=== PATIENT | male | born 1950 | race Caucasian/White ===

== ENCOUNTER → 2018-03-22 07:45 | Outpatient (CLI) | payer OTHER, SELFPAY ==
[2018-03-22 08:32] LABS: Add Manual Diff / Slide Review NO; Basophils Percent Auto 1.2 % (0-2); Eosinophils Percent Auto 4.5 % (2-4); Hemoglobin 13.3 g/dL (13.5-17.5); Lymphocytes Percent Auto 32.3 % (25-40); Mean Corpuscular Hemoglobin 31.2 PG (26-34); Mean Corpuscular Volume 89.2 fL (80-100); Monocytes Percent Auto 8.5 % (3-14); Neutrophils Absolute Auto 2400 /uL (3000-5900); Neutrophils Percent Auto 53.5 % (50-75); Platelet Count 213 X10^3/uL (150-400); Red Blood Cell Count 4.26 X10^6/uL (4.5-5.9); Red Cell Distribution Width 13.9 % (11.6-14.8); White Blood Cell Count 4.5 X10^3/uL (4.5-11.0)
[2018-03-22 08:49] LABS: Hemoglobin A1C% w Est Avg Glu 7.2 % (4.0-6.0)
[2018-03-22 09:29] LABS: Alanine Aminotransferase 49 IU/L (21-72); Albumin 4.8 g/dL (3.5-5.0); Albumin Globulin Ratio 1.5 (1.0-2.8); Alkaline Phosphatase 111 U/L (38-126); Aspartate Aminotransferase 51 IU/L (17-59); Bilirubin Total 0.7 mg/dL (0.2-1.3); Blood Urea Nitrogen 39 mg/dL (9-20); Calcium 10.1 mg/dL (8.4-10.2); Carbon Dioxide 31 mmol/L (22-32); Chloride 94 mmol/L (98-107); Cholesterol 222 mg/dL (140-199); Estimated Glomerular Filt Rate 54.7 mL/min (>60); Globulin 3.2 g/dL (1.7-4.1); Glucose 195 mg/dL (80-110); HDL Cholesterol 33 mg/dL (40-60); HEMOLYSIS < 15 (0-50); LDL Cholesterol Calculated 133 mg/dL (<100); Potassium 4.2 mmol/L (3.4-5.1); Sodium 138 mmol/L (137-145); Triglycerides 279 mg/dL (35-150)
[2018-03-22 09:57] LABS: Prostate Specific Antigen Scrn 2.06 ng/mL (0.1-4.0)
[2018-03-22 09:58] LABS: Thyroid Stimulating Hormone 2.77 uIU/mL (0.47-4.68)
[2018-03-22 16:16] LABS: Creatinine Urine Random 74.7 mg/dL
[2018-03-22 16:43] LABS: Microalbumi Creatinin Ratio Ur 333.3 ug/mg CR (<30); Microalbumin Urine Random 24.9 mg/dL (0-1.6)
== END ==
PROVIDERS: PCP Family Medicine; Visit Provider Family Medicine
DX: E11.9 Type 2 diabetes mellitus without complications (principal)
CPT/HCPCS: 36415; 80053; 80061; 82043; 82570; 83036; 84443; 85025; G0103

== ENCOUNTER → 2018-06-21 07:50 | Outpatient (CLI) | payer OTHER, SELFPAY ==
[2018-06-21 09:05] LABS: Hemoglobin A1C% w Est Avg Glu 7.5 % (4.0-6.0)
[2018-06-21 09:16] LABS: BUN Creatinine Ratio 26.4 (6-22); Blood Urea Nitrogen 29 mg/dL (9-20); Carbon Dioxide 30 mmol/L (22-32); Chloride 87 mmol/L (98-107); Estimated Glomerular Filt Rate > 60.0 mL/min (>60); Glucose 208 mg/dL (80-110); HEMOLYSIS < 15 (0-50); Potassium 4.2 mmol/L (3.4-5.1); Sodium 132 mmol/L (137-145)
== END ==
PROVIDERS: PCP Family Medicine; Visit Provider Family Medicine
DX: E11.9 Type 2 diabetes mellitus without complications (principal)
CPT/HCPCS: 36415; 80048; 83036

== ENCOUNTER → 2018-10-01 08:16 | Outpatient (CLI) | payer OTHER, SELFPAY ==
[2018-10-01 09:18] LABS: Hemoglobin A1C% w Est Avg Glu 8.4 % (4.0-6.0)
[2018-10-01 09:46] LABS: BUN Creatinine Ratio 18.6 (6-22); Blood Urea Nitrogen 26 mg/dL (9-20); Calcium 10.2 mg/dL (8.4-10.2); Carbon Dioxide 24 mmol/L (22-32); Chloride 88 mmol/L (98-107); Cholesterol 267 mg/dL (140-199); Estimated Glomerular Filt Rate 50.2 mL/min (>60); Glucose 246 mg/dL (80-110); HDL Cholesterol 47 mg/dL (40-60); HEMOLYSIS < 15 (0-50); LDL Cholesterol Calculated 177 mg/dL (<100); Potassium 4.5 mmol/L (3.4-5.1); Sodium 130 mmol/L (137-145); Triglycerides 216 mg/dL (35-150)
== END ==
PROVIDERS: PCP Family Medicine; Visit Provider Family Medicine
DX: E11.9 Type 2 diabetes mellitus without complications (principal)
CPT/HCPCS: 36415; 80048; 80061; 83036

== ENCOUNTER → 2018-12-06 07:24 | Outpatient (CLI) | payer OTHER, SELFPAY ==
[2018-12-06 08:55] LABS: BUN Creatinine Ratio 23.8 (6-22); Blood Urea Nitrogen 31 mg/dL (9-20); Calcium 10.1 mg/dL (8.4-10.2); Carbon Dioxide 26 mmol/L (22-32); Chloride 95 mmol/L (98-107); Estimated Glomerular Filt Rate 54.7 mL/min (>60); Glucose 143 mg/dL (80-110); HEMOLYSIS < 15 (0-50); Potassium 4.2 mmol/L (3.4-5.1); Sodium 136 mmol/L (137-145)
[2018-12-06 10:22] LABS: Creatinine Urine Random 118.9 mg/dL
[2018-12-06 11:10] LABS: Microalbumi Creatinin Ratio Ur 563.4 ug/mg CR (<30)
[2018-12-06 13:56] LABS: Hemoglobin A1C% w Est Avg Glu 6.5 % (4.0-6.0)
== END ==
PROVIDERS: PCP Family Medicine; Visit Provider Family Medicine
DX: E11.9 Type 2 diabetes mellitus without complications (principal)
CPT/HCPCS: 36415; 80048; 82043; 82570; 83036

== ENCOUNTER 2019-01-21 09:03 | Inpatient (IN) | payer OTHER, SELFPAY ==
[2019-01-21] VITALS (7 sets, daily range): BP systolic 129–151; BP diastolic 63–84; PULSE 60–76; RESP 16–20; TEMP 36.4–36.8; O2SAT 95–99; BMI 29.5
--- NOTE | 2019-01-21 11:30 | DI.RAD.S_ITS ---
PROCEDURE: XR FOOT RT MIN 3V INDICATIONS: great toe wound TECHNIQUE: 3 views of the foot were acquired. COMPARISON: None. FINDINGS: Bones: No fractures or dislocations. No suspicious bony lesions. Soft tissues: No tibiotalar joint effusion. Achilles tendon appears normal. IMPRESSION: No acute trauma or osteomyelitis found. Small vessel calcifications suggest long-standing diabetes. Dictated by: Benjamin Mina M.D. on 01/21/2019 at 11:57 Approved by: Benjamin Mina M.D. on 01/21/2019 at 11:59
--- NOTE | 2019-01-21 11:48 | PC.NURSE ---
Attempts x2 for IV start. Not successful. Call to DI for IV
--- NOTE | 2019-01-21 12:30 | ED_ITS ---
HPI - Skin/Abscess/Foreign Bdy <Brigid Cartagena, IN [employer] - Last Filed: 01/21/19 16:10> General Chief complaint: Skin/Abscess/Foreign Body Stated complaint: Infected toe Time Seen by Provider: 01/21/19 11:07 Source: patient and family Mode of arrival: ambulatory Limitations: no limitations History of Present Illness HPI narrative: The patient is a 68-year-old male with history of type 2 diabetes who presents with chief complaint of a wound to his toe. He states the initial injury was approximately 1 week ago, getting off a boat. He was evaluated in [place] yesterday given antibiotics. He was told that his toe was necrotic and might need to be amputated. The patient denies any systemic symptoms. He denies any fevers nausea vomiting or diarrhea. He states that he called his PCP office, who told him to come to the emergency department. The patient repeatedly states that he was supposed to have IV antibiotics at 10:00 a.m.. The patient requests a cheeseburger during my interview. I state that lab work will need to be completed to evaluate for elevated white blood cell counts, kidney function etc. The patient stated that he had lab work done in December. I stated that I could not find any lab work more recently had the an March in our system here. The patient stated ?this is bullshit. Records from [facility] in [place] were obtained and reviewed. Records illustrate concern for necrotic tissue, gas in soft tissue on x-ray, administration of 2 g IV ceftriaxone, 600 mg IV clindamycin, and discharging the patient with possibility of IM ceftriaxone and 600 mg p.o. clindamycin x3 doses chart review a straight the patient was offered orthopedic Special Care, as the provider was concerned about necrosis and possible amputation. However the patient declined that yesterday, elected to come back to the [place] without this offered care. Related Data Home Medications Medication Instructions Recorded Confirmed Allertec 1 tab PO PRN PRN 01/21/19 01/21/19 acetaminophen [Tylenol] 1 dose PO PRN PRN 01/21/19 01/21/19 amlodipine 10 mg PO DAILY 01/21/19 01/21/19 fluocinonide 1 applictn TOP BID PRN 01/21/19 01/21/19 glipizide 5 mg PO TID PRN 01/21/19 01/21/19 hydrocodone-acetaminophen [[place]] 1 tab PO BID PRN 01/21/19 01/21/19 multivitamin 1 tab PO DAILY 01/21/19 01/21/19 omeprazole 20 mg PO DAILY 01/21/19 01/21/19 triamterene-hydrochlorothiazid 0.5 tab PO DAILY PRN 01/21/19 01/21/19 Previous Rx's Medication Instructions Recorded losartan 50 mg PO BID #180 tab 08/16/18 gemfibrozil 600 mg tablet 600 mg PO BIDAC #270 tab 10/05/18 metformin 1,000 mg PO BID #180 tab 11/15/18 Allergies Allergy/AdvReac Type Severity Reaction Status Date / Time lisinopril [LISINOPRIL] AdvReac Unknown cough Verified 01/21/19 09:38 amlodipine AdvReac Verified 01/21/19 09:38 Review of Systems <OLIVIER Le - Last Filed: 01/21/19 16:10> Review of Systems GENERAL: Denies chills, fatigue, malaise, fever, sweats. HEENT: Denies sinus pain, ear pain, sore throat, difficulty swallowing, dizziness. RESPIRATORY: Denies dyspnea, cough, wheezing, hemoptysis, sputum. CARDIOVASCULAR: Denies chest pain, palpitations, orthopnea, edema, GASTROINTESTINAL: Denies nausea, vomiting, abdominal pain, diarrhea, consti pation, melena. : Denies dysuria, frequency, incontinence, hematuria, urinary retention. MUSCULOSKELETAL: See HPI SKIN: See HPI NEUROLOGIC: Denies weakness, headache, numbness, change in speech, confusion, seizures, incoordination. PSYCHIATRIC: No concerning psychosocial issues. 12 point review of systems is negative except for those stated above PFSH <OLIVIER Le - Last Filed: 01/21/19 16:10> Medical History Type 2 diabetes mellitus without complication (Chronic 09/22/16) Essential hypertension (Chronic 09/22/16) Mixed hyperlipidemia (Chronic 09/22/16) Peripheral vascular disease (Chronic ~1999) GERD (gastroesophageal reflux disease) (Chronic ~1989) Peripheral neuropathy (Chronic ~1994) Renal failure (Chronic 05/28/17) Carpal tunnel syndrome (Chronic ~1981) Chicken pox (Resolved) Fractures (Resolved ~2004) Measles (Resolved) Mumps (Resolved) Plantar warts (Resolved) Rubella (Resolved) Ruptured tympanic membrane (Resolved ~1977) Surgical History Anesthesia (Resolved) Status post urinary system surgery (Resolved ~1993) History of carpal tunnel repair (Inactive ~1980) Family History Mother Heart disease Hypertension Stroke Diabetes mellitus Father No problems noted. Social History household members: spouse Smoking Status: Never smoker alcohol intake: never Family History Mother Heart disease Hypertension Stroke Diabetes mellitus Father No problems noted. Social History household members: spouse Smoking Status: Never smoker alcohol intake: never Exam <OLIVIER Le - Last Filed: 01/21/19 16:10> Narrative Exam Narrative: GENERAL: This is a well-nourished, well-developed patient, no acute distress HEAD: Atraumatic. Normocephalic. No temporal or scalp tenderness. EYES: Pupils equal round and reactive. Extraocular motions intact. No scleral icterus. No injection or drainage. ENT: Nose without bleeding, purulent drainage or septal hematoma. Throat without erythema, tonsillar hypertrophy or exudate. Uvula midline. Airway patent. NECK: Trachea midline. No JVD or lymphadenopathy. Supple, nontender, no meningeal signs. CARDIOVASCULAR: Regular rate and rhythm without murmurs, gallops, or rubs. RESPIRATORY: Clear to auscultation. Breath sounds equal bilaterally. No wheezes, rales, or rhonchi. No cough. No increased respiratory effort. No accessory muscle use. GASTROINTESTINAL: Abdomen soft, non-tender, nondistended. No hepato- splenomegaly, or palpable masses. No guarding. EXTREMITIES: Right foot is warm, capillary refill intact toes 2 through 5 of right foot. Plantar service on great toe has capillary refill. Patient is able to flex and extend right great toe. No toenail noted. Black area noted 1.5 x 1 cm over the dorsal tip of the right great toe. Dry. Slight exudate noted. No spreading erythema. BACK: Nontender without deformity or crepitance. No flank tenderness. NEURO: AOx3. SKIN: See above. Initial Vital Signs Initial Vital Signs: Vital Signs Temperature 97.6 F 01/21/19 09:18 Pulse Rate 73 01/21/19 09:18 Respiratory Rate 20 01/21/19 09:18 Blood Pressure 136/63 01/21/19 09:18 Pulse Oximetry 98 01/21/19 09:18 <Brigid Mckeon DO - Last Filed: 01/21/19 19:19> Initial Vital Signs Initial Vital Signs: Vital Signs Temperature 97.6 F 01/21/19 09:18 Pulse Rate 73 01/21/19 09:18 Respiratory Rate 20 01/21/19 09:18 Blood Pressure 136/63 01/21/19 09:18 Pulse Oximetry 98 01/21/19 09:18 Course <GEMINI Le - Last Filed: 01/21/19 16:10> Orders Ordered: ED Orders 01/21/19 11:30 XR foot RT min 3V Stat 01/21/19 12:05 Wound Culture and Gram Stain Stat 01/21/19 12:29 Complete Blood Count AUTO DIFF Stat Comprehensive Metabolic Panel Stat Erythrocyte Sedimentation Rate Stat Lactate (Lactic Acid) Stat Procalcitonin Stat 01/21/19 12:52 Blood Culture Stat 01/21/19 15:26 Consult to Physician Routine Education, smoking cessation ONGOING Acetaminophen (Tylenol) 650 mg PO Q6HR PRN PRN Reason: As Needed for Fever/Mild Pain Hydrocodone Bitart/Acetaminophen ([place] 5/325) 1 tab PO Q4HR PRN PRN Reason: Pain, Moderate (4-6) Amlodipine Besylate (Norvasc) 10 mg PO DAILY [facility] Dextrose (D50w) 25 gm IV PRN PRN PRN Reason: Hypoglycemia Enoxaparin Sodium (Lovenox) 40 mg SUBCUT DAILY [facility] Gemfibrozil (Lopid) 600 mg PO BIDAC [facility] Last Admin: 01/21/19 16:27 Dose: 600 mg Glipizide (Glucotrol) 5 mg PO BIDAC [facility] Last Admin: 01/21/19 16:26 Dose: 5 mg Clindamycin Phosphate (Cleocin) 600 mg in 50 mls @ 50 mls/hr IV Q8H [facility] Ceftriaxone Sodium/Dextrose (Rocephin) 1 gm in 50 mls @ 100 mls/hr IV Q12H [facility] Last Infusion: 01/21/19 18:04 Dose: 0 mls/hr Admin: 01/21/19 17:34 Dose: 100 mls/hr Insulin Aspart (Novolog Flexpen) 0 unit SUBCUT ACHS [facility]; Protocol Last Admin: 01/21/19 16:29 Dose: Not Given Losartan Potassium (Cozaar) 50 mg PO BID [facility] Metformin HCl (Glucophage) 1,000 mg PO BIDWM [facility] Last Admin: 01/21/19 16:26 Dose: 1,000 mg Multivitamins (Tab-A-Brittnay) 1 tab PO DAILY [facility] Ondansetron HCl (Zofran) 4 mg IV Q8HR PRN PRN Reason: Nausea And Vomiting Pantoprazole Sodium (Protonix) 20 mg PO 0600 [facility] Triamterene/HCTZ (Maxide 37.5/25) 0.5 tab PO DAILY PRN PRN Reason: Edema Discontinued Medications Clindamycin Phosphate (Cleocin) 900 mg in 50 mls @ 50 mls/hr IV NOW ONE Stop: 01/21/19 14:29 Last Infusion: 01/21/19 14:25 Dose: 0 mls/hr Admin: 01/21/19 13:29 Dose: 50 mls/hr Vital Signs - 8 hr 01/21/19 12:24 01/21/19 14:49 01/21/19 14:51 Temperature Pulse Rate 63 76 60 Respiratory Rate 16 17 18 Blood Pressure 129/73 Blood Pressure [Left Arm] 151/82 H 129/73 Pulse Oximetry 98 95 96 01/21/19 16:00 Temperature 97.9 F Pulse Rate 68 Respiratory Rate 16 Blood Pressure 151/84 H Blood Pressure [Left Arm] Pulse Oximetry 98 <Brigid Mckeon, - Last Filed: 01/21/19 19:19> Orders Ordered: ED Orders 01/21/19 11:30 XR foot RT min 3V Stat 01/21/19 12:05 Wound Culture and Gram Stain Stat 01/21/19 12:29 Complete Blood Count AUTO DIFF Stat Comprehensive Metabolic Panel Stat Erythrocyte Sedimentation Rate Stat Lactate (Lactic Acid) Stat Procalcitonin Stat 01/21/19 12:52 Blood Culture Stat 01/21/19 15:26 Consult to Physician Routine Education, smoking cessation ONGOING Acetaminophen (Tylenol) 650 mg PO Q6HR PRN PRN Reason: As Needed for Fever/Mild Pain Hydrocodone Bitart/Acetaminophen ([place] 5/325) 1 tab PO Q4HR PRN PRN Reason: Pain, Moderate (4-6) Amlodipine Besylate (Norvasc) 10 mg PO DAILY [facility] Dextrose (D50w) 25 gm IV PRN PRN PRN Reason: Hypoglycemia Enoxaparin Sodium (Lovenox) 40 mg SUBCUT DAILY [facility] Gemfibrozil (Lopid) 600 mg PO BIDAC [facility] Last Admin: 01/21/19 16:27 Dose: 600 mg Glipizide (Glucotrol) 5 mg PO BIDAC [facility] Last Admin: 01/21/19 16:26 Dose: 5 mg Clindamycin Phosphate (Cleocin) 600 mg in 50 mls @ 50 mls/hr IV Q8H [facility] Ceftriaxone Sodium/Dextrose (Rocephin) 1 gm in 50 mls @ 100 mls/hr IV Q12H [facility] Last Infusion: 01/21/19 18:04 Dose: 0 mls/hr Admin: 01/21/19 17:34 Dose: 100 mls/hr Insulin Aspart (Novolog Flexpen) 0 unit SUBCUT ACHS [facility]; Protocol Last Admin: 01/21/19 16:29 Dose: Not Given Losartan Potassium (Cozaar) 50 mg PO BID [facility] Metformin HCl (Glucophage) 1,000 mg PO BIDWM [facility] Last Admin: 01/21/19 16:26 Dose: 1,000 mg Multivitamins (Tab-A-Brittany) 1 tab PO DAILY [facility] Ondansetron HCl (Zofran) 4 mg IV Q8HR PRN PRN Reason: Nausea And Vomiting Pantoprazole Sodium (Protonix) 20 mg PO 0600 [facility] Triamterene/HCTZ (Maxide 37.5/25) 0.5 tab PO DAILY PRN PRN Reason: Edema Discontinued Medications Clindamycin Phosphate (Cleocin) 900 mg in 50 mls @ 50 mls/hr IV NOW ONE Stop: 01/21/19 14:29 Last Infusion: 01/21/19 14:25 Dose: 0 mls/hr Admin: 01/21/19 13:29 Dose: 50 mls/hr Vital Signs - 8 hr 01/21/19 12:24 01/21/19 14:49 01/21/19 14:51 Temperature Pulse Rate 63 76 60 Respiratory Rate 16 17 18 Blood Pressure 129/73 Blood Pressure [Left Arm] 151/82 H 129/73 Pulse Oximetry 98 95 96 01/21/19 16:00 Temperature 97.9 F Pulse Rate 68 Respiratory Rate 16 Blood Pressure 151/84 H Blood Pressure [Left Arm] Pulse Oximetry 98 MDM - Skin/Abscess/Foreign Bdy <Brigid Cartagena, AGUSTÍN-BC - Last Filed: 01/21/19 16:10> Lab Data Result diagrams: 01/21/19 12:29 01/21/19 12:29 Lab Results 01/21/19 01/21/19 01/21/19 Range/Units 12:29 12:29 12:29 WBC 6.8 (4.5-11.0) X10^3/uL RBC 4.07 L (4.5-5.9) X10^6/uL Hgb 12.6 L (13.5-17.5) g/dL Hct 35.6 L (41-53) % MCV 87.3 (80-100) fL MCH 30.9 (26-34) PG MCHC 35.4 (30-36) % RDW 13.0 (11.6-14.8) % Plt Count 305 (150-400) X10^3/uL Neut % (Auto) 66.5 (50-75) % Lymph % (Auto) 23.6 L (25-40) % [place] % (Auto) 7.6 (3-14) % Eos % (Auto) 1.6 L (2-4) % Baso % (Auto) 0.7 (0-2) % Neut # (Auto) 4500 (3355-1796) /uL Lymph # (Auto) 1600 (6904-2401) /uL [place] # (Auto) 500 (0-900) /uL Eos # (Auto) 100 (0-450) /uL Baso # (Auto) 0 (0-100) /uL ESR 81 H (0-15) MM/HR Sodium 128 L (137-145) mmol/L Potassium 4.4 (3.4-5.1) mmol/L Chloride 87 L (98-107) mmol/L Carbon Dioxide 29 (22-32) mmol/L BUN 31 H (9-20) mg/dL Creatinine 1.30 H (0.66-1.25) mg/dL Estimated GFR 54.7 L (>60) mL/min BUN/Creatinine Ratio 23.8 H (6-22) Glucose 178 H (80-110) mg/dL Lactate (0.7-2.1) mmol/L Calcium 9.9 (8.4-10.2) mg/dL Total Bilirubin 0.5 (0.2-1.3) mg/dL AST 32 (17-59) IU/L ALT 27 (21-72) IU/L Alkaline Phosphatase 131 H (38-126) U/L Total Protein 7.9 (6.3-8.2) g/dL Albumin 4.4 (3.5-5.0) g/dL Globulin 3.5 (1.7-4.1) g/dL Albumin/Globulin Ratio 1.3 (1.0-2.8) Procalcitonin 0.15 (<0.5) ng/mL 01/21/19 Range/Units 12:29 WBC (4.5-11.0) X10^3/uL RBC (4.5-5.9) X10^6/uL Hgb (13.5-17.5) g/dL Hct (41-53) % MCV (80-100) fL MCH (26-34) PG MCHC (30-36) % RDW (11.6-14.8) % Plt Count (150-400) X10^3/uL Neut % (Auto) (50-75) % Lymph % (Auto) (25-40) % [place] % (Auto) (3-14) % Eos % (Auto) (2-4) % Baso % (Auto) (0-2) % Neut # (Auto) (6835-4592) /uL Lymph # (Auto) (3719-5702) /uL [place] # (Auto) (0-900) /uL Eos # (Auto) (0-450) /uL Baso # (Auto) (0-100) /uL ESR (0-15) MM/HR Sodium (137-145) mmol/L Potassium (3.4-5.1) mmol/L Chloride (98-107) mmol/L Carbon Dioxide (22-32) mmol/L BUN (9-20) mg/dL Creatinine (0.66-1.25) mg/dL Estimated GFR (>60) mL/min BUN/Creatinine Ratio (6-22) Glucose (80-110) mg/dL Lactate 1.6 (0.7-2.1) mmol/L Calcium (8.4-10.2) mg/dL Total Bilirubin (0.2-1.3) mg/dL AST (17-59) IU/L ALT (21-72) IU/L Alkaline Phosphatase (38-126) U/L Total Protein (6.3-8.2) g/dL Albumin (3.5-5.0) g/dL Globulin (1.7-4.1) g/dL Albumin/Globulin Ratio (1.0-2.8) Procalcitonin (<0.5) ng/mL Point of Care Testing Glucose POC 178 Imaging Data Foot x-ray: Radiologist's impression: [address] [address] XRay Report Signed Patient: Conor Kilgore [facility]#: [id number] : 9Acct:[id number] Age/Sex: 68 / MDate of Service: 01/21/19 Loc: ED Accession Number: [id number] Procedure: XR foot RT min 3V Ordering Provider: Brigid Cartagena- PROCEDURE: XR FOOT RT MIN 3V INDICATIONS: great toe wound TECHNIQUE: 3 views of the foot were acquired. COMPARISON: None. FINDINGS: Bones: No fractures or dislocations. No suspicious bony lesions. Soft tissues: No tibiotalar joint effusion. Achilles tendon appears normal. IMPRESSION: No acute trauma or osteomyelitis found. Small vessel calcifications suggest long-standing diabetes. Dictated by: Benjamin Mina M.D. on 01/21/2019 at 11:57 Approved by: Benjamin Mina M.D. on 01/21/2019 at 11:59 MDM Narrative Medical decision making narrative: The patient is a 68-year-old male with history of diabetes who presents with a wound on his right great toe. His toe appears to have eschar and necrosis. Given the patient's presentation, I obtained a CBC, lactate procalcitonin, CMP and blood cultures. His lactate and procalcitonin came back normal. His ESR came back elevated. Think given the nature of the patient, I consulted Dr. chen from Orthopedics at approximately 1:30 p.m.. The doctor gustavo came by to evaluate the patient, requested he be admitted to Medicine for IV antibiotics. I continued the clindamycin that was ordered in [place]. I contacted Dr. Bernard, who is kind enough to admit the patient to inpatient service for IV antibiotics with Dr. chen following the patient. Patient stated no questions or concerns and stated understanding of his admission. He was hemodynamically stable and afebrile throughout his stay in the ER. <Brigid Mckeon, DO - Last Filed: 01/21/19 19:19> Lab Data Attestation: I reviewed the patient's lab results. Lab Results 01/21/19 01/21/19 01/21/19 Range/Units 12:29 12:29 12:29 WBC 6.8 (4.5-11.0) X10^3/uL RBC 4.07 L (4.5-5.9) X10^6/uL Hgb 12.6 L (13.5-17.5) g/dL Hct 35.6 L (41-53) % MCV 87.3 (80-100) fL MCH 30.9 (26-34) PG MCHC 35.4 (30-36) % RDW 13.0 (11.6-14.8) % Plt Count 305 (150-400) X10^3/uL Neut % (Auto) 66.5 (50-75) % Lymph % (Auto) 23.6 L (25-40) % [place] % (Auto) 7.6 (3-14) % Eos % (Auto) 1.6 L (2-4) % Baso % (Auto) 0.7 (0-2) % Neut # (Auto) 4500 (2002-4276) /uL Lymph # (Auto) 1600 (5983-5854) /uL [place] # (Auto) 500 (0-900) /uL Eos # (Auto) 100 (0-450) /uL Baso # (Auto) 0 (0-100) /uL ESR 81 H (0-15) MM/HR Sodium 128 L (137-145) mmol/L Potassium 4.4 (3.4-5.1) mmol/L Chloride 87 L (98-107) mmol/L Carbon Dioxide 29 (22-32) mmol/L BUN 31 H (9-20) mg/dL Creatinine 1.30 H (0.66-1.25) mg/dL Estimated GFR 54.7 L (>60) mL/min BUN/Creatinine Ratio 23.8 H (6-22) Glucose 178 H (80-110) mg/dL Lactate (0.7-2.1) mmol/L Calcium 9.9 (8.4-10.2) mg/dL Total Bilirubin 0.5 (0.2-1.3) mg/dL AST 32 (17-59) IU/L ALT 27 (21-72) IU/L Alkaline Phosphatase 131 H (38-126) U/L Total Protein 7.9 (6.3-8.2) g/dL Albumin 4.4 (3.5-5.0) g/dL Globulin 3.5 (1.7-4.1) g/dL Albumin/Globulin Ratio 1.3 (1.0-2.8) Procalcitonin 0.15 (<0.5) ng/mL 01/21/19 Range/Units 12:29 WBC (4.5-11.0) X10^3/uL RBC (4.5-5.9) X10^6/uL Hgb (13.5-17.5) g/dL Hct (41-53) % MCV (80-100) fL MCH (26-34) PG MCHC (30-36) % RDW (11.6-14.8) % Plt Count (150-400) X10^3/uL Neut % (Auto) (50-75) % Lymph % (Auto) (25-40) % [place] % (Auto) (3-14) % Eos % (Auto) (2-4) % Baso % (Auto) (0-2) % Neut # (Auto) (7266-3913) /uL Lymph # (Auto) (8412-8533) /uL [place] # (Auto) (0-900) /uL Eos # (Auto) (0-450) /uL Baso # (Auto) (0-100) /uL ESR (0-15) MM/HR Sodium (137-145) mmol/L Potassium (3.4-5.1) mmol/L Chloride (98-107) mmol/L Carbon Dioxide (22-32) mmol/L BUN (9-20) mg/dL Creatinine (0.66-1.25) mg/dL Estimated GFR (>60) mL/min BUN/Creatinine Ratio (6-22) Glucose (80-110) mg/dL Lactate 1.6 (0.7-2.1) mmol/L Calcium (8.4-10.2) mg/dL Total Bilirubin (0.2-1.3) mg/dL AST (17-59) IU/L ALT (21-72) IU/L Alkaline Phosphatase (38-126) U/L Total Protein (6.3-8.2) g/dL Albumin (3.5-5.0) g/dL Globulin (1.7-4.1) g/dL Albumin/Globulin Ratio (1.0-2.8) Procalcitonin (<0.5) ng/mL Point of Care Testing Glucose POC 178 Discharge Plan Departure Patient Disposition: Admitted As Inpatient Clinical Impression: Diabetic toe ulcer Qualifiers: Diabetes mellitus type: type 2 Laterality: right Non-pressure ulcer stage: with necrosis of muscle Qualified Code(s): E11.621 - Type 2 diabetes mellitus with foot ulcer Discharge Date/Time: 01/21/19 14:52 Interventions: ED Discharge Assessment Last Done: 01/21/19 14:51 Admit Date/Time: 01/21/19 14:24 Admit Provider: David Bernard <Brigid Mckeon DO - Last Filed: 01/21/19 19:19> Cosign ED Attending Cosignature Attestation: I was immediately available in the department for consultation, case was discussed. Patient was evaluated by myself. Case was also also discussed to Dr. Arshad he defers antibiotic choices to Medicine. This documentation has been reviewed and I agree with assessment and plan. Supervised by Brigid Mckeon DO
[2019-01-21 12:45] LABS: Add Manual Diff / Slide Review NO; Basophils Absolute Auto 0 /uL (0-100); Basophils Percent Auto 0.7 % (0-2); Eosinophils Absolute Auto 100 /uL (0-450); Eosinophils Percent Auto 1.6 % (2-4); Hematocrit 35.6 % (41-53); Hemoglobin 12.6 g/dL (13.5-17.5); Lymphocytes Absolute Auto 1600 /uL (1100-4500); Lymphocytes Percent Auto 23.6 % (25-40); Mean Corpuscular HGB Conc 35.4 % (30-36); Mean Corpuscular Hemoglobin 30.9 PG (26-34); Mean Corpuscular Volume 87.3 fL (80-100); Monocytes Absolute Auto 500 /uL (0-900); Monocytes Percent Auto 7.6 % (3-14); Neutrophils Absolute Auto 4500 /uL (1500-7000); Neutrophils Percent Auto 66.5 % (50-75); Platelet Count 305 X10^3/uL (150-400); Red Blood Cell Count 4.07 X10^6/uL (4.5-5.9); White Blood Cell Count 6.8 X10^3/uL (4.5-11.0)
[2019-01-21 12:54] LABS: Lactate (Lactic Acid) 1.6 mmol/L (0.7-2.1)
[2019-01-21 12:55] LABS: Alanine Aminotransferase 27 IU/L (21-72); Albumin 4.4 g/dL (3.5-5.0); Albumin Globulin Ratio 1.3 (1.0-2.8); Alkaline Phosphatase 131 U/L (38-126); Aspartate Aminotransferase 32 IU/L (17-59); BUN Creatinine Ratio 23.8 (6-22); Bilirubin Total 0.5 mg/dL (0.2-1.3); Blood Urea Nitrogen 31 mg/dL (9-20); Calcium 9.9 mg/dL (8.4-10.2); Carbon Dioxide 29 mmol/L (22-32); Chloride 87 mmol/L (98-107); Estimated Glomerular Filt Rate 54.7 mL/min (>60); Globulin 3.5 g/dL (1.7-4.1); Glucose 178 mg/dL (80-110); HEMOLYSIS < 15 (0-50); Potassium 4.4 mmol/L (3.4-5.1); Sodium 128 mmol/L (137-145); Total Protein 7.9 g/dL (6.3-8.2)
[2019-01-21 13:03] LABS: Erythrocyte Sedimentation Rate 81 MM/HR (0-15)
[2019-01-21 13:12] LABS: Procalcitonin 0.15 ng/mL (<0.5)
[2019-01-21] MEDS: CLINDAMYCIN 900 MG/50 ML PIGGYBACK 50 MG IV (13:29)
--- NOTE | 2019-01-21 14:08 | PM.CN ---
History of Present Illness Date Patient Seen: 01/21/19 Time Patient Seen: 14:09 Chief complaint: Infected toe Reason for consult: Right great toe infection Requesting provider: Brigid Cartagena Narrative: 68-year-old male with a right great toe infection. He has a history of [id number] diabetes. He was getting off of boat and scraped his toe 1 week ago. He reports that it was swollen and red and had some yellowish drainage all week. Yesterday the toenail fell off. They were in [place] and he went into an emergency room in [place] yesterday where there was a concern for gangrene and need for amputation. They put him on a dose of IV antibiotics and the patient and family drove home to get local care. He denies any fever or chills. He denies any pain from this area. He does have some slight decreased sensation from peripheral neuropathy but enough that he feels pain normally, and is surprised that it is not painful at all. [facility] Medical History Carpal tunnel syndrome (Chronic ~1981) Diabetes mellitus (Chronic ~2008) Fractures (Chronic ~2004) GERD (gastroesophageal reflux disease) (Chronic ~1989) Hypertension (Chronic ~2005) Low testosterone (Chronic ~1999) Peripheral neuropathy (Chronic ~1994) Peripheral vascular disease (Chronic ~1999) Chicken pox (Resolved) Measles (Resolved) Mumps (Resolved) Plantar warts (Resolved) Rubella (Resolved) Ruptured tympanic membrane (Resolved ~1977) Surgical History Anesthesia (Resolved) Status post urinary system surgery (Resolved ~1993) History of carpal tunnel repair (~1980) Family History (Updated 03/24/18 @ 09:00 by Clarisa Wilkerson) Mother Heart disease Hypertension Stroke Diabetes mellitus Father No problems noted. Social History Smoking Status: Never smoker Family History Mother Heart disease Hypertension Stroke Diabetes mellitus Father No problems noted. 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 [facility] Medications Medication Instructions Recorded Confirmed Type losartan 50 mg PO BID #180 tab 08/16/18 01/21/19 Rx gemfibrozil 600 mg tablet 600 mg PO BIDAC #270 tab 10/05/18 01/21/19 Rx metformin 1,000 mg PO BID #180 tab 11/15/18 01/21/19 Rx Allertec 1 tab PO PRN PRN 01/21/19 01/21/19 History acetaminophen [Tylenol] 1 dose PO PRN PRN 01/21/19 01/21/19 History amlodipine 10 mg PO DAILY 01/21/19 01/21/19 History fluocinonide 1 applictn TOP BID PRN 01/21/19 01/21/19 History glipizide 5 mg PO TID PRN 01/21/19 01/21/19 History hydrocodone-acetaminophen [[place]] 1 tab PO BID PRN 01/21/19 01/21/19 History multivitamin 1 tab PO DAILY 01/21/19 01/21/19 History omeprazole 20 mg PO DAILY 01/21/19 01/21/19 History triamterene-hydrochlorothiazid 0.5 tab PO DAILY PRN 01/21/19 01/21/19 History Allergies Allergy/AdvReac Type Severity Reaction Status Date / Time lisinopril [LISINOPRIL] AdvReac Unknown cough Verified 01/21/19 09:38 amlodipine AdvReac Verified 01/21/19 09:38 Review of Systems Constitutional Constitutional: Denies chills and Denies fever(s) Cardiovascular Cardiovascular: Denies chest pain Respiratory Respiratory: Denies cough and Denies wheezing Gastrointestinal Gastrointestinal: Denies abdominal pain Hematologic/Lymphatic Hematologic/Lymphatic: Denies easy bleeding Allergic/Immunologic Allergic/Immunologic: Denies wheezing Exam Vital Signs (past 8 hours): - 01/21/19 09:18 01/21/19 12:24 Temperature 97.6 F Pulse Rate 73 63 Respiratory Rate 20 16 Blood Pressure 136/63 Blood Pressure [Left Arm] 151/82 H Pulse Oximetry 98 98 Oxygen Delivery Method Room Air Const Orientation: alert and oriented x3 Resp Auscultation: clear to auscultation bilaterally Cardio Rate: regular rate Rhythm: regular rhythm Extrem Other: Right foot has a nonpalpable pulse but excellent capillary refill in all the toes including the plantar surface of the great toe. He can easily wiggle his great toe up and down without any pain. The toenail has come off and there is some erythema and slight yellowish clear drainage. 8 x 15 mm black and skin over the lateral half of the dorsal tip of the toe. Consistent with dry gangrene. Nonfluctuant tissue in the toe. Decreased but intact sensation throughout the toe. No erythema spreading proximal to the IP joint or into the foot or leg. Objective Imaging Right great toe xray: My impression: No evidence of osteomyelitis. No free gas bubbles, but does have soft tissue swelling Labs Result Diagrams: 01/21/19 12:29 01/21/19 12:29 Labs: Laboratory Results - last 24 hr 01/21/19 01/21/19 01/21/19 12:29 12:29 12:29 WBC 6.8 RBC 4.07 L Hgb 12.6 L Hct 35.6 L MCV 87.3 MCH 30.9 MCHC 35.4 RDW 13.0 Plt Count 305 Neut % (Auto) 66.5 Lymph % (Auto) 23.6 L [place] % (Auto) 7.6 Eos % (Auto) 1.6 L Baso % (Auto) 0.7 Neut # (Auto) 4500 Lymph # (Auto) 1600 [place] # (Auto) 500 Eos # (Auto) 100 Baso # (Auto) 0 ESR 81 H Sodium 128 L Potassium 4.4 Chloride 87 L Carbon Dioxide 29 BUN 31 H Creatinine 1.30 H Estimated GFR 54.7 L BUN/Creatinine Ratio 23.8 H Glucose 178 H Lactate Calcium 9.9 Total Bilirubin 0.5 AST 32 ALT 27 Alkaline Phosphatase 131 H Total Protein 7.9 Albumin 4.4 Globulin 3.5 Albumin/Globulin Ratio 1.3 Procalcitonin 0.15 01/21/19 12:29 WBC RBC Hgb Hct MCV MCH MCHC RDW Plt Count Neut % (Auto) Lymph % (Auto) [place] % (Auto) Eos % (Auto) Baso % (Auto) Neut # (Auto) Lymph # (Auto) [place] # (Auto) Eos # (Auto) Baso # (Auto) ESR Sodium Potassium Chloride Carbon Dioxide BUN Creatinine Estimated GFR BUN/Creatinine Ratio Glucose Lactate 1.6 Calcium Total Bilirubin AST ALT Alkaline Phosphatase Total Protein Albumin Globulin Albumin/Globulin Ratio Procalcitonin Assessment & Plan Assessment & Plan narrative: Right great toe infection -this does not seem very severe. My recommendation is admission for IV antibiotics per the medicine service. I think this is something that should clear up over the next several days. He may need some surgical debridement of the very tip of the toe, but I think it is highly unlikely that he would actually need an amputation. I would not consider any surgical intervention without a few more days of antibiotics first to see how much clears up. I will continue to follow him as a inpatient consultation.
--- NOTE | 2019-01-21 15:29 | P.HP_ITS ---
History of Present Illness Date Patient Seen: 01/21/19 Time Patient Seen: 15:23 Chief complaint: Infected toe Narrative: 68-year-old type 2 diabetic with a toe infection Apparently injured the toe several days ago getting off a boat while in [place]. Was initially seen after the toenail fell off and toe became red and obvious infection said in in an emergency room in [place]. They gave him some antibiotic therapy offered him admission elected to return to [place]. He presented to the emergency department here. Evaluation in the emergency department shows normal white blood cell count but sed rate of 81 and a normal procalcitonin Patient seen in consultation by Orthopedic surgery who recommends IV antibiotics and doubts any surgical intervention other than perhaps some limited debridement will be necessary Patient has not had any issues with his feet prior to this Patient History Medical History Type 2 diabetes mellitus without complication (Chronic 09/22/16) Essential hypertension (Chronic 09/22/16) Mixed hyperlipidemia (Chronic 09/22/16) Peripheral vascular disease (Chronic ~1999) GERD (gastroesophageal reflux disease) (Chronic ~1989) Peripheral neuropathy (Chronic ~1994) Renal failure (Chronic 05/28/17) Carpal tunnel syndrome (Chronic ~1981) Chicken pox (Resolved) Fractures (Resolved ~2004) Measles (Resolved) Mumps (Resolved) Plantar warts (Resolved) Rubella (Resolved) Ruptured tympanic membrane (Resolved ~1977) Surgical History Anesthesia (Resolved) Status post urinary system surgery (Resolved ~1993) History of carpal tunnel repair (Inactive ~1980) Family History Mother Heart disease Hypertension Stroke Diabetes mellitus Father No problems noted. Social History household members: spouse Smoking Status: Never smoker alcohol intake: never Family & Social History Family History Mother Heart disease Hypertension Stroke Diabetes mellitus Father No problems noted. Safety & Behavioral: Feels Safe in Current Yes Environment Been Physically Hurt or No Threatened By a Person Tobacco & Substance use: Smoking Status Never smoker Substance Use Type does not use Meds Home Medications Medication Instructions Recorded Confirmed Type losartan 50 mg PO BID #180 tab 08/16/18 01/21/19 Rx gemfibrozil 600 mg tablet 600 mg PO BIDAC #270 tab 10/05/18 01/21/19 Rx metformin 1,000 mg PO BID #180 tab 11/15/18 01/21/19 Rx Allertec 1 tab PO PRN PRN 01/21/19 01/21/19 History acetaminophen [Tylenol] 1 dose PO PRN PRN 01/21/19 01/21/19 History amlodipine 10 mg PO DAILY 01/21/19 01/21/19 History fluocinonide 1 applictn TOP BID PRN 01/21/19 01/21/19 History glipizide 5 mg PO TID PRN 01/21/19 01/21/19 History hydrocodone-acetaminophen [[place]] 1 tab PO BID PRN 01/21/19 01/21/19 History multivitamin 1 tab PO DAILY 01/21/19 01/21/19 History omeprazole 20 mg PO DAILY 01/21/19 01/21/19 History triamterene-hydrochlorothiazid 0.5 tab PO DAILY PRN 01/21/19 01/21/19 History Allergies Allergy/AdvReac Type Severity Reaction Status Date / Time lisinopril [LISINOPRIL] AdvReac Unknown cough Verified 01/21/19 09:38 amlodipine AdvReac Verified 01/21/19 09:38 Review of Systems Constitutional Constitutional: Denies fever(s), Denies headache(s), Denies malaise and Denies weakness Eyes Eyes: Denies double vision, Denies irritation, Denies loss of vision and Denies other visual disturbances ENT Ears, Nose, Mouth, and Throat: No headache(s) Cardiovascular Cardiovascular: Denies irregular heart rhythm, Denies radiating jaw, neck or arm pain, Denies rapid, pounding, or irregular heartbeat, Denies shortness of breath and Denies shortness of breath with activity Respiratory Respiratory: Denies dyspnea, Denies dyspnea on exertion and Denies wheezing Gastrointestinal Gastrointestinal: Denies change in bowel habits and Denies nausea Genitourinary Genitourinary: Denies urinary urgency Musculoskeletal Musculoskeletal: Denies myalgias, Denies joint swelling, Denies numbness and Denies tingling Integumentary/Breasts Skin/Breast: Denies lesions, Denies new lesions, Denies rash and Denies sores Neurologic Neurologic: Denies headache(s), Denies loss of vision, Denies memory loss, Denies numbness, Denies tingling and Denies weakness Psychiatric Psychiatric: Denies memory loss Endocrine Endocrine: Denies palpitations Hematologic/Lymphatic Hematologic/Lymphatic: Denies lymphadenopathy Allergic/Immunologic Allergic/Immunologic: Denies wheezing Exam Vital Signs (past 8 hours): - 01/21/19 09:18 01/21/19 12:24 01/21/19 14:49 Temperature 97.6 F Pulse Rate 73 63 76 Respiratory Rate 20 16 17 Blood Pressure 136/63 Blood Pressure [Left Arm] 151/82 H 129/73 Pulse Oximetry 98 98 95 01/21/19 14:51 Temperature Pulse Rate 60 Respiratory Rate 18 Blood Pressure 129/73 Blood Pressure [Left Arm] Pulse Oximetry 96 Oxygen Delivery Method Room Air Const General: cooperative, healthy appearing, comfortable, well developed and well groomed Nutritional Appearance: well nourished Orientation: alert, awake and oriented x3 HENMT Head: normocephalic, atraumatic, No cyanosis of lips/distal nose, No raccoon eyes and No periorbital ecchymosis Ears: hearing grossly normal bilaterally and external ears normal Nose: external nose normal and nares normal Face and sinus: normal facial exam and face symmetric Mouth: oral mucosae normal, lip normal and tongue normal Eyes Alignment and Position: alignment normal Periorbital: periorbital findings normal Eyelids: eyelids normal Conjunctivae: conjunctivae normal Sclera: sclerae normal Cornea: corneas normal Pupils: PERRL EOM: EOM intact bilaterally Neck Neck: normal visual inspection, full ROM, trachea midline and No anterior neck swelling Thyroid: not diffusely enlarged Carotids: normal carotid upstroke Lymphatic: No lymphadenopathy Chest Chest: normal inspection of the chest, No crepitus and No tenderness Breast inspection: normal inspection of the breasts Resp Effort & Inspection: normal respiratory effort, able to speak in complete sentences, no audible wheezes, no cough, no retractions and not tachypneic Auscultation: clear to auscultation bilaterally, no rales, no rhonchi, no wheezes and no rubs Percussion: percussion normal Tactile Fremitus: tactile fremitus absent Cardio Palpation: normal PMI Rate: regular rate Rhythm: regular rhythm Heart Sounds: S1 normal, S2 normal and normal, physiologic split S2 Bruits: no carotid bruits Pulses: brachial pulses present and radial pulses present GI Inspection: normal to inspection Palpation: soft and no hepatosplenomegaly Percussion: normal to percussion Auscultation: normal bowel sounds Back/Spine/Pelvis Back: No CVA tenderness Cervical Spine: normal cervical lordosis Thoracic/Lumbar Spine: thoracic and lumbar spine normal to inspection Skin General: No excoriations, No induration, No jaundice, No mottling and No petechiae Lesions: no lesions (no worrisome/abl lesions) Rashes: no rashes Trauma: no lacerations or abrasions Hair: normal Neuro General: alert, awake, oriented x3, tone normal and normal light touch, pain and propioception Cranial Nerves: CN's II-XI intact bilaterally Cognition: normal cognition Speech: speech normal Motor: muscle tone normal throughout Sensory Exam: lower extremity (Minimally diminished light touch sensation bilateral feet at the toe to mid) DTR's: Rt Biceps: 2+, Lt Biceps: 2+, Rt Brachioradialis: 2+, Lt Brachioradialis: 2+, Rt Patellar: 2+ and Lt Patellar: 2+ Extrem General: capillary refill normal, no clubbing, cyanosis or edema and No calf tenderness Right upper extremity: normal to inspection Left upper extremity: normal to inspection Right lower extremity: normal capillary refill (But no dorsalis pedis or posterior tibial pulses palpable) Left lower extremity: normal to inspection Other: Right great toe with distal erythema and obvious necrosis no evidence of fluctuance nail missing Psych Appearance: grossly normal Mental Status: mental status grossly normal Speech and Movement: speech and movement normal and speech clear Mood: congruent mood Affect: normal affect Attitude: cooperative Thought Process: normal Thought Content: normal Judgment: judgment good Objective Labs Result Diagrams: 01/21/19 12:29 01/21/19 12:29 Labs: Laboratory Results - last 24 hr 01/21/19 01/21/19 01/21/19 12:29 12:29 12:29 WBC 6.8 RBC 4.07 L Hgb 12.6 L Hct 35.6 L MCV 87.3 MCH 30.9 MCHC 35.4 RDW 13.0 Plt Count 305 Neut % (Auto) 66.5 Lymph % (Auto) 23.6 L [place] % (Auto) 7.6 Eos % (Auto) 1.6 L Baso % (Auto) 0.7 Neut # (Auto) 4500 Lymph # (Auto) 1600 [place] # (Auto) 500 Eos # (Auto) 100 Baso # (Auto) 0 ESR 81 H Sodium 128 L Potassium 4.4 Chloride 87 L Carbon Dioxide 29 BUN 31 H Creatinine 1.30 H Estimated GFR 54.7 L BUN/Creatinine Ratio 23.8 H Glucose 178 H Lactate Calcium 9.9 Total Bilirubin 0.5 AST 32 ALT 27 Alkaline Phosphatase 131 H Total Protein 7.9 Albumin 4.4 Globulin 3.5 Albumin/Globulin Ratio 1.3 Procalcitonin 0.15 01/21/19 12:29 WBC RBC Hgb Hct MCV MCH MCHC RDW Plt Count Neut % (Auto) Lymph % (Auto) [place] % (Auto) Eos % (Auto) Baso % (Auto) Neut # (Auto) Lymph # (Auto) [place] # (Auto) Eos # (Auto) Baso # (Auto) ESR Sodium Potassium Chloride Carbon Dioxide BUN Creatinine Estimated GFR BUN/Creatinine Ratio Glucose Lactate 1.6 Calcium Total Bilirubin AST ALT Alkaline Phosphatase Total Protein Albumin Globulin Albumin/Globulin Ratio Procalcitonin Assessment & Plan Assessment & Plan narrative: 1. Toe infection-I agree based on evaluation and examination that this should likely improve with IV antibiotics. Will continue clindamycin that was started elsewhere seems like a good choice for this particular infection without specific organism. Will also add IV ceftriaxone until clinical course is more clear. Many diabetic extremity infection such as this are polymicrobial and seemed to do better with multiple antibiotics. Appreciate input from Orthopedic surgery and their ongoing assistance in managing this. Seems unlikely to me that any surgical intervention will be necessary 2. Diabetes-continue patient's usual meds. Monitor her numbers of course. Continue diabetic diet and use short-acting insulin for coverage as necessary 3. Hypertension/hyperlipidemia-continue usual meds 4. Peripheral vascular disease-patient with absent pulses in the foot but with good capillary refill as suggested by Ortho as well. I think it will heal this without particular intervention regarding his arterial disease. 5. VTE prophylaxis-Lovenox will be employed given low likelihood of surgical intervention Patient deserves inpatient hospitalization given the serious nature of his infection the failure to improve after outpatient treatment etc. He will likely be in the hospital greater than 48 hours including 2 separate midnights
[2019-01-21] MEDS: glipiZIDE 5 MG TABLET PO (16:26)
[2019-01-21] MEDS: METFORMIN HCL 500 MG TABLET 1000 MG PO (16:26)
[2019-01-21] MEDS: GEMFIBROZIL 600 MG TABLET PO (16:27)
[2019-01-21] MEDS: CEFTRIAXONE 1 GM/50 ML FROZ.PIGGY IV (17:34)
[2019-01-21] MEDS: LOSARTAN 50 MG TABLET PO (21:40)
[2019-01-21] MEDS: CLINDAMYCIN 600 MG/50 ML PIGGYBACK 50 MG IV (21:40)
[2019-01-22] VITALS (10 sets, daily range): BP systolic 126–152; BP diastolic 60–85; PULSE 56–72; RESP 15–16; TEMP 36.1–36.9; O2SAT 96–100
[2019-01-22] MEDS: CEFTRIAXONE 1 GM/50 ML FROZ.PIGGY IV ×2 (04:01→18:21)
[2019-01-22] MEDS: CLINDAMYCIN 600 MG/50 ML PIGGYBACK 50 MG IV ×3 (05:43→22:23)
[2019-01-22] MEDS: PANTOPRAZOLE 20 MG TABLET PO (05:44)
--- NOTE | 2019-01-22 07:31 | PM.PN.1 ---
Subjective Date Patient Seen: 01/22/19 Time Patient Seen: 07:31 Interval history: He is feeling better today. Exam Vital Signs (past 8 hours): - 01/22/19 04:00 Temperature 97.1 F L Pulse Rate 64 Respiratory Rate 16 Blood Pressure 134/85 Pulse Oximetry 97 Oxygen Delivery Method Room Air Const Orientation: alert and oriented x3 Extrem Other: Right great toe -black dry gangrene on the tip. Minimal drainage on the dressing. Decreased swelling and erythema through the nailbed and remainder of the toe. Good cap refill everywhere except for the tip. Objective Labs Result Diagrams: 01/21/19 12:29 01/21/19 12:29 Labs: Laboratory Results - last 24 hr 01/21/19 01/21/19 01/21/19 12:29 12:29 12:29 WBC 6.8 RBC 4.07 L Hgb 12.6 L Hct 35.6 L MCV 87.3 MCH 30.9 MCHC 35.4 RDW 13.0 Plt Count 305 Neut % (Auto) 66.5 Lymph % (Auto) 23.6 L [place] % (Auto) 7.6 Eos % (Auto) 1.6 L Baso % (Auto) 0.7 Neut # (Auto) 4500 Lymph # (Auto) 1600 [place] # (Auto) 500 Eos # (Auto) 100 Baso # (Auto) 0 ESR 81 H Sodium 128 L Potassium 4.4 Chloride 87 L Carbon Dioxide 29 BUN 31 H Creatinine 1.30 H Estimated GFR 54.7 L BUN/Creatinine Ratio 23.8 H Glucose 178 H Lactate Calcium 9.9 Total Bilirubin 0.5 AST 32 ALT 27 Alkaline Phosphatase 131 H Total Protein 7.9 Albumin 4.4 Globulin 3.5 Albumin/Globulin Ratio 1.3 Procalcitonin 0.15 01/21/19 12:29 WBC RBC Hgb Hct MCV MCH MCHC RDW Plt Count Neut % (Auto) Lymph % (Auto) [place] % (Auto) Eos % (Auto) Baso % (Auto) Neut # (Auto) Lymph # (Auto) [place] # (Auto) Eos # (Auto) Baso # (Auto) ESR Sodium Potassium Chloride Carbon Dioxide BUN Creatinine Estimated GFR BUN/Creatinine Ratio Glucose Lactate 1.6 Calcium Total Bilirubin AST ALT Alkaline Phosphatase Total Protein Albumin Globulin Albumin/Globulin Ratio Procalcitonin Assessment & Plan Assessment & Plan narrative: Right great toe infection in a diabetic -he feels like he is doing better and his toe looks a little bit better today. I think this should continue to clean up with IV antibiotics. Again, I explained to him we may need to surgically debride the very tip, but I doubt he would need any amputation. I am going to make him NPO tonight and stop his Lovenox. I will see him in the morning to assess the wound and consider tip debridement if necessary, or may just continue IV antibiotics. Quality VTE Deep Vein Thrombosis/Pulmonary Embolism Present on Admission: No
--- NOTE | 2019-01-22 07:34 | P.PN_ITS ---
Subjective Date Patient Seen: 01/22/19 Time Patient Seen: 07:31 Interval history: He is feeling better today. Exam Vital Signs (past 8 hours): - 01/22/19 04:00 Temperature 97.1 F L Pulse Rate 64 Respiratory Rate 16 Blood Pressure 134/85 Pulse Oximetry 97 Oxygen Delivery Method Room Air Const Orientation: alert and oriented x3 Extrem Other: Right great toe -black dry gangrene on the tip. Minimal drainage on the dressing. Decreased swelling and erythema through the nailbed and remainder of the toe. Good cap refill everywhere except for the tip. Objective Labs Result Diagrams: 01/21/19 12:29 01/21/19 12:29 Labs: Laboratory Results - last 24 hr 01/21/19 01/21/19 01/21/19 12:29 12:29 12:29 WBC 6.8 RBC 4.07 L Hgb 12.6 L Hct 35.6 L MCV 87.3 MCH 30.9 MCHC 35.4 RDW 13.0 Plt Count 305 Neut % (Auto) 66.5 Lymph % (Auto) 23.6 L [place] % (Auto) 7.6 Eos % (Auto) 1.6 L Baso % (Auto) 0.7 Neut # (Auto) 4500 Lymph # (Auto) 1600 [place] # (Auto) 500 Eos # (Auto) 100 Baso # (Auto) 0 ESR 81 H Sodium 128 L Potassium 4.4 Chloride 87 L Carbon Dioxide 29 BUN 31 H Creatinine 1.30 H Estimated GFR 54.7 L BUN/Creatinine Ratio 23.8 H Glucose 178 H Lactate Calcium 9.9 Total Bilirubin 0.5 AST 32 ALT 27 Alkaline Phosphatase 131 H Total Protein 7.9 Albumin 4.4 Globulin 3.5 Albumin/Globulin Ratio 1.3 Procalcitonin 0.15 01/21/19 12:29 WBC RBC Hgb Hct MCV MCH MCHC RDW Plt Count Neut % (Auto) Lymph % (Auto) [place] % (Auto) Eos % (Auto) Baso % (Auto) Neut # (Auto) Lymph # (Auto) [place] # (Auto) Eos # (Auto) Baso # (Auto) ESR Sodium Potassium Chloride Carbon Dioxide BUN Creatinine Estimated GFR BUN/Creatinine Ratio Glucose Lactate 1.6 Calcium Total Bilirubin AST ALT Alkaline Phosphatase Total Protein Albumin Globulin Albumin/Globulin Ratio Procalcitonin Assessment & Plan Assessment & Plan narrative: Right great toe infection in a diabetic -he feels like he is doing better and his toe looks a little bit better today. I think this should continue to clean up with IV antibiotics. Again, I explained to him we may need to surgically debride the very tip, but I doubt he would need any amputation. I am going to make him NPO tonight and stop his Lovenox. I will see him in the morning to assess the wound and consider tip debridement if necessary, or may just continue IV antibiotics. Quality VTE Deep Vein Thrombosis/Pulmonary Embolism Present on Admission: No
[2019-01-22] MEDS: ENOXAPARIN 40 MG/0.4 ML SYRINGE SUBCUT (08:04)
[2019-01-22] MEDS: GEMFIBROZIL 600 MG TABLET PO ×2 (08:05→17:14)
[2019-01-22] MEDS: LOSARTAN 50 MG TABLET PO ×2 (08:06→21:28)
[2019-01-22] MEDS: METFORMIN HCL 500 MG TABLET 1000 MG PO ×2 (08:06→17:16)
[2019-01-22] MEDS: AMLODIPINE 5 MG TABLET 10 MG PO (08:06)
[2019-01-22] MEDS: MULTIVITAMIN 1 TABLET 1 TAB PO (08:07)
--- NOTE | 2019-01-22 10:05 | P.PN_ITS ---
Subjective Date Patient Seen: 01/22/19 Time Patient Seen: 10:02 Interval history: Patient had a good night. Was able to sleep and rest without difficulty. Is also happy to have had a shower this morning. Was seen earlier by Orthopedic surgery who wants to leave open the possibility of some minimal debridement tomorrow. However appears to be healing okay. Still no real pain or discomfort Exam Vital Signs (past 8 hours): - 01/22/19 04:00 01/22/19 07:30 01/22/19 07:40 Temperature 97.1 F L 98.2 F Pulse Rate 64 61 Respiratory Rate 16 16 Blood Pressure 134/85 152/75 H Pulse Oximetry 97 100 100 01/22/19 08:06 Temperature Pulse Rate Respiratory Rate Blood Pressure 152/75 H Pulse Oximetry Oxygen Delivery Method Room Air Oxygen Flow Rate 0 Narrative Exam Narrative: Toe shows improvement in my opinion. Still an area of black necrotic tissue at the distal tip but a flap of more viable tissue present. Some early, Almost granulation like tissue forming at the nail bed Objective Labs Result Diagrams: 01/21/19 12:29 01/21/19 12:29 Labs: Laboratory Results - last 24 hr 01/21/19 01/21/19 01/21/19 12:29 12:29 12:29 WBC 6.8 RBC 4.07 L Hgb 12.6 L Hct 35.6 L MCV 87.3 MCH 30.9 MCHC 35.4 RDW 13.0 Plt Count 305 Neut % (Auto) 66.5 Lymph % (Auto) 23.6 L [place] % (Auto) 7.6 Eos % (Auto) 1.6 L Baso % (Auto) 0.7 Neut # (Auto) 4500 Lymph # (Auto) 1600 [place] # (Auto) 500 Eos # (Auto) 100 Baso # (Auto) 0 ESR 81 H Sodium 128 L Potassium 4.4 Chloride 87 L Carbon Dioxide 29 BUN 31 H Creatinine 1.30 H Estimated GFR 54.7 L BUN/Creatinine Ratio 23.8 H Glucose 178 H Lactate Calcium 9.9 Total Bilirubin 0.5 AST 32 ALT 27 Alkaline Phosphatase 131 H Total Protein 7.9 Albumin 4.4 Globulin 3.5 Albumin/Globulin Ratio 1.3 Procalcitonin 0.15 01/21/19 12:29 WBC RBC Hgb Hct MCV MCH MCHC RDW Plt Count Neut % (Auto) Lymph % (Auto) [place] % (Auto) Eos % (Auto) Baso % (Auto) Neut # (Auto) Lymph # (Auto) [place] # (Auto) Eos # (Auto) Baso # (Auto) ESR Sodium Potassium Chloride Carbon Dioxide BUN Creatinine Estimated GFR BUN/Creatinine Ratio Glucose Lactate 1.6 Calcium Total Bilirubin AST ALT Alkaline Phosphatase Total Protein Albumin Globulin Albumin/Globulin Ratio Procalcitonin Assessment & Plan Assessment & Plan narrative: 1. Great toe infection-continue current IV antibiotics. Plan to recheck sed rate in the morning as a marker of his infection. Since his white count was normal I do not think a whole lot of other options for trying to objectively monitor status of his infection. I defer any surgical intervention to orthopedic surgery, although seems unlikely he will require much of anything. 2. Diabetes-adequate control for now. Continue monitor numbers. Patient has been made NPO in preparation for possible minor surgical intervention tomorrow. Will hold his oral hypoglycemic agents until he has been fed sometime tomorrow. 3. Hypertension-patient bit more hypertensive than usual. Not immediate issue but continue to monitor carefully Note: Greater than 30 minutes was spent evaluating the patient on the floor, including examining the patient, discussing clinical course with clinical and nursing staff, reviewing clinical course in the computer, preparing documentation and writing orders for continued management of care, discussing status with family as appropriate, reviewing plans for the next 24 hours with both patient/family and nursing staff as appropriate. Quality VTE Deep Vein Thrombosis/Pulmonary Embolism Present on Admission: No
--- NOTE | 2019-01-22 10:50 | PC.NURSE ---
Pt showered and dressing to right great toe was changed. Petroleum gauze covered by 4 x 4's and netting. Pt denies pain and states he needs nothing at this time.
--- NOTE | 2019-01-22 15:20 | CM.DANOTE ---
Discharge Planning/Care Management DCP: case received, EMR reviewed and met with pt and his Kerrie, at bedside. Introduced self and role. Pt is a 68 year old male who admitted yesterday to care of A physician team. PCP: Dr. Lyn. Dr. Bernard is following him today. Dr. Arshad: orthopedics, is consulting. Payer: [employer]. Pt is up and moving independently in the room. P: at this time is for IV antibiotics with possible I&D of toe top. Did let pt know that if need for IV antibiotics arises at d/c he will likely have a [employer] benefit for home Infusion services. DCP team will follow as POC unfolds and assist prn with d/c issues and options as these become clearer. CM Discharge Assessment Start: 01/22/19 15:19 Freq: Status: Active Protocol: Document 01/22/19 15:19 ITV (Rec: 01/22/19 15:20 ITV [id number]) Discharge Planning Assessment Advance Directives? No History Provided By Patient Family Member Medical Record Has Patient been admitted in last 30 No days? Prior Living Arrangements House Household Members spouse Independent with ADL's Yes Is patient alert and oriented? Yes Whiteboard Updated in Patient Room with Yes name and ext. # of [employer] Shift Supervisor Review Status In Process Next Review Type Continued Stay Review
[2019-01-22] MEDS: glipiZIDE 5 MG TABLET PO (17:14)
--- NOTE | 2019-01-22 18:14 | PC.NURSE ---
Addendum entered by Ronald Porras R.N. 01/22/19 18:23: Patient reports to float nurse that he normally gets loose stool due to his metformin. Clarified that this is normal for him and he agrees. Original Note: Patient A&O x3 pleasant and cooperative for the most part with staff and able to make needs known. Patient reports to float nurse he had a very loose stool. Patient is currently receiving IV anti-bx. This nurse placed a hat in toilet of patient's room to capture next loose stool if any. This nurse explained to patient that if he cont. to have loose stools, a call will be placed to provider with questions of cult. stool for C.Diff. Patient became very upset with that idea, states this is ridiculous. This nurse explained to patient that he certainly does not have to do anything he doesn't with to do. Patient asks if this protocol. This nurse states we do not have a written protocol stating to do this. However, if patient is on several anti-bx treatment and has mult. loose stools we do call provider to ask for stool cult. to be done. Patient was very aggravated about this and states if its one thing then its the other, this has taught me to keep my mouth shut about things. I informed patient that I was very happy he informed the float nurse of his stools so that if need be we can better provide him with more focused care to his needs. Patient is upset.
[2019-01-23] VITALS (17 sets, daily range): BP systolic 125–168; BP diastolic 66–89; PULSE 54–73; RESP 9–95; TEMP 36.1–37; O2SAT 11–100; BMI 28.2
[2019-01-23] MEDS: CEFTRIAXONE 1 GM/50 ML FROZ.PIGGY IV ×2 (05:34→16:30)
[2019-01-23] MEDS: PANTOPRAZOLE 20 MG TABLET PO (05:37)
[2019-01-23 06:10] LABS: Erythrocyte Sedimentation Rate 69 MM/HR (0-15)
[2019-01-23] MEDS: CLINDAMYCIN 600 MG/50 ML PIGGYBACK 50 MG IV ×3 (06:17→21:37)
--- NOTE | 2019-01-23 07:07 | PM.PN.1 ---
Subjective Date Patient Seen: 01/23/19 Time Patient Seen: 07:07 Interval history: Feels fine. Exam Vital Signs (past 8 hours): - 01/23/19 06:00 Temperature 98.6 F Pulse Rate 59 L Respiratory Rate 16 Blood Pressure 139/68 Pulse Oximetry 99 Oxygen Delivery Method Room Air Oxygen Flow Rate 0 Const Orientation: alert and oriented x3 Extrem Other: L great toe - looks worse. had been dry yesterday. today has thicker drainage coming from the dry black area. Objective Labs Result Diagrams: 01/21/19 12:29 01/21/19 12:29 Labs: Laboratory Results - last 24 hr 01/23/19 05:30 ESR 69 H Assessment & Plan Assessment & Plan narrative: Great toe infection - this looks worse today. I recommend surgical debridement of the toe. I think this will just be a soft tissue procedure. As there is no osteomyelitis and this is not a usual diabetic foot ulcer I do not anticipate any amputation, just trimming back for coverage if needed. Risks and benefits of surgery were discussed including not limited to medical risk with heart attack, stroke, , DVT, PE, continued infection, bleeding, scarring, failure to alleviate symptoms, need for further surgery. We will go today. He is growing gram-positive cocci and Gram-negative bacilli, he is on isolation for this until the culture results come back. Quality VTE Deep Vein Thrombosis/Pulmonary Embolism Present on Admission: No
--- NOTE | 2019-01-23 08:08 | PC.NURSE ---
0805 Pt gone to OR via w/c for ,debridement of toe.
[2019-01-23] MEDS: LACTATED RINGERS 1,000 ML 100 ML IV (08:41)
--- NOTE | 2019-01-23 08:53 | SUR.OPER ---
Supine on padded OR bed, head on pillow, arms secured on padded arm boards at <90 degrees abduction, legs uncrossed, safety belt at thigh, tape over blanket over lower legs.
[2019-01-23] MEDS: SODIUM CHLORIDE IRRIG SOLUTION 3,000 ML, GENTAMICIN 240 MG IRR (08:57)
[2019-01-23] MEDS: BUPIVACAINE 0.5% (PF) VIAL 30 ML INJ (09:00)
--- NOTE | 2019-01-23 09:30 | PM.OP.1 ---
Operative Date/Time/Diagnoses Date of procedure: 01/23/19 Time of procedure: 09:30 Pre-op diagnosis: Right great toe infection Post-op diagnosis: same Procedure & Clinicians Procedure: irrigation and debridement of Right great toe infection partial tip amputation of Right great toe Same procedure as scheduled: Yes Indications: 68 year old male with a week old traumatic injury to the great toe with an infection. He had been admitted to the hospital for IV antibiotics but the wound looked worse this morning and I felt he would benefit from operative intervention. Risks and benefits of surgery were discussed and the appropriate consents obtained. Surgeon: Kyle Arshad Click Yes if Unassisted: Yes Anesthesia Type: General Operative Notes Findings: none Closure Type: primary Specimen(s): other (cultures) Estimated Blood Loss (mL): 1 Procedure in detail: Patient brought to the operating room and intubated on the table. Antibiotics were held for cultures. Time-out was performed. Attention was turned towards the right great toe. The right leg was prepped and draped in the standard sterile fashion. We excise the lack dry gangrenous area on the tip which was approximately 1.5 x 1 cm. There was purulent material below this and this was cultured. We then used the scalpel to sharply debride the distal fat pad until we came down to pink healthy bleeding tissue. This completed the incisional debridement. At this point and we had taken of soft tissue that I realized I would not be able to close over the tip of the distal phalanx as the bone was exposed when we cleared this out. I used a rongeur and trimmed back approximately 3 mm of bone and then we had enough soft tissue that I could pull it together for closure. The wound was copiously irrigated with pulsatile lavage. We again examined and there was good pink bleeding tissue everywhere with no sign of any infection or necrosis. We used Vicryl to reapproximate the soft tissue. This mostly was bringing the distal tip posteriorly back to the nail bed. I then over sewed this with mattress retention sutures through the skin to give extra reinforcement. There was not edge to edge skin closure but I felt we had enough soft tissue with good vascularity that this should heal adequately. Sterile dressing was placed. He was then extubated brought to recovery with no complications. Complications: none Condition: stable Disposition: PACU Plan for aftercare: Inpatient for 2 more days of IV antibiotics and change out to oral antibiotics.
--- NOTE | 2019-01-23 10:09 | PC.NURSE ---
1000Pt retturned from recovery after toe debridement. Pt is awake, A&OX4. Right toe drsg intact, secured w/coban. Pt denies pain. Family at bedside. SCD applied mto LLE.
[2019-01-23] MEDS: LACTATED RINGERS 1,000 ML 125 ML IV (10:28)
[2019-01-23] MEDS: METFORMIN HCL 500 MG TABLET 1000 MG PO ×2 (10:34→16:30)
[2019-01-23] MEDS: glipiZIDE 5 MG TABLET PO ×2 (10:36→16:30)
[2019-01-23] MEDS: AMLODIPINE 5 MG TABLET 10 MG PO (10:36)
[2019-01-23] MEDS: LOSARTAN 50 MG TABLET PO ×2 (10:37→21:33)
[2019-01-23] MEDS: MULTIVITAMIN 1 TABLET 1 TAB PO (10:37)
[2019-01-23] MEDS: GEMFIBROZIL 600 MG TABLET PO ×2 (10:38→16:30)
--- NOTE | 2019-01-23 11:49 | P.PN_ITS ---
Subjective Date Patient Seen: 01/23/19 Time Patient Seen: 11:47 Interval history: Patient went to the OR this morning for debridement. The necrotic tissue was debrided a large pocket of purulent material was discovered. Very viable tissue was also present. Unfortunately when all debridement was finished the wound cannot be closed without some resection of the distal tip of the bone on the distal phalanx. This was done and wound was as per Ortho easy to close. Thus far cultures from the ER are showing gram-negative rods and gram-positive cocci. Gram stain from the purulent material with the debridement this morning show gram-positive cocci Blood pressure better today Blood sugars relatively well controlled 1 number over 200 Exam Vital Signs (past 8 hours): - 01/23/19 06:00 01/23/19 07:40 01/23/19 07:45 Temperature 98.6 F 97.6 F Pulse Rate 59 L 57 L Respiratory Rate 16 18 Blood Pressure 139/68 150/74 H Pulse Oximetry 99 97 99 01/23/19 08:30 01/23/19 09:26 01/23/19 09:31 Temperature 97.8 F 97.5 F L Pulse Rate 73 65 69 Respiratory Rate 18 10 L 95 H Blood Pressure 168/89 H 129/77 138/80 Pulse Oximetry 100 94 11 L 01/23/19 09:36 01/23/19 09:42 01/23/19 10:00 Temperature 97.1 F L Pulse Rate 65 60 67 Respiratory Rate 11 L 9 L 18 Blood Pressure 142/85 H 144/72 H 158/76 H Pulse Oximetry 97 97 98 01/23/19 10:34 Temperature 97.2 F L Pulse Rate 59 L Respiratory Rate 18 Blood Pressure 152/66 H Pulse Oximetry 100 Oxygen Delivery Method Room Air Oxygen Flow Rate 0 Narrative Exam Narrative: Wound in its original postop dressing and not examined Objective Labs Result Diagrams: 01/21/19 12:29 01/21/19 12:29 Labs: Laboratory Results - last 24 hr 01/23/19 05:30 ESR 69 H Assessment & Plan Assessment & Plan narrative: 1. Distal toe infection-continue with current IV antibiotics. Sed rate somewhat improved this morning. Hopefully culture results will help guide antibiotic therapy. Orthopedic surgery has suggested to more days of IV antibiotics so through today and tomorrow and perhaps a switch to oral antibiotics and discharge especially if culture results are helpful 2. Diabetes-adequate control for now no changes 3. Hypertension-improved numbers no issues there at this time Note: Greater than 30 minutes was spent evaluating the patient on the floor, including examining the patient, discussing clinical course with clinical and nursing staff, reviewing clinical course in the computer, preparing document ation and writing orders for continued management of care, discussing status with family as appropriate, reviewing plans for the next 24 hours with both patient/family and nursing staff as appropriate. Quality VTE Deep Vein Thrombosis/Pulmonary Embolism Present on Admission: No
--- NOTE | 2019-01-23 14:15 | PT.IIE ---
Current Diagnoses Type 2 diabetes mellitus with foot ulcer (01/21/19) Surgery Performed Operation Date: 01/23/19 07:50 Actual Procedures p Incision,DEBRIDMENT AND WASHOUT RIGHT GREAT TOE(Right) - Kyle Arshad MD Surgical History (Last Reviewed 01/21/19 @ 16:05 by GEMINI Le) Anesthesia (Resolved) Status post urinary system surgery (Resolved ~1993) History of carpal tunnel repair (Inactive ~1980) Medical History (Last Reviewed 01/21/19 @ 16:05 by GEMINI Le) Type 2 diabetes mellitus without complication (Chronic 09/22/16) Essential hypertension (Chronic 09/22/16) Mixed hyperlipidemia (Chronic 09/22/16) Peripheral vascular disease (Chronic ~1999) GERD (gastroesophageal reflux disease) (Chronic ~1989) Peripheral neuropathy (Chronic ~1994) Renal failure (Chronic 05/28/17) Carpal tunnel syndrome (Chronic ~1981) Chicken pox (Resolved) Fractures (Resolved ~2004) Measles (Resolved) Mumps (Resolved) Plantar warts (Resolved) Rubella (Resolved) Ruptured tympanic membrane (Resolved ~1977) Physical Therapy Inpatient Evaluation/Re-Eval M1 PT/OT-IP Prior Functional Status Start: 01/23/19 14:37 Freq: NEEDED Status: Active Protocol: Document 01/23/19 14:15 [facility] (Rec: 01/23/19 14:49 [facility] [id number]) Medical Review Prior Functional Status Medical History Reviewed Yes Mobility and Gait indep gait/mobility without device Activities of Daily Living and IADL's indep I/ADLs Social History Household Members spouse Living Arrangements House Number of Floors (Floors) 3 or More Floors Number of Stairs To Enter/Railing? 1 step up into home from garage, can stay on main level Home Environment Tub/Shower Additional Social History Comment pt underwent I&D R great toe s /p traumatic injury on 01/23/19 . Orders for post op shoe by , charge nurse assisted and placed this on pt. WBAT with post op shoe M2 PT-IP Current Condition Start: 01/23/19 14:37 Freq: NEEDED Status: Active Protocol: Document 01/23/19 14:15 [facility] (Rec: 01/23/19 14:49 [facility] [id number]) Physical Therapy Current Condition Current Condition Evaluation Date 01/23/19 Treatment Diagnosis I&D R great toe, impaired gait M3 PT-IP Subjective Start: 01/23/19 14:37 Freq: NEEDED Status: Active Protocol: Document 01/23/19 14:15 [facility] (Rec: 01/23/19 14:49 [facility] [id number]) Subjective Physical Therapy Visit Type Type Initial Evaluation Visit Start Time 14:15 Visit Stop Time 14:30 Total Visit Minutes 15 Number of PSYCHOMETRIC EXAMINER Visits 0 Physical Therapy Visit Comments Patient Comments pt states that he feels a little wobbly on his feet but otherwise okay Patient Goals he wants to go home M4 PT-IP Mobility and Gait Start: 01/23/19 14:37 Freq: NEEDED Status: Active Protocol: Document 01/23/19 14:15 [facility] (Rec: 01/23/19 14:49 [facility] [id number]) PT-Bed Mobility Assessment Supine to Sit Supine to Sit Independent Scooting Scooting to Edge of Bed Independent PT-Transfer Assessment Sit to and From Stand Sit to and from Stand Independent Equipment Transfer Assistive Device None Orthotic/Prosthetic Devices or Brace: Yes Transfers Transfer Destination Chair Transfer Technique Stand Step Pivot Transfer Ability Level of Assist Standby Assistance Comments Mobility Comments post op shoe R foot Gait Assessment Gait Gait Assistance Required: Standby Assistance Distance (Feet) 50 Able to Maintain Weight Bearing Status Yes During Gait Assistive Devices Assistive Device None Gait Deviations General Gait Pattern Decreased Stride Length Factors Limiting Gait Function Factors Limiting Gait Function Poor Balance Comments Gait Comments WB on R heel with post op shoe , no loss of balance but mild lateral sway PT-Balance Assessment Sitting Balance and Reactions Static Sitting Balance Ability Normal Dynamic Sitting Balance Ability Normal Standing Balance and Reactions Static Standing Balance Ability Good Dynamic Standing Balance Ability Fair Device Used none M5 PT-IP Objective Assessments Start: 01/23/19 14:37 Freq: NEEDED Status: Active Protocol: Document 01/23/19 14:15 [facility] (Rec: 01/23/19 14:49 [facility] [id number]) Orientation Orientation/Cognition Level of Alertness Alert Gross Range of Motion Lower Extremity ROM Assessment Within Functional Limits Impairments except R great toe Strength Lower Extremity Strength Assessment Within Functional Limits Coordination Assessment Gross Coordination Gross Coordination WNL Sensation Assessment Comments Sensation Comments B foot numbness/tingling M6 PT-IP Treatment Start: 01/23/19 14:37 Freq: NEEDED Status: Active Protocol: Document 01/23/19 14:15 [facility] (Rec: 01/23/19 14:49 [facility] [id number]) Physical Therapy Treatment Exercises Exercises Ankle Pumps Education Education Provided Weight Bearing Status Safety M7 PT-IP Assessment and Plan Start: 01/23/19 14:37 Freq: NEEDED Status: Active Protocol: Document 01/23/19 14:15 [facility] (Rec: 01/23/19 14:49 [facility] [id number]) PT Summary Assessment and Plan Potential Rehabilitation Potential Good Status of Condition at Evaluation Evolving Summary Impairments Balance Gait Activity Tolerance Assessment Summary Same day I&D R great toe. Pt fitted by nursing for post-op shoe. Assisted pt in demonstrating how to tighten/ loosen shoe for during gait and at rest to protect the distal R great toe. Pt with mild sway, but did not use an assistive device and overall appears likely to be able to return home when medically stable. Goals Gait Goal Independent Gait Distance 150 Other Goals up/down 1 step without rail and CGA Days to Meet Goals 5 Frequency of Treatment Frequency Of Treatment Once a Day Treatment Plan Physical Therapy Treatment Plan Gait Training Balance Retraining Post Op Education Discharge Planning Neuromuscular Re-ed Other Recommendations and Next Treatment prog gait, step up/down when Focus able Recommendations To Nursing Amount of Assist Needed Standby Assistance Discharge Recommendations PT Discharge Recommendations Home with Assistance Other Discharge Recommendations HH vs OP wound care?
[2019-01-23] MEDS: DOCUSATE 100 MG CAPSULE PO (21:32)
[2019-01-23] MEDS: ACETAMINOPHEN 325 MG TABLET 650 MG PO (21:34)
--- NOTE | 2019-01-23 22:33 | PC.NURSE ---
Addendum entered by Macrina Gale R.N. 01/23/19 22:53: 650mg tylenol PO for 4/10 toe pain. Original Note: Pt A/O x4, 98%RA, LS clear, denies SOB. Right great toe with gauze/coband, with foot shoe/boot in place, wiggle toes, ankle pumps, CMS+, pp+, no s/ss infection, afebrile, 97.4. Pt had declined glucose checks, reporting he does not take insulin and has declined all sliding scale coverage. NASRIN midline ABO's otherwise SL. Indep in room and hallways. [id number]. APAP [phone]
[2019-01-24] MEDS: CEFTRIAXONE 1 GM/50 ML FROZ.PIGGY IV ×2 (04:35→16:10)
[2019-01-24 05:01] VITALS: BP 154/76; PULSE 83; RESP 18; TEMP 36.6; O2SAT 97
[2019-01-24] MEDS: CLINDAMYCIN 600 MG/50 ML PIGGYBACK 50 MG IV ×3 (05:58→21:53)
[2019-01-24] MEDS: PANTOPRAZOLE 20 MG TABLET PO (05:58)
[2019-01-24] MEDS: GEMFIBROZIL 600 MG TABLET PO ×2 (06:35→17:01)
--- NOTE | 2019-01-24 08:00 | PC.NURSE ---
Addendum entered by Noemi Garcia R.N. 01/24/19 14:43: Ambulated halls with physical therapy and is back in his room. Showered independently (w/RLE covered) after lunch. First of 2 IV antibiotics infusing now, midline IV in RUE WNL. Encouraged to make needs known. Call light in reach. Addendum entered by Noemi Garcia R.N. 01/24/19 12:50: Dressing to R foot remains C/D/I, walking boot in place. Circulation/sensation WNL, feet are warm and pink with cap refill <2 sec. Denies pain or discomfort. Calls appropriately with needs, light in reach. Original Note: Shift summary: Awake and alert, oriented X3. Dressing to R foot C/D/I, walking boot in place. Reports neuropathy to BLE's, but does still have some sensation in his feet. BLE's warm and pink, cap refill <2 sec. Difficult to palpate pedal pulse of RLE r/t placement of dressing. Denies pain. Denies fever or chills. Able to make needs known and calls appropriately. Indep in room, gait steady. Call light in reach.
--- NOTE | 2019-01-24 08:23 | PM.PN.1 ---
Subjective Date Patient Seen: 01/24/19 Time Patient Seen: 08:24 Interval history: Toe infection. Essentially no complaints per in no pain. Is interested in being able to ambulate in the hallway. Tolerating food and reasonably well. No nausea no abdominal pain no fever chills Exam Vital Signs (past 8 hours): - 01/24/19 05:01 Temperature 97.8 F Pulse Rate 83 Respiratory Rate 18 Blood Pressure 154/76 H Pulse Oximetry 97 Oxygen Delivery Method Room Air Oxygen Flow Rate 0 Narrative Exam Narrative: Patient looks well conversant verbal. Lungs clear heart regular rhythm no murmur gallop toes not examine it is dressed as per Orthopedics Objective Labs Result Diagrams: 01/21/19 12:29 01/21/19 12:29 Labs: No recent lab. Culture from the OR pending. Assessment & Plan Assessment & Plan narrative: 1. Toe cellulitis/abscess formation apparently aggressively treated with debridement. No apparent bone involvement. Vascular supply appears adequate. Culture from surgical draining spending. That were basically determined what oral antibiotic patient will be on discharge. Until then will continue with ceftriaxone and clindamycin. 2. Diabetes seemingly adequately controlled. 3. Blood pressure adequately controlled. 4. Anticipate being discharged tomorrow as per Orthopedics suggestion unclear however how long he should be on oral antibiotics. Quality VTE Deep Vein Thrombosis/Pulmonary Embolism Present on Admission: No
--- NOTE | 2019-01-24 08:35 | PM.PNPO.1 ---
Subjective Date Patient Seen: 01/24/19 Time Patient Seen: 08:35 Interval history: Patient is POD#1 d/p I&D of right great toe with Dr. Arshad. He is doing well with minimal pain. He has ambulated about the room and is interested in walking in the halls. He denies any fevers, chills, shortness of breath, chest pain or calf tenderness. Exam Vital Signs (past 8 hours): - 01/24/19 05:01 Temperature 97.8 F Pulse Rate 83 Respiratory Rate 18 Blood Pressure 154/76 H Pulse Oximetry 97 Oxygen Delivery Method Room Air Oxygen Flow Rate 0 Narrative Exam Narrative: Dressing in place is clean, dry, and intact. Neurovascularly intact with baseline level of sensation per patient. Pulses symmetric. Soft, compressible calves. Objective Labs Result Diagrams: 01/21/19 12:29 01/21/19 12:29 Assessment & Plan Post-op Postoperative Procedures Operation Date: 01/23/19 07:50 Actual Procedures Side Surgeon p Incision,DEBRIDMENT AND WASHOUT RIGHT GREAT TOE Right Kyle Arshad MD Patient doing well post operatively. He is currently on IV clindamycin and cephalexin. Per Dr. Arshad continue IV antibiotics with transition to oral thereafter. Still pending intraoperative cultures. Possible discharge to home tomorrow. Quality VTE Deep Vein Thrombosis/Pulmonary Embolism Present on Admission: No
[2019-01-24] MEDS: SODIUM CHLORIDE 0.9% FLUSH 10 ML IV ×2 (08:44→14:31)
[2019-01-24] MEDS: METFORMIN HCL 500 MG TABLET 1000 MG PO ×2 (08:44→17:02)
[2019-01-24] MEDS: ENOXAPARIN 40 MG/0.4 ML SYRINGE SUBCUT (08:45)
[2019-01-24] MEDS: AMLODIPINE 5 MG TABLET 10 MG PO (08:45)
[2019-01-24] MEDS: LOSARTAN 50 MG TABLET PO ×2 (08:45→21:53)
[2019-01-24] MEDS: MULTIVITAMIN 1 TABLET 1 TAB PO (08:46)
[2019-01-24 09:02] VITALS: BP 143/78; PULSE 59; RESP 18; TEMP 36.6; O2SAT 97
[2019-01-24 12:00] VITALS: BP 141/66; PULSE 63; RESP 18; TEMP 36.6; O2SAT 97
--- NOTE | 2019-01-24 14:11 | CM.DPC ---
DCP Cont: Checked in with patient. Alert and oriented, introduced self and role. Stated, he lives with his , Kerrie, but she will be leaving shortly to [place], for she does some missionary work there. He mentioned that they had adopted children from [facility]. Patient stated, he can manage fine at home. Clarified that his foot injury occurred on [place] boat. He is hopeful that he will be placed on oral antibiotics when the culture comes back. Let him know that this case assistant would continue to check in if he needs any resources. P: DCP to continue to follow. Will see if he is able to transition over to oral antibiotics, versus IV. Ksenia Herr RN/[employer] District Sales Manager
[2019-01-24] MEDS: SODIUM CHLORIDE 0.9% 250 ML 21 ML IV (14:32)
--- NOTE | 2019-01-24 14:52 | PT.IPTN ---
Current Diagnoses Type 2 diabetes mellitus with foot ulcer (01/21/19) Surgery Performed Operation Date: 01/23/19 07:50 Actual Procedures p Incision,DEBRIDMENT AND WASHOUT RIGHT GREAT TOE(Right) - Kyle Arshad MD Physical Therapy Treatment Note M2 PT-IP Current Condition Start: 01/23/19 14:37 Freq: NEEDED Status: Active Protocol: Document 01/23/19 14:15 RCC (Rec: 01/23/19 14:49 RCC [id number]) Physical Therapy Current Condition Current Condition Evaluation Date 01/23/19 Treatment Diagnosis I&D R great toe, impaired gait M3 PT-IP Subjective Start: 01/23/19 14:37 Freq: NEEDED Status: Active Protocol: Document 01/24/19 14:15 CLB (Rec: 01/24/19 14:52 CLB [id number]) Subjective Physical Therapy Visit Type Type Treatment Note Visit Start Time 14:15 Visit Stop Time 14:35 Total Visit Minutes 20 Number of HIP HOP PERFORMERS Visits 1 Physical Therapy Visit Comments Patient Comments Pt states he would like to take a walk in the [place]. Patient Goals he wants to go home M4 PT-IP Mobility and Gait Start: 01/23/19 14:37 Freq: NEEDED Status: Active Protocol: Document 01/24/19 14:15 CLB (Rec: 01/24/19 14:52 CLB [id number]) PT-Bed Mobility Assessment Supine to Sit Supine to Sit Independent Scooting Scooting to Edge of Bed Independent PT-Transfer Assessment Sit to and From Stand Sit to and from Stand Independent Equipment Transfer Assistive Device None Orthotic/Prosthetic Devices or Brace: Yes Transfers Transfer Destination Bed Transfer Technique Stand Step Pivot Transfer Ability Level of Assist Standby Assistance Comments Mobility Comments post op shoe R foot Gait Assessment Gait Gait Assistance Required: Standby Assistance Distance (Feet) 600 Able to Maintain Weight Bearing Status Yes During Gait Assistive Devices Assistive Device None Gait Deviations General Gait Pattern Decreased Stride Length Factors Limiting Gait Function Factors Limiting Gait Function Poor Balance Comments Gait Comments Pt ambulated ~600ft in [place] SBA. Pt has good safety awareness and had no LOB. Stair Climbing Assessment Evaluation Level of Assist On Stairs Standby Assistance Devices Stair Climbing Assistive Devices None Technique/Endurance Stair Climbing Direction Ascend and Descend Stair Climbing Technique Step Over Step Number of Steps Climbed 3 Stair Climbing Set # Repetitions (reps) 1 Comments Stair Climbing Comments Pt able to safely climb steps. M5 PT-IP Objective Assessments Start: 01/23/19 14:37 Freq: NEEDED Status: Active Protocol: Document 01/23/19 14:15 RCC (Rec: 01/23/19 14:49 [facility] [id number]) Orientation Orientation/Cognition Level of Alertness Alert Gross Range of Motion Lower Extremity ROM Assessment Within Functional Limits Impairments except R great toe Strength Lower Extremity Strength Assessment Within Functional Limits Coordination Assessment Gross Coordination Gross Coordination WNL Sensation Assessment Comments Sensation Comments B foot numbness/tingling M6 PT-IP Treatment Start: 01/23/19 14:37 Freq: NEEDED Status: Active Protocol: Document 01/23/19 14:15 RCC (Rec: 01/23/19 14:49 RCC [id number]) Physical Therapy Treatment Exercises Exercises Ankle Pumps Education Education Provided Weight Bearing Status Safety M7 PT-IP Assessment and Plan Start: 01/23/19 14:37 Freq: NEEDED Status: Active Protocol: Document 01/24/19 14:15 CLB (Rec: 01/24/19 14:52 CLB [id number]) PT Summary Assessment and Plan Potential Rehabilitation Potential Good Status of Condition at Evaluation Evolving Summary Impairments Balance Gait Activity Tolerance Assessment Summary Pt has been up in room independently in room and shower. Pt able is IND in all bed mobility and transfers. Pt able to arlen sock on RLE in seated position. Pt ambulated ~600ft SBA with good balance and safety awareness. Pt can d /c home when medically stable.Spoke with PT and pt has met goals and is no longer in need of PT. Goals Gait Goal Independent Gait Distance 150 Other Goals up/down 1 step without rail and CGA Days to Meet Goals 5 Frequency of Treatment Frequency Of Treatment Discharge Treatment Plan Physical Therapy Treatment Plan Gait Training Balance Retraining Post Op Education Discharge Planning Neuromuscular Re-ed Recommendations To Nursing Amount of Assist Needed Standby Assistance Discharge Recommendations PT Discharge Recommendations Home with Assistance
[2019-01-24 15:55] VITALS: BP 130/70; PULSE 70; RESP 17; TEMP 36.9; O2SAT 98
[2019-01-24] MEDS: glipiZIDE 5 MG TABLET PO ×2 (16:12→16:34)
[2019-01-24 20:10] VITALS: BP 150/73; PULSE 57; RESP 16; TEMP 36.3; O2SAT 96
[2019-01-24 23:45] VITALS: BP 154/74; PULSE 70; RESP 18; TEMP 36.6; O2SAT 100
[2019-01-25 03:00] VITALS: BP 124/62; PULSE 66; RESP 18; TEMP 36.7; O2SAT 98
--- NOTE | 2019-01-25 03:10 | PC.NURSE ---
Pt. lung sounds clear bilaterally, VSS, CMS intact, denies pain. Pt asked for IV fluids TKO to be disconnected this night. Pt seems anxious to go home and be out of the hospital. Pt denied having SCD's put on. Pt is independent in the room.
[2019-01-25] MEDS: CEFTRIAXONE 1 GM/50 ML FROZ.PIGGY IV (04:44)
[2019-01-25] MEDS: GEMFIBROZIL 600 MG TABLET PO (06:24)
[2019-01-25] MEDS: PANTOPRAZOLE 20 MG TABLET PO (06:24)
--- NOTE | 2019-01-25 06:24 | P.PN_ITS ---
Subjective Date Patient Seen: 01/25/19 Time Patient Seen: 06:21 Interval history: He is feeling fine. Exam Vital Signs (past 8 hours): - 01/24/19 23:45 01/25/19 03:00 Temperature 97.9 F 98.0 F Pulse Rate 70 66 Respiratory Rate 18 18 Blood Pressure 154/74 H 124/62 Pulse Oximetry 100 98 Oxygen Delivery Method Room Air Oxygen Flow Rate 0 Const Orientation: alert and oriented x3 Extrem Other: Right grade toe dressing changed -wound clean, dry, intact. No drainage. No erythema or induration. Objective Labs Result Diagrams: 01/21/19 12:29 01/21/19 12:29 Assessment & Plan Post-op Postoperative Procedures Operation Date: 01/23/19 07:50 Actual Procedures Side Surgeon p Incision,DEBRIDMENT AND WASHOUT RIGHT GREAT TOE Right Kyle Arshad MD His wound looks good. He is growing enterococcus faecalis and Shewanella algae. I would routinely send him out on 2 weeks of antibiotics at this point. Microbi ology did not run sensitivities on the shewanella. I do not know if we have a good oral medication to send him out on as normally this is treated with 3rd generation cephalosporins, or posibbly consider moxifloxacin PO. Quality VTE Deep Vein Thrombosis/Pulmonary Embolism Present on Admission: No
[2019-01-25] MEDS: CLINDAMYCIN 600 MG/50 ML PIGGYBACK 50 MG IV (06:29)
[2019-01-25] MEDS: AMLODIPINE 5 MG TABLET 10 MG PO (09:36)
[2019-01-25] MEDS: METFORMIN HCL 500 MG TABLET 1000 MG PO (09:36)
[2019-01-25] MEDS: SODIUM CHLORIDE 0.9% FLUSH 10 ML IV (09:37)
[2019-01-25] MEDS: MULTIVITAMIN 1 TABLET 1 TAB PO (09:37)
[2019-01-25] MEDS: LOSARTAN 50 MG TABLET PO (09:37)
--- NOTE | 2019-01-25 11:11 | PC.NURSE ---
Discharge: Midline IV dc'd intact. Scripts sent to [facility]. Reviewed all d/c info thoroughly, including both follow up appts, lab draw 02/08, s/sx with which to call MD, etc.. Dressing to RLE will stay in place until his follow up with Dr Denis on 01/27. He understands to keep dressing clean and dry, and is wearing his walking boot. Verbalized understanding of all d/c instructions and stated no further questions. All personal belongings sent with patient at discharge. Walked out to private vehicle accompanied by nursing staff.
--- NOTE | 2019-01-25 13:47 | P.DS_ITS ---
History of Present Illness Date Patient Seen: 01/25/19 Time Patient Seen: 08:43 Chief complaint: Infected toe Narrative: Patient admitted because of infection of his big toe right foot. Placed on ceftriaxone and clindamycin intravenously. Seen in consultation by Dr. Kyle Arshad orthopedist. Patient underwent surgical intervention on Thursday Mike exam abscess a partial excision of distal phalanx to allow for primary closure. Patient had no pain no bleeding since surgery since admission. Discharge Providers Date of admission: 01/21/19 14:24 Discharge Date: 01/25/19 Primary care physician: Ghassan Levine MD Consults: 01/21/19 15:26 Consult to Physician Routine Comment: Consulting Provider: Kyle Arshad Reason for consultation: Necrotic Toe Has provider been notified: Yes 01/23/19 10:05 Consult to Discharge Planning Routine Comment: Consult to Physical Therapy Evaluate & Treat Comment: WBAT with rigid postop shoe Physician Instructions: Evaluate and Treat Consult to Respiratory Therapy Evaluate & Treat Comment: Physician Instructions: Evaluate and treat Discharge provider: Ghassan Levine MD Summary Discharge Diagnosis: Abscess formation big toe right foot. 2. Resultant cellulitis. 3. Partial amputation distal tip of phalanx 1st digit. 4. Diabetes mellitus stable. 5. Hypertension stable. Exam Vital Signs (past 8 hours): Oxygen Delivery Method Room Air Oxygen Flow Rate 0 Narrative Exam Narrative: Patient looks well general exam unremarkable big toe right foot dressed with Coban compression dressing as per Orthopedics Objective Labs Result Diagrams: 01/21/19 12:29 01/21/19 12:29 Labs: Culture x2 was positive for Enterobacter andShewella algae Discharge Plan Discharge Plan Patient Disposition: Home Discharge comment: moxifloxicin 400mg qd x2 weks amoxicillin 500mg tid x 2 weeks esr/crp 2 weeks appt vadim levine 2 weeks, Discharge Med Rec/Prescriptions Prescriptions: New amoxicillin 500 mg capsule 500 mg PO TID Qty: 42 RF: 3 moxifloxacin 400 mg tablet 400 mg PO DAILY Qty: 14 RF: 3 Continued losartan 50 mg tablet 50 mg PO BID Qty: 180 RF: 1 metformin 1,000 mg tablet 1,000 mg PO BID Qty: 180 RF: 2 gemfibrozil 600 mg tablet 600 mg PO BIDAC Qty: 270 RF: 3 triamterene-hydrochlorothiazid 75-50 mg Tablet 0.5 tab PO DAILY PRN (Reason: Edema) RF: 0 hydrocodone-acetaminophen [Dell] 5-325 mg tablet 1 tab PO BID PRN (Reason: pain) RF: 0 amlodipine 10 mg tablet 10 mg PO DAILY RF: 0 glipizide 5 mg tablet 5 mg PO TID PRN (Reason: blood sugar) RF: 0 Allertec 1 tab PO PRN PRN (Reason: Allergy Symptoms) RF: 0 multivitamin Tablet 1 tab PO DAILY RF: 0 acetaminophen [Tylenol] 325 mg Tablet 1 dose PO PRN PRN (Reason: pain) RF: 0 fluocinonide 0.05 % ointment 1 applictn TOP BID PRN (Reason: Rash) RF: 0 omeprazole 20 mg capsule,delayed release(DR/EC) 20 mg PO DAILY RF: 0 Other Ambulatory Orders: C-Reactive Protein Quant (Routine) Timeframe: 2 Weeks Location: Laboratory Ordered By: Ghassan Levine Erythrocyte Sedimentation Rate (Routine) Timeframe: 2 Weeks Location: Laboratory Ordered By: Ghassan Levine Follow up/Referrals: Fawn Denis DPM [Physician] - (January [address] Denis check in at 10:15am. Bring photo ID and insurance card. Office on [facility]) Ghassan Levine MD [Primary Care Provider] - 02/09/19 12:00 pm (Follow up with Dr Levine February 09 at 12 pm) Provider Discharge Instructions Diet: Diet as Tolerated Skin/Wound/Dressing Care Dressing: as per ortho Visit Report/Discharge Packet Instructions: Moxifloxacin, Amoxicillin, DI for Incision and Drainage Discharge Data Primary Care Provider: Ghassan Levine Attending Provider: Ghassan Levine Admit Date/Time: 01/21/19 14:24 Discharges patient from system. Discharge Date/Time: 01/25/19 11:14 Quality VTE Deep Vein Thrombosis/Pulmonary Embolism Present on Admission: No
== END 2019-01-25 11:14 | disposition home or self-care (01) | DRG 264 ==
LOC: ED 14:23 → AC 14:25
PROVIDERS: Orthopaedic Surgery; Admitting Provider Internal Medicine; Emergency Provider Nurse Practitioner Family; PCP Family Medicine; Visit Provider Family Medicine
PROC: 0JBQ0ZZ Excision of Right Foot Subcutaneous Tissue and Fascia, Open Approach (ICD-10-PCS; principal; 2019-01-23 07:50)
DX: E11.52 Type 2 diabetes mellitus with diabetic peripheral angiopathy with gangrene (principal); I96 Gangrene, not elsewhere classified; E11.621 Type 2 diabetes mellitus with foot ulcer; L97.513 Non-pressure chronic ulcer of other part of right foot with necrosis of muscle; E11.42 Type 2 diabetes mellitus with diabetic polyneuropathy; L03.031 Cellulitis of right toe; I10 Essential (primary) hypertension; Z79.84 Long term (current) use of oral hypoglycemic drugs; E78.5 Hyperlipidemia, unspecified; B95.2 Enterococcus as the cause of diseases classified elsewhere
CPT/HCPCS: 36415; 36591; 73630; 80053; 82962; 83605; 84145; 85025; 85651; 87040; 87070; 87075; 87077; 87186; 87205; 96365; 97116; 97162; 99222; 99232; 99238; 99283; 99284; J1650; J2405; J2704; J3010

== ENCOUNTER → 2019-02-08 08:23 | Outpatient (CLI) | payer OTHER, SELFPAY ==
[2019-01-21 15:17] VITALS: BMI 29.5
[2019-02-08 09:38] LABS: Erythrocyte Sedimentation Rate 52 MM/HR (0-15)
[2019-02-08 09:40] LABS: C-Reactive Protein Quant 0.8 mg/dL (<1.0)
== END ==
PROVIDERS: PCP Family Medicine; Visit Provider Family Medicine
DX: L02.611 Cutaneous abscess of right foot (principal)
CPT/HCPCS: 36415; 85651; 86140

== ENCOUNTER → 2019-02-22 07:37 | Outpatient (CLI) | payer OTHER, SELFPAY ==
[2019-01-21 15:17] VITALS: BMI 29.5
[2019-02-22 08:36] LABS: C-Reactive Protein Quant 0.6 mg/dL (<1.0)
[2019-02-22 08:40] LABS: Erythrocyte Sedimentation Rate 30 MM/HR (0-15)
== END ==
PROVIDERS: PCP Family Medicine; Visit Provider Family Medicine
DX: E11.621 Type 2 diabetes mellitus with foot ulcer (principal); L97.509 Non-pressure chronic ulcer of other part of unspecified foot with unspecified severity
CPT/HCPCS: 36415; 85651; 86140

== ENCOUNTER → 2019-03-05 08:22 | Outpatient (CLI) | payer OTHER, SELFPAY ==
[2019-01-21 15:17] VITALS: BMI 29.5
[2019-03-05 09:15] LABS: Hemoglobin A1C% w Est Avg Glu 6.2 % (4.0-6.0)
[2019-03-05 09:21] LABS: Creatinine Urine Random 92.8 mg/dL
[2019-03-05 09:22] LABS: Erythrocyte Sedimentation Rate 39 MM/HR (0-15)
[2019-03-05 09:32] LABS: BUN Creatinine Ratio 23.3 (6-22); Blood Urea Nitrogen 35 mg/dL (9-20); C-Reactive Protein Quant 0.9 mg/dL (<1.0); Carbon Dioxide 26 mmol/L (22-32); Chloride 98 mmol/L (98-107); Estimated Glomerular Filt Rate 46.4 mL/min (>60); Glucose 105 mg/dL (80-110); HEMOLYSIS < 15 (0-50); Sodium 135 mmol/L (137-145)
[2019-03-05 09:33] LABS: Potassium 5.6 mmol/L (3.4-5.1)
[2019-04-27 13:23] LABS: Microalbumi Creatinin Ratio Ur 419.1 ug/mg CR (<30); Microalbumin Urine Random 38.9 mg/dL (0-1.6)
== END ==
PROVIDERS: PCP Family Medicine; Visit Provider Family Medicine
DX: E11.9 Type 2 diabetes mellitus without complications (principal); I96 Gangrene, not elsewhere classified
CPT/HCPCS: 36415; 80048; 82043; 82570; 83036; 85651; 86140

== ENCOUNTER → 2019-03-17 08:21 | Outpatient (CLI) | payer OTHER, SELFPAY ==
[2019-01-21 15:17] VITALS: BMI 29.5
--- NOTE | 2019-04-08 16:05 | P.HOLT.S_ITS ---
Equipment Maintenance Supervisor Report Referral & Results Date Patient Seen: 03/17/19 Requesting provider: Ghassan Lyn Indication: Syncope Duration of monitoring (days): 14 Diary information: There are 9 patient events all of which were patient triggered events Patient triggered events were associated with atrial fibrillation and ventricular ectopy Data: Minimum heart rate was 34 beats per minute at 00:57 on 03/29/2019 Maximum heart rate was 143 beats per minute at 07:37 on 03/21/2019 Patient was in atrial fibrillation for the duration of this study Less than 1% of identified beats were ventricular ectopic in origin Patient had 1 pause of 3 seconds Impression: Atrial fibrillation with controlled ventricular response Bradycardia also present with a single pause of 3 seconds as above
== END ==
PROVIDERS: PCP Family Medicine; Visit Provider Family Medicine
DX: R55 Syncope and collapse (principal)
CPT/HCPCS: 0296T; 0298T

== ENCOUNTER → 2019-04-15 08:01 | Outpatient (CLI) | payer OTHER, SELFPAY ==
[2019-01-21 15:17] VITALS: BMI 29.5
[2019-04-15 08:44] LABS: Hemoglobin A1C% w Est Avg Glu 6.4 % (4.0-6.0)
[2019-04-15 09:21] LABS: BUN Creatinine Ratio 26.7 (6-22); Blood Urea Nitrogen 32 mg/dL (9-20); Calcium 9.9 mg/dL (8.4-10.2); Carbon Dioxide 26 mmol/L (22-32); Chloride 95 mmol/L (98-107); Creatinine Urine Random 228.1 mg/dL; Estimated Glomerular Filt Rate 59.9 mL/min (>60); Glucose 159 mg/dL (80-110); HEMOLYSIS < 15 (0-50); Potassium 4.6 mmol/L (3.4-5.1); Sodium 135 mmol/L (137-145)
[2019-04-15 10:07] LABS: Microalbumi Creatinin Ratio Ur 1766.7 ug/mg CR (<30)
== END ==
PROVIDERS: PCP Family Medicine; Visit Provider Family Medicine
DX: N19 Unspecified kidney failure (principal)
CPT/HCPCS: 36415; 80048; 82043; 82570; 83036

== ENCOUNTER → 2019-04-27 10:36 | Outpatient (CLI) | payer OTHER, SELFPAY ==
[2019-01-21 15:17] VITALS: BMI 29.5
[2019-04-27 12:18] LABS: Creatinine Urine Random 338.6 mg/dL
[2019-04-27 13:29] LABS: Microalbumi Creatinin Ratio Ur 2049.6 ug/mg CR (<30)
== END ==
PROVIDERS: PCP Family Medicine; Visit Provider Family Medicine
DX: E11.9 Type 2 diabetes mellitus without complications (principal)
CPT/HCPCS: 82043; 82570

== ENCOUNTER → 2019-05-10 06:51 | Outpatient (CLI) | payer OTHER, SELFPAY ==
[2019-01-21 15:17] VITALS: BMI 29.5
--- NOTE | 2019-05-10 06:53 | DI.ECHO.S_ITS ---
[facility]---------+ [facility] +---------+ : : [address] : : : [place], [place] : : : : [id number] : : : : Phone: [phone]+ Echocardiogram Report + + :Name: FRANCIS WASHBURN Study Date: 05/10/2019 Height: 69 in : :[facility] Exam Location: IS Weight: 200 lb : : Gender: Male BSA: 2.1 m2 : :: 1950 Age: 69 yrs BP: 148/80 mmHg: :Reason For Study: AFIB : : Performed By: Luis Tripathi : :Referring: MIKE LARSON : + + Interpretation Summary 1) Normal left ventricular thickness, size, wall motion, and systolic function (EF 60-65%). 2) Normal right ventricular size and function. 3) No significant valvular abnormalities. 4) No prior Echo available for comparison. Procedure: A two-dimensional transthoracic echocardiogram with color flow and Doppler was performed. The study quality was technically adequate. There is no prior echocardiogram noted for this patient. The patient was in atrial fibrillation with controlled ventricular rate during the exam. The patient had a heart rate of 51-70 beats per minute. Left Ventricle: The left ventricle is normal in size. There is normal left ventricular wall thickness. The ejection fraction is estimated to be 60-65%. There are no focal wall motion abnormalities. Right Ventricle: The right ventricle is normal in size and function. Atria: Both atria are mildly dilated. The interatrial septum is intact with no evidence for an atrial septal defect. Mitral Valve: The mitral valve is normal in structure and function. There is trace mitral regurgitation. Aortic Valve: The aortic valve is trileaflet. The aortic valve opens well. The aortic valve is mildly calcified. There is no aortic valve stenosis. No aortic regurgitation is present. Tricuspid Valve: The tricuspid valve is normal in structure and function. There is trace tricuspid regurgitation. The right ventricular systolic pressure is estimated to be at least 20 mmHg based on an estimated right atrial pressure of 3 mm Hg. Pulmonic Valve: The pulmonic valve is normal in structure and function. There is trace pulmonic regurgitation. Great Vessels: The aortic root is normal size. The ascending aorta is at the upper limits of normal in size. The aortic arch is at the upper limits of normal in size. The pulmonary artery is normal size. The IVC is of normal diameter and collapses greater than 50% with a sniff. This suggests a low right atrial pressure of 3 mm Hg. Pericardium/ Pleura There is no pericardial effusion. There is no pleural effusion. MMode/2D Measurements & Calculations LVIDd: 4.9 cm LVOT diam: 2.1 cm LVIDs: 3.1 cm Ao root diam: 3.0 cm FS: 37.0 % Aortic Jxn: 2.5 cm EPSS: 0.11 cm asc Aorta Diam: 3.6 cm IVSd: 1.1 cm Ao Arch Diam (Prox Trans): 3.2 cm LVPWd: 1.3 cm LV avery. diameter/BSA (cm/m^2): 2.4 LV sys. diameter/BSA (cm/m^2): 1.5 LA dimension: 4.0 cm RA long axis: 5.9 cm LA A2 area: 28.1 cm2 RA area: 24.5 cm2 LA A4 area: 22.9 cm2 RA vol: 86.8 ml LA length (vol): 6.0 cm RA : 42.0 ml/m2 LA vol: 90.4 ml IVC diam: 1.6 cm LA vol index: 43.8 ml/m2 RVD1 (basal): 3.7 cm RVD2 (mid): 3.7 cm Doppler Measurements & Calculations Ao V2 max: 121.9 cm/sec LVOT Max Max: 120.1 cm/sec Ao V2 mean: 91.0 cm/sec LV V1 max P.8 mmHg Ao max P.0 mmHg LV V1 VTI: 26.4 cm Ao mean P.6 mmHg MARIELA(I,D): 3.4 cm2 Ao V2 VTI: 26.4 cm MARIELA(V,D): 3.3 cm2 sev ratio: 1.00 MARIELA indexed to BSA (cm^2/m^2): 1.6 MV E max max: 99.4 cm/sec TR max max: 204.7 cm/sec MV A max max: 3.1 cm/sec TR max P.8 mmHg MV E/A: 31.8 PA V2 max: 85.1 cm/sec Med Peak E' Max: 6.7 cm/sec PA V2 mean: 67.0 cm/sec E/E' med: 14.8 PA mean P.9 mmHg Lat Peak E' Max: 8.6 cm/sec PA pr(Accel): 45.7 mmHg E/E' lat: 11.6 PA Accel Time: 0.07 sec E/e' average: 13.2 MV dec time: 0.19 sec SV(LVOT): 89.6 ml Reading Physician:02:15 PM
== END ==
PROVIDERS: PCP Family Medicine; Referring Provider Internal Medicine Critical Care Medicine; Visit Provider Family Medicine
DX: I48.91 Unspecified atrial fibrillation (principal)
CPT/HCPCS: 93306

== ENCOUNTER → 2019-05-24 10:40 | Outpatient (CLI) | payer OTHER, SELFPAY ==
[2019-01-21 15:17] VITALS: BMI 29.5
[2019-05-24 11:16] LABS: Add Manual Diff / Slide Review NO; Basophils Absolute Auto 100 /uL (0-100); Basophils Percent Auto 0.8 % (0-2); Eosinophils Absolute Auto 200 /uL (0-450); Eosinophils Percent Auto 2.8 % (2-4); Hematocrit 38.4 % (41-53); Hemoglobin 13.6 g/dL (13.5-17.5); Lymphocytes Absolute Auto 1900 /uL (1100-4500); Mean Corpuscular HGB Conc 35.3 % (30-36); Mean Corpuscular Hemoglobin 30.7 PG (26-34); Mean Corpuscular Volume 87.1 fL (80-100); Monocytes Absolute Auto 500 /uL (0-900); Monocytes Percent Auto 7.8 % (3-14); Neutrophils Absolute Auto 3600 /uL (1500-7000); Neutrophils Percent Auto 57.6 % (50-75); Platelet Count 251 X10^3/uL (150-400); Red Blood Cell Count 4.41 X10^6/uL (4.5-5.9); Red Cell Distribution Width 14.7 % (11.6-14.8); White Blood Cell Count 6.3 X10^3/uL (4.5-11.0)
[2019-05-24 11:48] LABS: Erythrocyte Sedimentation Rate 35 MM/HR (0-15)
[2019-05-24 12:00] LABS: C-Reactive Protein Quant 0.5 mg/dL (<1.0)
[2019-05-24 12:33] LABS: Alanine Aminotransferase 25 IU/L (21-72); Albumin 4.6 g/dL (3.5-5.0); Albumin Globulin Ratio 1.6 (1.0-2.8); Alkaline Phosphatase 100 U/L (38-126); Aspartate Aminotransferase 32 IU/L (17-59); BUN Creatinine Ratio 29.2 (6-22); Bilirubin Total 0.6 mg/dL (0.2-1.3); Blood Urea Nitrogen 35 mg/dL (9-20); Calcium 10.2 mg/dL (8.4-10.2); Carbon Dioxide 26 mmol/L (22-32); Chloride 94 mmol/L (98-107); Estimated Glomerular Filt Rate 59.9 mL/min (>60); Globulin 2.9 g/dL (1.7-4.1); Glucose 119 mg/dL (80-110); HEMOLYSIS < 15 (0-50); Sodium 131 mmol/L (137-145); Total Protein 7.5 g/dL (6.3-8.2)
[2019-05-24 22:22] LABS: Hemoglobin A1C% w Est Avg Glu 6.6 % (4.0-6.0)
== END ==
PROVIDERS: PCP Family Medicine; Visit Provider Family Medicine
DX: Z01.818 Encounter for other preprocedural examination (principal); E11.621 Type 2 diabetes mellitus with foot ulcer; L97.509 Non-pressure chronic ulcer of other part of unspecified foot with unspecified severity; I10 Essential (primary) hypertension; I48.91 Unspecified atrial fibrillation; E11.9 Type 2 diabetes mellitus without complications; E78.2 Mixed hyperlipidemia; N19 Unspecified kidney failure
CPT/HCPCS: 36415; 80053; 83036; 85025; 85651; 86140

== ENCOUNTER → 2019-07-25 09:10 | Outpatient (CLI) | payer OTHER, SELFPAY ==
[2019-01-21 15:17] VITALS: BMI 29.5
[2019-07-25 10:04] LABS: Add Manual Diff / Slide Review NO; Basophils Absolute Auto 0 /uL (0-100); Basophils Percent Auto 0.7 % (0-2); Eosinophils Absolute Auto 200 /uL (0-450); Eosinophils Percent Auto 2.9 % (2-4); Hematocrit 40.9 % (41-53); Hemoglobin 14.5 g/dL (13.5-17.5); Lymphocytes Absolute Auto 1300 /uL (1100-4500); Lymphocytes Percent Auto 23.3 % (25-40); Mean Corpuscular HGB Conc 35.3 % (30-36); Mean Corpuscular Hemoglobin 31.3 PG (26-34); Mean Corpuscular Volume 88.7 fL (80-100); Monocytes Absolute Auto 500 /uL (0-900); Monocytes Percent Auto 8.4 % (3-14); Neutrophils Absolute Auto 3500 /uL (1500-7000); Neutrophils Percent Auto 64.7 % (50-75); Platelet Count 262 X10^3/uL (150-400); Red Blood Cell Count 4.61 X10^6/uL (4.5-5.9); Red Cell Distribution Width 13.4 % (11.6-14.8); White Blood Cell Count 5.5 X10^3/uL (4.5-11.0)
[2019-07-25 10:12] LABS: Alanine Aminotransferase 19 IU/L (<50); Albumin 4.6 g/dL (3.5-5.0); Albumin Globulin Ratio 1.5 (1.0-2.8); Alkaline Phosphatase 107 U/L (38-126); Aspartate Aminotransferase 26 IU/L (17-59); BUN Creatinine Ratio 27.5 (6-22); Bilirubin Total 0.8 mg/dL (0.2-1.3); Blood Urea Nitrogen 33 mg/dL (9-20); Calcium 9.9 mg/dL (8.4-10.2); Carbon Dioxide 24 mmol/L (22-32); Chloride 96 mmol/L (98-107); Cholesterol 234 mg/dL (140-199); Estimated Glomerular Filt Rate 59.9 mL/min (>60); Glucose 199 mg/dL (80-110); HDL Cholesterol 38 mg/dL (40-60); HEMOLYSIS < 15 (0-50); LDL Cholesterol Calculated 160 mg/dL (<100); Potassium 4.6 mmol/L (3.4-5.1); Sodium 133 mmol/L (137-145); Total Protein 7.6 g/dL (6.3-8.2); Triglycerides 179 mg/dL (35-150)
[2019-07-25 10:17] LABS: Hemoglobin A1C% w Est Avg Glu 7.4 % (4.0-6.0)
[2019-07-25 11:17] LABS: Creatinine Urine Random 158.7 mg/dL
[2019-07-25 13:02] LABS: Microalbumi Creatinin Ratio Ur 5015.7 ug/mg CR (<30)
== END ==
PROVIDERS: PCP Family Medicine; Visit Provider Family Medicine
DX: E11.9 Type 2 diabetes mellitus without complications (principal)
CPT/HCPCS: 36415; 80053; 80061; 82043; 82570; 83036; 85025

== ENCOUNTER → 2019-10-24 08:14 | Outpatient (CLI) | payer OTHER, SELFPAY ==
[2019-01-21 15:17] VITALS: BMI 29.5
[2019-10-24 09:02] LABS: BUN Creatinine Ratio 23.2 (6-22); Blood Urea Nitrogen 29 mg/dL (9-20); Calcium 10.1 mg/dL (8.4-10.2); Carbon Dioxide 29 mmol/L (22-32); Chloride 94 mmol/L (98-107); Estimated Glomerular Filt Rate 57.1 mL/min (>60); Glucose 225 mg/dL (80-110); HEMOLYSIS < 15 (0-50); Hemoglobin A1C% w Est Avg Glu 7.7 % (4.0-6.0); Potassium 4.4 mmol/L (3.4-5.1); Sodium 133 mmol/L (137-145)
[2019-10-24 12:10] LABS: Creatinine Urine Random 91.3 mg/dL
[2019-10-24 13:06] LABS: Microalbumi Creatinin Ratio Ur 4479.7 ug/mg CR (<30)
== END ==
PROVIDERS: PCP Family Medicine; Referring Provider Family Medicine; Visit Provider Family Medicine
DX: E11.9 Type 2 diabetes mellitus without complications (principal)
CPT/HCPCS: 36415; 80048; 82043; 82570; 83036

== ENCOUNTER → 2020-02-20 09:05 | Outpatient (CLI) | payer OTHER, SELFPAY ==
[2019-01-21 15:17] VITALS: BMI 29.5
[2020-02-20 09:42] LABS: BUN Creatinine Ratio 20.7 (6-22); Blood Urea Nitrogen 29 mg/dL (9-20); Calcium 10.3 mg/dL (8.4-10.2); Carbon Dioxide 28 mmol/L (22-32); Chloride 93 mmol/L (98-107); Cholesterol 245 mg/dL (140-199); Estimated Glomerular Filt Rate 50.1 mL/min (>60); Glucose 206 mg/dL (80-110); HDL Cholesterol 38 mg/dL (40-60); HEMOLYSIS < 15 (0-50); LDL Cholesterol Calculated 169 mg/dL (<100); Sodium 131 mmol/L (137-145); Triglycerides 190 mg/dL (35-150)
[2020-02-20 09:45] LABS: Hemoglobin A1C% w Est Avg Glu 8.4 % (4.0-6.0); Potassium 5.5 mmol/L (3.4-5.1)
[2020-02-20 11:13] LABS: Creatinine Urine Random 133.9 mg/dL
[2020-02-20 12:11] LABS: Microalbumi Creatinin Ratio Ur 3196.4 ug/mg CR (<30)
== END ==
PROVIDERS: PCP Family Medicine; Referring Provider Family Medicine; Visit Provider Family Medicine
DX: E11.9 Type 2 diabetes mellitus without complications (principal)
CPT/HCPCS: 36415; 80048; 80061; 82043; 82570; 83036

== ENCOUNTER 2020-04-08 09:04 | Emergency (ER) | payer OTHER, SELFPAY ==
[2019-01-21 15:17] VITALS: BMI 29.5
[2020-04-08] VITALS (19 sets, daily range): BP systolic 141–194; BP diastolic 67–97; PULSE 54–104; RESP 12–22; TEMP 36.2; O2SAT 93–99; BMI 31.0
--- NOTE | 2020-04-08 09:27 | ED.SOB ---
HPI - SOB/Dyspnea General Chief Complaint: Shortness of Breath/Dyspnea Stated Complaint: SOB, not feeling great in the chest Time Seen by Provider: 04/08/20 09:15 History of Present Illness HPI Narrative: 70-year-old gentleman with a history of atrial fibrillation with bradycardia post pacemaker placement, hypertension, hyperlipidemia and diabetes presents with 3 days of increasing dyspnea. Last night he notes that he had difficulty sleeping because of the increased dyspnea. He does not report chest pain, wheeze, fever or significant cough. He does note occasional nausea and some minor allergy symptoms over the last months but nothing that is outside of his usual. He has had no difficulty with vomiting, diarrhea, dysuria or urinary retention. He reports no increase in lower extremity edema. Last week he was helping his daughter move and a box scraped down the anterior portion of both shins and the wounds from that are healing nicely without signs of infection. Related Data Home Medications Medication Instructions Recorded Confirmed Allertec 1 tab PO PRN PRN 01/21/19 02/22/20 acetaminophen [Tylenol] 1 dose PO PRN PRN 01/21/19 02/22/20 fluocinonide 1 applictn TOP BID PRN 01/21/19 02/22/20 hydrocodone-acetaminophen [[place]] 1 tab PO BID PRN 01/21/19 02/22/20 multivitamin 1 tab PO DAILY 01/21/19 02/22/20 Previous Rx's Medication Instructions Recorded blood sugar diagnostic #100 each 04/18/19 lancets 30 gauge #100 each 04/18/19 losartan 50 mg tablet 50 mg PO BID #180 tab 09/07/19 omeprazole 20 mg capsule,delayed 20 mg PO DAILY #90 cap 09/07/19 release amlodipine 10 mg tablet 10 mg PO DAILY #90 tab 02/22/20 dabigatran etexilate 150 mg capsule 150 mg PO BID #180 cap 02/22/20 gemfibrozil 600 mg tablet 600 mg PO BIDAC #270 tab 02/22/20 glipizide 5 mg tablet See Rx Instructions PO BID PRN #90 02/23/20 tab metformin 1,000 mg tablet See Rx Instructions PO .COMPLEX 02/23/20 #150 tab Allergies Allergy/AdvReac Type Severity Reaction Status Date / Time levofloxacin [From Levaquin] AdvReac Severe Kidneys Verified 02/22/20 08:55 took a dive, afib, joint pain lisinopril [LISINOPRIL] AdvReac Unknown cough Verified 02/22/20 08:55 Review of Systems Review of Systems Narrative: Remainder of review of systems including constitutional, ENT, cardiovascular, respiratory, GI, , musculoskeletal, skin, neurologic and psychiatric systems reviewed and are unremarkable except as noted in HPI. Patient History Medical History Carpal tunnel syndrome (Chronic ~1981) Chicken pox (Resolved) Essential hypertension (Chronic 09/22/16) Fractures (Resolved ~2004) GERD (gastroesophageal reflux disease) (Chronic ~1989) Measles (Resolved) Mixed hyperlipidemia (Chronic 09/22/16) Mumps (Resolved) Peripheral neuropathy (Chronic ~1994) Peripheral vascular disease (Chronic ~1999) Plantar warts (Resolved) Renal failure (Chronic 05/28/17) Right anterior knee pain (Acute) Rubella (Resolved) Ruptured tympanic membrane (Resolved ~1977) Type 2 diabetes mellitus without complication (Chronic 09/22/16) Surgical History Anesthesia (Resolved) History of carpal tunnel repair (Inactive ~1980) Status post urinary system surgery (Resolved ~1993) Family History Mother Heart disease Hypertension Stroke Diabetes mellitus Father No problems noted. Social History household members: spouse Smoking Status: Never smoker alcohol intake: never Smoking Status: Never smoker Substance Use Type: does not use Exam Narrative Exam Narrative: General: Healthy appearing, in no acute distress. Able to give a complete and coherent history. Well-nourished well-developed states he still feels dyspneic with oxygen saturations at 99% HEENT: Moist mucous membranes, normal sclera with reactive pupils, Neck: No JVD, supple Respiratory: Lungs with crackles to mid lung brito bilaterally without rhonchi or consolidated findings. Full and symmetrical air movement Cardiac: Regular rate and rhythm no murmurs no bruits Abdomen: Soft nontender good bowel tones, no flank pain Skin: Warm and dry, no rashes Neurologic: Grossly neurologically intact with no obvious asymmetries or abnormalities Extremities: Abrasions down anterior portion of both shins mild surrounding erythema but both seem to be healing nicely, well perfused Psych: Cooperative, appropriate insight and affect Initial Vital Signs Initial Vital Signs: Vital Signs Temperature 97.2 F L 04/08/20 09:19 Pulse Rate 82 04/08/20 09:19 Respiratory Rate 20 04/08/20 09:19 Blood Pressure 194/97 H 04/08/20 09:19 Pulse Oximetry 99 04/08/20 09:19 Course Orders Ordered: ED Orders 04/08/20 09:23 Complete Blood Count AUTO DIFF Stat Comprehensive Metabolic Panel Stat D Dimer Stat Magnesium Stat NT-proBNP (BNP-Adult 18+) Stat Troponin I Stat 04/08/20 10:04 XR chest 1V Stat 04/08/20 10:28 EC echo doppler complete Stat 04/08/20 13:00 Troponin I Stat Heparin Sodium/Dextrose (Heparin Drip) 25,000 unit in 500 mls @ 20 mls/hr IV CONT WILEY; Protocol Last Admin: 04/08/20 10:23 Dose: 1,000 units/hr, 20 mls/hr Documented by: CEFERINO Discontinued Medications Aspirin (Aspirin Chew) 324 mg PO NOW ONE Stop: 04/08/20 10:05 Last Admin: 04/08/20 10:19 Dose: 324 mg Documented by: CEFERINO Furosemide (Lasix) 40 mg IV NOW ONE Stop: 04/08/20 10:36 Last Admin: 04/08/20 10:48 Dose: 40 mg Documented by: CEFERINO Heparin Sodium (Porcine) (Heparin) 7,500 unit IV NOW ONE Stop: 04/08/20 10:04 Last Admin: 04/08/20 10:22 Dose: 7,500 unit Documented by: CEFERINO Metoprolol Tartrate (Lopressor) 5 mg IV Q5M [facility] Stop: 04/08/20 10:26 Last Admin: 04/08/20 12:52 Dose: Not Given Documented by: Admin: 04/08/20 12:51 Dose: Not Given Documented by: Admin: 04/08/20 10:31 Dose: 5 mg Documented by: CEFERINO Nitroglycerin (Nitro-Bid) 0.5 inch TOP NOW ONE Stop: 04/08/20 10:04 Last Admin: 04/08/20 10:20 Dose: 0.5 inch Documented by: CEFERINO Vital Signs Vital signs: Vital Signs - 8 hr 04/08/20 09:19 04/08/20 09:24 04/08/20 09:25 Temperature 97.2 F L Pulse Rate 82 55 L 54 L Respiratory Rate 20 20 19 Blood Pressure 194/97 H 163/79 H Pulse Oximetry 99 98 97 04/08/20 09:30 04/08/20 10:00 04/08/20 10:20 Temperature Pulse Rate 54 L 55 L 104 H Respiratory Rate 19 20 Blood Pressure 150/72 H 141/73 H 141/73 H Pulse Oximetry 96 94 04/08/20 10:30 04/08/20 10:31 04/08/20 11:00 Temperature Pulse Rate 54 L 54 L 56 L Respiratory Rate 21 21 20 Blood Pressure 174/77 H Pulse Oximetry 95 94 95 04/08/20 11:01 04/08/20 11:30 04/08/20 11:31 Temperature Pulse Rate 59 L 54 L 54 L Respiratory Rate 19 12 15 Blood Pressure 152/77 H 145/67 H Pulse Oximetry 94 95 96 04/08/20 12:00 04/08/20 12:30 04/08/20 13:00 Temperature Pulse Rate 80 77 55 L Respiratory Rate 22 18 20 Blood Pressure 148/78 H 141/78 H Pulse Oximetry 95 93 95 04/08/20 13:07 04/08/20 13:30 04/08/20 14:01 Temperature Pulse Rate 95 H 54 L 90 Respiratory Rate 21 20 18 Blood Pressure 157/75 H 144/72 H 168/77 H Pulse Oximetry 95 95 96 04/08/20 14:30 Temperature Pulse Rate 55 L Respiratory Rate 18 Blood Pressure 143/79 H Pulse Oximetry 93 MDM - SOB/Dyspnea Medical Records Attestation: I reviewed the patient's medical records. Medical records narrative: Echocardiogram done May 2019 shows normal left ventricular thickness, size, wall motion and systolic function with an ejection fraction at 60 65% and no significant valvular abnormalities. This is done prior to his pacemaker placement. Lab Data Attestation: I reviewed the patient's lab results. Result diagrams: 04/08/20 09:23 04/08/20 09:23 Labs: Lab Results 04/08/20 04/08/20 04/08/20 Range/Units 09:23 09:23 09:23 WBC 7.6 (4.5-11.0) X10^3/uL RBC 4.27 L (4.5-5.9) X10^6/uL Hgb 13.5 (13.5-17.5) g/dL Hct 38.7 L (41-53) % MCV 90.6 (80-100) fL MCH 31.5 (26-34) PG MCHC 34.8 (30-36) % RDW 14.2 (11.6-14.8) % Plt Count 238 (150-400) X10^3/uL Neut % (Auto) 75.8 H (50-75) % Lymph % (Auto) 16.0 L (25-40) % [place] % (Auto) 5.8 (3-14) % Eos % (Auto) 1.6 L (2-4) % Baso % (Auto) 0.8 (0-2) % Neut # (Auto) 5800 (2397-3439) /uL Lymph # (Auto) 1200 (0207-5890) /uL [place] # (Auto) 400 (0-900) /uL Eos # (Auto) 100 (0-450) /uL Baso # (Auto) 100 (0-100) /uL D-Dimer 295 H (<230) ng/mL Sodium 134 L (137-145) mmol/L Potassium 4.4 (3.4-5.1) mmol/L Chloride 96 L (98-107) mmol/L Carbon Dioxide 25 (22-32) mmol/L BUN 28 H (9-20) mg/dL Creatinine 1.12 (0.66-1.25) mg/dL Estimated GFR > 60.0 (>60) mL/min BUN/Creatinine Ratio 25.0 H (6-22) Glucose 200 H (80-110) mg/dL Calcium 10.0 (8.4-10.2) mg/dL Magnesium 1.4 L (1.6-2.3) mg/dL Total Bilirubin 0.9 (0.2-1.3) mg/dL AST 44 (17-59) IU/L ALT 33 (<50) IU/L Alkaline Phosphatase 139 H (38-126) U/L Troponin I 3.240 H* (0.01-0.034) ng/mL NT-Pro-B Natriuret Pep 3580 H (<125) pg/mL Total Protein 8.3 H (6.3-8.2) g/dL Albumin 4.9 (3.5-5.0) g/dL Globulin 3.4 (1.7-4.1) g/dL Albumin/Globulin Ratio 1.4 (1.0-2.8) COVID-19 PCR 04/08/20 04/08/20 04/08/20 Range/Units 09:47 09:47 13:00 WBC (4.5-11.0) X10^3/uL RBC (4.5-5.9) X10^6/uL Hgb (13.5-17.5) g/dL Hct (41-53) % MCV (80-100) fL MCH (26-34) PG MCHC (30-36) % RDW (11.6-14.8) % Plt Count (150-400) X10^3/uL Neut % (Auto) (50-75) % Lymph % (Auto) (25-40) % [place] % (Auto) (3-14) % Eos % (Auto) (2-4) % Baso % (Auto) (0-2) % Neut # (Auto) (8746-2150) /uL Lymph # (Auto) (9999-8907) /uL [place] # (Auto) (0-900) /uL Eos # (Auto) (0-450) /uL Baso # (Auto) (0-100) /uL D-Dimer (<230) ng/mL Sodium (137-145) mmol/L Potassium (3.4-5.1) mmol/L Chloride (98-107) mmol/L Carbon Dioxide (22-32) mmol/L BUN (9-20) mg/dL Creatinine (0.66-1.25) mg/dL Estimated GFR (>60) mL/min BUN/Creatinine Ratio (6-22) Glucose (80-110) mg/dL Calcium (8.4-10.2) mg/dL Magnesium (1.6-2.3) mg/dL Total Bilirubin (0.2-1.3) mg/dL AST (17-59) IU/L ALT (<50) IU/L Alkaline Phosphatase (38-126) U/L Troponin I 3.500 H* (0.01-0.034) ng/mL NT-Pro-B Natriuret Pep (<125) pg/mL Total Protein (6.3-8.2) g/dL Albumin (3.5-5.0) g/dL Globulin (1.7-4.1) g/dL Albumin/Globulin Ratio (1.0-2.8) COVID-19 PCR Cancelled Negative Imaging Data Chest x-ray: Radiologist's Impression: FINDINGS: Surgical changes and devices: None. Lungs and pleura: Interstitial prominence is seen throughout. No focal infiltrates are seen. No pneumothorax or large pleural effusion can be seen. Mediastinum: Atherosclerotic calcification of the aortic arch is noted. Mild to moderate cardiomegaly is seen. Bones and chest wall: No suspicious bony lesions. Age-appropriate bony degenerative changes are seen. Overlying soft tissues appear unremarkable. IMPRESSION: Cardiomegaly and interstitial prominence. Please correlate with patient presentation, physical examination findings, and laboratory values for congestive heart failure. Dictated by: Martin Camara M.D. on 04/08/2020 at 9:26 MDM Narrative Medical decision making narrative: Significantly elevated troponin, proBNP with normal creatinine. D-dimer is slightly elevated but still normal range corrected for age. 10:05 Will add asa, nitropaste, begin heparin bolus/drip, metoprolol IV and talk to Cardiology to decide on best hospital for admission. CXR pending 10:[address] Means, cardiology. He recommended at stat echo to look for acute wall motion abnormalities. His initial impression was more a heart failure presentation than myocardial infarction. Will contact him after echo has been read. Patient remains hemodynamically stable without any dyspnea at this point. 1:40 echocardiogram as read by Dr. Means, notes new wall motion abnormalities compared to echo of 1 year ago in a basilar inferior and basilar inferior/lateral positions. In reviewing findings he has recommended transfer to [facility]. Troponin comes back slightly increased again at 3.5. Patient remains hemodynamically stable and dyspnea/pain-free. 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 When bed is available transport will be arranged. Can arrive at [facility] by 330. ALS transport will arrive at 2:45 Discharge Plan Departure Patient Disposition: [facility] Clinical Impression: Acute coronary syndrome with high troponin Prescriptions: No Action losartan 50 mg tablet 50 mg PO BID Qty: 180 RF: 3 omeprazole 20 mg capsule,delayed release(DR/EC) 20 mg PO DAILY Qty: 90 RF: 1 glipizide 5 mg tablet See Rx Instructions PO BID PRN (Reason: blood sugar) Qty: 90 RF: 3 metformin 1,000 mg tablet See Rx Instructions PO .COMPLEX Qty: 150 RF: 5 gemfibrozil 600 mg tablet 600 mg PO BIDAC Qty: 270 RF: 3 Pradaxa 150 mg capsule 150 mg PO BID Qty: 180 RF: 3 amlodipine 10 mg tablet 10 mg PO DAILY Qty: 90 RF: 3 (DME) lancets [OneTouch Delica Lancets] 30 gauge misc See Rx Instructions .ROUTE .MEDSUPPLY Qty: 100 RF: 2 (DME) OneTouch Ultra Blue Test Strip strip See Rx Instructions .ROUTE .MEDSUPPLY Qty: 100 RF: 2 hydrocodone-acetaminophen [[place]] 5-325 mg tablet 1 tab PO BID PRN (Reason: pain) RF: 0 Allertec 1 tab PO PRN PRN (Reason: Allergy Symptoms) RF: 0 multivitamin Tablet 1 tab PO DAILY RF: 0 acetaminophen [Tylenol] 325 mg Tablet 1 dose PO PRN PRN (Reason: pain) RF: 0 fluocinonide 0.05 % ointment 1 applictn TOP BID PRN (Reason: Rash) RF: 0 Referrals: Ghassan Lyn MD [Primary Care Provider] -
[2020-04-08 09:33] LABS: Add Manual Diff / Slide Review NO; Basophils Absolute Auto 100 /uL (0-100); Basophils Percent Auto 0.8 % (0-2); Eosinophils Absolute Auto 100 /uL (0-450); Eosinophils Percent Auto 1.6 % (2-4); Hematocrit 38.7 % (41-53); Hemoglobin 13.5 g/dL (13.5-17.5); Lymphocytes Absolute Auto 1200 /uL (1100-4500); Mean Corpuscular HGB Conc 34.8 % (30-36); Mean Corpuscular Hemoglobin 31.5 PG (26-34); Mean Corpuscular Volume 90.6 fL (80-100); Monocytes Absolute Auto 400 /uL (0-900); Monocytes Percent Auto 5.8 % (3-14); Neutrophils Absolute Auto 5800 /uL (1500-7000); Neutrophils Percent Auto 75.8 % (50-75); Platelet Count 238 X10^3/uL (150-400); Red Blood Cell Count 4.27 X10^6/uL (4.5-5.9); Red Cell Distribution Width 14.2 % (11.6-14.8); White Blood Cell Count 7.6 X10^3/uL (4.5-11.0)
[2020-04-08 09:42] LABS: D Dimer 295 ng/mL (<230)
[2020-04-08 09:43] LABS: Alanine Aminotransferase 33 IU/L (<50); Albumin 4.9 g/dL (3.5-5.0); Albumin Globulin Ratio 1.4 (1.0-2.8); Alkaline Phosphatase 139 U/L (38-126); Aspartate Aminotransferase 44 IU/L (17-59); Bilirubin Total 0.9 mg/dL (0.2-1.3); Blood Urea Nitrogen 28 mg/dL (9-20); Carbon Dioxide 25 mmol/L (22-32); Chloride 96 mmol/L (98-107); Estimated Glomerular Filt Rate > 60.0 mL/min (>60); Globulin 3.4 g/dL (1.7-4.1); Glucose 200 mg/dL (80-110); HEMOLYSIS 18 (0-50); Magnesium 1.4 mg/dL (1.6-2.3); Potassium 4.4 mmol/L (3.4-5.1); Sodium 134 mmol/L (137-145); Total Protein 8.3 g/dL (6.3-8.2)
[2020-04-08 09:55] LABS: NT-proBNP (BNP-Adult 18+) 3580 pg/mL (<125)
--- NOTE | 2020-04-08 10:04 | DI.RAD.S_ITS ---
PROCEDURE: XR CHEST 1V INDICATIONS: dyspnea, elevated trop TECHNIQUE: One view of the chest was acquired. COMPARISON: None. FINDINGS: Surgical changes and devices: None. Lungs and pleura: Interstitial prominence is seen throughout. No focal infiltrates are seen. No pneumothorax or large pleural effusion can be seen. Mediastinum: Atherosclerotic calcification of the aortic arch is noted. Mild to moderate cardiomegaly is seen. Bones and chest wall: No suspicious bony lesions. Age-appropriate bony degenerative changes are seen. Overlying soft tissues appear unremarkable. IMPRESSION: Cardiomegaly and interstitial prominence. Please correlate with patient presentation, physical examination findings, and laboratory values for congestive heart failure. Dictated by: Martin Camara M.D. on 04/08/2020 at 9:26 Approved by: Martin Camara M.D. on 04/08/2020 at 9:27
[2020-04-08] MEDS: ASPIRIN 81 MG CHEW TAB 324 MG PO (10:19)
[2020-04-08] MEDS: NITROGLYCERIN OINT 1 INCH/GM OINT...G. 0.5 INCH TOP (10:20)
[2020-04-08] MEDS: HEPARIN 5,000 UNIT/ML VIAL 7500 UNIT IV (10:22)
[2020-04-08] MEDS: HEPARIN DRIP 25,000 UNIT/500 ML IV.SOLN 20 UNIT IV (10:23)
[2020-04-08] MEDS: METOPROLOL TARTRATE 5 MG/5 ML INJ IV (10:31)
[2020-04-08] MEDS: FUROSEMIDE 40 MG/4 ML VIAL IV (10:48)
[2020-04-08 10:56] LABS: COVID19 -Nasal RAPID Negative (Negative)
--- NOTE | 2020-04-08 11:08 | DI.ECHO.S_ITS ---
Echocardiogram Report + + :Name: FRANCIS WASHBURN Study Date: 04/08/2020 Height: 69 in : :[facility] Weight: 210 lb : : Gender: Male BSA: 2.1 m2 : :: 1950 Age: 70 yrs BP: 152/77 mmHg: :Reason For Study: Dyspnea : :Ordering Physician: [place] : :Hospitalist Performed By: Noreen Mejia : :Referring: LISETH KERN L : + + Interpretation Summary 1) Normal left ventricular size and systolic function (EF 60-65%). 2) Basal inferolateral wall and basal inferior wall appear akinetic (but visualization is suboptimal). 3) The right ventricle is normal in size and function. There is a pacemaker lead in the right ventricle. 4) There is mild to moderate mitral regurgitation. 5) Hypertension present during the study (BP 152/77mmHg). 6) Compared to the Echo done 05/10/2019, wall motion abnormalities appear new on this study. Procedure: A two-dimensional transthoracic echocardiogram with color flow and Doppler was performed. The study quality was technically adequate. Comparison is made with the echocardiogram of 05/10/2019. The patient had a difficult time tolerating the exam due to discomfort. The patient has a paced rhythm. Left Ventricle: The left ventricle is normal in size. Left ventricular wall thickness is borderline increased. The ejection fraction is estimated to be 60-65%. Basal inferolateral wall and basal inferior wall appear akinetic (but visualization is suboptimal). Diastolic function could not be accurately assessed due to paced rhythm. Right Ventricle: The right ventricle is normal in size and function. There is a pacemaker lead in the right ventricle. Atria: Both atria are normal in size. There is no Doppler evidence for an atrial septal defect. Mitral Valve: The mitral valve is normal in structure and function. There is mild mitral annular calcification. There is mild to moderate mitral regurgitation. Aortic Valve: The aortic valve is trileaflet. There is mild aortic valve sclerosis. There is no aortic valve stenosis. No aortic regurgitation is present. Tricuspid Valve: The tricuspid valve is normal in structure and function. There is a trace or physiologic amount of tricuspid regurgitation. Pulmonary artery pressures cannot be estimated because of the lack of a measurable TR jet velocity. Pulmonic Valve: The pulmonic valve is not well seen, but is grossly normal. Great Vessels: The dimensions of the ascending aorta are normal. The IVC is of normal diameter and collapses greater than 50% with a sniff. This suggests a low right atrial pressure of 3 mm Hg. Pericardium/ Pleura There is no pericardial effusion. There is an anterior echo-free space consistent with a fat pad. There is no pleural effusion. MMode/2D Measurements & Calculations LVIDd: 4.9 cm LVOT diam: 2.1 cm LVIDs: 3.2 cm asc Aorta Diam: 3.1 cm IVSd: 1.0 cm LVPWd: 1.1 cm LV avery. diameter/BSA (cm/m^2): 2.3 LV sys. diameter/BSA (cm/m^2): 1.5 FS: 35.3 % LA A2 area: 19.4 cm2 RA long axis: 4.4 cm LA A4 area: 16.7 cm2 RA area: 15.7 cm2 LA length (vol): 5.6 cm RA vol: 47.2 ml LA vol: 49.6 ml RA : 22.4 ml/m2 LA vol index: 23.5 ml/m2 TAPSE: 1.6 cm Doppler Measurements & Calculations Ao V2 max: 133.6 cm/sec LVOT Max Max: 90.7 cm/sec Ao V2 mean: 97.3 cm/sec LV V1 max P.3 mmHg Ao V2 VTI: 26.7 cm LV V1 VTI: 13.2 cm Ao max P.1 mmHg Ao mean P.1 mmHg MARIELA(I,D): 1.7 cm2 SV(LVOT): 45.0 ml MARIELA(V,D): 2.3 cm2 MARIELA indexed to BSA (cm^2/m^2): 0.80 sev ratio: 0.50 Reading Physician:01:25 PM
--- NOTE | 2020-04-12 18:02 | PC.NURSE ---
late entry, Heparin gtt stop time was 1512 upon patient departure to another facility. Heparin gtt continued to infuse with [facility] crew.
== END 2020-04-08 15:12 | disposition short-term general hospital (02) ==
PROVIDERS: Emergency Provider Emergency Medicine; PCP Family Medicine
DX: I24.9 Acute ischemic heart disease, unspecified (principal); R79.89 Other specified abnormal findings of blood chemistry; I48.91 Unspecified atrial fibrillation; R00.1 Bradycardia, unspecified; Z95.0 Presence of cardiac pacemaker; I10 Essential (primary) hypertension; E78.5 Hyperlipidemia, unspecified; E11.9 Type 2 diabetes mellitus without complications
CPT/HCPCS: 36415; 71045; 80053; 83735; 83880; 84484; 85025; 85379; 87635; 93005; 93306; 96365; 96366; 96375; 99284; J1644; J1940

== ENCOUNTER → 2020-04-24 13:23 | Outpatient (CLI) | payer OTHER, SELFPAY ==
[2019-01-21 15:17] VITALS: BMI 29.5
--- NOTE | 2020-04-24 | DI.RAD.S_ITS ---
PROCEDURE: XR CHEST 2V INDICATIONS: SHORTNESS OF BREATH TECHNIQUE: 2 views of the chest were acquired. COMPARISON: [facility], CR, XR CHEST 1V, 04/08/2020, 10:10. FINDINGS: Sternotomy wires. Surgical changes and devices: Cardiac leadless pacer Lungs and pleura: No acute consolidation. No pneumothorax. Small bilateral pleural effusions with adjacent atelectasis, left slightly greater than right.. Mediastinum: Mediastinal contours are normal. Heart size is normal. Bones and chest wall: No suspicious bony abnormalities. Soft tissues appear unremarkable. IMPRESSION: Small bilateral pleural effusions with adjacent atelectasis. Dictated by: Jacques Sapp M.D. on 04/24/2020 at 14:52 Approved by: Jacques Sapp M.D. on 04/24/2020 at 15:40
[2020-04-24 15:07] LABS: Hemoglobin A1C% w Est Avg Glu 5.9 % (4.0-6.0)
[2020-04-24 16:01] LABS: BUN Creatinine Ratio 15.2 (6-22); Blood Urea Nitrogen 19 mg/dL (9-20); Calcium 8.7 mg/dL (8.4-10.2); Carbon Dioxide 29 mmol/L (22-32); Chloride 92 mmol/L (98-107); Estimated Glomerular Filt Rate 56.9 mL/min (>60); Glucose 141 mg/dL (80-110); HEMOLYSIS < 15 (0-50); Potassium 4.2 mmol/L (3.4-5.1); Sodium 130 mmol/L (137-145)
== END ==
PROVIDERS: PCP Family Medicine; Referring Provider Nurse Practitioner Adult Health; Visit Provider Nurse Practitioner Adult Health
DX: R06.02 Shortness of breath (principal); J90 Pleural effusion, not elsewhere classified; I50.9 Heart failure, unspecified; I25.10 Atherosclerotic heart disease of native coronary artery without angina pectoris; E11.9 Type 2 diabetes mellitus without complications; N19 Unspecified kidney failure; Z95.0 Presence of cardiac pacemaker
CPT/HCPCS: 36415; 71046; 80048; 83036

== ENCOUNTER → 2020-05-22 08:10 | Outpatient (CLI) | payer OTHER, SELFPAY ==
[2019-01-21 15:17] VITALS: BMI 29.5
[2020-05-22 09:28] LABS: Add Manual Diff / Slide Review NO; Basophils Absolute Auto 100 /uL (0-100); Basophils Percent Auto 0.8 % (0-2); Eosinophils Absolute Auto 300 /uL (0-450); Eosinophils Percent Auto 4.6 % (2-4); Hematocrit 35.9 % (41-53); Hemoglobin 11.8 g/dL (13.5-17.5); Lymphocytes Absolute Auto 1300 /uL (1100-4500); Lymphocytes Percent Auto 21.6 % (25-40); Mean Corpuscular HGB Conc 32.9 % (30-36); Mean Corpuscular Hemoglobin 29.1 PG (26-34); Mean Corpuscular Volume 88.5 fL (80-100); Monocytes Absolute Auto 500 /uL (0-900); Monocytes Percent Auto 7.8 % (3-14); Neutrophils Absolute Auto 3900 /uL (1500-7000); Neutrophils Percent Auto 65.2 % (50-75); Platelet Count 235 X10^3/uL (150-400); Red Blood Cell Count 4.05 X10^6/uL (4.5-5.9); Red Cell Distribution Width 16.1 % (11.6-14.8)
[2020-05-22 09:43] LABS: Hemoglobin A1C% w Est Avg Glu 5.7 % (4.0-6.0)
[2020-05-22 09:50] LABS: BUN Creatinine Ratio 15.7 (6-22); Blood Urea Nitrogen 16 mg/dL (9-20); Calcium 9.2 mg/dL (8.4-10.2); Carbon Dioxide 29 mmol/L (22-32); Chloride 98 mmol/L (98-107); Estimated Glomerular Filt Rate > 60.0 mL/min (>60); Glucose 123 mg/dL (80-110); HEMOLYSIS < 15 (0-50); Potassium 4.1 mmol/L (3.4-5.1); Sodium 132 mmol/L (137-145)
== END ==
PROVIDERS: PCP Family Medicine; Referring Provider Family Medicine; Visit Provider Family Medicine
DX: E11.9 Type 2 diabetes mellitus without complications (principal); Z95.1 Presence of aortocoronary bypass graft
CPT/HCPCS: 36415; 80048; 83036; 85025

== ENCOUNTER 2020-06-30 06:41 | Emergency (ER) | payer OTHER, SELFPAY ==
[2019-01-21 15:17] VITALS: BMI 29.5
[2020-06-30] VITALS (13 sets, daily range): BP systolic 131–159; BP diastolic 72–79; PULSE 70–79; RESP 14–18; TEMP 36.7; O2SAT 14–99; BMI 31.6
--- NOTE | 2020-06-30 07:12 | ED.MALEGU ---
HPI - Male Genitourinary General Chief complaint: Urogenital-Male Stated complaint: blood in urine, frequent, painful urination Time Seen by Provider: 06/30/20 07:05 Source: patient Mode of arrival: Ambulatory Limitations: no limitations History of Present Illness HPI Narrative: 70-year-old gentleman with a history of atrial fibrillation on Pradaxa, 5 way CABG April of this year, diabetes, hypertension, history of bladder or prostate stones presents with 5 hours of hematuria without clots urinary frequency significant burning at the end of avoid a feeling of chills but no actual fevers no flank pain and low pelvic pressure but no actual abdominal pain. He has never had similar symptoms. He denies chest pain, dyspnea, orthopnea, coughing, wheezing, increased edema Related Data Home Medications Medication Instructions Recorded Confirmed Allertec 1 tab PO PRN PRN 01/21/19 05/24/20 acetaminophen [Tylenol] 1 dose PO PRN PRN 01/21/19 05/24/20 fluocinonide 1 applictn TOP BID PRN 01/21/19 05/24/20 hydrocodone-acetaminophen [[place]] 1 tab PO BID PRN 01/21/19 05/24/20 multivitamin 1 tab PO DAILY 01/21/19 05/24/20 aspirin 81 mg tablet,delayed 81 mg PO DAILY 04/19/20 05/24/20 release losartan 25 mg tablet 25 mg PO BID 04/19/20 05/24/20 Previous Rx's Medication Instructions Recorded omeprazole 20 mg capsule,delayed 20 mg PO BID #180 cap 09/22/16 release amlodipine 10 mg tablet 10 mg PO DAILY #90 tab 02/22/20 dabigatran etexilate 150 mg capsule 150 mg PO BID #180 cap 02/22/20 miscellaneous medical supply #1 each 04/19/20 atorvastatin 80 mg tablet 80 mg PO DAILY #90 tab 04/26/20 metoprolol tartrate 25 mg tablet 12.5 mg PO BID #90 tab 04/26/20 varicella-zoster glycoE [id number] 0.5 ml IM ONCE #1 each 04/26/20 adj(PF) 50 mcg/0.5 mL IM susp, kit varicella-zoster glycoE [id number] 0.5 ml IM ONCE #1 each 04/26/20 adj(PF) 50 mcg/0.5 mL IM susp, kit blood sugar diagnostic #100 each 05/03/20 glipizide 10 mg tablet 10 mg PO BID #180 tab 05/24/20 lancets 30 gauge #100 each 05/24/20 metformin 1,000 mg tablet 1,000 mg PO BID #180 tab 05/24/20 sulfamethoxazole-trimethoprim 1 tab PO BID #14 tab 06/30/20 [Bactrim DS] Allergies Allergy/AdvReac Type Severity Reaction Status Date / Time levofloxacin [From Levaquin] AdvReac Severe Kidneys Verified 04/26/20 09:00 took a dive, afib, joint pain lisinopril [LISINOPRIL] AdvReac Unknown cough Verified 04/26/20 09:00 Review of Systems Review of Systems Narrative: Remainder of review of systems including constitutional, ENT, cardiovascular, respiratory, GI, , musculoskeletal, skin, neurologic and psychiatric systems reviewed and are unremarkable except as noted in HPI. Patient History Medical History Carpal tunnel syndrome (~1981) Chicken pox Essential hypertension (09/22/16) Fractures (~2004) GERD (gastroesophageal reflux disease) (~1989) Measles Mixed hyperlipidemia (09/22/16) Mumps Peripheral neuropathy (~1994) Peripheral vascular disease (~1999) Plantar warts Renal failure (05/28/17) Right anterior knee pain Rubella Ruptured tympanic membrane (~1977) Type 2 diabetes mellitus without complication (09/22/16) Surgical History Anesthesia History of carpal tunnel repair (~1980) Status post aorto-coronary artery bypass graft Status post urinary system surgery (~1993) Family History Mother Heart disease Hypertension Stroke Diabetes mellitus Father No problems noted. Social History household members: spouse Smoking Status: Never smoker alcohol intake: never Smoking Status: Never smoker alcohol intake frequency: a few times a month Substance Use Type: does not use Exam Narrative Exam Narrative: General: Healthy appearing, in no acute distress. Able to give a complete and coherent history. Well-nourished well-developed HEENT: Moist mucous membranes, normal sclera with reactive pupils, Neck: No JVD, supple Respiratory: Lungs are clear to auscultation, no wheezing no rales no rhonchi. Full and symmetrical air movement Cardiac: Regular rate and rhythm no murmurs no bruits Abdomen: Soft, mild suprapubic tenderness, good bowel tones, no flank pain Skin: Warm and dry, no rashes Neurologic: Grossly neurologically intact with no obvious asymmetries or abnormalities Extremities: No trauma, well perfused Psych: Cooperative, appropriate insight and affect Bladder scan reveals 144 cc of urine Initial Vital Signs Initial Vital Signs: Vital Signs Temperature 98.1 F 06/30/20 06:50 Pulse Rate 79 06/30/20 06:50 Respiratory Rate 18 06/30/20 06:50 Blood Pressure 158/76 H 06/30/20 06:50 Pulse Oximetry 99 06/30/20 06:50 Course Orders Ordered: ED Orders 06/30/20 07:45 Complete Blood Count AUTO DIFF Stat Comprehensive Metabolic Panel Stat 06/30/20 11:12 Urinalysis and Microscopic Stat Urine Culture Stat Discontinued Medications Trimethoprim/Sulfamethoxazole (Trimeth/Sulfa 160/800 (Ds) Tablet) 1 tab PO NOW ONE Stop: 06/30/20 12:19 Vital Signs Vital signs: Vital Signs - 8 hr 06/30/20 06:50 06/30/20 08:15 06/30/20 08:30 Temperature 98.1 F Pulse Rate 79 70 70 Respiratory Rate 18 Blood Pressure 158/76 H 143/72 H Pulse Oximetry 99 96 94 06/30/20 09:00 06/30/20 09:30 06/30/20 10:00 Temperature Pulse Rate 70 70 72 Respiratory Rate Blood Pressure 148/75 H 131/74 146/76 H Pulse Oximetry 95 98 98 06/30/20 10:30 06/30/20 11:00 06/30/20 11:30 Temperature Pulse Rate 70 70 70 Respiratory Rate Blood Pressure Pulse Oximetry 98 98 98 06/30/20 12:03 06/30/20 12:16 06/30/20 12:17 Temperature Pulse Rate 76 70 Respiratory Rate Blood Pressure 159/79 H Pulse Oximetry 96 97 MDM - Male Genitourinary Medical Records Attestation: I reviewed the patient's medical records. Lab Data Attestation: I reviewed the patient's lab results. Result diagrams: 06/30/20 07:45 06/30/20 07:45 Labs: Lab Results 06/30/20 06/30/20 06/30/20 Range/Units 07:45 07:45 11:12 WBC 14.3 H (4.5-11.0) X10^3/uL RBC 4.03 L (4.5-5.9) X10^6/uL Hgb 11.3 L (13.5-17.5) g/dL Hct 34.6 L (41-53) % MCV 85.9 (80-100) fL MCH 28.1 (26-34) PG MCHC 32.7 (30-36) % RDW 15.2 H (11.6-14.8) % Plt Count 231 (150-400) X10^3/uL Neut % (Auto) 86.2 H (50-75) % Lymph % (Auto) 6.1 L (25-40) % [place] % (Auto) 6.2 (3-14) % Eos % (Auto) 1.0 L (2-4) % Baso % (Auto) 0.5 (0-2) % Neut # (Auto) 72605 H (7134-2216) /uL Lymph # (Auto) 900 L (4062-6117) /uL [place] # (Auto) 900 (0-900) /uL Eos # (Auto) 100 (0-450) /uL Baso # (Auto) 100 (0-100) /uL Sodium 126 L (137-145) mmol/L Potassium 4.7 (3.4-5.1) mmol/L Chloride 92 L (98-107) mmol/L Carbon Dioxide 23 (22-32) mmol/L BUN 16 (9-20) mg/dL Creatinine 0.87 (0.66-1.25) mg/dL Estimated GFR > 60.0 (>60) mL/min BUN/Creatinine Ratio 18.4 (6-22) Glucose 279 H (80-110) mg/dL Calcium 9.0 (8.4-10.2) mg/dL Total Bilirubin 1.1 (0.2-1.3) mg/dL AST 54 (17-59) IU/L ALT 55 H (<50) IU/L Alkaline Phosphatase 180 H (38-126) U/L Total Protein 6.8 (6.3-8.2) g/dL Albumin 4.0 (3.5-5.0) g/dL Globulin 2.8 (1.7-4.1) g/dL Albumin/Globulin Ratio 1.4 (1.0-2.8) Urine Color Yellow Urine Appearance Sl cloudy Urine pH 7.5 (4.5-8.0) Ur Specific [place] 1.015 (1.000-1.035) Urine Protein 2+ H (Negative) Urine Glucose (UA) Trace H (Negative) g/dL Urine Ketones Negative (NEGATIVE) Urine Occult Blood 3+ H (Negative) Urine Nitrate Negative (Negative) Urine Bilirubin Negative (NEGATIVE) Urine Urobilinogen 0.2 (0.2) E.U./dL Ur Leukocyte Esterase 2+ H (NEGATIVE) Urine RBC 30-100/hpf H (0-5/HPF) Urine WBC 10-30/hpf H (0-5/HPF) Ur Squamous Epith Cells 0-1 /hpf (0-5/HPF) Urine Bacteria Few (2-10) H (None) Ur Culture Indicated? Specimen cultured MDM Narrative Medical decision making narrative: 70-year-old gentleman presents with acute dysuria hematuria and urgency. He is on Pradaxa for atrial fibrillation. States that he has a history of bladder/prostate stones. He describes no fevers or flank pain and exhibits no other signs of overt infection or sepsis. No suggestion of kidney stones. Urinalysis (after some difficulty with losing 2 samples between the emergency room and the lab) does show leukocyte esterase, red cells white cells and bacteria. Will be cultured. I am going to place him on Septra for 7 days and have asked him to follow-up with his primary care physician. Follow-up urinalysis will be important to make sure that he does not have continued microscopic hematuria and that this truly is related to a simple UTI rather than stones or a bladder neoplasm. All findings and concerns reviewed with him and questions are answered. He is safe for home discharge Discharge Plan Departure Patient Disposition: Home Clinical Impression: Bacterial UTI Hematuria Qualifiers: Hematuria type: gross Qualified Code(s): R31.0 - Gross hematuria Instructions: DI for Urinary Tract Infection (UTI), DI for Hematuria Activity Restrictions/Additional Instructions: Thank you for coming in today Your urine definitely shows red blood cells but it also looks like you have a bladder infection. With the blood thinner, it may be that your simply having bit more bleeding because of the infection. Possibility of a bladder stone certainly exists. I am going to suggest we treat you with 7 days of Septra/Bactrim and antibiotic. Your urine will be cultured. I am pleased that the bleeding seems to have stopped at this point. If you get to the point where you are having clots of blood or unable to void at all please return to the emergency department. With your follow-up appointment with Dr. Lyn on July 12, please make sure that you discuss today's appointment and that I urinalysis is done to follow-up. If there is still microscopic blood in your urine it may be very appropriate for you to see a urologist. If you find that you are having increasing fevers, flank pain, nausea or other signs of infection or pain that can not be controlled at home, please return to the emergency department Prescriptions: New sulfamethoxazole-trimethoprim [Bactrim DS] 800-160 mg tablet 1 tab PO BID Qty: 14 RF: 0 No Action (DME) OneTouch Ultra Blue Test Strip Strip See Rx Instructions .ROUTE .MEDSUPPLY Qty: 100 RF: 2 omeprazole 20 mg capsule,delayed release(DR/EC) 20 mg PO BID Qty: 180 RF: 3 Pradaxa 150 mg capsule 150 mg PO BID Qty: 180 RF: 3 amlodipine 10 mg tablet 10 mg PO DAILY Qty: 90 RF: 3 Shingrix (PF) 50 mcg/0.5 mL suspension for reconstitution 0.5 ml IM ONCE Qty: 1 RF: 0 Shingrix (PF) 50 mcg/0.5 mL suspension for reconstitution 0.5 ml IM ONCE Qty: 1 RF: 0 atorvastatin 80 mg tablet 80 mg PO DAILY Qty: 90 RF: 3 metoprolol tartrate 25 mg tablet 12.5 mg PO BID Qty: 90 RF: 3 (DME) lancets [OneTouch Delica Lancets] 30 gauge misc See Rx Instructions .ROUTE .MEDSUPPLY Qty: 100 RF: 2 metformin 1,000 mg tablet 1,000 mg PO BID Qty: 180 RF: 3 glipizide 10 mg tablet 10 mg PO BID Qty: 180 RF: 3 losartan 25 mg tablet 25 mg PO BID RF: 0 aspirin [Adult Low Dose Aspirin] 81 mg tablet,delayed release (DR/EC) 81 mg PO DAILY RF: 0 (DME) miscellaneous medical supply Misc See Rx Instructions .ROUTE .MEDSUPPLY Qty: 1 RF: 0 hydrocodone-acetaminophen [[place]] 5-325 mg tablet 1 tab PO BID PRN (Reason: pain) RF: 0 Allertec 1 tab PO PRN PRN (Reason: Allergy Symptoms) RF: 0 multivitamin Tablet 1 tab PO DAILY RF: 0 acetaminophen [Tylenol] 325 mg Tablet 1 dose PO PRN PRN (Reason: pain) RF: 0 fluocinonide 0.05 % ointment 1 applictn TOP BID PRN (Reason: Rash) RF: 0 Referrals: Ghassan Lyn MD [Primary Care Provider] -
[2020-06-30 08:00] LABS: Add Manual Diff / Slide Review NO; Basophils Absolute Auto 100 /uL (0-100); Basophils Percent Auto 0.5 % (0-2); Eosinophils Absolute Auto 100 /uL (0-450); Hematocrit 34.6 % (41-53); Hemoglobin 11.3 g/dL (13.5-17.5); Lymphocytes Absolute Auto 900 /uL (1100-4500); Lymphocytes Percent Auto 6.1 % (25-40); Mean Corpuscular HGB Conc 32.7 % (30-36); Mean Corpuscular Hemoglobin 28.1 PG (26-34); Mean Corpuscular Volume 85.9 fL (80-100); Monocytes Absolute Auto 900 /uL (0-900); Monocytes Percent Auto 6.2 % (3-14); Neutrophils Absolute Auto 12300 /uL (1500-7000); Neutrophils Percent Auto 86.2 % (50-75); Platelet Count 231 X10^3/uL (150-400); Red Blood Cell Count 4.03 X10^6/uL (4.5-5.9); Red Cell Distribution Width 15.2 % (11.6-14.8); White Blood Cell Count 14.3 X10^3/uL (4.5-11.0)
[2020-06-30 08:14] LABS: Albumin Globulin Ratio 1.4 (1.0-2.8); Alkaline Phosphatase 180 U/L (38-126); Aspartate Aminotransferase 54 IU/L (17-59); BUN Creatinine Ratio 18.4 (6-22); Bilirubin Total 1.1 mg/dL (0.2-1.3); Blood Urea Nitrogen 16 mg/dL (9-20); Carbon Dioxide 23 mmol/L (22-32); Chloride 92 mmol/L (98-107); Estimated Glomerular Filt Rate > 60.0 mL/min (>60); Globulin 2.8 g/dL (1.7-4.1); Glucose 279 mg/dL (80-110); HEMOLYSIS < 15 (0-50); Potassium 4.7 mmol/L (3.4-5.1); Sodium 126 mmol/L (137-145); Total Protein 6.8 g/dL (6.3-8.2)
[2020-06-30 08:21] LABS: Alanine Aminotransferase 55 IU/L (<50)
--- NOTE | 2020-06-30 11:22 | PC.NURSE ---
Lab called to check on status of UA with Micro. Stated they do not have urine down in lab. Explained to patient and requested additional UA.
[2020-06-30 11:41] LABS: Appearance Urine UA SL CLOUDY; Bilirubin Urine UA NEGATIVE (NEGATIVE); Color Urine UA YELLOW; Glucose Urine UA TRACE g/dL (Negative); Ketones Urine UA NEGATIVE (NEGATIVE); Leukocyte Esterase Urine UA 2+ (NEGATIVE); Nitrite Urine UA NEGATIVE (Negative); Occult Blood Urine UA 3+ (Negative); Protein Urine UA 2+ (Negative); Specific Gravity Urine UA 1.015 (1.000-1.035); Urobilinogen Urine UA 0.2 E.U./dL (0.2); pH Urine UA 7.5 (4.5-8.0)
[2020-06-30 11:46] LABS: Bacteria Urine Few (2-10); Culture Indicated Urine Specimen Cultured; RBC Urine 30-100/HPF (0-5/HPF); Squamous Epithelial Cell Urine 0-1 /HPF (0-5/HPF); WBC Urine 10-30/HPF (0-5/HPF)
[2020-06-30] MEDS: TRIMETH/SULFA 160/800 (DS) TABLET 1 TAB PO (12:30)
== END 2020-06-30 12:46 | disposition home or self-care (01) ==
PROVIDERS: Emergency Provider Emergency Medicine; PCP Family Medicine
DX: N39.0 Urinary tract infection, site not specified (principal); R31.0 Gross hematuria
CPT/HCPCS: 36415; 51798; 80053; 81001; 85025; 87077; 87086; 99282; 99283

== ENCOUNTER → 2020-07-02 12:02 | Outpatient (CLI) | payer OTHER, SELFPAY ==
[2019-01-21 15:17] VITALS: BMI 29.5
--- NOTE | 2020-07-02 12:04 | DI.US.S_ITS ---
PROCEDURE: US SCROTUM INDICATIONS: LEFT SCROTAL REDNESS, EDEMA TECHNIQUE: Real-time scanning was performed of the scrotum and testicles, with image documentation. Color and pulse Doppler interrogation was performed of both testicles. COMPARISON: None. FINDINGS: Right: Normal size and appearance of the right testicle measuring 1.3 x 1.8 x 2.9 cm. No varicocele or hydrocele on the right. Left: The left testicle measures 1.5 x 1.9 x 2.7 cm. There is heterogeneous echogenicity of the left testicle with increased arterial blood flow. Venous signal is present. There is a small hydrocele and a small varicocele on the left. The left scrotal wall is thickened and edematous in appearance. Heterogenous appearance of the left epididymis with increased vascularity. Doppler: Color and pulse Doppler demonstrate normal and symmetric arterial flow in both testicles. IMPRESSION: Findings consistent with left epididymo-orchitis. Follow-up upon resolution of symptoms in 4-6 weeks is recommended to exclude an underlying mass. Dictated by: Chintan Juan M.D. on 07/02/2020 at 13:16 Approved by: Chintan Juan M.D. on 07/02/2020 at 13:19
== END ==
PROVIDERS: PCP Family Medicine; Referring Provider Family Medicine; Visit Provider Family Medicine
DX: N50.819 Testicular pain, unspecified (principal); R31.0 Gross hematuria; N50.89 Other specified disorders of the male genital organs
CPT/HCPCS: 76870

== ENCOUNTER → 2020-07-11 07:13 | Outpatient (CLI) | payer OTHER, SELFPAY ==
[2019-01-21 15:17] VITALS: BMI 29.5
[2020-07-11 07:55] LABS: Hemoglobin A1C% w Est Avg Glu 7.2 % (4.0-6.0)
[2020-07-11 07:57] LABS: BUN Creatinine Ratio 20.6 (6-22); Blood Urea Nitrogen 28 mg/dL (9-20); Calcium 9.6 mg/dL (8.4-10.2); Carbon Dioxide 27 mmol/L (22-32); Chloride 95 mmol/L (98-107); Estimated Glomerular Filt Rate 51.7 mL/min (>60); Glucose 177 mg/dL (80-110); HEMOLYSIS < 15 (0-50); Potassium 5.2 mmol/L (3.4-5.1); Sodium 129 mmol/L (137-145)
== END ==
PROVIDERS: PCP Family Medicine; Referring Provider Family Medicine; Visit Provider Family Medicine
DX: E11.9 Type 2 diabetes mellitus without complications (principal)
CPT/HCPCS: 36415; 80048; 83036

== ENCOUNTER → 2020-07-12 11:23 | Outpatient (CLI) | payer OTHER, SELFPAY ==
[2019-01-21 15:17] VITALS: BMI 29.5
[2020-07-12 12:19] LABS: BUN Creatinine Ratio 25.6 (6-22); Blood Urea Nitrogen 31 mg/dL (9-20); Calcium 9.5 mg/dL (8.4-10.2); Carbon Dioxide 26 mmol/L (22-32); Chloride 95 mmol/L (98-107); Cholesterol 165 mg/dL (140-199); Estimated Glomerular Filt Rate 59.1 mL/min (>60); Glucose 89 mg/dL (80-110); HDL Cholesterol 34 mg/dL (40-60); HEMOLYSIS < 15 (0-50); LDL Cholesterol Calculated 74 mg/dL (<100); Potassium 4.9 mmol/L (3.4-5.1); Sodium 128 mmol/L (137-145); Triglycerides 284 mg/dL (35-150)
== END ==
PROVIDERS: PCP Family Medicine; Referring Provider Family Medicine; Visit Provider Family Medicine
DX: E78.2 Mixed hyperlipidemia (principal); N19 Unspecified kidney failure
CPT/HCPCS: 36415; 80048; 80061

== ENCOUNTER → 2020-12-03 07:45 | Outpatient (CLI) | payer OTHER, SELFPAY ==
[2019-01-21 15:17] VITALS: BMI 29.5
[2020-12-03 09:06] LABS: Hemoglobin A1C% w Est Avg Glu 6.6 % (4.0-6.0)
[2020-12-03 09:08] LABS: BUN Creatinine Ratio 20.2 (6-22); Blood Urea Nitrogen 22 mg/dL (9-20); Calcium 9.3 mg/dL (8.4-10.2); Carbon Dioxide 25 mmol/L (22-32); Chloride 96 mmol/L (98-107); Estimated Glomerular Filt Rate > 60.0 mL/min (>60); Glucose 160 mg/dL (80-110); HEMOLYSIS < 15 (0-50); Potassium 3.8 mmol/L (3.4-5.1); Sodium 134 mmol/L (137-145)
== END ==
PROVIDERS: PCP Student in an Organized Health Care Education/Training Program; Referring Provider Student in an Organized Health Care Education/Training Program; Visit Provider Student in an Organized Health Care Education/Training Program
DX: E11.9 Type 2 diabetes mellitus without complications (principal)
CPT/HCPCS: 36415; 80048; 83036

== ENCOUNTER 2022-03-07 16:40 | Emergency (ER) | payer OTHER, SELFPAY ==
[2019-01-21 15:17] VITALS: BMI 29.5
[2022-03-07 17:08] VITALS: BP 152/77; PULSE 73; RESP 16; TEMP 36.9; O2SAT 99; BMI 32.5
[2022-03-07 18:40] LABS: Add Manual Diff / Slide Review NO; Basophils Absolute Auto 100 /uL (0-100); Basophils Percent Auto 1.2 % (0-2); Eosinophils Absolute Auto 200 /uL (0-450); Eosinophils Percent Auto 2.8 % (2-4); Hematocrit 41.7 % (41-53); Hemoglobin 14.6 g/dL (13.5-17.5); Lymphocytes Absolute Auto 1500 /uL (1100-4500); Mean Corpuscular HGB Conc 34.9 % (30-36); Mean Corpuscular Hemoglobin 30.2 PG (26-34); Mean Corpuscular Volume 86.5 fL (80-100); Monocytes Absolute Auto 600 /uL (0-900); Monocytes Percent Auto 9.2 % (3-14); Neutrophils Absolute Auto 3700 /uL (1500-7000); Neutrophils Percent Auto 61.8 % (50-75); Platelet Count 189 X10^3/uL (150-400); Red Blood Cell Count 4.83 X10^6/uL (4.5-5.9); Red Cell Distribution Width 14.9 % (11.6-14.8)
--- NOTE | 2022-03-07 18:47 | ED.SKABFB ---
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 He has been having pain and discoloration of the skin of his great toe for quite some time and just had the MRI ordered by his photography assistant which resulted out yesterday. He denies systemic findings such as dizziness, weakness or lightheadedness. He is had no fever, chills or notable weakness. He denies nausea, vomiting or diarrhea. He has multiple family members that are internal medicine physicians who strongly encouraged him to present for evaluation and bone biopsy prior to administration of antibiotics. Related Data Home Medications Medication Instructions Recorded Confirmed Allertec 1 tab PO PRN PRN Allergy Symptoms 01/21/19 07/18/20 acetaminophen 325 mg tablet 1 dose PO PRN PRN pain 01/21/19 07/18/20 (Tylenol) hydrocodone 5 mg-acetaminophen 325 1 tab PO BID PRN pain 01/21/19 07/18/20 mg tablet ([place]) aspirin 81 mg tablet,delayed 81 mg PO DAILY 04/19/20 07/18/20 release (Adult Low Dose Aspirin) Previous Rx's Medication Instructions Recorded omeprazole 20 mg capsule,delayed 20 mg PO BID #180 caps 09/22/16 release amlodipine 10 mg tablet 10 mg PO DAILY #90 tabs 02/22/20 dabigatran etexilate 150 mg 150 mg PO BID #180 caps 02/22/20 capsule (Pradaxa) atorvastatin 80 mg tablet 80 mg PO DAILY #90 tabs 04/26/20 metoprolol tartrate 25 mg tablet 12.5 mg PO BID #90 tabs 04/26/20 blood sugar diagnostic ([facility] #100 ea 05/03/20 Ultra Blue Test Strip) glipizide 10 mg tablet 10 mg PO BID #180 tabs 05/24/20 lancets 30 gauge ([facility] [place] #100 ea 05/24/20 Lancets) metformin 1,000 mg tablet 1,000 mg PO BID #180 tabs 05/24/20 fluocinonide 0.05 % topical 1 applic topical BID PRN Rash #15 09/04/20 ointment grams losartan 25 mg tablet 25 mg PO BID #180 tabs 07/23/21 Allergies Allergy/AdvReac Type Severity Reaction Status Date / Time levofloxacin [From Levaquin] AdvReac Severe Kidneys Verified 03/07/22 17:15 took a dive, afib, joint pain lisinopril [LISINOPRIL] AdvReac Unknown cough Verified 03/07/22 17:15 Review of Systems Review of Systems Narrative: GENERAL: Denies chills, fatigue, malaise, fever, sweats. HEENT: Denies sinus pain, ear pain, sore throat, difficulty swallowing, dizziness. RESPIRATORY: Denies dyspnea, cough, wheezing, hemoptysis, sputum. CARDIOVASCULAR: Denies chest pain, palpitations, orthopnea, edema, GASTROINTESTINAL: Denies nausea, vomiting, abdominal pain, diarrhea, constipation, melena. : Denies dysuria, frequency, incontinence, hematuria, urinary retention. MUSCULOSKELETAL: See HPI SKIN: See HPI NEUROLOGIC: Denies weakness, headache, numbness, change in speech, confusion, seizures, incoordination. PSYCHIATRIC: No concerning psychosocial issues. 12 point review of systems is negative except for those stated above Patient History Medical History Carpal tunnel syndrome (~1981) Chicken pox Diabetic toe ulcer Essential hypertension (09/22/16) Fractures (~2004) GERD (gastroesophageal reflux disease) (~1989) Measles Mumps Necrotic toes Peripheral neuropathy (~1994) Peripheral vascular disease (~1999) Plantar warts Right anterior knee pain Rubella Ruptured tympanic membrane (~1977) Surgical History Anesthesia History of carpal tunnel repair (~1980) Status post aorto-coronary artery bypass graft Status post urinary system surgery (~1993) Family History Mother Heart disease Hypertension Stroke Diabetes mellitus Father No problems noted. Social History household members: spouse Smoking Status: Never smoker alcohol intake: never Smoking Status: Never smoker alcohol intake frequency: a few times a month Substance Use Type: does not use Exam Narrative Exam Narrative: GENERAL: [72] year old patient appears stated age. Well-developed patient, in mild distress. HEAD: Atraumatic. Normocephalic. EYES: Pupils equal round and reactive. Extraocular motions intact. No scleral icterus. No injection or drainage. ENT: Nose without bleeding, purulent drainage. Throat without erythema, tonsillar hypertrophy or exudate. Airway patent. NECK: Trachea midline. Non tender CARDIOVASCULAR: Regular rate and rhythm without murmurs, gallops, or rubs. RESPIRATORY: Clear to auscultation. Breath sounds equal bilaterally. No wheezes, rales, or rhonchi. GASTROINTESTINAL: Abdomen soft, non-tender, nondistended. EXTREMITIES: Erythema of plantar surface of left great toe with minimal skin breakdown, no drainage or exposure of bone, decreased sensation but still intact, no induration, fluctuance, swelling or lymphangitis. BACK: Nontender without deformity or crepitance. No flank tenderness. NEURO: AOx3. SKIN: No rash or erythema of visible areas Initial Vital Signs Initial Vital Signs: Vital Signs Temperature 98.4 F 03/07/22 17:08 Pulse Rate 73 03/07/22 17:08 Respiratory Rate 16 03/07/22 17:08 Blood Pressure 152/77 H 03/07/22 17:08 Pulse Oximetry 99 03/07/22 17:08 Oxygen Delivery Method 03/07/22 17:08 Course Orders Ordered: ED Orders 03/07/22 18:27 Blood Culture Stat C-Reactive Protein Quant Stat Complete Blood Count AUTO DIFF Stat Comprehensive Metabolic Panel Stat Erythrocyte Sedimentation Rate Stat Vital Signs Vital signs: Vital Signs - 8 hr 03/07/22 17:08 Temperature 98.4 F Pulse Rate 73 Respiratory Rate 16 Blood Pressure 152/77 H Pulse Oximetry 99 Oxygen Delivery Method Room Air MDM - Skin/Abscess/Foreign Bdy Medical Records Medical records narrative: Patient able to access his MRI by the patient portal which demonstrates edema and findings consistent with early osteomyelitis without abscess or subcu air. Lab Data Result diagrams: 03/07/22 18:27 03/07/22 18:27 Labs: Lab Results 03/07/22 03/07/22 Range/Units 18:27 18:27 WBC 6.0 (4.5-11.0) X10^3/uL RBC 4.83 (4.5-5.9) X10^6/uL Hgb 14.6 (13.5-17.5) g/dL Hct 41.7 (41-53) % MCV 86.5 (80-100) fL MCH 30.2 (26-34) PG MCHC 34.9 (30-36) % RDW 14.9 H (11.6-14.8) % Plt Count 189 (150-400) X10^3/uL Neut % (Auto) 61.8 (50-75) % Lymph % (Auto) 25.0 (25-40) % [place] % (Auto) 9.2 (3-14) % Eos % (Auto) 2.8 (2-4) % Baso % (Auto) 1.2 (0-2) % Neut # (Auto) 3700 (0352-5343) /uL Lymph # (Auto) 1500 (2838-1528) /uL [place] # (Auto) 600 (0-900) /uL Eos # (Auto) 200 (0-450) /uL Baso # (Auto) 100 (0-100) /uL ESR 13 (0-15) MM/HR Sodium 129 L (137-145) mmol/L Potassium 3.9 (3.4-5.1) mmol/L Chloride 90 L (98-107) mmol/L Carbon Dioxide 23 (22-32) mmol/L BUN 25 H (9-20) mg/dL Creatinine 1.43 H (0.66-1.25) mg/dL Estimated GFR 52 L (>60) mL/min BUN/Creatinine Ratio 17.5 (6-22) Glucose 256 H (80-110) mg/dL Calcium 9.2 (8.4-10.2) mg/dL Total Bilirubin 0.9 (0.2-1.3) mg/dL AST 34 (17-59) IU/L ALT 27 (<50) IU/L Alkaline Phosphatase 81 (38-126) U/L C-Reactive Protein 1.4 H (<1.0) mg/dL Total Protein 7.7 (6.3-8.2) g/dL Albumin 4.8 (3.5-5.0) g/dL Globulin 2.9 (1.7-4.1) g/dL Albumin/Globulin Ratio 1.7 (1.0-2.8) MDM Narrative Medical decision making narrative: Patient presents for evaluation of recently diagnosed osteomyelitis of his great toe. He is had redness and skin breakdown for quite some time but at no point has he had any spread beyond the toe, exposure of bone or systemic findings such as fever, chills nor nausea or vomiting. He just had an MRI confirming the diagnosis and presents for evaluation. His history and physical are very reassuring, we discussed the pros and cons of initiating antibiotics today versus waiting for a biopsy and sure the opinion that the most appropriate approach is to discussed return precautions but follow closely with Podiatry. Questions answered to his apparent satisfaction Discharge Plan Departure Patient Disposition: Home Clinical Impression: Osteomyelitis of great toe of left foot Instructions: DI for Osteomyelitis Activity Restrictions/Additional Instructions: *You have been diagnosed with [early osteomyelitis of left great toe in the absence of systemic findings] *What to do: *Please continue to take your regular medications as directed. [ ] New medication prescriptions sent to your pharmacy: [ ] [ ] New medication written as a paper prescription [ x] No new medications given *As we discussed, I have included contact info for Dr. Denis's office. Please call the office Thursday morning and let them know you were seen in the Emergency Department and we would like you to follow up. I will electronically transmit today's note at the completion of your visit. *Return to Emergency Department if you should have any new, worsening or concerning symptoms, such as [fever greater than 101 F, shaking chills, worsening pain, persistent vomiting or other bothersome symptoms] Prescriptions: No Action (DME) OneTouch Ultra Blue Test Strip Strip See Rx Instructions .ROUTE .MEDSUPPLY Qty: 100 2RF Rx Instructions: Use to check blood sugars twice daily omeprazole 20 mg capsule,delayed release(DR/EC) 20 mg PO BID Qty: 180 3RF fluocinonide 0.05 % ointment 1 applic TOP BID PRN (Reason: Rash) Qty: 15 1RF losartan 25 mg tablet 25 mg PO BID Qty: 180 0RF Rx Instructions: PT WILL NEED TO BE SEEN BEFORE NEXT RENEWAL 07/23/21 Pradaxa 150 mg capsule 150 mg PO BID Qty: 180 3RF amlodipine 10 mg tablet 10 mg PO DAILY Qty: 90 3RF atorvastatin 80 mg tablet 80 mg PO DAILY Qty: 90 3RF metoprolol tartrate 25 mg tablet 12.5 mg PO BID Qty: 90 3RF Rx Instructions: Hold for systolic bp <100 and/or heart rate <60 (DME) lancets [OneTouch Delica Lancets] 30 gauge misc See Rx Instructions .ROUTE .MEDSUPPLY Qty: 100 2RF Rx Instructions: Use to check blood sugars twice daily metformin 1,000 mg tablet 1,000 mg PO BID Qty: 180 3RF glipizide 10 mg tablet 10 mg PO BID Qty: 180 3RF aspirin [Adult Low Dose Aspirin] 81 mg tablet,delayed release (DR/EC) 81 mg PO DAILY hydrocodone-acetaminophen [[place]] 5-325 mg tablet 1 tab PO BID PRN (Reason: pain) Allertec 1 tab PO PRN PRN (Reason: Allergy Symptoms) acetaminophen [Tylenol] 325 mg Tablet 1 dose PO PRN PRN (Reason: pain) Referrals: Orlando Gerardo MD [Primary Care Provider] - Fawn Denis DPM [Physician] - Visit Report Forms: Patient Portal/API
[2022-03-07 18:54] LABS: Alanine Aminotransferase 27 IU/L (<50); Albumin 4.8 g/dL (3.5-5.0); Albumin Globulin Ratio 1.7 (1.0-2.8); Alkaline Phosphatase 81 U/L (38-126); Aspartate Aminotransferase 34 IU/L (17-59); BUN Creatinine Ratio 17.5 (6-22); Bilirubin Total 0.9 mg/dL (0.2-1.3); Blood Urea Nitrogen 25 mg/dL (9-20); C-Reactive Protein Quant 1.4 mg/dL (<1.0); Calcium 9.2 mg/dL (8.4-10.2); Carbon Dioxide 23 mmol/L (22-32); Chloride 90 mmol/L (98-107); Estimated Glomerular Filt Rate 52 mL/min (>60); Globulin 2.9 g/dL (1.7-4.1); Glucose 256 mg/dL (80-110); HEMOLYSIS < 15 (0-50); Potassium 3.9 mmol/L (3.4-5.1); Sodium 129 mmol/L (137-145); Total Protein 7.7 g/dL (6.3-8.2)
[2022-03-07 19:20] VITALS: BP 152/67; PULSE 66; RESP 18; O2SAT 98
[2022-03-07 19:51] LABS: Erythrocyte Sedimentation Rate 13 MM/HR (0-15)
[2022-03-12 07:21] LABS: Acinetobacter baumannii Not Detected (Not Detect); Candida albicans Not Detected (Not Detect); Candida glabrata Not Detected (Not Detect); Candida krusei Not Detected (Not Detect); Candida parapsilosis Not Detected (Not Detect); Candida tropicalis Not Detected (Not Detect); E. coli Not Detected (Not Detect); Enterobacter cloacae complex Not Detected (Not Detect); Enterobacteriaceae species Not Detected (Not Detect); Enterococcus species Not Detected (Not Detect); Haemophilus influenzae Not Detected (Not Detect); Listeria monocytogenes Not Detected (Not Detect); Neisseria meningitidis Not Detected (Not Detect); Proteus species Not Detected (Not Detect); Pseudomonas aeruginosa Not Detected (Not Detect); Serratia marcescens Not Detected (Not Detect); Staphylococcus species Not Detected (Not Detect); Streptococcus agalactiae (Gr B Not Detected (Not Detect); Streptococcus pneumonia Not Detected (Not Detect); Streptococcus pyogenes (Gr A) Not Detected (Not Detect); Streptococcus species Not Detected (Not Detect)
== END 2022-03-07 19:21 | disposition home or self-care (01) ==
PROVIDERS: Emergency Medicine; Emergency Provider Emergency Medicine; PCP Student in an Organized Health Care Education/Training Program
DX: M86.9 Osteomyelitis, unspecified (principal)
CPT/HCPCS: 36415; 80053; 85025; 85651; 86140; 87040; 87150; 99283

== ENCOUNTER → 2022-04-08 15:58 | Outpatient (CLI) | payer OTHER, SELFPAY ==
[2019-01-21 15:17] VITALS: BMI 29.5
[2022-04-08 17:55] LABS: Alanine Aminotransferase 11 IU/L (<50); Albumin 4.3 g/dL (3.5-5.0); Albumin Globulin Ratio 1.3 (1.0-2.8); Alkaline Phosphatase 107 U/L (38-126); Aspartate Aminotransferase 40 IU/L (17-59); BUN Creatinine Ratio 17.4 (6-22); Bilirubin Total 0.9 mg/dL (0.2-1.3); Blood Urea Nitrogen 25 mg/dL (9-20); Calcium 9.1 mg/dL (8.4-10.2); Carbon Dioxide 27 mmol/L (22-32); Chloride 84 mmol/L (98-107); Estimated Glomerular Filt Rate 51 mL/min (>60); Globulin 3.4 g/dL (1.7-4.1); Glucose 228 mg/dL (80-110); HEMOLYSIS < 15 (0-50); Potassium 4.4 mmol/L (3.4-5.1); Sodium 123 mmol/L (137-145); Total Protein 7.7 g/dL (6.3-8.2)
== END ==
PROVIDERS: Referring Provider Internal Medicine Infectious Disease; Visit Provider Internal Medicine Infectious Disease
DX: E87.1 Hypo-osmolality and hyponatremia (principal)
CPT/HCPCS: 36415; 80053

== ENCOUNTER → 2022-04-15 14:27 | Outpatient (ROUT) | payer OTHER, SELFPAY ==
[2019-01-21 15:17] VITALS: BMI 29.5
[2022-04-15 14:42] LABS: Add Manual Diff / Slide Review NO; Basophils Absolute Auto 100 /uL (0-100); Basophils Percent Auto 0.9 % (0-2); Eosinophils Absolute Auto 100 /uL (0-450); Eosinophils Percent Auto 2.4 % (2-4); Hematocrit 41.4 % (41-53); Hemoglobin 13.9 g/dL (13.5-17.5); Lymphocytes Absolute Auto 1300 /uL (1100-4500); Lymphocytes Percent Auto 21.3 % (25-40); Mean Corpuscular HGB Conc 33.5 % (30-36); Mean Corpuscular Hemoglobin 29.7 PG (26-34); Mean Corpuscular Volume 88.7 fL (80-100); Monocytes Absolute Auto 300 /uL (0-900); Monocytes Percent Auto 5.6 % (3-14); Neutrophils Absolute Auto 4300 /uL (1500-7000); Neutrophils Percent Auto 69.8 % (50-75); Platelet Count 239 X10^3/uL (150-400); Red Blood Cell Count 4.66 X10^6/uL (4.5-5.9); Red Cell Distribution Width 14.9 % (11.6-14.8); White Blood Cell Count 6.2 X10^3/uL (4.5-11.0)
[2022-04-15 15:01] LABS: Alanine Aminotransferase 21 IU/L (<50); Albumin Globulin Ratio 1.5 (1.0-2.8); Alkaline Phosphatase 83 U/L (38-126); Aspartate Aminotransferase 34 IU/L (17-59); BUN Creatinine Ratio 16.2 (6-22); Blood Urea Nitrogen 18 mg/dL (9-20); C-Reactive Protein Quant 1.6 mg/dL (<1.0); Calcium 8.9 mg/dL (8.4-10.2); Carbon Dioxide 24 mmol/L (22-32); Chloride 89 mmol/L (98-107); Creatine Kinase 59 U/L (55-170); Estimated Glomerular Filt Rate > 60 mL/min (>60); Globulin 2.7 g/dL (1.7-4.1); Glucose 297 mg/dL (80-110); HEMOLYSIS < 15 (0-50); Sodium 126 mmol/L (137-145); Total Protein 6.7 g/dL (6.3-8.2)
== END ==
PROVIDERS: Visit Provider Internal Medicine Infectious Disease
DX: M86.172 Other acute osteomyelitis, left ankle and foot (principal)
CPT/HCPCS: 80053; 82550; 85025; 86140

== ENCOUNTER → 2022-04-17 13:41 | Outpatient (ROUT) | payer OTHER, SELFPAY ==
[2019-01-21 15:17] VITALS: BMI 29.5
[2022-04-17 13:53] LABS: Add Manual Diff / Slide Review NO; Basophils Absolute Auto 100 /uL (0-100); Basophils Percent Auto 0.7 % (0-2); Eosinophils Absolute Auto 100 /uL (0-450); Eosinophils Percent Auto 1.9 % (2-4); Hematocrit 40.1 % (41-53); Hemoglobin 13.6 g/dL (13.5-17.5); Lymphocytes Absolute Auto 1400 /uL (1100-4500); Lymphocytes Percent Auto 18.1 % (25-40); Mean Corpuscular HGB Conc 33.8 % (30-36); Mean Corpuscular Hemoglobin 29.8 PG (26-34); Mean Corpuscular Volume 88.1 fL (80-100); Monocytes Absolute Auto 500 /uL (0-900); Monocytes Percent Auto 6.4 % (3-14); Neutrophils Absolute Auto 5500 /uL (1500-7000); Neutrophils Percent Auto 72.9 % (50-75); Platelet Count 229 X10^3/uL (150-400); Red Blood Cell Count 4.56 X10^6/uL (4.5-5.9); Red Cell Distribution Width 14.7 % (11.6-14.8); White Blood Cell Count 7.5 X10^3/uL (4.5-11.0)
[2022-04-17 14:01] LABS: BUN Creatinine Ratio 16.7 (6-22); Blood Urea Nitrogen 20 mg/dL (9-20); C-Reactive Protein Quant 1.2 mg/dL (<1.0); Calcium 8.9 mg/dL (8.4-10.2); Carbon Dioxide 26 mmol/L (22-32); Chloride 88 mmol/L (98-107); Creatine Kinase 84 U/L (55-170); Estimated Glomerular Filt Rate > 60 mL/min (>60); Glucose 284 mg/dL (80-110); HEMOLYSIS 18 (0-50); Potassium 4.4 mmol/L (3.4-5.1); Sodium 127 mmol/L (137-145)
== END ==
PROVIDERS: Visit Provider Internal Medicine Infectious Disease
DX: M86.172 Other acute osteomyelitis, left ankle and foot (principal)
CPT/HCPCS: 80048; 82550; 85025; 86140

== ENCOUNTER → 2022-04-21 11:03 | Outpatient (ROUT) | payer OTHER, SELFPAY ==
[2019-01-21 15:17] VITALS: BMI 29.5
[2022-04-21 11:13] LABS: Add Manual Diff / Slide Review NO; Basophils Absolute Auto 100 /uL (0-100); Basophils Percent Auto 0.8 % (0-2); Eosinophils Absolute Auto 200 /uL (0-450); Eosinophils Percent Auto 2.5 % (2-4); Hematocrit 41.7 % (41-53); Hemoglobin 14.1 g/dL (13.5-17.5); Lymphocytes Absolute Auto 1000 /uL (1100-4500); Lymphocytes Percent Auto 13.7 % (25-40); Mean Corpuscular HGB Conc 33.8 % (30-36); Mean Corpuscular Hemoglobin 29.9 PG (26-34); Mean Corpuscular Volume 88.5 fL (80-100); Monocytes Absolute Auto 500 /uL (0-900); Monocytes Percent Auto 6.6 % (3-14); Neutrophils Absolute Auto 5800 /uL (1500-7000); Neutrophils Percent Auto 76.4 % (50-75); Platelet Count 233 X10^3/uL (150-400); Red Blood Cell Count 4.71 X10^6/uL (4.5-5.9); Red Cell Distribution Width 14.6 % (11.6-14.8); White Blood Cell Count 7.5 X10^3/uL (4.5-11.0)
[2022-04-21 11:23] LABS: Albumin 4.1 g/dL (3.5-5.0); Albumin Globulin Ratio 1.5 (1.0-2.8); Alkaline Phosphatase 95 U/L (38-126); Aspartate Aminotransferase 55 IU/L (17-59); Bilirubin Total 1.2 mg/dL (0.2-1.3); Blood Urea Nitrogen 23 mg/dL (9-20); C-Reactive Protein Quant 1.6 mg/dL (<1.0); Calcium 9.2 mg/dL (8.4-10.2); Carbon Dioxide 23 mmol/L (22-32); Chloride 86 mmol/L (98-107); Creatine Kinase 475 U/L (55-170); Estimated Glomerular Filt Rate > 60 mL/min (>60); Globulin 2.8 g/dL (1.7-4.1); Glucose 335 mg/dL (80-110); Potassium 4.6 mmol/L (3.4-5.1); Sodium 128 mmol/L (137-145); Total Protein 6.9 g/dL (6.3-8.2)
[2022-04-21 11:30] LABS: Alanine Aminotransferase 38 IU/L (<50)
[2022-04-21 11:52] LABS: HEMOLYSIS 52 (0-50)
== END ==
PROVIDERS: Visit Provider Internal Medicine Infectious Disease
DX: C09.0 Malignant neoplasm of tonsillar fossa (principal)
CPT/HCPCS: 80053; 82550; 85025; 86140

== ENCOUNTER → 2022-04-26 08:01 | Outpatient (CLI) | payer OTHER, SELFPAY ==
[2019-01-21 15:17] VITALS: BMI 29.5
[2022-04-26 09:11] LABS: Albumin 4.1 g/dL (3.5-5.0); Albumin Globulin Ratio 1.3 (1.0-2.8); Alkaline Phosphatase 82 U/L (38-126); Aspartate Aminotransferase 65 IU/L (17-59); BUN Creatinine Ratio 18.7 (6-22); Bilirubin Total 1.3 mg/dL (0.2-1.3); Blood Urea Nitrogen 25 mg/dL (9-20); Calcium 9.4 mg/dL (8.4-10.2); Carbon Dioxide 20 mmol/L (22-32); Chloride 81 mmol/L (98-107); Creatine Kinase 538 U/L (55-170); Estimated Glomerular Filt Rate 56 mL/min (>60); Globulin 3.2 g/dL (1.7-4.1); Glucose 414 mg/dL (80-110); HEMOLYSIS < 15 (0-50); Potassium 4.6 mmol/L (3.4-5.1); Sodium 121 mmol/L (137-145); Total Protein 7.3 g/dL (6.3-8.2)
[2022-04-26 09:18] LABS: Alanine Aminotransferase 44 IU/L (<50)
== END ==
PROVIDERS: Referring Provider Internal Medicine Infectious Disease; Visit Provider Internal Medicine Infectious Disease
DX: M86.672 Other chronic osteomyelitis, left ankle and foot (principal)
CPT/HCPCS: 36415; 80053; 82550

== ENCOUNTER → 2022-04-28 14:10 | Outpatient (ROUT) | payer OTHER, SELFPAY ==
[2019-01-21 15:17] VITALS: BMI 29.5
[2022-04-28 14:16] LABS: Add Manual Diff / Slide Review NO; Basophils Absolute Auto 0 /uL (0-100); Basophils Percent Auto 0.8 % (0-2); Eosinophils Absolute Auto 400 /uL (0-450); Eosinophils Percent Auto 7.1 % (2-4); Hematocrit 38.1 % (41-53); Lymphocytes Absolute Auto 1000 /uL (1100-4500); Lymphocytes Percent Auto 17.6 % (25-40); Mean Corpuscular HGB Conc 34.2 % (30-36); Mean Corpuscular Volume 87.5 fL (80-100); Monocytes Absolute Auto 400 /uL (0-900); Monocytes Percent Auto 7.9 % (3-14); Neutrophils Absolute Auto 3700 /uL (1500-7000); Neutrophils Percent Auto 66.6 % (50-75); Platelet Count 177 X10^3/uL (150-400); Red Blood Cell Count 4.35 X10^6/uL (4.5-5.9); Red Cell Distribution Width 15.1 % (11.6-14.8); White Blood Cell Count 5.5 X10^3/uL (4.5-11.0)
[2022-04-28 14:37] LABS: Alanine Aminotransferase 28 IU/L (<50); Albumin 3.8 g/dL (3.5-5.0); Albumin Globulin Ratio 1.3 (1.0-2.8); Alkaline Phosphatase 95 U/L (38-126); Aspartate Aminotransferase 54 IU/L (17-59); BUN Creatinine Ratio 15.9 (6-22); Bilirubin Total 0.7 mg/dL (0.2-1.3); Blood Urea Nitrogen 17 mg/dL (9-20); Calcium 8.6 mg/dL (8.4-10.2); Carbon Dioxide 22 mmol/L (22-32); Chloride 87 mmol/L (98-107); Creatine Kinase 167 U/L (55-170); Estimated Glomerular Filt Rate > 60 mL/min (>60); Globulin 2.9 g/dL (1.7-4.1); Glucose 244 mg/dL (80-110); Potassium 4.5 mmol/L (3.4-5.1); Sodium 125 mmol/L (137-145); Total Protein 6.7 g/dL (6.3-8.2)
[2022-04-28 14:50] LABS: HEMOLYSIS 20 (0-50)
[2022-04-28 14:54] LABS: C-Reactive Protein Quant 13.6 mg/dL (<1.0)
== END ==
PROVIDERS: Visit Provider Internal Medicine Infectious Disease
DX: M86.172 Other acute osteomyelitis, left ankle and foot (principal)
CPT/HCPCS: 80053; 82550; 85025; 86140

== ENCOUNTER → 2022-05-05 11:16 | Outpatient (ROUT) | payer OTHER, SELFPAY ==
[2019-01-21 15:17] VITALS: BMI 29.5
[2022-05-05 11:26] LABS: Add Manual Diff / Slide Review NO; Basophils Absolute Auto 100 /uL (0-100); Basophils Percent Auto 1.1 % (0-2); Eosinophils Absolute Auto 300 /uL (0-450); Eosinophils Percent Auto 4.9 % (2-4); Hematocrit 40.8 % (41-53); Hemoglobin 13.9 g/dL (13.5-17.5); Lymphocytes Absolute Auto 1400 /uL (1100-4500); Lymphocytes Percent Auto 24.2 % (25-40); Mean Corpuscular HGB Conc 34.1 % (30-36); Mean Corpuscular Hemoglobin 29.7 PG (26-34); Mean Corpuscular Volume 86.9 fL (80-100); Monocytes Absolute Auto 500 /uL (0-900); Monocytes Percent Auto 9.3 % (3-14); Neutrophils Absolute Auto 3500 /uL (1500-7000); Neutrophils Percent Auto 60.5 % (50-75); Platelet Count 271 X10^3/uL (150-400); Red Blood Cell Count 4.69 X10^6/uL (4.5-5.9); Red Cell Distribution Width 14.8 % (11.6-14.8); White Blood Cell Count 5.7 X10^3/uL (4.5-11.0)
[2022-05-05 11:37] LABS: Alanine Aminotransferase 20 IU/L (<50); Albumin 3.9 g/dL (3.5-5.0); Albumin Globulin Ratio 1.3 (1.0-2.8); Alkaline Phosphatase 106 U/L (38-126); Aspartate Aminotransferase 29 IU/L (17-59); BUN Creatinine Ratio 21.2 (6-22); Bilirubin Total 0.6 mg/dL (0.2-1.3); Blood Urea Nitrogen 21 mg/dL (9-20); Calcium 9.1 mg/dL (8.4-10.2); Carbon Dioxide 24 mmol/L (22-32); Chloride 87 mmol/L (98-107); Creatine Kinase 29 U/L (55-170); Estimated Glomerular Filt Rate > 60 mL/min (>60); Globulin 2.9 g/dL (1.7-4.1); Glucose 210 mg/dL (80-110); HEMOLYSIS < 15 (0-50); Potassium 4.9 mmol/L (3.4-5.1); Sodium 127 mmol/L (137-145); Total Protein 6.8 g/dL (6.3-8.2)
== END ==
PROVIDERS: Visit Provider Internal Medicine Infectious Disease
DX: M86.172 Other acute osteomyelitis, left ankle and foot (principal)
CPT/HCPCS: 80053; 82550; 85025; 86140

== ENCOUNTER → 2022-05-08 13:25 | Outpatient (ROUT) | payer OTHER, SELFPAY ==
[2019-01-21 15:17] VITALS: BMI 29.5
[2022-05-08 13:31] LABS: Add Manual Diff / Slide Review NO; Basophils Absolute Auto 100 /uL (0-100); Basophils Percent Auto 0.8 % (0-2); Eosinophils Absolute Auto 300 /uL (0-450); Eosinophils Percent Auto 4.3 % (2-4); Hematocrit 38.7 % (41-53); Hemoglobin 13.1 g/dL (13.5-17.5); Lymphocytes Absolute Auto 1400 /uL (1100-4500); Lymphocytes Percent Auto 17.4 % (25-40); Mean Corpuscular HGB Conc 33.8 % (30-36); Mean Corpuscular Hemoglobin 29.8 PG (26-34); Mean Corpuscular Volume 88.1 fL (80-100); Monocytes Absolute Auto 700 /uL (0-900); Monocytes Percent Auto 9.3 % (3-14); Neutrophils Absolute Auto 5400 /uL (1500-7000); Neutrophils Percent Auto 68.2 % (50-75); Platelet Count 218 X10^3/uL (150-400); Red Cell Distribution Width 14.9 % (11.6-14.8); White Blood Cell Count 7.9 X10^3/uL (4.5-11.0)
[2022-05-08 13:40] LABS: Alanine Aminotransferase 12 IU/L (<50); Albumin Globulin Ratio 1.4 (1.0-2.8); Alkaline Phosphatase 97 U/L (38-126); Aspartate Aminotransferase 24 IU/L (17-59); BUN Creatinine Ratio 24.5 (6-22); Bilirubin Total 0.6 mg/dL (0.2-1.3); Blood Urea Nitrogen 23 mg/dL (9-20); C-Reactive Protein Quant 7.1 mg/dL (<1.0); Calcium 9.2 mg/dL (8.4-10.2); Carbon Dioxide 23 mmol/L (22-32); Chloride 87 mmol/L (98-107); Estimated Glomerular Filt Rate > 60 mL/min (>60); Globulin 2.8 g/dL (1.7-4.1); Glucose 153 mg/dL (80-110); HEMOLYSIS < 15 (0-50); Potassium 4.5 mmol/L (3.4-5.1); Sodium 127 mmol/L (137-145); Total Protein 6.8 g/dL (6.3-8.2)
== END ==
PROVIDERS: Visit Provider Internal Medicine Infectious Disease
DX: M86.172 Other acute osteomyelitis, left ankle and foot (principal)
CPT/HCPCS: 80053; 85025; 86140

== ENCOUNTER → 2022-05-12 18:54 | Outpatient (ROUT) | payer OTHER, SELFPAY ==
[2019-01-21 15:17] VITALS: BMI 29.5
[2022-05-12 19:00] LABS: Add Manual Diff / Slide Review NO; Basophils Absolute Auto 100 /uL (0-100); Eosinophils Absolute Auto 300 /uL (0-450); Eosinophils Percent Auto 4.9 % (2-4); Hematocrit 37.7 % (41-53); Lymphocytes Absolute Auto 1300 /uL (1100-4500); Lymphocytes Percent Auto 22.4 % (25-40); Mean Corpuscular HGB Conc 34.6 % (30-36); Mean Corpuscular Hemoglobin 29.8 PG (26-34); Mean Corpuscular Volume 86.3 fL (80-100); Monocytes Absolute Auto 500 /uL (0-900); Monocytes Percent Auto 8.6 % (3-14); Neutrophils Absolute Auto 3600 /uL (1500-7000); Neutrophils Percent Auto 63.1 % (50-75); Platelet Count 241 X10^3/uL (150-400); Red Blood Cell Count 4.37 X10^6/uL (4.5-5.9); White Blood Cell Count 5.6 X10^3/uL (4.5-11.0)
[2022-05-12 19:10] LABS: Alanine Aminotransferase 20 IU/L (<50); Albumin 3.9 g/dL (3.5-5.0); Albumin Globulin Ratio 1.3 (1.0-2.8); Alkaline Phosphatase 95 U/L (38-126); Aspartate Aminotransferase 24 IU/L (17-59); BUN Creatinine Ratio 22.4 (6-22); Bilirubin Total 0.7 mg/dL (0.2-1.3); Blood Urea Nitrogen 24 mg/dL (9-20); C-Reactive Protein Quant 2.1 mg/dL (<1.0); Calcium 9.2 mg/dL (8.4-10.2); Carbon Dioxide 25 mmol/L (22-32); Chloride 87 mmol/L (98-107); Creatine Kinase 30 U/L (55-170); Estimated Glomerular Filt Rate > 60 mL/min (>60); Globulin 2.9 g/dL (1.7-4.1); Glucose 135 mg/dL (80-110); HEMOLYSIS < 15 (0-50); Potassium 4.3 mmol/L (3.4-5.1); Sodium 126 mmol/L (137-145); Total Protein 6.8 g/dL (6.3-8.2)
== END ==
PROVIDERS: Visit Provider Internal Medicine Infectious Disease
DX: M86.172 Other acute osteomyelitis, left ankle and foot (principal)
CPT/HCPCS: 80053; 82550; 85025; 86140

== ENCOUNTER → 2022-06-26 13:05 | Outpatient (CLI) | payer OTHER, SELFPAY ==
[2019-01-21 15:17] VITALS: BMI 29.5
[2022-06-26 13:27] LABS: Add Manual Diff / Slide Review NO; Basophils Absolute Auto 100 /uL (0-100); Basophils Percent Auto 0.8 % (0-2); Eosinophils Absolute Auto 200 /uL (0-450); Eosinophils Percent Auto 2.2 % (2-4); Hematocrit 44.6 % (41-53); Lymphocytes Absolute Auto 1800 /uL (1100-4500); Lymphocytes Percent Auto 24.8 % (25-40); Mean Corpuscular HGB Conc 33.7 % (30-36); Mean Corpuscular Hemoglobin 29.1 PG (26-34); Mean Corpuscular Volume 86.3 fL (80-100); Monocytes Absolute Auto 500 /uL (0-900); Monocytes Percent Auto 6.9 % (3-14); Neutrophils Absolute Auto 4700 /uL (1500-7000); Neutrophils Percent Auto 65.3 % (50-75); Platelet Count 200 X10^3/uL (150-400); Red Blood Cell Count 5.16 X10^6/uL (4.5-5.9); White Blood Cell Count 7.3 X10^3/uL (4.5-11.0)
[2022-06-26 14:00] LABS: Alanine Aminotransferase 23 IU/L (<50); Albumin 4.3 g/dL (3.5-5.0); Albumin Globulin Ratio 1.3 (1.0-2.8); Alkaline Phosphatase 78 U/L (38-126); Aspartate Aminotransferase 30 IU/L (17-59); Bilirubin Total 0.9 mg/dL (0.2-1.3); Blood Urea Nitrogen 25 mg/dL (9-20); Calcium 9.6 mg/dL (8.4-10.2); Carbon Dioxide 26 mmol/L (22-32); Chloride 86 mmol/L (98-107); Estimated Glomerular Filt Rate > 60 mL/min (>60); Globulin 3.2 g/dL (1.7-4.1); Glucose 208 mg/dL (80-110); HEMOLYSIS 17 (0-50); Potassium 4.4 mmol/L (3.4-5.1); Sodium 126 mmol/L (137-145); Total Protein 7.5 g/dL (6.3-8.2)
== END ==
PROVIDERS: Referring Provider Internal Medicine Infectious Disease; Visit Provider Internal Medicine Infectious Disease
DX: M86.672 Other chronic osteomyelitis, left ankle and foot (principal)
CPT/HCPCS: 36415; 80053; 85025; 86140

== ENCOUNTER → 2022-07-07 10:41 | Outpatient (ROUT) | payer OTHER, SELFPAY ==
[2019-01-21 15:17] VITALS: BMI 29.5
[2022-07-07 11:03] LABS: Add Manual Diff / Slide Review NO; Basophils Absolute Auto 100 /uL (0-100); Basophils Percent Auto 0.8 % (0-2); Eosinophils Absolute Auto 200 /uL (0-450); Eosinophils Percent Auto 2.7 % (2-4); Hematocrit 45.7 % (41-53); Hemoglobin 15.2 g/dL (13.5-17.5); Lymphocytes Absolute Auto 1400 /uL (1100-4500); Lymphocytes Percent Auto 18.1 % (25-40); Mean Corpuscular HGB Conc 33.1 % (30-36); Mean Corpuscular Hemoglobin 28.7 PG (26-34); Mean Corpuscular Volume 86.6 fL (80-100); Monocytes Absolute Auto 500 /uL (0-900); Monocytes Percent Auto 6.3 % (3-14); Neutrophils Absolute Auto 5400 /uL (1500-7000); Neutrophils Percent Auto 72.1 % (50-75); Platelet Count 197 X10^3/uL (150-400); Red Blood Cell Count 5.28 X10^6/uL (4.5-5.9); White Blood Cell Count 7.5 X10^3/uL (4.5-11.0)
[2022-07-07 11:09] LABS: Albumin 4.5 g/dL (3.5-5.0); Albumin Globulin Ratio 1.8 (1.0-2.8); Alkaline Phosphatase 76 U/L (38-126); Aspartate Aminotransferase 35 IU/L (17-59); BUN Creatinine Ratio 19.6 (6-22); Bilirubin Total 0.9 mg/dL (0.2-1.3); Blood Urea Nitrogen 22 mg/dL (9-20); C-Reactive Protein Quant 1.3 mg/dL (<1.0); Calcium 9.5 mg/dL (8.4-10.2); Carbon Dioxide 21 mmol/L (22-32); Chloride 88 mmol/L (98-107); Estimated Glomerular Filt Rate > 60 mL/min (>60); Globulin 2.5 g/dL (1.7-4.1); Glucose 290 mg/dL (80-110); Potassium 3.9 mmol/L (3.4-5.1); Sodium 129 mmol/L (137-145)
[2022-07-07 11:14] LABS: Alanine Aminotransferase 45 IU/L (<50); HEMOLYSIS < 15 (0-50)
== END ==
PROVIDERS: Visit Provider Internal Medicine Infectious Disease
DX: M86.172 Other acute osteomyelitis, left ankle and foot (principal)
CPT/HCPCS: 80053; 85025; 86140

== ENCOUNTER → 2023-11-23 11:06 | Outpatient (CLI) | payer OTHER, SELFPAY ==
[2019-01-21 15:17] VITALS: BMI 29.5
== END ==
PROVIDERS: Visit Provider Registered Nurse
DX: R31.9 Hematuria, unspecified (principal)
CPT/HCPCS: 87086

== ENCOUNTER 2024-05-16 15:57 | Observation (INO) | payer OTHER, SELFPAY ==
[2019-01-21 15:17] VITALS: BMI 29.5
[2024-05-16] VITALS (7 sets, daily range): BP systolic 172–207; BP diastolic 81–101; PULSE 60–85; RESP 11–20; TEMP 36.6; O2SAT 97–99; BMI 31.1
--- NOTE | 2024-05-16 15:58 | DI.CT.S_ITS ---
PROCEDURE: CT ANGIO HEAD AND NECK INDICATIONS: stroke TECHNIQUE: After the administration of intravenous contrast, 1 mm thick sections acquired from the aortic arch through the [place]. 3-dimensional aedoocq-oniibhjgy-msbzxqrlpj (MIP) and/or volume rendering reformats were acquired of the central intracranial vasculature and neck separately. For radiation dose reduction, the following was used: automated exposure control, adjustment of mA and/or kV according to patient size. COMPARISON: [facility], CT, CT STROKE, 05/16/2024, 16:03. FINDINGS: Image quality: Diagnostic. BRAIN: CSF spaces: Ventricles are normal in size and shape. Basal cisterns are patent. No extra-axial fluid collections. Brain: No significant abnormality of the brain can be seen. Skull and face: Calvarium and facial bones appear intact, without suspicious lesions. Orbits appear normal. Sinuses: Sinuses and mastoids are clear. HEAD CT ANGIOGRAPHY: Anterior circulation: Intracranial internal carotid arteries are normal in size and flow. The flow within the paired anterior cerebral arteries is normal and symmetric. The flow within the middle cerebral arteries is normal and symmetric. The anterior communicating artery is seen. No aneurysms are seen. Posterior circulation: Visualized portions of the vertebral arteries demonstrate normal caliber, and join to form a normal appearing basilar artery. Flow within the posterior cerebral arteries is normal and symmetric. No aneurysms are seen. NECK CT ANGIOGRAPHY: Carotid system: The great vessels demonstrate a conventional anatomy as they arise from the aortic arch. The origins of the common carotid arteries appear patent. The common carotid arteries demonstrate normal caliber and courses. Atherosclerotic calcifications are noted involving bilateral aortic bifurcations with less than 50% stenosis. The internal carotid arteries demonstrate normal calibers and courses. Posterior circulation: Moderate to high-grade stenosis involving origins of bilateral internal carotid arteries are seen. The more superior extracranial portions of both vertebral arteries also demonstrate normal courses and calibers. They join to form a normal appearing basilar artery. Soft tissues: Visualized neck soft tissues demonstrate no suspicious abnormalities. Bones: No suspicious bony lesions. Visualized cervical spine appears normally aligned. IMPRESSION: 1. No hemodynamically significant stenosis or aneurysm is seen in the intracranial circulation. 2. 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 3. Less than 50% stenosis are noted involving origins of bilateral internal carotid arteries. Any quantitative measurements of stenosis were performed using NASCET criteria. Dictated by: Facundo Maradiaga M.D. on 05/16/2024 at 16:36 Approved by: Facundo Maradiaga M.D. on 05/16/2024 at 16:42
--- NOTE | 2024-05-16 15:58 | DI.CT.S_ITS ---
PROCEDURE: CT STROKE INDICATIONS: word lauren LKW 1430 TECHNIQUE: Noncontrast 4.5 mm thick angled axial sections acquired from the foramen magnum to the vertex, with coronal reformats. For radiation dose reduction, the following was used: automated exposure control, adjustment of mA and/or kV according to patient size. COMPARISON: None. FINDINGS: Image quality: Diagnostic. CSF spaces: Basal cisterns are patent. No extra-axial fluid collections. The ventricles are symmetric in size and shape. Brain: No intracranial bleeds or masses. There is cerebral volume loss for age, with resultant ventricular and sulcal prominence. There are periventricular and deep white matter chronic small vessel ischemic changes. There is intracranial internal carotid artery atherosclerosis. Skull and face: Calvarium and visualized facial bones appear intact, without suspicious lesions. Sinuses: Visualized sinuses and mastoids are clear. IMPRESSION: No acute intracranial pathology. Findings discussed with Dr. Beatty at 4:11 p.m. On 05/16/2024. This study fulfills neurological imaging criteria for inclusion or exclusion of acute stroke therapies based on available published neurological guidelines. Dictated by: Rafal Carrillo M.D. on 05/16/2024 at 16:10 Approved by: Rafal Carrillo M.D. on 05/16/2024 at 16:11
--- NOTE | 2024-05-16 16:16 | DI.RAD.S_ITS ---
PROCEDURE: XR CHEST 1V INDICATIONS: chest pain TECHNIQUE: One view of the chest was acquired. COMPARISON: [facility], CR, XR CHEST 2V, 04/24/2020, 13:33. FINDINGS: Surgical changes and devices: Median sternotomy wires and an external pacer are seen unchanged from previous study. Lungs and pleura: There is mild pulmonary vascular congestion. No definite focal infiltrate. No pleural effusions or pneumothorax. Mediastinum: Mediastinal contours appear normal. Heart size is enlarged. Bones and chest wall: No suspicious bony lesions. Overlying soft tissues appear unremarkable. IMPRESSION: Cardiomegaly and congestion. No definite focal infiltrate, pleural effusion or pneumothorax. Dictated by: Facundo Maradiaga M.D. on 05/16/2024 at 16:48 Approved by: Facundo Maradiaga M.D. on 05/16/2024 at 16:48
[2024-05-16 16:22] LABS: Add Manual Diff / Slide Review NO; Basophils Absolute Auto 0 /uL (0-100); Basophils Percent Auto 0.6 % (0-2); Eosinophils Absolute Auto 100 /uL (0-450); Eosinophils Percent Auto 2.2 % (2-4); Hematocrit 42.3 % (41-53); Hemoglobin 13.8 g/dL (13.5-17.5); Lymphocytes Absolute Auto 2100 /uL (1100-4500); Lymphocytes Percent Auto 37.2 % (25-40); Mean Corpuscular HGB Conc 32.6 % (30-36); Mean Corpuscular Hemoglobin 26.7 PG (26-34); Mean Corpuscular Volume 81.9 fL (80-100); Monocytes Absolute Auto 600 /uL (0-900); Monocytes Percent Auto 10.1 % (3-14); Neutrophils Absolute Auto 2800 /uL (1500-7000); Neutrophils Percent Auto 49.9 % (50-75); Platelet Count 203 X10^3/uL (150-400); Red Blood Cell Count 5.16 X10^6/uL (4.5-5.9); Red Cell Distribution Width 15.6 % (11.6-14.8); White Blood Cell Count 5.6 X10^3/uL (4.5-11.0)
[2024-05-16 16:24] LABS: INR 1.2 (0.9-1.3); Prothrombin Time 14.1 SECONDS (9.4-12.5)
[2024-05-16 16:26] LABS: PTT Partial Thromboplastin Tim 70 SECONDS (25.1-36.5)
--- NOTE | 2024-05-16 16:27 | EKG_ITS ---
[place] [id number] [place] [id number] Test Date: 2024-05-16 Pat Name: Conor Kligore Department: [facility] Room: Gender: Male [employer] Worker: SANDRA KEEN : 1950 Requested By: Order Number: [id number] Reading MD: David Bernard MD Measurements Intervals [place] Rate: 60 P: ID: QRS: -47 QRSD: 162 T: 53 QT: 492 QTc: 492 Interpretive Statements Ventricular-paced rhythm Electronically Signed On 05-17-2024 7:29:36 PDT by David Bernard MD
[2024-05-16 16:30] LABS: Alanine Aminotransferase 22 IU/L (<50); Albumin 4.3 g/dL (3.5-5.0); Albumin Globulin Ratio 1.3 (1.0-2.8); Alkaline Phosphatase 88 U/L (38-126); Aspartate Aminotransferase 27 IU/L (17-59); Bilirubin Total 0.7 mg/dL (0.2-1.3); Blood Urea Nitrogen 25 mg/dL (9-20); Calcium 9.5 mg/dL (8.4-10.2); Carbon Dioxide 28 mmol/L (22-32); Chloride 90 mmol/L (98-107); Creatine Kinase 48 U/L (55-170); Estimated Glomerular Filt Rate > 60 mL/min (>60); Globulin 3.2 g/dL (1.7-4.1); Glucose 114 mg/dL (80-110); HEMOLYSIS < 15 (0-50); Lipase 120 U/L (23-300); Potassium 3.9 mmol/L (3.4-5.1); Sodium 127 mmol/L (137-145); Total Protein 7.5 g/dL (6.3-8.2)
[2024-05-16 16:42] LABS: Troponin I 0.016 ng/mL (0.01-0.034)
--- NOTE | 2024-05-16 16:58 | ED.NEUROSD ---
HPI - Neuro Symptoms/Deficit General Chief Complaint: Neuro Symptoms/Deficit Stated Complaint: code stroke Time Seen by Provider: 05/16/24 15:58 Source: EMS Mode of arrival: EMS History of Present Illness HPI Narrative: Patient is a 74 year old male presenting today as a code stroke. Last known well was 230. He does take Pradaxa and aspirin daily, he has a history of coronary artery disease. Reports that he started having speech difficulty. No focal deficits. He had no traumatic injury. No numbness tingling or weakness. He does have a hard time communicating but actually speech comes and goes. Miriam (daughter hospitalist, lives in [place]) [phone] I spoke with daughter Miriam she reports that she was on the phone with him she was having full normal conversation for about 20 minutes and then at 2:30 a.m. me started having word salad which point EMS was called. She also reports that he had a brief episode of word salad yesterday as well. Prior history includes CABG x4 vessel sick sinus syndrome with pacemaker He also had back surgery about 2 months ago in [place] On Anticoagulants: Yes (Daily ASA and Pradaxa) Related Data Home Medications Medication Instructions Recorded Confirmed acetaminophen 325 mg tablet 1 dose PO PRN PRN pain 01/21/19 05/16/24 (Tylenol) aspirin 81 mg tablet,delayed 81 mg PO DAILY 04/19/20 05/16/24 release (Adult Low Dose Aspirin) tamsulosin 0.4 mg capsule (Flomax) 0.4 mg PO DAILY 11/23/23 05/16/24 atorvastatin 40 mg tablet 40 mg PO DAILY 05/16/24 05/16/24 dabigatran etexilate 150 mg 150 mg PO BID 05/16/24 05/16/24 capsule (Pradaxa) duloxetine 20 mg capsule,delayed 40 mg PO DAILY 05/16/24 05/16/24 release empagliflozin 25 mg tablet 25 mg PO QWEEK 05/16/24 05/16/24 (Jardiance) glipizide 5 mg tablet 5 mg PO DAILY 05/16/24 05/16/24 losartan 25 mg tablet 25 mg PO BID 05/16/24 05/16/24 metformin 1,000 mg tablet 1,000 mg PO BID 05/16/24 05/16/24 metoprolol tartrate 25 mg tablet 25 mg PO DAILY 05/16/24 05/16/24 omeprazole 20 mg capsule,delayed 20 mg PO BID 05/16/24 05/16/24 release oxycodone 5 mg tablet 5 mg PO DAILY 05/16/24 05/16/24 Previous Rx's Medication Instructions Recorded amlodipine 10 mg tablet 10 mg PO DAILY #90 tabs 02/22/20 blood sugar diagnostic (OneTouch #100 ea 05/03/20 Ultra Blue Test Strip) lancets 30 gauge (OneTouch Delica #100 ea 05/24/20 Lancets) Allergies Allergy/AdvReac Type Severity Reaction Status Date / Time levofloxacin [From Levaquin] AdvReac Severe Kidneys Verified 11/23/23 11:01 took a dive, afib, joint pain lisinopril [LISINOPRIL] AdvReac Unknown cough Verified 11/23/23 11:01 Review of Systems Hematologic/Lymphatic On Anticoagulants: Yes (Daily ASA and Pradaxa) Patient History Medical History Right anterior knee pain Necrotic toes Diabetic toe ulcer Peripheral neuropathy (~1994) Fractures (~2004) Carpal tunnel syndrome (~1981) Plantar warts Rubella Mumps Measles Chicken pox Ruptured tympanic membrane (~1977) GERD (gastroesophageal reflux disease) (~1989) Peripheral vascular disease (~1999) Essential hypertension (09/22/16) Surgical History Status post aorto-coronary artery bypass graft Anesthesia Status post urinary system surgery (~1993) History of carpal tunnel repair (~1980) Family History Mother Heart disease Hypertension Stroke Diabetes mellitus Father No problems noted. Social History household members: spouse Smoking Status: Never smoker alcohol intake: current Smoking Status: Never smoker alcohol intake frequency: holidays/special occasions only Substance Use Type: does not use Exam Initial Vital Signs Initial Vital Signs: Vital Signs Temperature 97.9 F 05/16/24 16:12 Pulse Rate 60 05/16/24 16:12 Respiratory Rate 14 05/16/24 16:12 Blood Pressure 196/81 H 05/16/24 16:12 Pulse Oximetry 99 10/07/24 16:12 Oxygen Delivery Method Room Air 05/16/24 16:12 GENERAL: Alert pleasant 74-year-old male and in no acute distress. HEENT: Head atraumatic,EOMI, pupils reactive, face symmetric, moist mucous membranes CARDIOVASCULAR: Regular rate and rhythm without murmurs, rubs or gallops. RESPIRATORY: Breath sounds equal bilaterally, no wheezes rales or rhonchi. ABDOMEN: Soft, nontender. Normoactive bowel sounds all 4 quadrants. No guarding or rebound. EXTREMITIES: Normal range of motion, no clubbing or edema. Neurovascularly intact NEUROLOGICAL: Alert and oriented x4.Normal gait and speech. Cranial nerves II through XII grossly intact. Good lkyocc-ux-gbob, good ygie-tc-tnec, strength equal bilaterally, no slurring of speech but word trouble, sensation in tact to soft touch bilaterally, no visual changes, no facial droop SKIN: Warm, dry, no laceration, no petechiae, no rashes or lesions. Scores NIH Stroke Scale Level of Conciousness: Alert, keenly responsive Ask month/age: Answers both questions correctly. Open/close eyes, close hand: Performs both tasks correctly Best gaze horizontal: Normal Visual brito: No visual loss Facial palsy: Normal symetrical movement Left arm drift: No drift for full 10 sec Right arm drift: No drift for full 10 sec Left leg drift: No drift for full 5 sec Right leg drift: No drift for full 5 sec Limb ataxia: Absent Sensory on face/arms/legs: Normal, no sensory loss Best language: No aphasia, normal Dysarthria: Mild to mod,some slurring Extinction or inattention: No abnormality Total NIH Stroke scale score: 1 Course Orders Ordered: ED Orders 05/16/24 15:[address] angio head and neck Stat 05/16/24 16:00 Complete Blood Count AUTO DIFF Stat Comprehensive Metabolic Panel Stat Lipase Stat PTT Partial Thromboplastin Sergey Stat Prothrombin Time INR Stat Troponin & CK Cardiac Panel Stat 05/16/24 16:16 XR chest 1V Stat EKG-12 Lead Stat Acetaminophen (Acetaminophen 650 Mg Supp) 650 mg ID Q6HR PRN PRN Reason: Fever Aspirin (Aspirin Ec 81 Mg Tablet) 81 mg PO DAILY WILEY Atorvastatin Calcium (Atorvastatin 20 Mg Tablet) 80 mg PO BEDTIME WILEY Dextrose (D10w) 100 mls @ 999 mls/hr IV PRN PRN PRN Reason: Hypoglycemia Insulin Human Lispro (Insulin Lispro 100 Unit/Ml 3ml Vial) 0 unit SUBCUT ACHS WILEY; Protocol Naloxone HCl (Naloxone 0.4 Mg/Ml Vial) 0.2 mg IV Q2MIN PRN PRN Reason: Opiate Reversal Ondansetron HCl (Ondansetron 4 Mg/2 Ml Inj) 4 mg IV Q8HR PRN PRN Reason: Nausea And Vomiting Discontinued Medications Aspirin (Aspirin 81 Mg Chew Tab) 324 mg PO NOW ONE Stop: 05/16/24 16:15 Last Admin: 05/16/24 17:07 Dose: Not Given Documented By: SB Vital Signs Vital signs: Vital Signs - 8 hr 05/16/24 16:12 05/16/24 16:20 05/16/24 16:30 Temperature 97.9 F Pulse Rate 60 60 60 Respiratory Rate 14 11 L 17 Blood Pressure 196/81 H 196/81 H 191/88 H Pulse Oximetry 99 99 99 Oxygen Delivery Method Room Air 05/16/24 16:45 Temperature Pulse Rate 60 Respiratory Rate 20 Blood Pressure 183/83 H Pulse Oximetry 98 Oxygen Delivery Method Room Air MDM - Neuro Symptoms/Deficit Lab Data 05/16/24 16:00 05/16/24 16:00 Labs: Lab Results 05/16/24 Range/Units 16:00 WBC 5.6 (4.5-11.0) X10^3/uL RBC 5.16 (4.5-5.9) X10^6/uL Hgb 13.8 (13.5-17.5) g/dL Hct 42.3 (41-53) % MCV 81.9 (80-100) fL MCH 26.7 (26-34) PG MCHC 32.6 (30-36) % RDW 15.6 H (11.6-14.8) % Plt Count 203 (150-400) X10^3/uL Neut % (Auto) 49.9 L (50-75) % Lymph % (Auto) 37.2 (25-40) % Dewitt % (Auto) 10.1 (3-14) % Eos % (Auto) 2.2 (2-4) % Baso % (Auto) 0.6 (0-2) % Neut # (Auto) 2800 (4644-7777) /uL Lymph # (Auto) 2100 (6527-9973) /uL Dewitt # (Auto) 600 (0-900) /uL Eos # (Auto) 100 (0-450) /uL Baso # (Auto) 0 (0-100) /uL PT 14.1 H (9.4-12.5) SECONDS INR 1.2 (0.9-1.3) APTT 70 H (25.1-36.5) SECONDS Sodium 127 L (137-145) mmol/L Potassium 3.9 (3.4-5.1) mmol/L Chloride 90 L (98-107) mmol/L Carbon Dioxide 28 (22-32) mmol/L BUN 25 H (9-20) mg/dL Creatinine 1.25 (0.66-1.25) mg/dL Estimated GFR > 60 (>60) mL/min BUN/Creatinine Ratio 20.0 (6-22) Glucose 114 H (80-110) mg/dL Calcium 9.5 (8.4-10.2) mg/dL Total Bilirubin 0.7 (0.2-1.3) mg/dL AST 27 (17-59) IU/L ALT 22 (<50) IU/L Alkaline Phosphatase 88 (38-126) U/L Total Creatine Kinase 48 L (55-170) U/L Troponin I 0.016 (0.01-0.034) ng/mL Total Protein 7.5 (6.3-8.2) g/dL Albumin 4.3 (3.5-5.0) g/dL Globulin 3.2 (1.7-4.1) g/dL Albumin/Globulin Ratio 1.3 (1.0-2.8) Lipase 120 (23-300) U/L Imaging Data CT scan - head: Radiologist's Impression: PROCEDURE: CT STROKE INDICATIONS: word salad LKW 1430 TECHNIQUE: Noncontrast 4.5 mm thick angled axial sections acquired from the foramen magnum to the vertex, with coronal reformats. For radiation dose reduction, the following was used: automated exposure control, adjustment of mA and/or kV according to patient size. COMPARISON: None. FINDINGS: Image quality: Diagnostic. CSF spaces: Basal cisterns are patent. No extra-axial fluid collections. The ventricles are symmetric in size and shape. Brain: No intracranial bleeds or masses. There is cerebral volume loss for age, with resultant ventricular and sulcal prominence. There are periventricular and deep white matter chronic small vessel ischemic changes. There is intracranial internal carotid artery atherosclerosis. Skull and face: Calvarium and visualized facial bones appear intact, without suspicious lesions. Sinuses: Visualized sinuses and mastoids are clear. IMPRESSION: No acute intracranial pathology. Findings discussed with Dr. Beatty at 4:11 p.m. On 05/16/2024. This study fulfills neurological imaging criteria for inclusion or exclusion of acute stroke therapies based on available published neurological guidelines. Dictated by: Rafal Carrillo M.D. on 05/16/2024 at 16:10 CTA - brain/neck: Radiologist's Impression: PROCEDURE: CT ANGIO HEAD AND NECK INDICATIONS: stroke TECHNIQUE: After the administration of intravenous contrast, 1 mm thick sections acquired from the aortic arch through the [place]. 3-dimensional kdhvcsj-jykdgjyje-glsmjknvgo (MIP) and/or volume rendering reformats were acquired of the central intracranial vasculature and neck separately. For radiation dose reduction, the following was used: automated exposure control, adjustment of mA and/or kV according to patient size. COMPARISON: [facility], CT, CT STROKE, 05/16/2024, 16:03. FINDINGS: Image quality: Diagnostic. BRAIN: CSF spaces: Ventricles are normal in size and shape. Basal cisterns are patent. No extra-axial fluid collections. Brain: No significant abnormality of the brain can be seen. Skull and face: Calvarium and facial bones appear intact, without suspicious lesions. Orbits appear normal. Sinuses: Sinuses and mastoids are clear. HEAD CT ANGIOGRAPHY: Anterior circulation: Intracranial internal carotid arteries are normal in size and flow. The flow within the paired anterior cerebral arteries is normal and symmetric. The flow within the middle cerebral arteries is normal and symmetric. The anterior communicating artery is seen. No aneurysms are seen. Posterior circulation: Visualized portions of the vertebral arteries demonstrate normal caliber, and join to form a normal appearing basilar artery. Flow within the posterior cerebral arteries is normal and symmetric. No aneurysms are seen. NECK CT ANGIOGRAPHY: Carotid system: The great vessels demonstrate a conventional anatomy as they arise from the aortic arch. The origins of the common carotid arteries appear patent. The common carotid arteries demonstrate normal caliber and courses. Atherosclerotic calcifications are noted involving bilateral aortic bifurcations with less than 50% stenosis. The internal carotid arteries demonstrate normal calibers and courses. Posterior circulation: Moderate to high-grade stenosis involving origins of bilateral internal carotid arteries are seen. The more superior extracranial portions of both vertebral arteries also demonstrate normal courses and calibers. They join to form a normal appearing basilar artery. Soft tissues: Visualized neck soft tissues demonstrate no suspicious abnormalities. Bones: No suspicious bony lesions. Visualized cervical spine appears normally aligned. IMPRESSION: 1. No hemodynamically significant stenosis or aneurysm is seen in the intracranial circulation. 2. 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 3. Less than 50% stenosis are noted involving origins of bilateral internal carotid arteries. Any quantitative measurements of stenosis were performed using NASCET criteria. Dictated by: Facundo Maradiaga M.D. on 05/16/2024 at 16:36 Chest x-ray: Radiologist's Impression: PROCEDURE: XR CHEST 1V INDICATIONS: chest pain TECHNIQUE: One view of the chest was acquired. COMPARISON: [facility], , XR CHEST 2V, 04/24/2020, 13:33. FINDINGS: Surgical changes and devices: Median sternotomy wires and an external pacer are seen unchanged from previous study. Lungs and pleura: There is mild pulmonary vascular congestion. No definite focal infiltrate. No pleural effusions or pneumothorax. Mediastinum: Mediastinal contours appear normal. Heart size is enlarged. Bones and chest wall: No suspicious bony lesions. Overlying soft tissues appear unremarkable. IMPRESSION: Cardiomegaly and congestion. No definite focal infiltrate, pleural effusion or pneumothorax. Dictated by: Facundo Maradiaga M.D. on 05/16/2024 at 16:4 ECG Data Attestation: I personally reviewed and interpreted this ECG as follows: Prior ECG tracings: available for review Interpretation: paced rhythm 60 no Sgarbossa criteria MDM Narrative Medical decision making narrative: Patient 74-year-old male presenting today as a code stroke while taking Pradaxa. He does have some trouble finding but no other deficits NIH stroke scale is 0. Not a TNK candidate secondary to taking Pradaxa and coming and going of symptoms Blood work has been reviewed no leukocytosis WBC is 5.6 hemoglobin 13.8 hematocrit 42.3 Mild hyponatremia sodium 127 previously 129 in 2021 electrolytes stable creatinine is 1.25 previously 1.1 glucose 114 Troponin 0.[address] angio no intracranial hemorrhage or large vessel occlusion I attempted to call patient's . He reports that she just went to [place] but was okay with us calling her. I did speak with the daughter and got significantly more information from her Dr. Junior updated patient's symptoms test results and accepts Discharge Plan Departure Patient Disposition: Admitted As Inpatient Clinical Impression: CVA (cerebral vascular accident) Admit Date/Time: 05/16/24 17:04 Admit Provider: Cullen Junior
--- NOTE | 2024-05-16 17:21 | P.HP_ITS ---
History of Present Illness History of Present Illness Date Patient Seen: 05/16/24 Chief complaint: code stroke Narrative: From ED provider: Patient is a 74 year old male presenting today as a code stroke. Last known well was 230. He does take Pradaxa and aspirin daily, he has a history of coronary artery disease. Reports that he started having speech difficulty. No focal deficits. He had no traumatic injury. No numbness tingling or weakness. He does have a hard time communicating but actually speech comes and goes. On Anticoagulants: Yes (Daily ASA and Pradaxa) Additional information: The patient had an episode of neurologic symptoms this afternoon which sounds like speech difficulties with gibberish and possibly word salad. There is also a possibility of some slurring of his speech. These symptoms may have lasted for up to an hour. It sounds as though he may have had a similar episode of speech difficulties yesterday as well. He does take aspirin and Pradaxa. [facility] he has no speech difficulties. He does have chronic right leg weakness which has been ongoing. He had a recent back surgery about 2 months ago. His leg weakness has not improved. He attributes this to his back issues. The patient is not confused and does well with his NIH score participation. His speech is fluent. He was no word-finding difficulties. [facility]LY [facility] Medical History Right anterior knee pain Necrotic toes Diabetic toe ulcer Peripheral neuropathy (~1994) Fractures (~2004) Carpal tunnel syndrome (~1981) Plantar warts Rubella Mumps Measles Chicken pox Ruptured tympanic membrane (~1977) GERD (gastroesophageal reflux disease) (~1989) Peripheral vascular disease (~1999) Essential hypertension (09/22/16) Surgical History Status post aorto-coronary artery bypass graft Anesthesia Status post urinary system surgery (~1993) History of carpal tunnel repair (~1980) Family History Mother Heart disease Hypertension Stroke Diabetes mellitus Father No problems noted. Social History household members: spouse Smoking Status: Never smoker alcohol intake: current Meds Home Medications and Allergies Home Medications Medication Instructions Recorded Confirmed Type acetaminophen 325 mg tablet 1 dose PO PRN PRN pain 01/21/19 05/16/24 History (Tylenol) amlodipine 10 mg tablet 10 mg PO DAILY #90 tabs 02/22/20 05/16/24 Rx aspirin 81 mg tablet,delayed 81 mg PO DAILY 04/19/20 05/16/24 History release (Adult Low Dose Aspirin) [facility] 11/23/23 Rx Ultra Blue Test Strip) lancets 30 gauge ([facility] 05/24/20 11/23/23 Rx Lancets) tamsulosin 0.4 mg capsule (Flomax) 0.4 mg PO DAILY 11/23/23 05/16/24 History atorvastatin 40 mg tablet 40 mg PO DAILY 05/16/24 05/16/24 History dabigatran etexilate 150 mg 150 mg PO BID 05/16/24 05/16/24 History capsule (Pradaxa) duloxetine 20 mg capsule,delayed 40 mg PO DAILY 05/16/24 05/16/24 History release empagliflozin 25 mg tablet 25 mg PO QWEEK 05/16/24 05/16/24 History (Jardiance) glipizide 5 mg tablet 5 mg PO DAILY 05/16/24 05/16/24 History losartan 25 mg tablet 25 mg PO BID 05/16/24 05/16/24 History metformin 1,000 mg tablet 1,000 mg PO BID 05/16/24 05/16/24 History metoprolol tartrate 25 mg tablet 25 mg PO DAILY 05/16/24 05/16/24 History omeprazole 20 mg capsule,delayed 20 mg PO BID 05/16/24 05/16/24 History release oxycodone 5 mg tablet 5 mg PO DAILY 05/16/24 05/16/24 History Allergies Allergy/AdvReac Type Severity Reaction Status Date / Time levofloxacin [From Levaquin] AdvReac Severe Kidneys Verified 11/23/23 11:01 took a dive, afib, joint pain lisinopril [LISINOPRIL] AdvReac Unknown cough Verified 11/23/23 11:01 Review of Systems Review of Systems Narrative: All else reviewed and otherwise unremarkable except as noted in the history and physical. Exam Vital Signs (past 8 hours): - 05/16/24 16:12 05/16/24 16:20 05/16/24 16:30 Temperature 97.9 F Pulse Rate 60 60 60 Respiratory Rate 14 11 L 17 Blood Pressure 196/81 H 196/81 H 191/88 H Pulse Oximetry 99 99 99 Oxygen Delivery Method Room Air 05/16/24 16:45 Temperature Pulse Rate 60 Respiratory Rate 20 Blood Pressure 183/83 H Pulse Oximetry 98 Oxygen Delivery Method Room Air Oxygen Delivery Method Room Air Narrative Exam Narrative: NAD, alert and oriented, fluent speech, calm. Normocephalic skull, EOMI, anicteric sclera, symmetric pupils. Oropharynx unremarkable, no droop. Neck supple, midline trachea, no adenopathy. Lungs clear, normal rate and effort. Heart regular, no murmur gallop or rub. Abdomen is soft, non distended and non tender. Extremities are free of edema. Skin is free of rash or lesions. Joints are not swollen or deformed. Judgment appears to be normal. Neuro: Cranial nerves are intact speech is normal. Word finding is normal. Motor strength is 5/5 all extremities with the exception of weakness of the right leg, he can lift it off the bed but it takes much more effort. This does cause some degree of back pain. His plantar and dorsiflexion are 5/5 both feet. Objective ECG Impression: Ventricular-paced rhythm Imaging Multiple studies:: Radiologist's impression: CXR: Cardiomegaly and congestion. No definite focal infiltrate, pleural effusion or pneumothorax. Neck and Head CTA: 1. No hemodynamically significant stenosis or aneurysm is seen in the intracranial circulation. 2. 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 3. Less than 50% stenosis are noted involving origins of bilateral internal carotid arteries. Brain CT: No acute intracranial pathology. Findings discussed with Dr. Beatty at 4:11 p.m. On 05/16/2024. This study fulfills neurological imaging criteria for inclusion or exclusion of acute stroke therapies based on available published neurological guidelines. Labs 05/16/24 16:00 05/16/24 16:00 Labs: Laboratory Results - last 24 hr 05/16/24 16:00 WBC 5.6 RBC 5.16 Hgb 13.8 Hct 42.3 MCV 81.9 MCH 26.7 MCHC 32.6 RDW 15.6 H Plt Count 203 Neut % (Auto) 49.9 L Lymph % (Auto) 37.2 [place] % (Auto) 10.1 Eos % (Auto) 2.2 Baso % (Auto) 0.6 Neut # (Auto) 2800 Lymph # (Auto) 2100 [place] # (Auto) 600 Eos # (Auto) 100 Baso # (Auto) 0 PT 14.1 H INR 1.2 APTT 70 H Sodium 127 L Potassium 3.9 Chloride 90 L Carbon Dioxide 28 BUN 25 H Creatinine 1.25 Estimated GFR > 60 BUN/Creatinine Ratio 20.0 Glucose 114 H Calcium 9.5 Total Bilirubin 0.7 AST 27 ALT 22 Alkaline Phosphatase 88 Total Creatine Kinase 48 L Troponin I 0.016 Total Protein 7.5 Albumin 4.3 Globulin 3.2 Albumin/Globulin Ratio 1.3 Lipase 120 Assessment & Plan Assessment & Plan narrative: 1. Acute CVA vs. TIA, present on admission and active. 2. HTN, present on admission and active. 3. HLD, present on admission and active. 4. PVD, present on admission and active. 5. DM 2, present on admission and active. PLAN: -continue Dabigatran. -hold oral diabetes medications and use correctional insulin. -telemetry -speech, PT, and OT evaluations. -brain MRI -permissive hypertension. Had a long conversation with [facility] neurology. There is no data or recommendation for dual antiplatelets on top of his anticoagulation. There was also no recommendation to switch his anticoagulation. His 2 episodes appeared to have similar or identical symptoms which points to a probable smaller vessel stenosis in the left cortical hemisphere. One possible intervention was to switch aspirin to Plavix, this was discussed with his daughter Miriam, who is a doctor, at length. Ultimately she did request that we substitute Plavix for aspirin. We will start Plavix tonight at 74 daily. I did share that I think his risk of a completed stroke is relatively high with his stuttering symptoms. In discussing with Neurology, he was really at the highest level of medical therapy. Inpatient status, anticipate 2 midnight hospital stay. Full resuscitation CATRACHO is May 18. Time-Based Coding :: 45 min spent with patient and on the chart (including review of chart, obtaining history, exam, reviewing outside data, placing orders, documenting exam and treatment plan, and counseling patient) on 10/7. Quality MIPS - Admit I confirm the patient?s Advance Care Plan is present, Code status is documented, Surrogate decision maker is in patient?s record [If Yes, STOP here]: Yes MIPS - Meds 'Current medications' to include all prescriptions, [id number] products, herbals, cannabis/cannabidiol products, and vitamin/mineral/dietary (nutritional) supplements. I have utilized all available resources to obtain, update, or review the patient?s current medications. [If Yes, STOP here]: Yes
--- NOTE | 2024-05-16 18:46 | PC.NURSE ---
admit pt to [facility] from ED. Alert and oriented but does have some difficulty with fluency of speech. RLE mildly weaker than L, pt states has been that way since my back surgery a few months ago. Pt endorses frequent falls and nausea/vomiting > 1 week but pt unsure of how long. Dr. Junior notified of the same. BP hypertensive, consistent with ED and other VS WNL. No difficulty noted with swallow. Supportive friend David present at bedside with good interaction noted. Pt educated comparison shopper light and instructed to use for any needs and prior to activity for assist/assess. Bed alarm on.
[2024-05-16] MEDS: INSULIN LISPRO 100 UNIT/ML 3ML VIAL SUBCUT (21:13)
[2024-05-16] MEDS: ACETAMINOPHEN 325 MG TABLET 650 MG PO (21:13)
[2024-05-16] MEDS: ATORVASTATIN 20 MG TABLET 80 MG PO (21:14)
[2024-05-16] MEDS: DABIGATRAN 75 MG CAPSULE 150 MG PO (21:14)
[2024-05-17 00:10] VITALS: BP 174/88; PULSE 72; RESP 17; TEMP 36.7; O2SAT 97
[2024-05-17 04:00] VITALS: BP 188/86; PULSE 84; RESP 18; TEMP 36.4; O2SAT 96
[2024-05-17 06:34] LABS: Add Manual Diff / Slide Review NO; Basophils Absolute Auto 0 /uL (0-100); Basophils Percent Auto 0.8 % (0-2); Eosinophils Absolute Auto 100 /uL (0-450); Eosinophils Percent Auto 2.7 % (2-4); Hematocrit 38.7 % (41-53); Hemoglobin 12.9 g/dL (13.5-17.5); Lymphocytes Absolute Auto 1200 /uL (1100-4500); Lymphocytes Percent Auto 26.2 % (25-40); Mean Corpuscular HGB Conc 33.4 % (30-36); Mean Corpuscular Volume 80.7 fL (80-100); Monocytes Absolute Auto 500 /uL (0-900); Monocytes Percent Auto 11.1 % (3-14); Neutrophils Absolute Auto 2800 /uL (1500-7000); Neutrophils Percent Auto 59.2 % (50-75); Platelet Count 164 X10^3/uL (150-400); Red Blood Cell Count 4.79 X10^6/uL (4.5-5.9); Red Cell Distribution Width 16.2 % (11.6-14.8); White Blood Cell Count 4.8 X10^3/uL (4.5-11.0)
[2024-05-17 06:43] LABS: Hemoglobin A1C% w Est Avg Glu 6.8 % (4.0-6.0)
[2024-05-17 06:52] LABS: BUN Creatinine Ratio 21.8 (6-22); Blood Urea Nitrogen 19 mg/dL (9-20); Carbon Dioxide 27 mmol/L (22-32); Chloride 93 mmol/L (98-107); Cholesterol 114 mg/dL (140-199); Estimated Glomerular Filt Rate > 60 mL/min (>60); Glucose 132 mg/dL (80-110); HDL Cholesterol 39 mg/dL (40-60); HEMOLYSIS < 15 (0-50); LDL Cholesterol Calculated 37 mg/dL (<100); Potassium 3.5 mmol/L (3.4-5.1); Sodium 127 mmol/L (137-145); Triglycerides 188 mg/dL (35-150)
--- NOTE | 2024-05-17 07:31 | PM.PN.1 ---
Subjective Subjective Interval history: S: Exam Vital Signs (past 8 hours): - 05/17/24 00:10 05/17/24 04:00 Temperature 98.0 F 97.6 F Pulse Rate 72 84 Respiratory Rate 17 18 Blood Pressure 174/88 H 188/86 H Pulse Oximetry 97 96 Oxygen Flow Rate 0 0 Oxygen Delivery Method Room Air Oxygen Flow Rate 0 Narrative Exam Narrative: NAD, alert and oriented. Fluent speech. Lungs are clear, normal rate and effort. Heart is regular, no murmur gallop or rub. Abdomen is soft, non distended. Extremities are free of edema. Objective Labs 05/17/24 06:17 05/17/24 06:17 Labs: Laboratory Results - last 24 hr 05/16/24 05/17/24 16:00 06:17 WBC 5.6 4.8 RBC 5.16 4.79 Hgb 13.8 12.9 L Hct 42.3 38.7 L MCV 81.9 80.7 MCH 26.7 27.0 MCHC 32.6 33.4 RDW 15.6 H 16.2 H Plt Count 203 164 Neut % (Auto) 49.9 L 59.2 Lymph % (Auto) 37.2 26.2 [place] % (Auto) 10.1 11.1 Eos % (Auto) 2.2 2.7 Baso % (Auto) 0.6 0.8 Neut # (Auto) 2800 2800 Lymph # (Auto) 2100 1200 [place] # (Auto) 600 500 Eos # (Auto) 100 100 Baso # (Auto) 0 0 PT 14.1 H INR 1.2 APTT 70 H Sodium 127 L 127 L Potassium 3.9 3.5 Chloride 90 L 93 L Carbon Dioxide 28 27 BUN 25 H 19 Creatinine 1.25 0.87 Estimated GFR > 60 > 60 BUN/Creatinine Ratio 20.0 21.8 Glucose 114 H 132 H Hemoglobin A1c 6.8 H Calcium 9.5 9.0 Total Bilirubin 0.7 AST 27 ALT 22 Alkaline Phosphatase 88 Total Creatine Kinase 48 L Troponin I 0.016 Total Protein 7.5 Albumin 4.3 Globulin 3.2 Albumin/Globulin Ratio 1.3 Triglycerides 188 H Cholesterol 114 L LDL Cholesterol, Calc 37 HDL Cholesterol 39 L Lipase 120 PFSH Medical History Right anterior knee pain Necrotic toes Diabetic toe ulcer Peripheral neuropathy (~1994) Fractures (~2004) Carpal tunnel syndrome (~1981) Plantar warts Rubella Mumps Measles Chicken pox Ruptured tympanic membrane (~1977) GERD (gastroesophageal reflux disease) (~1989) Peripheral vascular disease (~1999) Essential hypertension (09/22/16) Surgical History Status post aorto-coronary artery bypass graft Anesthesia Status post urinary system surgery (~1993) History of carpal tunnel repair (~1980) Family History Mother Heart disease Hypertension Stroke Diabetes mellitus Father No problems noted. Social History household members: spouse Smoking Status: Never smoker alcohol intake: current Assessment & Plan Assessment & Plan narrative: 1. Acute CVA vs. TIA, present on admission and active. 2. HTN, present on admission and active. 3. HLD, present on admission and active. 4. PVD, present on admission and active. 5. DM 2, present on admission and active. PLAN: -continue Dabigatran. substitute Plavis for ASA. -hold oral diabetes medications and use correctional insulin. -telemetry -speech, PT, and OT evaluations. -brain MRI -permissive hypertension. Had a long conversation with [facility] neurology. There is no data or recommendation for dual antiplatelets on top of his anticoagulation. There was also no recommendation to switch his anticoagulation. His 2 episodes appeared to have similar or identical symptoms which points to a probable smaller vessel stenosis in the left cortical hemisphere. One possible intervention was to switch aspirin to Plavix, this was discussed with his daughter Miriam, who is a doctor, at length. Ultimately she did request that we substitute Plavix for aspirin. We will start Plavix tonight at 75 daily. I did share that I think his risk of a completed stroke is relatively high with his stuttering symptoms. In discussing with Neurology, he was really at the highest level of medical therapy. Inpatient status, anticipate 2 midnight hospital stay. Full resuscitation CATRACHO is May 18. Time-Based Coding :: [TOTAL MINUTES] spent with patient and on the chart (including review of chart, obtaining history, exam, reviewing outside data, placing orders, documenting exam and treatment plan, and counseling patient) on [DATE]. Quality VTE Deep Vein Thrombosis/Pulmonary Embolism Present on Admission: No
[2024-05-17 08:00] VITALS: BP 168/93; PULSE 60; RESP 16; TEMP 36.3; O2SAT 97
[2024-05-17] MEDS: INSULIN LISPRO 100 UNIT/ML 3ML VIAL SUBCUT ×2 (08:26→11:48)
[2024-05-17] MEDS: TAMSULOSIN 0.4 MG CAPSULE PO (08:27)
[2024-05-17] MEDS: CLOPIDOGREL 75 MG TABLET PO (08:27)
[2024-05-17] MEDS: DULOXETINE 20 MG CAPSULE 40 MG PO (08:27)
[2024-05-17] MEDS: DABIGATRAN 75 MG CAPSULE 150 MG PO (08:27)
--- NOTE | 2024-05-17 09:55 | PT.IIE ---
Current Diagnoses Cerebral infarction, unspecified (05/16/24) Surgical History (Last Reviewed 05/17/24 @ 07:31 by Cullen Junior MD) Anesthesia History of carpal tunnel repair (~1980) Status post aorto-coronary artery bypass graft Status post urinary system surgery (~1993) Medical History (Last Reviewed 05/17/24 @ 07:31 by Cullen Junior MD) Carpal tunnel syndrome (~1981) Chicken pox Diabetic toe ulcer Essential hypertension (09/22/16) Fractures (~2004) GERD (gastroesophageal reflux disease) (~1989) Measles Mumps Necrotic toes Peripheral neuropathy (~1994) Peripheral vascular disease (~1999) Plantar warts Right anterior knee pain Rubella Ruptured tympanic membrane (~1977) Physical Therapy Inpatient Evaluation/Re-Eval M1 PT/OT-IP Prior Functional Status Start: 05/17/24 11:51 Freq: NEEDED Status: Active Protocol: Document 05/17/24 09:55 AB (Rec: 05/17/24 12:06 AB [id number]) Medical Review Prior Functional Status Medical History Reviewed Yes Communication able to make needs known Mobility and Gait pt stated that he was modified independent with all mobilities and ambulation using his walking stick most of the time indoors but occasionally without but tends to furniture cruise; uses his walking sticks outdoors Social History Household Members spouse Living Arrangements House Number of Floors (Floors) One Floor Number of Stairs To Enter/Railing? 1 step to enter 18 steps to 2nd level bedroom with R rail ascending but pt also has access to an elevator Home Environment High Toilet,Walk in Shower, Built-In Shower Seat Additional Social History Comment pt stated that spouse is out of town untila september of next year pt uses a walking stick for ambulation M2 PT-IP Current Condition Start: 05/17/24 11:51 Freq: NEEDED Status: Active Protocol: Document 05/17/24 09:55 AB (Rec: 05/17/24 12:06 AB [id number]) Physical Therapy Current Condition Current Condition Evaluation Date 05/17/24 Treatment Diagnosis TIA vs CVA; difficulty in walking Onset Date 05/16/24 M3 PT-IP Subjective Start: 05/17/24 11:51 Freq: NEEDED Status: Active Protocol: Document 05/17/24 09:55 AB (Rec: 05/17/24 12:06 AB [id number]) Subjective Physical Therapy Visit Type Type Initial Evaluation Visit Start Time 09:55 Visit Stop Time 10:30 Number of EMERGENCY ROOM CLINICIAN Visits 0 Physical Therapy Visit Comments Patient Comments i want to go home; i need help with my speech M4 PT-IP Mobility and Gait Start: 05/17/24 11:51 Freq: NEEDED Status: Active Protocol: Document 05/17/24 09:55 AB (Rec: 05/17/24 12:06 [id number]) PT-Bed Mobility Assessment Supine to Sit Supine to Sit Independent PT-Transfer Assessment Sit to and From Stand Sit to and from Stand Standby Assistance Equipment Transfer Assistive Device None,Straight Cane Orthotic/Prosthetic Devices or Brace: No Transfers Transfer Destination Chair Transfer Technique ambulated Transfer Ability Level of Assist Standby Assistance,Contact Guard Assistance,1 Person Assistance,Use of Upper Extremities Comments Mobility Comments pt supine in bed. stated that he needs help with his speech and not PT. informed pt regarding PT eval order and rationale. pt agreed to do PT. completed supine to sit mod I. able to sit on EOB SBA. pt stated that he has been getting up to use the toilet by himself in ths room. pt completed sit to stand SBA and ambulated in room using SPC SBA to CGA. pt can be impulsive. cued to slow down. pt with unsteady ataxic gait with increase lateral trunk leaning to the R. pt stated that he had a back sx ~ 2 months ago and has been going to outpt PT for that. pt sat on chair and rested. agreed to do steps. completed up/down step stool holding on to edge of the door for support SBA. repeated x 3. slight LOB on last attempt but with recovery . pt ambulated back to the chair. informed pt regarding safety, midline alignment and to slow down to be able to rebalance with each step. pt understood. positioned pt on the chair. call light and table placed within reach. Gait Assessment Gait Gait Assistance Required: Standby Assistance,Contact Guard Assist Distance (Feet) 40 Able to Maintain Weight Bearing Status Yes During Gait Assistive Devices Assistive Device Gait Belt,Straight Cane Orthotic/Prosthetic Devices or Brace: No Gait Deviations General Gait Pattern Ataxic,Decreased Stride Length ,Decreased Feet Clearance Factors Limiting Gait Function Factors Limiting Gait Function Decreased Activity Tolerance, Decreased Strength,Difficulty Following Directions,Limited Range of Motion,Pain,Poor Balance,Poor Safety Awareness Stair Climbing Assessment Evaluation Level of Assist On Stairs Standby Assistance Devices Stair Climbing Assistive Devices Right Railing Technique/Endurance Stair Climbing Direction Ascend and Descend Stair Climbing Technique Step to Step Number of Steps Climbed 1 Query Text: Stair Climbing Set # Repetitions (reps) 3 PT-Balance Assessment Sitting Balance and Reactions Static Sitting Balance Ability Good Dynamic Sitting Balance Ability Fair Standing Balance and Reactions Static Standing Balance Ability Fair Dynamic Standing Balance Ability Fair Device Used SPC M5 PT-IP Objective Assessments Start: 05/17/24 11:51 Freq: NEEDED Status: Active Protocol: Document 05/17/24 09:55 AB (Rec: 05/17/24 12:06 AB [id number]) Orientation Orientation/Cognition Level of Alertness Alert Orientation Name,Place,Situation Language Function Ability No Deficits Noted Safety Awareness Decreased Safety Awareness Memory Description No Deficits Noted Gross Range of Motion Lower Extremity ROM Assessment Within Functional Limits Strength Lower Extremity Strength Hip 4-/5 Muscle Tone Muscle Tone WNL Yes M6 PT-IP Treatment Start: 05/17/24 11:51 Freq: NEEDED Status: Active Protocol: Document 05/17/24 09:55 AB (Rec: 05/17/24 12:06 AB [id number]) Physical Therapy Treatment Education Education Provided Safety M7 PT-IP Assessment and Plan Start: 05/17/24 11:51 Freq: NEEDED Status: Active Protocol: Document 05/17/24 09:55 AB (Rec: 05/17/24 12:06 AB [id number]) PT Summary Assessment and Plan Potential Rehabilitation Potential Fair Status of Condition at Evaluation Evolving Summary Impairments Pain,ROM,Strength,Balance, Coordination,Sensation,Tone, Cognition,Bed Mobility, Transfers,Gait,Activity Tolerance Assessment Summary pt is a 74 y/o M who presented with speech difficulty and admitted for TIA vs CVA. pt has h/o back sx ~ 2 months ago and has ongoing outpt PT after back sx. pt requiring SBA to CGA with mobility using a SPC. pt uses his walking sticks at home but not consistently indoors. informed pt to use his walking sticks all the time for now and agreed. pt plans to go home and will need assistance at home. pt also go continue with his outpt PT. Goals Bed Mobility Goal Independent Transfer Goal Independent,Cane Gait Goal Independent,Cane Gait Distance 200 Other Goals up/down 1 step using R post mod I up/down 18 steps R rail ascending mod I Frequency of Treatment Frequency Of Treatment Once a Day Treatment Plan Physical Therapy Treatment Plan Bed Mobility Training,Transfer Training,Gait Training, Therapeutic Exercise,Balance Retraining,Discharge Planning, Hot or Cold Pack,Neuromuscular Re-ed,Coordination Retraining ,Manual Therapy Precautions Other Precautions falls Recommendations To Nursing Amount of Assist Needed 1 Person Assist Discharge Recommendations PT Discharge Recommendations Home with Assistance, Outpatient PT Transportation Needs at Discharge Private Vehicle
[2024-05-17] MEDS: POTASSIUM CHLORIDE 20 MEQ TAB 40 MEQ PO (10:57)
[2024-05-17] MEDS: CALCIUM CARBONATE 500 MG TAB PO (11:48)
[2024-05-17 12:00] VITALS: BP 180/103; PULSE 60; RESP 16; TEMP 36.7; O2SAT 98
--- NOTE | 2024-05-17 13:34 | ST.IPIE ---
Visit Care Team Role Provider Type Laura Renee MD Primary Care Provider Non-Staff Specialty: Internal Medicine Address: [address] [place] [address], [address] Email: Christine Beatty DO Emergency Provider Physician Referring Provider Specialty: Emergency Medicine Address: [address] [place] [address], [id number] Email: [email or web address] Cullen Junior MD Admit Provider Physician Attending Provider Specialty: Internal Medicine Address: [address] [place] [address], [id number] Email: [email or web address] Current Diagnoses Cerebral infarction, unspecified (05/16/24) Past Medical History (Last Reviewed 05/17/24 @ 07:31 by Cullen Junior MD) Carpal tunnel syndrome (Medical ~1981) Chicken pox (Medical) Diabetic toe ulcer (Medical) Essential hypertension (Medical 09/22/16) Fractures (Medical ~2004) GERD (gastroesophageal reflux disease) (Medical ~1989) Measles (Medical) Mumps (Medical) Necrotic toes (Medical) Peripheral neuropathy (Medical ~1994) Peripheral vascular disease (Medical ~1999) Plantar warts (Medical) Many years ago Right anterior knee pain (Medical) Rubella (Medical) Ruptured tympanic membrane (Medical ~1977) ST IP Initial Evaluation Report METHODS EXAMINER Adult Cognitive Linguistic Eval Start: 05/17/24 12:13 Freq: Status: Active Protocol: Document 05/17/24 12:13 CG (Rec: 05/17/24 12:18 CG [id number]) Adult Cognitive Linguistic Evaluation Session Time Visit Start Time 11:20 Visit Stop Time 11:40 Total Visit Minutes 20 Visit Information Visit Number [address] Cullen Junior (hospitalist ) Reason for Referral speech/language deficits 2/ suspected CVA Setting Assessment Location Acute Care Visit Type Note Type Initial evaluation Next Note Type Next Note Type Discharge Summary Patient Information Identification Type Name Patient History Per H&P: Patient is a 74 year old male presenting 05/16/24 as a code stroke. Last known well was 2:30pm. He does take Pradaxa and aspirin daily, he has a history of coronary artery disease. Reports that he started having speech difficulty. No focal deficits . He had no traumatic injury. No numbness tingling or weakness. He does have a hard time communicating but actually speech comes and goes . On Anticoagulants: Yes (Daily ASA and Pradaxa) He patient had an episode of neurologic symptoms yesterday afternoon which sounds like speech difficulties with gibberish and possibly word salad. There is also a possibility of some slurring of his speech. These symptoms may have lasted for up to an hour. It sounds as though he may have had a similar episode of speech difficulties yesterday as well. He does take aspirin and Pradaxa. [facility] he had no speech difficulties. He does have chronic right leg weakness which has been ongoing. He had a recent back surgery about 2 months ago. His leg weakness has not improved. He attributes this to his back issues. The patient was not confused upon initial evaluation with and lisseth with his NIH score participation. His speech was fluent. He had no word- finding difficulties. Pt referred to ST to determine current level of cognitive- linguistic function and determine whether deficits remain. Hearing Hearing Level Normal Vision Vision Status Impaired Comments Wears glasses Previous Therapy Previous Speech-Language Therapy No: no known history Subjective Patient Report Pt was lying reclined in bed upon ST entry to room. He was awake, alert, and oriented. Pt repeatedly expressed that he wished to go home as soon as possible. He stated that he had some difficulty with his speech and language when CVA symptoms were present, stating I couldn't find the language but denies any difficulty with speech, language, or cognition now. Pt denies difficulty with swallowing; nursing reports no overt s/sx dysphagia. Nursing also notes speech and language concerns seem to have resolved. Assessment Oral Motor Examination Completed Yes Results Oral motor structure and function appear grossly WFL. Pt with mildly reduced coordination on pucker-smile alternation task. Informal Assessment Receptive Language Normal Yes Expressive Language Normal No: Very mild word substitutions x1 Pragmatic Language Normal Yes Speech Normal Yes Formal Assessment Standardized Test/Screener Type Quick Aphasia Battery (QAB) Administration Complete Results Word pvyizptxznhwp36.00/10.00 Sentence comprehension9.58/10. 00 Word finding9.83/10.00 Grammatical construction9.75/ 10.00 Speech motor qodoguvdxhi74.00/ 10.00 Repetition9.17/10.00 Ssyqfxb15.00/10.00 QAB overall9.75/10.00 According to the authors of the QAB, QAB overall scores of 8.90-10.00 can be described as no aphasia. The pt's overall QAB score was 9.75/10. 00, indicating no aphasia according to the QAB. Pt did demonstrate word substitution x1, stating the boy is calling the girl rather than the boy is pulling the girl to describe a picture of a boy pulling a girl in a wagon. Pt self-corrected given min verbal cue (METHODS EXAMINER: He's calling her?). Otherwise, no significant aphasia or dysarthria noted. Findings/Results Language Function Within functional limits Cognitive Function Within functional limits Findings Pt's symptoms appear to have essentially resolved. Pt demonstrated one instance of word substitution (substituted calling for pulling). However, he is able to converse and able to make all needs known. Speech/language does not appear to be a barrier to discharge at this time. Cognitive Communication Deficits Self-awareness of Cognitive- Situational awareness ( Communication Deficits recognition of problem in context;in real time) Impact on Functioning Activity Limits/Particip.Rest. Mild: Interpersonal Interactions Prognosis Prognosis Fair Based on Comorbidities Plan of Care Speech-Language Treatment No Patient/Caregiver Education Described results of evaluation,Patient expressed understanding of evaluation Discharge Recommendations Home with Home Health
--- NOTE | 2024-05-17 13:37 | CM.DANOTE ---
Initial DCP Assessment Visit Note Reviewed EMR and team rounds for status updates. Met with pt at bedside to introduce self and role, pt was found to be alert/oriented and was preparing to meet with OT. Pt resides with his independently at baseline in their home in [place]. His will transport him home after PT as he has been medically cleared for d/c. He denies any CM assistance or resource needs at this time. Payor: [facility] MCR Adv PCP: U/K Pt is a 74 year-old M who presented to the ED last night via EMS after he began speaking in word salad while on the phone with his dtr. He c/o having difficulty w/speech, however he did not have any tingling/numbness or other focal deficits. ED imaging was positive for a CVA. Pt as admitted and monitored for continued symptoms and medication changes, as well as to work with PT/OT. Today he is feeling much improved and back at baseline prior to his d/c. Discharge Planning/Care Management CM Discharge Assessment Start: 05/17/24 13:24 Freq: Status: Active Protocol: Document 05/17/24 13:24 DPL (Rec: 05/17/24 13:26 DPL [id number]) Discharge Planning Assessment Assigned Model And Mold Maker AVTAR Wilkins Advance Directives? No History Provided By Patient,Medical Record Has Patient been admitted in last 30 No days? Prior Living Arrangements House Household Members spouse Type of transporation used prior to Drives own vehicle admit Independent with ADL's Yes Is patient alert and oriented? Yes Caregiver for Another No Comment walking stick Patient/Family Preference OP PT Therapy Barriers to Discharge No Discharge Plan Home Community Services Physical Therapy Transportation Arrangement Family Referrals Initiated None needed Whiteboard Updated in Patient Room with Yes name and ext. # of Model And Mold Maker Review Status In Process Please Provide Date Initial DC 05/17/24 Assessment Was Performed
--- NOTE | 2024-05-17 14:05 | OT.IP.EVAL ---
Current Diagnoses Cerebral infarction, unspecified (05/16/24) Past Medical History (Last Reviewed 05/17/24 @ 07:31 by Cullen Junior MD) Carpal tunnel syndrome (~1981) Chicken pox Diabetic toe ulcer Essential hypertension (09/22/16) Fractures (~2004) GERD (gastroesophageal reflux disease) (~1989) Measles Mumps Necrotic toes Peripheral neuropathy (~1994) Peripheral vascular disease (~1999) Plantar warts Right anterior knee pain Rubella Ruptured tympanic membrane (~1977) Surgical History (Last Reviewed 05/17/24 @ 07:31 by Cullen Junior MD) Anesthesia History of carpal tunnel repair (~1980) Status post aorto-coronary artery bypass graft Status post urinary system surgery (~1993) Occupational Therapy Inpatient Evaluation/Re-Eval M1 PT/OT-IP Prior Functional Status Start: 05/17/24 11:51 Freq: NEEDED Status: Active Protocol: Document 05/17/24 14:09 [facility] (Rec: 05/17/24 14:31 [facility] [id number]) Medical Review Prior Functional Status Medical History Reviewed Yes Communication able to make needs known Mobility and Gait pt stated that he was modified independent with all mobilities and ambulation using his walking stick most of the time indoors but occasionally without but tends to furniture cruise; uses his walking sticks outdoors Activities of Daily Living and IADL's Pt states prior completely independent with all needs. Social History Household Members spouse Living Arrangements House Number of Floors (Floors) One Floor Number of Stairs To Enter/Railing? 1 step to enter 18 steps to 2nd level bedroom with R rail ascending but pt also has access to an elevator Home Environment High Toilet,Walk in Shower, Built-In Shower Seat Additional Social History Comment pt stated that spouse is out of town until September of next year pt uses a walking stick for ambulation M2 OT-IP Current Condition Start: 05/17/24 14:09 Freq: Status: Active Protocol: Document 05/17/24 14:09 [facility] (Rec: 05/17/24 14:31 [facility] [id number]) Occupational Therapy Current Condition Current Condition Evaluation Date 05/17/24 Treatment Diagnosis TIA versus CVA Diagnosis Onset Date 05/16/24 M3 OT- IP Subjective and Pain Start: 05/17/24 14:09 Freq: Status: Active Protocol: Document 05/17/24 14:09 [facility] (Rec: 05/17/24 14:31 [facility] [id number]) OT- Subjective Occupational Therapy Visit Type Type Initial Evaluation Visit Start Time 13:30 Visit Stop Time 14:10 Occupational Therapy Visit Comments Patient Comments Pt agreed to work with OT. Patient/Caregiver Goals Pt is adamant to go home. OT Pain Assessment Pain When Pain Assessed At Rest Pain Present Pain Present Denied Pain M4 OT- IP ADL's Start: 05/17/24 14:09 Freq: Status: Active Protocol: Document 05/17/24 14:09 [facility] (Rec: 05/17/24 14:31 [facility] [id number]) OT [id number]-Zzqllkm Comments OT Self-Feeding Comments Not at meal time. OT ADL-Grooming Comments OT Grooming Comments Not performed. OT ADL-Oral Care Comments Oral Care Comments Not performed. OT ADL-Dressing Comments OT Dressing Comments Pt not wanting to do at this time and just wanting to go home. OT ADL-Toileting Comments OT Toileting Comments NO issues anticipated. Pt has a bidet at home to use. OT ADL-Bathing Comments OT Bathing Comments Pt aware best to sit for showering needs. M5 OT- IP IADL's Start: 05/17/24 14:09 Freq: Status: Active Protocol: Document 05/17/24 14:09 [facility] (Rec: 05/17/24 14:31 [facility] [id number]) OT-Instrumental Activities of Daily Living Home Safety Awareness Awareness of Need for Assistance at Home Decreased Awareness Ability to Problem Solve Emergency Able to Problem Solve Situations Home Safety Comments Pt needing increased time to problem solve and come up with answers for emergency situations. Medication Management Medication Management Comments Pt will benefit from assist. Money Management Money Management Comments Pt will benefit from assist. Meal Preparation Meal Preparation Comments Pt will benefit from assist. Data Processing Control Clerk Data Processing Control Clerk Comments TO benefit form assist. Driving Driving Concerns Identified Regarding Safety M6 OT- IP Functional Cognition Start: 05/17/24 14:09 Freq: Status: Active Protocol: Document 05/17/24 14:09 [facility] (Rec: 05/17/24 14:31 [facility] [id number]) Cognitive Factors Limiting Selfcare Function Cognitive Ability Level of Alertness Alert,Confusional State Patient Orientation Situation Attention Span Ability Capable of Focused Attention, Capable of Sustained Attention Ability to Follow Commands Able to Follow One Step Commands Memory Description Short Term Impaired,Working Impaired Problem Solving Ability Needs Assist to Identify Solutions Executive Function Ability Unable to Switch Focus,Unable to Filter Distractions,Unable to Organize Plans Cognitive Tests SLUMS Pt scored 20/30 which implies borderline demntia. Per pt did not sleep well and pt here due to TIA versus CVA. Pt just able to identify 7 animals in one minute, able to recall 3/ 5 words after time passed, not able to draw the hour hands on the clock correctly after time given, and able to answer 2/4 questions right after paragraph read. Pt is aware that he is not thinking well. Cognitive Comments Cognitive Assessment Comments Pt scored 302 seconds on [place] Making Part B which implies severe deficits for speed of processing, visual attention, executive functioning, mental flexibility, and problem solving. At this time suggested pt not drive, pt agreed. Pt tends to answer questions before truly comprehending what is said. It is suggested that pt has assist especially for IADL needs. Pt is very concrete and easily distracted and also impulsive . OT- Vision and Hearing OT- Hearing Assessment OT- Hearing Assessment WFL OT- Vision Assessment Visual Acuity Glasses All The Time Visual Attentiveness WFL Occular Pursuits WFL Visual Convergence WFL Visual [place] WFL Diplopia Absent M7 OT- IP Mobility and Balance Start: 05/17/24 14:09 Freq: Status: Active Protocol: Document 05/17/24 14:09 [facility] (Rec: 05/17/24 14:31 [facility] [id number]) OT- Bed Mobility Assessment Supine to Sit Supine to Sit Assist Independent Sit to Supine Sit to Supine Assist Independent OT-Transfer Assessment Sit to and From Stand Sit to and from Stand Standby Assistance Transfers Transfer Ability Standby Assistance Technique Transfer Destination Bed Comments Mobility Comments Pt distant SBA while in the room and able to walk around. OT- Balance Assessment Sitting Balance and Reactions Static Sitting Balance Ability Normal Dynamic Sitting Balance Ability Good Standing Balance and Reactions Static Standing Balance Ability Good Dynamic Standing Balance Ability Fair M8 OT- IP Objective Assessments Start: 05/17/24 14:09 Freq: Status: Active Protocol: Document 05/17/24 14:09 [facility] (Rec: 05/17/24 14:31 [facility] [id number]) OT Gross Range of Motion Upper Extremity Range of Motion Assessment Within Functional Limits OT- Coordination Assessment Upper Extremity Finger to Nose Test Within Functional Limits OT-Muscle Tone Assessment Muscle Tone WNL Yes OT Sensation Assessment Comments Summary Comments Decreased for proprioception with bilateral hands. M9 OT- IP Assessment and Plan Start: 05/17/24 14:09 Freq: Status: Active Protocol: Document 05/17/24 14:09 [facility] (Rec: 05/17/24 14:31 [facility] [id number]) OT Summary Assessment and Plan Potential Rehabilitation Potential Good Analytic Complexity at Evaluation Moderate Summary OT Impairments Balance,Functional Cognition, Functional Mobility,Bathing, Activity Tolerance Progress Towards Goals Progressing Toward Goals Assessment Summary Pt here due to CVA versus TIA. Pt scored 20/30 on the SLUMS which implies borderline dementia versus mild neurocognitive deficits. Pt feels that he is not thinking well due to not sleeping and insists that he will be able to care fore himself at home. It is suggested initially , pt to have someone stay with him at this time. Hopeful pt will continue to clear cognitively. Pt to go home with initial 24/ 7 assist. Pt's is out of town til September. Goals Dressing Goal Independent Toileting Goal Independent Bathing Goal Independent Shower Transfer Goal Independent OT-Other Goals Pt to be independently do his IADL needs. Days to Meet Goals 10 Frequency of Treatment Other frequency 5x/week Discharge Recommendations OT Discharge Recommendations Home with 24/7 Assist Available Transportation Needs at Discharge Private Vehicle
--- NOTE | 2024-05-17 15:10 | P.DS_ITS ---
History of Present Illness History of Present Illness Chief complaint: code stroke Narrative: From ED provider: Patient is a 74 year old male presenting today as a code stroke. Last known well was 230. He does take Pradaxa and aspirin daily, he has a history of coronary artery disease. Reports that he started having speech difficulty. No focal deficits. He had no traumatic injury. No numbness tingling or weakness. He does have a hard time communicating but actually speech comes and goes. On Anticoagulants: Yes (Daily ASA and Pradaxa) Additional information: The patient had an episode of neurologic symptoms this afternoon which sounds like speech difficulties with gibberish and possibly word salad. There is also a possibility of some slurring of his speech. These symptoms may have lasted for up to an hour. It sounds as though he may have had a similar episode of speech difficulties yesterday as well. He does take aspirin and Pradaxa. [facility] he has no speech difficulties. He does have chronic right leg weakness which has been ongoing. He had a recent back surgery about 2 months ago. His leg weakness has not improved. He attributes this to his back issues. The patient is not confused and does well with his NIH score participation. His speech is fluent. He was no word-finding difficulties. Discharge Providers Provider Date of admission: 05/16/24 17:04 Discharge Date: 05/17/24 Primary care physician: Laura Renee MD Consults: 05/16/24 17:17 Consult to Discharge Planning Routine Comment: Consult to Occupational Therapy Evaluate & Treat Comment: Physician Instructions: Evaluate and treat Consult to Physical Therapy Evaluate & Treat Comment: Physician Instructions: Evaluate and Treat Consult to Speech Therapy Evaluate & Treat Comment: Physician Instructions: Evaluate and treat Discharge provider: Cullen Junior MD Summary Hospital Course Discharge Diagnosis: 1. Acute TIA, present on admission and improved. 2. HTN, present on admission and active. 3. HLD, present on admission and active. 4. PVD, present on admission and active. 5. DM 2, present on admission and active. Hospital Course: The patient presented with a transient neurologic episode which was described as symptoms of speech dysfunction including slurred speech and word salad as well as nonsense statements. He was episode lasted perhaps now her today. He apparently had a similar episode the day before. Upon arrival he was neurologically normal. Does have chronic right leg weakness and had back surgery 2 months ago. The patient had negative CT and CT angiogram imaging. He has a pacemaker and was not a candidate for MRI at [facility]. CTA did reveal less than 50% stenosis of the carotids bilaterally as well as more significant stenoses of the posterior circulation. The patient remained neurologically normal and was discussed with the patient's daughter, Miriam, who has a hospitalist physician in [place]. The patient was also discussed with [facility] tele neurology as a telephone consult. Concerns were that the patient had apparent TIAs while on aspirin and Pradaxa. The patient has TIAs were identical or nearly identical with regard to symptoms, implying a fixed intracranial stenosis. No major blockages were noted on CTA. The neurologist ultimately recommended consideration of replacing aspirin with Plavix as the monotherapy agent of choice in this clinical scenario. Dual antiplatelet therapy with anticoagulation was not recommended with risk likely exceeding possible benefit. The patient was doing well on the day of discharge and was quite insistent on returning home. I did call the daughter and recapped his clinical course. He would benefit from close outpatient follow up with primary care and likely referral to Neurology to see if they we continue to recommend this therapy regimen. Status at Discharge Cognitive/behavioral status at discharge: oriented Functional status at discharge: uses cane/walker Overall status at discharge: patient is back to baseline Time Spent with Patient Time spent: Greater than 30 minutes Exam Vital Signs (past 8 hours): - 05/17/24 08:00 05/17/24 12:00 Temperature 97.4 F L 98.1 F Pulse Rate 60 60 Respiratory Rate 16 16 Blood Pressure 168/93 H 180/103 H Pulse Oximetry 97 98 Oxygen Delivery Method Room Air Oxygen Flow Rate 0 Narrative Exam Narrative: NAD, alert and oriented. Fluent speech. Lungs are clear, normal rate and effort. Heart is regular, no murmur gallop or rub. Abdomen is soft, non distended. Extremities are free of edema. Motor strength 5/5 in arms and legs. Normal cranial nerves, normal speech. Objective Labs 05/17/24 06:17 05/17/24 06:17 Labs: Laboratory Results - last 24 hr 05/16/24 05/17/24 16:00 06:17 WBC 5.6 4.8 RBC 5.16 4.79 Hgb 13.8 12.9 L Hct 42.3 38.7 L MCV 81.9 80.7 MCH 26.7 27.0 MCHC 32.6 33.4 RDW 15.6 H 16.2 H Plt Count 203 164 Neut % (Auto) 49.9 L 59.2 Lymph % (Auto) 37.2 26.2 [place] % (Auto) 10.1 11.1 Eos % (Auto) 2.2 2.7 Baso % (Auto) 0.6 0.8 Neut # (Auto) 2800 2800 Lymph # (Auto) 2100 1200 [place] # (Auto) 600 500 Eos # (Auto) 100 100 Baso # (Auto) 0 0 PT 14.1 H INR 1.2 APTT 70 H Sodium 127 L 127 L Potassium 3.9 3.5 Chloride 90 L 93 L Carbon Dioxide 28 27 BUN 25 H 19 Creatinine 1.25 0.87 Estimated GFR > 60 > 60 BUN/Creatinine Ratio 20.0 21.8 Glucose 114 H 132 H Hemoglobin A1c 6.8 H Calcium 9.5 9.0 Total Bilirubin 0.7 AST 27 ALT 22 Alkaline Phosphatase 88 Total Creatine Kinase 48 L Troponin I 0.016 Total Protein 7.5 Albumin 4.3 Globulin 3.2 Albumin/Globulin Ratio 1.3 Triglycerides 188 H Cholesterol 114 L LDL Cholesterol, Calc 37 HDL Cholesterol 39 L Lipase 120 PFSH Medical History Right anterior knee pain Necrotic toes Diabetic toe ulcer Peripheral neuropathy (~1994) Fractures (~2004) Carpal tunnel syndrome (~1981) Plantar warts Rubella Mumps Measles Chicken pox Ruptured tympanic membrane (~1977) GERD (gastroesophageal reflux disease) (~1989) Peripheral vascular disease (~1999) Essential hypertension (09/22/16) Surgical History Status post aorto-coronary artery bypass graft Anesthesia Status post urinary system surgery (~1993) History of carpal tunnel repair (~1980) Family History Mother Heart disease Hypertension Stroke Diabetes mellitus Father No problems noted. Social History household members: spouse Smoking Status: Never smoker alcohol intake: current Discharge Assessment & Plan Assessment and Plan Assessment: 1. Acute TIA, present on admission and active. 2. HTN, present on admission and active. 3. HLD, present on admission and active. 4. PVD, present on admission and active. 5. DM 2, present on admission and active. Plan of Treatment: Discharge home with close follow up with PCP and consideration of outpatient referral to Neurology. Discharge Plan Discharge Plan Patient Disposition: Home Provider Discharge Comment: Stable for discharge home on medical therapy. His close friend will stay with him for the next several days until a daughter from out of town arrives on . Discharge orders & Medications Prescriptions: New atorvastatin 20 mg Tablet 80 mg PO BEDTIME Qty: 30 3RF clopidogrel 75 mg Tablet 75 mg PO DAILY Qty: 30 2RF Continued tamsulosin [Flomax] 0.4 mg capsule 0.4 mg PO DAILY (DME) OneTouch Ultra Blue Test Strip Strip See Rx Instructions .ROUTE .MEDSUPPLY Qty: 100 2RF Rx Instructions: Use to check blood sugars twice daily amlodipine 10 mg tablet 10 mg PO DAILY Qty: 90 3RF (DME) lancets [OneTouch Delica Lancets] 30 gauge misc See Rx Instructions .ROUTE .MEDSUPPLY Qty: 100 2RF Rx Instructions: Use to check blood sugars twice daily acetaminophen [Tylenol] 325 mg Tablet 1 dose PO PRN PRN (Reason: pain) metformin 1,000 mg tablet 1,000 mg PO BID losartan 25 mg tablet 25 mg PO BID omeprazole 20 mg capsule,delayed release(DR/EC) 20 mg PO BID glipizide 5 mg tablet 5 mg PO DAILY oxycodone 5 mg tablet 5 mg PO DAILY Rx Instructions: for back pain metoprolol tartrate 25 mg tablet 25 mg PO DAILY duloxetine 20 mg capsule,delayed release(DR/EC) 40 mg PO DAILY dabigatran etexilate [Pradaxa] 150 mg capsule 150 mg PO BID Jardiance 25 mg tablet 25 mg PO QWEEK Rx Instructions: thursday Discontinued aspirin [Adult Low Dose Aspirin] 81 mg tablet,delayed release (DR/EC) 81 mg PO DAILY atorvastatin 40 mg tablet 40 mg PO DAILY Follow up/Referrals: Miscellaneous,DoctorMD [Non-Staff] - Laura Renee MD [Primary Care Provider] - Diet/Activity/Treatments Diet: Carb-consistent/Diabetic Activity: As tolerated. Visit Report/Discharge Packet Instructions: Stroke (Alternative Therapy) Stand Alone Forms: Patient Portal/API, Stroke Signs & Symptoms Discharge Data Primary Care Provider: Laura Renee Attending Provider: Cullen Junior Admit Date/Time: 05/16/24 17:04 Quality VTE Deep Vein Thrombosis/Pulmonary Embolism Present on Admission: No
[2024-05-17 15:32] VITALS: BP 180/103
[2024-05-17] MEDS: LOSARTAN 25 MG TABLET PO (15:32)
== END 2024-05-17 15:43 | disposition home or self-care (01) ==
LOC: ED 16:01 → AC 17:16
PROVIDERS: Admitting Provider Hospitalist; Emergency Provider Emergency Medicine; PCP Internal Medicine; Referring Provider Emergency Medicine; Visit Provider Hospitalist
DX: R47.01 Aphasia (principal); R29.701 NIHSS score 1; I10 Essential (primary) hypertension; E78.5 Hyperlipidemia, unspecified; E11.9 Type 2 diabetes mellitus without complications; Z79.84 Long term (current) use of oral hypoglycemic drugs; Z95.1 Presence of aortocoronary bypass graft; Z79.82 Long term (current) use of aspirin; Z79.01 Long term (current) use of anticoagulants
CPT/HCPCS: 36415; 70450; 70496; 70498; 71045; 80048; 80053; 80061; 82550; 82962; 83036; 83690; 84484; 85025; 85610; 85730; 92523; 93005; 96372; 97116; 97162; 97166; 99284; G0378; J1815; Q9967

== ENCOUNTER 2024-11-19 14:44 | Inpatient (IN) | payer OTHER, SELFPAY ==
[2024-05-16 17:41] VITALS: BMI 31.1
[2024-11-19] VITALS (29 sets, daily range): BP systolic 140–255; BP diastolic 74–183; PULSE 69–92; RESP 20–31; TEMP 36.8–37.6; O2SAT 76–97; BMI 31.1
--- NOTE | 2024-11-19 14:55 | DI.RAD.S_ITS ---
PROCEDURE: XR CHEST 1V INDICATIONS: suspected sepsis TECHNIQUE: One view of the chest was acquired. COMPARISON: [facility], CR, XR CHEST 1V, 05/16/2024, 16:29. FINDINGS: Surgical changes and devices: Median sternotomy wires and left chest wall lead less pacer are seen. Lungs and pleura: Lungs are clear. No pleural effusions or pneumothorax. Mediastinum: Mediastinal contours appear normal. Heart size is mildly enlarged. Bones and chest wall: No suspicious bony lesions. Overlying soft tissues appear unremarkable. IMPRESSION: No acute cardiopulmonary pathology. Dictated by: Facundo Maradiaga M.D. on 11/19/2024 at 15:30 Approved by: Facundo Maradiaga M.D. on 11/19/2024 at 15:31
--- NOTE | 2024-11-19 14:56 | DI.CT.S_ITS ---
PROCEDURE: CT HEAD/BRAIN WO CON INDICATIONS: fall hit head on thinners, altered, hypertensive TECHNIQUE: Noncontrast 4.5 mm thick angled axial sections acquired from the foramen magnum to the vertex, with coronal and sagittal reformats. For radiation dose reduction, the following was used: automated exposure control, adjustment of mA and/or kV according to patient size. COMPARISON: None. FINDINGS: Image quality: Diagnostic. CSF spaces: Basal cisterns are patent. No extra-axial fluid collections. The ventricles are symmetric in size and shape. Brain: No intracranial bleeds or masses. There is cerebral volume loss for age, with resultant ventricular and sulcal prominence. There are periventricular and deep white matter chronic small vessel ischemic changes. There is intracranial internal carotid artery atherosclerosis. Skull and face: Calvarium and visualized facial bones appear intact, without suspicious lesions. Sinuses: Visualized sinuses and mastoids are clear. IMPRESSION: 1. No acute intracranial pathology. 2. Age related volume loss and moderate white matter small vessel chronic ischemic changes. Dictated by: Facundo Maradiaga M.D. on 11/19/2024 at 15:32 Approved by: Facundo Maradiaga M.D. on 11/19/2024 at 15:32
--- NOTE | 2024-11-19 14:56 | DI.CT.S_ITS ---
PROCEDURE: CT CERVICAL SPINE WO CON INDICATIONS: fall hit head on thinners/altered/hypertensive TECHNIQUE: Noncontrast 3 mm thick sections acquired from the skull base to the T4 level. Sagittal and coronal reformats were then constructed. For radiation dose reduction, the following was used: automated exposure control, adjustment of mA and/or kV according to patient size. COMPARISON: None. FINDINGS: Image quality: Excellent. Bones: No fractures or dislocations. Spondylitic changes are noted throughout cervical spine causing mild central canal stenosis and bilateral neural foraminal narrowing more notably at C5-6 and C6-7 levels. Visualized superior ribs are intact. Soft tissues: Prevertebral soft tissues are normal in thickness. No paravertebral hematomas. No apical pneumothoraces. IMPRESSION: 1. No acute cervical spine fracture or dislocation. 2. Multilevel spondylitic changes throughout cervical spine as above. Dictated by: Facundo Maradiaga M.D. on 11/19/2024 at 15:31 Approved by: Facundo Maradiaga M.D. on 11/19/2024 at 15:32
[2024-11-19 15:04] LABS: Add Manual Diff / Slide Review NO; Basophils Absolute Auto 0 /uL (0-100); Basophils Percent Auto 0.1 % (0-2); Eosinophils Absolute Auto 0 /uL (0-450); Hematocrit 45.6 % (41-53); Hemoglobin 14.9 g/dL (13.5-17.5); Lymphocytes Absolute Auto 300 /uL (1100-4500); Lymphocytes Percent Auto 2.9 % (25-40); Mean Corpuscular HGB Conc 32.6 % (30-36); Mean Corpuscular Hemoglobin 25.8 PG (26-34); Mean Corpuscular Volume 79.2 fL (80-100); Monocytes Absolute Auto 700 /uL (0-900); Monocytes Percent Auto 6.4 % (3-14); Neutrophils Absolute Auto 10000 /uL (1500-7000); Neutrophils Percent Auto 90.6 % (50-75); Platelet Count 200 X10^3/uL (150-400); Red Blood Cell Count 5.76 X10^6/uL (4.5-5.9); Red Cell Distribution Width 19.1 % (11.6-14.8); White Blood Cell Count 11.1 X10^3/uL (4.5-11.0)
[2024-11-19 15:07] LABS: INR 1.1 (0.9-1.3); Prothrombin Time 12.3 SECONDS (9.4-12.5)
[2024-11-19 15:09] LABS: PTT Partial Thromboplastin Tim 45 SECONDS (25.1-36.5)
[2024-11-19 15:11] LABS: Alanine Aminotransferase 42 IU/L (<50); Albumin 4.7 g/dL (3.5-5.0); Albumin Globulin Ratio 1.3 (1.0-2.8); Alkaline Phosphatase 99 U/L (38-126); Aspartate Aminotransferase 62 IU/L (17-59); BUN Creatinine Ratio 15.8 (6-22); Bilirubin Total 1.4 mg/dL (0.2-1.3); Blood Urea Nitrogen 22 mg/dL (9-20); Calcium 9.9 mg/dL (8.4-10.2); Carbon Dioxide 19 mmol/L (22-32); Chloride 89 mmol/L (98-107); Estimated Glomerular Filt Rate 53 mL/min (>60); Globulin 3.5 g/dL (1.7-4.1); Glucose 379 mg/dL (80-110); HEMOLYSIS < 15 (0-50); Lipase 74 U/L (23-300); Potassium 3.8 mmol/L (3.4-5.1); Sodium 128 mmol/L (137-145); Total Protein 8.2 g/dL (6.3-8.2)
--- NOTE | 2024-11-19 15:14 | EKG_ITS ---
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 Right bundle branch block Inferior infarct , age undetermined Electronically Signed On 11-22-2024 20:12:03 PDT by Elkin Rojo
[2024-11-19 15:18] LABS: Lactate (Lactic Acid) 7.6 mmol/L (0.7-2.1)
[2024-11-19 15:24] LABS: Base Excess VBG -1.1 mmol/L (0-4); HCO3 VBG 21 mmol/L (24-28); Oxygen Saturation VBG 65 % (70-75); PCO2 VBG 29.7 mmHg (45-50); PO2 VBG 31 mmHg (35-45); Total CO2 VBG 20 mmol/L (24-29); pH VBG 7.46 (7.33-7.43)
[2024-11-19 15:25] LABS: Appearance Urine UA CLEAR; Bilirubin Urine UA NEGATIVE (NEGATIVE); Color Urine UA YELLOW; Glucose Urine UA 3+ g/dL (Negative); Ketones Urine UA TRACE (NEGATIVE); Leukocyte Esterase Urine UA NEGATIVE (NEGATIVE); Nitrite Urine UA NEGATIVE (Negative); Occult Blood Urine UA 3+ (Negative); Protein Urine UA 3+ (Negative); Specific Gravity Urine UA 1.015 (1.000-1.035); Urobilinogen Urine UA 0.2 E.U./dL (0.2); pH Urine UA 5.5 (4.5-8.0)
[2024-11-19 15:34] LABS: Bacteria Urine Occasional (0-1); Culture Indicated Urine Specimen Cultured; Granular Casts Urine 0-1/LPF; Mucus Urine 1+ (Negative); RBC Urine 1-5/HPF (0-5/HPF); Squamous Epithelial Cell Urine 0-1 /HPF (0-5/HPF); Urine Volume 10mL (spun); WBC Urine 5-10/HPF (0-5/HPF)
[2024-11-19 15:38] LABS: Ammonia (NH3) < 9 umol/L (9-30)
[2024-11-19] MEDS: SODIUM CHLORIDE 0.9% 984.3 ML IV (15:40)
[2024-11-19] MEDS: PIPERACILLIN/TAZO 4.5 GM in SODIUM CHLORIDE 0.9% 100 ML IV (16:04)
--- NOTE | 2024-11-19 16:12 | ED_ITS ---
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 is a physician currently in [place] called to check on him. He did not answer at which point she called a neighbor to check on him. Patient found supine on the bedroom floor no pedal urine confusion with hypotension and hyperglycemia. Patient reports that he threw up last night he is not sure how he ended up on the floor. He has no real pain. Stomach is soft he has good strength. I spoke with the on the phone. She reports that sodium is always slightly low, he also has a history of osteomyelitis with she stop taking antibiotics. Related Data Home Medications Medication Instructions Recorded Confirmed acetaminophen 325 mg tablet 1 dose PO PRN PRN pain 01/21/19 05/16/24 (Tylenol) tamsulosin 0.4 mg capsule (Flomax) 0.4 mg PO DAILY 11/23/23 05/16/24 dabigatran etexilate 150 mg 150 mg PO BID 05/16/24 05/16/24 capsule (Pradaxa) duloxetine 20 mg capsule,delayed 40 mg PO DAILY 05/16/24 05/16/24 release empagliflozin 25 mg tablet 25 mg PO QWEEK 05/16/24 05/16/24 (Jardiance) glipizide 5 mg tablet 5 mg PO DAILY 05/16/24 05/16/24 losartan 25 mg tablet 25 mg PO BID 05/16/24 05/16/24 metformin 1,000 mg tablet 1,000 mg PO BID 05/16/24 05/16/24 metoprolol tartrate 25 mg tablet 25 mg PO DAILY 05/16/24 05/16/24 omeprazole 20 mg capsule,delayed 20 mg PO BID 05/16/24 05/16/24 release oxycodone 5 mg tablet 5 mg PO DAILY 05/16/24 05/16/24 Previous Rx's Medication Instructions Recorded amlodipine 10 mg tablet 10 mg PO DAILY #90 tabs 02/22/20 blood sugar diagnostic (OneTouch #100 ea 05/03/20 Ultra Blue Test Strip) lancets 30 gauge (OneTouch Delica #100 ea 05/24/20 Lancets) atorvastatin 20 mg tablet 80 mg (4 x 20 mg) PO BEDTIME #30 05/17/24 tabs clopidogrel 75 mg tablet 75 mg PO DAILY #30 tabs 05/17/24 Allergies Allergy/AdvReac Type Severity Reaction Status Date / Time levofloxacin [From Levaquin] AdvReac Severe Kidneys Verified 11/23/23 11:01 took a dive, afib, joint pain lisinopril [LISINOPRIL] AdvReac Unknown cough Verified 11/23/23 11:01 Patient History Medical History Right anterior knee pain Necrotic toes Diabetic toe ulcer Peripheral neuropathy (~1994) Fractures (~2004) Carpal tunnel syndrome (~1981) Plantar warts Rubella Mumps Measles Chicken pox Ruptured tympanic membrane (~1977) GERD (gastroesophageal reflux disease) (~1989) Peripheral vascular disease (~1999) Essential hypertension (09/22/16) Surgical History Status post aorto-coronary artery bypass graft Anesthesia Status post urinary system surgery (~1993) History of carpal tunnel repair (~1980) Family History Mother Heart disease Hypertension Stroke Diabetes mellitus Father No problems noted. Social History household members: spouse Smoking Status: Never smoker alcohol intake: current Smoking Status: Never smoker alcohol intake frequency: holidays/special occasions only Exam Initial Vital Signs Initial Vital Signs: Vital Signs Temperature 99.7 F H 11/19/24 14:50 Pulse Rate 82 11/19/24 14:50 Respiratory Rate 21 11/19/24 14:50 Blood Pressure 175/87 H 11/19/24 14:50 Pulse Oximetry 94 11/19/24 14:50 Oxygen Delivery Method Room Air 11/19/24 14:50 GENERAL: Alert 74-year-old male HEENT: Head atraumatic,EOMI, pupils reactive, face symmetric, moist mucous membranes CARDIOVASCULAR: Regular rate and rhythm without murmurs, rubs or gallops. RESPIRATORY: Breath sounds equal bilaterally, no wheezes rales or rhonchi. ABDOMEN: Soft, nontender. Normoactive bowel sounds all 4 quadrants. No guarding or rebound. EXTREMITIES: Normal range of motion, no clubbing or edema. Neurovascularly intact NEUROLOGICAL: Alert and oriented x4.Normal gait and speech. Cranial nerves II through XII grossly intact. 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 Left great toe has a chronic wound on it but it actually appears to be healing. No gross drainage Course Orders Ordered: ED Orders 11/19/24 14:48 Urinalysis and Microscopic Stat Urine Culture Stat 11/19/24 14:53 CRP [C-Reactive Protein Quant] Stat Complete Blood Count AUTO DIFF Stat Comprehensive Metabolic Panel Stat ESR [Erythrocyte Sedimentation Rate] Stat Lactate (Lactic Acid) Stat Lipase Stat PTT Partial Thromboplastin Sergey Stat Procalcitonin Stat Prothrombin Time INR Stat 11/19/24 14:55 XR chest 1V Stat EKG-12 Lead Stat RT Consult Eval and Treat NOW 11/19/24 14:56 CT cervical spine wo con Stat CT head/brain wo con Stat Venous Blood Gas STAT 11/19/24 15:20 Venous Blood Gas Routine 11/19/24 15:22 Ammonia (NH3) Stat Troponin & CK Cardiac Panel Stat 11/19/24 15:45 Blood Culture Stat 11/19/24 16:10 Respiratory Panel (Film Array) Stat 11/19/24 16:36 XR foot LT min 3V Stat 11/19/24 16:58 Trop I [Troponin I] Stat 11/19/24 17:21 CT abdomen pelvis w con Stat 11/19/24 19:04 Trop I [Troponin I] Stat Ondansetron HCl (Ondansetron 4 Mg/2 Ml Inj) 4 mg IV NOW PRN PRN Reason: Nausea And Vomiting Ondansetron HCl (Ondansetron 4 Mg Odt) 4 mg SL NOW PRN PRN Reason: Nausea And Vomiting Discontinued Medications Sodium Chloride (Normal Saline 0.9%) 1,000 mls @ 1,000 mls/hr IV BOLUS ONE Stop: 11/19/24 15:54 Last Admin: 11/19/24 16:09 Dose: Not Given Documented By: DKB Piperacillin Sod/Tazobactam (Sod 4.5 gm/ Sodium Chloride) 100 mls @ 200 mls/hr IV NOW ONE Stop: 11/19/24 15:37 Last Infusion: 11/19/24 17:03 Dose: Infused Documented By: Admin: 11/19/24 16:04 Dose: 200 mls/hr Documented By: ANDIE Sodium Chloride (Normal Saline 0.9%) 2,952.9 mls @ 984.3 mls/hr 30 ml/kg infuse over 3 hr (2952.9 ml) IV NOW ONE Stop: 11/19/24 18:39 Last Infusion: 11/19/24 18:38 Dose: Infused Documented By: Admin: 11/19/24 15:40 Dose: 984.3 mls/hr Documented By: ANDIE Losartan Potassium (Losartan 25 Mg Tablet) 25 mg PO NOW ONE Stop: 11/19/24 17:02 Last Admin: 11/19/24 17:07 Dose: 25 mg Documented By: ANDIE Metoprolol Succinate (Metoprolol Er 25 Mg Tablet) 25 mg PO NOW ONE Stop: 11/19/24 17:02 Last Admin: 11/19/24 17:05 Dose: 25 mg Documented By: ANDIE Vital Signs Vital signs: Vital Signs - 8 hr 11/19/24 14:50 11/19/24 14:50 11/19/24 14:51 Temperature 99.7 F H Pulse Rate 82 79 86 Respiratory Rate 21 Blood Pressure 175/87 H Pulse Oximetry 94 95 94 Oxygen Delivery Method Room Air 11/19/24 14:51 11/19/24 15:00 11/19/24 15:25 Temperature Pulse Rate 81 85 Respiratory Rate 24 Blood Pressure 175/87 H Pulse Oximetry 97 96 Oxygen Delivery Method 11/19/24 15:25 11/19/24 15:30 11/19/24 15:49 Temperature Pulse Rate 81 82 Respiratory Rate 26 H 25 H Blood Pressure 214/98 H Pulse Oximetry 97 Oxygen Delivery Method 11/19/24 15:49 11/19/24 16:00 11/19/24 16:00 Temperature Pulse Rate 80 Respiratory Rate 22 Blood Pressure 236/100 H 231/105 H Pulse Oximetry 96 Oxygen Delivery Method 11/19/24 16:30 11/19/24 16:31 11/19/24 16:31 Temperature Pulse Rate 83 84 Respiratory Rate 23 24 Blood Pressure 230/104 H Pulse Oximetry 96 96 Oxygen Delivery Method 11/19/24 17:00 11/19/24 17:01 11/19/24 17:01 Temperature Pulse Rate 82 84 Respiratory Rate 27 H 31 H Blood Pressure 255/183 H Pulse Oximetry 96 96 Oxygen Delivery Method 11/19/24 17:05 11/19/24 17:06 11/19/24 17:06 Temperature Pulse Rate 80 81 Respiratory Rate 26 H Blood Pressure 196/93 H 196/93 H Pulse Oximetry 95 Oxygen Delivery Method 11/19/24 17:07 11/19/24 17:36 11/19/24 17:37 Temperature Pulse Rate 82 81 84 Respiratory Rate 23 21 Blood Pressure 196/93 H Pulse Oximetry 96 96 Oxygen Delivery Method 11/19/24 17:37 11/19/24 17:48 11/19/24 18:00 Temperature Pulse Rate 81 76 Respiratory Rate 26 H Blood Pressure 166/74 H 166/74 H Pulse Oximetry 95 Oxygen Delivery Method 11/19/24 18:01 11/19/24 18:01 11/19/24 18:30 Temperature Pulse Rate 82 79 Respiratory Rate 27 H 24 Blood Pressure 140/85 Pulse Oximetry 76 L 94 Oxygen Delivery Method 11/19/24 18:30 11/19/24 19:00 11/19/24 19:01 Temperature Pulse Rate 78 78 Respiratory Rate 24 24 Blood Pressure 199/95 H Pulse Oximetry 96 95 Oxygen Delivery Method Room Air 11/19/24 19:01 Temperature Pulse Rate Respiratory Rate Blood Pressure 193/88 H Pulse Oximetry Oxygen Delivery Method MDM - Altered Mental Status Lab Data 11/19/24 14:53 11/19/24 14:53 Labs: Lab Results 11/19/24 11/19/24 11/19/24 Range/Units 14:48 14:53 15:20 WBC 11.1 H (4.5-11.0) X10^3/uL RBC 5.76 (4.5-5.9) X10^6/uL Hgb 14.9 (13.5-17.5) g/dL Hct 45.6 (41-53) % MCV 79.2 L (80-100) fL MCH 25.8 L (26-34) PG MCHC 32.6 (30-36) % RDW 19.1 H (11.6-14.8) % Plt Count 200 (150-400) X10^3/uL Neut % (Auto) 90.6 H (50-75) % Lymph % (Auto) 2.9 L (25-40) % Forest % (Auto) 6.4 (3-14) % Eos % (Auto) 0.0 L (2-4) % Baso % (Auto) 0.1 (0-2) % Neut # (Auto) 48697 H (2944-4752) /uL Lymph # (Auto) 300 L (4089-5378) /uL Forest # (Auto) 700 (0-900) /uL Eos # (Auto) 0 (0-450) /uL Baso # (Auto) 0 (0-100) /uL ESR 20 H (0-15) MM/HR PT 12.3 (9.4-12.5) SECONDS INR 1.1 (0.9-1.3) APTT 45 H (25.1-36.5) SECONDS VBG pH 7.46 H (7.33-7.43) VBG pCO2 29.7 L (45-50) mmHg VBG pO2 31 L (35-45) mmHg VBG HCO3 21 L (24-28) mmol/L VBG Total CO2 20 L (24-29) mmol/L VBG O2 Saturation 65 L (70-75) % VBG Base Excess -1.1 L (0-4) mmol/L FiO2 % 21.0 % % Sodium 128 L (137-145) mmol/L Potassium 3.8 (3.4-5.1) mmol/L Chloride 89 L (98-107) mmol/L Carbon Dioxide 19 L (22-32) mmol/L BUN 22 H (9-20) mg/dL Creatinine 1.39 H (0.66-1.25) mg/dL Estimated GFR 53 L (>60) mL/min BUN/Creatinine Ratio 15.8 (6-22) Glucose 379 H (80-110) mg/dL Lactate 7.6 H* (0.7-2.1) mmol/L Calcium 9.9 (8.4-10.2) mg/dL Total Bilirubin 1.4 H (0.2-1.3) mg/dL AST 62 H (17-59) IU/L ALT 42 (<50) IU/L Alkaline Phosphatase 99 (38-126) U/L Ammonia (9-30) umol/L Total Creatine Kinase (55-170) U/L Troponin I (0.01-0.034) ng/mL C-Reactive Protein 39.8 H (<1.0) mg/dL Total Protein 8.2 (6.3-8.2) g/dL Albumin 4.7 (3.5-5.0) g/dL Globulin 3.5 (1.7-4.1) g/dL Albumin/Globulin Ratio 1.3 (1.0-2.8) Lipase 74 (23-300) U/L Procalcitonin 8.50 H (<0.5) ng/mL Urine Color Yellow Urine Appearance Clear Urine pH 5.5 (4.5-8.0) Ur Specific [place]hel 1.015 (1.000-1.035) Urine Protein 3+ H (Negative) Urine Glucose (UA) 3+ H (Negative) g/dL Urine Ketones Trace H (NEGATIVE) Urine Occult Blood 3+ H (Negative) Urine Nitrate Negative (Negative) Urine Bilirubin Negative (NEGATIVE) Urine Urobilinogen 0.2 (0.2) E.U./dL Ur Leukocyte Esterase Negative (NEGATIVE) Urine RBC 1-5/hpf D (0-5/HPF) Urine WBC 5-10/hpf H (0-5/HPF) Ur Squamous Epith Cells 0-1 /hpf (0-5/HPF) Urine Bacteria Occasional (0-1) (None) Granular Casts 0-1/lpf (None) Urine Mucus 1+ H (Negative) Ur Culture Indicated? Specimen cultured Vol Urine Centrifuged 10ml (spun) Chlamy pneumoniae PCR (Not Detect) Adenovirus (PCR) (Not Detect) B. pertussis DNA (PCR) (Not Detect) B.parapertussis DNA PCR (Not Detecte) Coronavirus OC43 (PCR) (Not Detect) Coronavirus HKU1 (PCR) (Not Detect) Coronavirus 229E (PCR) (Not Detect) SARS-CoV-2 (PCR) (Not Detecte) Coronavirus NL63 (PCR) (Not Detect) Human Metapneumovir PCR (Not Detect) Influenza Type A (PCR) (Not Detect) Influenza Type B (PCR) (Not Detect) M. pneumoniae (PCR) (Not Detect) Parainfluenza 1 (PCR) (Not Detect) Parainfluenza 2 (PCR) (Not Detect) Parainfluenza 3 (PCR) (Not Detect) Parainfluenza 4 (PCR) (Not Detect) RSV (PCR) (Not Detect) Entero/Rhino (PCR) (Not Detect) 11/19/24 11/19/24 11/19/24 Range/Units 15:22 16:10 16:58 WBC (4.5-11.0) X10^3/uL RBC (4.5-5.9) X10^6/uL Hgb (13.5-17.5) g/dL Hct (41-53) % MCV (80-100) fL MCH (26-34) PG MCHC (30-36) % RDW (11.6-14.8) % Plt Count (150-400) X10^3/uL Neut % (Auto) (50-75) % Lymph % (Auto) (25-40) % Forest % (Auto) (3-14) % Eos % (Auto) (2-4) % Baso % (Auto) (0-2) % Neut # (Auto) (3705-2226) /uL Lymph # (Auto) (9563-2331) /uL Forest # (Auto) (0-900) /uL Eos # (Auto) (0-450) /uL Baso # (Auto) (0-100) /uL ESR (0-15) MM/HR PT (9.4-12.5) SECONDS INR (0.9-1.3) APTT (25.1-36.5) SECONDS VBG pH (7.33-7.43) VBG pCO2 (45-50) mmHg VBG pO2 (35-45) mmHg VBG HCO3 (24-28) mmol/L VBG Total CO2 (24-29) mmol/L VBG O2 Saturation (70-75) % VBG Base Excess (0-4) mmol/L FiO2 % % Sodium (137-145) mmol/L Potassium (3.4-5.1) mmol/L Chloride (98-107) mmol/L Carbon Dioxide (22-32) mmol/L BUN (9-20) mg/dL Creatinine (0.66-1.25) mg/dL Estimated GFR (>60) mL/min BUN/Creatinine Ratio (6-22) Glucose (80-110) mg/dL Lactate 3.3 H (0.7-2.1) mmol/L Calcium (8.4-10.2) mg/dL Total Bilirubin (0.2-1.3) mg/dL AST (17-59) IU/L ALT (<50) IU/L Alkaline Phosphatase (38-126) U/L Ammonia < 9 L (9-30) umol/L Total Creatine Kinase 406 H (55-170) U/L Troponin I 0.153 H* 0.176 H* (0.01-0.034) ng/mL C-Reactive Protein (<1.0) mg/dL Total Protein (6.3-8.2) g/dL Albumin (3.5-5.0) g/dL Globulin (1.7-4.1) g/dL Albumin/Globulin Ratio (1.0-2.8) Lipase (23-300) U/L Procalcitonin (<0.5) ng/mL Urine Color Urine Appearance Urine pH (4.5-8.0) Ur Specific Bet[place] (1.000-1.035) Urine Protein (Negative) Urine Glucose (UA) (Negative) g/dL Urine Ketones (NEGATIVE) Urine Occult Blood (Negative) Urine Nitrate (Negative) Urine Bilirubin (NEGATIVE) Urine Urobilinogen (0.2) E.U./dL Ur Leukocyte Esterase (NEGATIVE) Urine RBC (0-5/HPF) Urine WBC (0-5/HPF) Ur Squamous Epith Cells (0-5/HPF) Urine Bacteria (None) Granular Casts (None) Urine Mucus (Negative) Ur Culture Indicated? Vol Urine Centrifuged Chlamy pneumoniae PCR Not detected (Not Detect) Adenovirus (PCR) Not detected (Not Detect) B. pertussis DNA (PCR) Not detected (Not Detect) B.parapertussis DNA PCR Not detected (Not Detecte) Coronavirus OC43 (PCR) Not detected (Not Detect) Coronavirus HKU1 (PCR) Not detected (Not Detect) Coronavirus 229E (PCR) Not detected (Not Detect) SARS-CoV-2 (PCR) Not detected (Not Detecte) Coronavirus NL63 (PCR) Not detected (Not Detect) Human Metapneumovir PCR Not detected (Not Detect) Influenza Type A (PCR) Not detected (Not Detect) Influenza Type B (PCR) Not detected (Not Detect) M. pneumoniae (PCR) Not detected (Not Detect) Parainfluenza 1 (PCR) Not detected (Not Detect) Parainfluenza 2 (PCR) Not detected (Not Detect) Parainfluenza 3 (PCR) Not detected (Not Detect) Parainfluenza 4 (PCR) Not detected (Not Detect) RSV (PCR) Not detected (Not Detect) Entero/Rhino (PCR) Not detected (Not Detect) Point of Care Testing Glucose POC 325 Urine Dip Bedside Urine Glucose 1000 mg/dl Bedside Urine Bilirubin - Negative Bedside Urine Ketone +/- 5 Urine Specific [place] 1.015 Bedside Urine Occult Blood +++ Bedside Urine pH 6.0 Bedside Urine Protein +++ 300 Bedside Urine Urobilinogen - Negative Bedside Urine Nitrite - Negative Bedside Urine Leukocytes - Negative Esterase Imaging Data Extremity x-ray #1: Radiologist's Impression: PROCEDURE: XR FOOT LT MIN 3V INDICATIONS: toe infection TECHNIQUE: 3 views of the foot were acquired. COMPARISON: [facility], , XR FOOT RT MIN 3V, 01/21/2019, 11:43. FINDINGS: Bones: No fractures or dislocations. Osteoarthritic changes are noted in left foot. No bony erosive changes are seen. No suspicious bony lesions. Soft tissues: Soft tissue swelling surrounding distal aspect of great toe is noted. No tibiotalar joint effusion. Achilles tendon appears normal. IMPRESSION: Soft tissue swelling surrounding distal aspect of great toe. No left foot fracture or dislocation. No radiographic evidence of osteomyelitis. Dictated by: Facundo Maradiaga M.D. on 11/19/2024 at 17:24 CT scan - head: Radiologist's Impression: PROCEDURE: CT HEAD/BRAIN WO CON INDICATIONS: fall hit head on thinners, altered, hypertensive TECHNIQUE: Noncontrast 4.5 mm thick angled axial sections acquired from the foramen magnum to the vertex, with coronal and sagittal reformats. For radiation dose reduction, the following was used: automated exposure control, adjustment of mA and/or kV according to patient size. COMPARISON: None. FINDINGS: Image quality: Diagnostic. CSF spaces: Basal cisterns are patent. No extra-axial fluid collections. The ventricles are symmetric in size and shape. Brain: No intracranial bleeds or masses. There is cerebral volume loss for age, with resultant ventricular and sulcal prominence. There are periventricular and deep white matter chronic small vessel ischemic changes. There is intracranial internal carotid artery atherosclerosis. Skull and face: Calvarium and visualized facial bones appear intact, without suspicious lesions. Sinuses: Visualized sinuses and mastoids are clear. IMPRESSION: 1. No acute intracranial pathology. 2. Age related volume loss and moderate white matter small vessel chronic ischemic changes. Dictated by: Facundo Maradiaga M.D. on 11/19/2024 at 15:32 CT - cervical spine: Radiologist's Impression: PROCEDURE: CT CERVICAL SPINE WO CON INDICATIONS: fall hit head on thinners/altered/hypertensive TECHNIQUE: Noncontrast 3 mm thick sections acquired from the skull base to the T4 level. Sagittal and coronal reformats were then constructed. For radiation dose reduction, the following was used: automated exposure control, adjustment of mA and/or kV according to patient size. COMPARISON: None. FINDINGS: Image quality: Excellent. Bones: No fractures or dislocations. Spondylitic changes are noted throughout cervical spine causing mild central canal stenosis and bilateral neural foraminal narrowing more notably at C5-6 and C6-7 levels. Visualized superior ribs are intact. Soft tissues: Prevertebral soft tissues are normal in thickness. No paravertebral hematomas. No apical pneumothoraces. IMPRESSION: 1. No acute cervical spine fracture or dislocation. 2. Multilevel spondylitic changes throughout cervical spine as above. Dictated by: Facundo Maradiaga M.D. on 11/19/2024 at 15:31 Approved by: Facundo Maradiaga M.D. on 11/19/2024 at 15:32 Chest x-ray: Radiologist's Impression: PROCEDURE: XR CHEST 1V INDICATIONS: suspected sepsis TECHNIQUE: One view of the chest was acquired. COMPARISON: [facility], , XR CHEST 1V, 05/16/2024, 16:29. FINDINGS: Surgical changes and devices: Median sternotomy wires and left chest wall lead less pacer are seen. Lungs and pleura: Lungs are clear. No pleural effusions or pneumothorax. Mediastinum: Mediastinal contours appear normal. Heart size is mildly enlarged. Bones and chest wall: No suspicious bony lesions. Overlying soft tissues appear unremarkable. IMPRESSION: No acute cardiopulmonary pathology. Dictated by: Facundo Maradiaga M.D. on 11/19/2024 at 15:30 Approved by: Facundo Maradiaga M.D. on 11/19/2024 at 15:3 ECG Data Attestation: I personally reviewed and interpreted this ECG as follows: Prior ECG tracings: available for review Interpretation: Paced rhythm rate 83 PVC noted no Sgarbossa criteria similar to previous EKGs MDM Narrative Medical decision making narrative: MDM CC: Found down Complicating co-morbidities: Anticoagulation prior CVA diabetes hypertension hyperlipidemia Data collected from: EMS patient Medical records reviewed: Previous admission for CVA in 2023 Differential considered: Intracranial hemorrhage CVA rhabdomyolysis sepsis seizure DKA Exam documented above, pertinent findings include: Alert 74-year-old male no evidence of trauma abdomen soft breath sounds clear moving all extremities no facial droop Lab Test results independently reviewed as above. Pertinent findings: WBC 11.1 with left shift no anemia Lactate 7.6-->3.3 VBG pH 7.46, anion gap 20 Sodium 128 potassium 3.8 chloride 89 carbon dioxide 19 BUN 22 creatinine 1.39 glucose 379 Troponin 0.153-->0.176-->0.161 cpk 406 ESR 20 previously 13, CRP 39.8 Independently reviewed EKG as above Paced rhythm Imaging studies independently reviewed: Head CT no intracranial hemorrhage Foot soft tissue swelling but no evidence of osteomyelitis Chest x-ray no acute cardiopulmonary process CT cervical spine, no fracture CT abdomen no evidence of colitis or bowel obstruction Consultations: [id number] Means cardiology updated on patient's symptoms elevated troponin EKGs changes. He was reviewed EKGs reports it is likely secondary to the pacemaker. No need to transfer recommend echo in the morning Dr. Mak agrees to admit but talk to night hospitalist Dr. Quintana, updated patient's symptoms test results and heavily accepts patient Treatments: IV fluids sepsis Zosyn Re-evaluations: Patient remains awake alert appropriate abdomen is soft 1610 patient re-evaluated after fluids he remains awake alert cap refill less than 2 seconds Discussion: Patient is a 74-year-old male with history of CVA pacemaker on Pradaxa insulin-dependent diabetic presenting today as found down. He was none known down time. Reports he threw up last night but really not having any pain. He was awake alert oriented GCS 15. He was found to have lactic acid of 7.6 with repeat of 3.3, no evidence of significant rhabdomyolysis with CPK of 406.. Troponins slightly elevated. Initial EKGs showed paced rhythm repeat EKGs showed some T-wave inversion V1 V2 and V3 which he goes in and out of. Cardiology was consulted recommends echocardiogram patient was completely asymptomatic. No evidence of DKA, pH is 7.46 Empirically treated for sepsis with elevated lactate leukocytosis. He also is found to have elevated ESR of 20 it was previously 13 CRP is 39.8 previously 1.3. was initially concerned for a foot infection however left toe seems to be healing no evidence of osteomyelitis on the x-ray. Does not appear to have any kind of cellulitis which he was also had in the past. Urinalysis is negative respiratory panel is negative. Abdominal CT was done for vomiting which does not show any evidence of colitis or bowel obstruction. Pacemaker was interrogated which seems to be working appropriately it is leadless Family has been updated agree with plan. Both and daughter are hospitalist/internal medicine physicians. Discharge Plan Departure Patient Disposition: Admitted as Observation Clinical Impression: Syncope, Sepsis, Acute non-ST elevation myocardial infarction (NSTEMI) Admit Date/Time: 11/19/24 19:34 Admit Provider: Vance Thayer
[2024-11-19 16:35] LABS: Creatine Kinase 406 U/L (55-170)
--- NOTE | 2024-11-19 16:36 | DI.RAD.S_ITS ---
PROCEDURE: XR FOOT LT MIN 3V INDICATIONS: toe infection TECHNIQUE: 3 views of the foot were acquired. COMPARISON: [facility], CR, XR FOOT RT MIN 3V, 01/21/2019, 11:43. FINDINGS: Bones: No fractures or dislocations. Osteoarthritic changes are noted in left foot. No bony erosive changes are seen. No suspicious bony lesions. Soft tissues: Soft tissue swelling surrounding distal aspect of great toe is noted. No tibiotalar joint effusion. Achilles tendon appears normal. IMPRESSION: Soft tissue swelling surrounding distal aspect of great toe. No left foot fracture or dislocation. No radiographic evidence of osteomyelitis. Dictated by: Facundo Maradiaga M.D. on 11/19/2024 at 17:24 Approved by: Facundo Maradiaga M.D. on 11/19/2024 at 17:25
[2024-11-19 16:37] LABS: Reflexed Lactate in 2 Hours Y
[2024-11-19 16:49] LABS: Troponin I 0.153 ng/mL (0.01-0.034)
[2024-11-19 16:57] LABS: Erythrocyte Sedimentation Rate 20 MM/HR (0-15)
[2024-11-19] MEDS: METOPROLOL ER 25 MG TABLET PO (17:05)
[2024-11-19] MEDS: LOSARTAN 25 MG TABLET PO (17:07)
[2024-11-19 17:15] LABS: C-Reactive Protein Quant 39.8 mg/dL (<1.0)
[2024-11-19 17:18] LABS: Lactate 2HR (Lactic Acid Rflx) 3.3 mmol/L (0.7-2.1)
--- NOTE | 2024-11-19 17:21 | DI.CT.S_ITS ---
PROCEDURE: CT ABDOMEN PELVIS W CON INDICATIONS: vomiting found down TECHNIQUE: After the administration of intravenous contrast, axial sections acquired from the lung bases to the pubic symphysis. Coronal and sagittal reformats were performed. For radiation dose reduction, the following was used: automated exposure control, adjustment of mA and/or kV according to patient size. COMPARISON: None. FINDINGS: Image quality: Diagnostic. Lower Chest: Bibasilar dependent atelectasis is seen. Heart size is enlarged, no pericardial effusion. Median sternotomy wires and surgical clips are seen. Small hiatal hernia. ABDOMEN: Liver: No solid mass. Gallbladder: Faint hyperdensity in dependent portion of gallbladder lumen. No gallbladder wall thickening. Biliary ducts: No biliary dilation. Pancreas: No ductal dilation. Spleen: Size is within normal limits. Adrenal Glands: No adrenal nodules. Kidneys and Ureters: No hydronephrosis. No solid mass. Simple appearing bilateral renal cysts are seen. Mild bilateral perinephric fat stranding is noted. No complex renal cystic lesion which requires follow up. Stomach and Bowel: There is no bowel obstruction. No abnormal bowel wall thickening or mesenteric fat stranding. Appendix is visualized and is within normal limits. Moderate fecal stasis in the colon is seen extending to sigmoid colon and rectum. No abscess collection. Peritoneum: No abnormal intraperitoneal fluid. No free air. Ventral Wall: No significant ventral hernia. Abdominal Nodes: No retroperitoneal or mesenteric adenopathy by size criteria. Vessels: Aorta and inferior vena cava are normal in size. Moderate atherosclerotic calcifications in abdominal aorta is noted. PELVIS: Pelvic Organs: Unremarkable. Bladder: No bladder wall thickening, accounting for underdistention. Left posterior lateral bladder wall diverticulum is seen. Pelvic Nodes: Mildly prominent left inguinal lymph nodes are seen measures up to 1.1 cm in diameter. Miscellaneous: No inguinal hernias are seen. Bones: No aggressive osseous abnormality. Postsurgical changes are noted in lower lumbar spine at L4-5 level with grade 1 anterolisthesis of L4 on L5. No acute vertebral body compression fractures. IMPRESSION: 1. No bowel obstruction or abnormal bowel wall thickening. Normal appendix. Moderate constipation. No free fluid or free air. No abscess collection. 2. No obstructing renal stones or hydronephrosis. Simple appearing bilateral renal cysts. Nonspecific mild bilateral perinephric fat stranding, low-grade pyelonephritis cannot be excluded. 3. Small left bladder wall diverticulum. No abnormal bladder wall thickening. 4. Nonspecific enlarged left inguinal lymph nodes as above and may be reactive in nature. 5. Tiny gallstones. No gallbladder wall thickening or pericholecystic fluid. Dictated by: Facundo Maradiaga M.D. on 11/19/2024 at 18:07 Approved by: Facundo Maradiaga M.D. on 11/19/2024 at 18:11
[2024-11-19 17:33] LABS: Troponin I 0.176 ng/mL (0.01-0.034)
[2024-11-19 18:08] LABS: Adenovirus Not Detected (Not Detect); B. parapertussis Not Detected (Not Detecte); Bordetella pertussis Not Detected (Not Detect); Chlamydophila pneumoniae Not Detected (Not Detect); Coronavirus 229E Not Detected (Not Detect); Coronavirus HKU1 Not Detected (Not Detect); Coronavirus NL 63 Not Detected (Not Detect); Coronavirus OC43 Not Detected (Not Detect); Human Metapneumovirus Not Detected (Not Detect); Human Rhinovirus/Enterovirus Not Detected (Not Detect); Influenza A Not Detected (Not Detect); Influenza B Not Detected (Not Detect); Mycoplasma pneumoniae Not Detected (Not Detect); Parainfluenza Virus 1 Not Detected (Not Detect); Parainfluenza Virus 2 Not Detected (Not Detect); Parainfluenza Virus 3 Not Detected (Not Detect); Parainfluenza Virus 4 Not Detected (Not Detect); Respiratory Syncytial Virus Not Detected (Not Detect); SARS- CoV-2 Not Detected (Not Detecte)
--- NOTE | 2024-11-19 18:33 | EKG_ITS ---
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
--- NOTE | 2024-11-19 19:35 | PC.NURSE ---
1/2 turkey with appiah, chocolate pudding, and ice water given
[2024-11-19 19:36] LABS: Troponin I 0.161 ng/mL (0.01-0.034)
--- NOTE | 2024-11-19 20:55 | PM.HP.1 ---
History of Present Illness History of Present Illness Date Patient Seen: 11/19/24 Time Patient Seen: 22:00 Chief complaint: Fall, High Sugar, Altered Narrative: 74 y/o with PMH of A-fib, SSS, PPM, PAD, CAD, DM, diabetic neuropathy, HTN, GERD, enlarged prostate, recent TIA for which he was observed at [facility], memory loss - likely mild dementia, who was found down. From the ED: is a physician currently in [place] called to check on him. He did not answer at which point she called a neighbor to check on him. Patient found supine on the bedroom floor no pedal urine confusion with hypotension and hyperglycemia. Patient reports that he threw up last night he is not sure how he ended up on the floor. He has no real pain. Stomach is soft he has good strength. On admission, his only complaint is generalized weakness. BP elevated. Multiple leg skin sores and Lt great toe diabetic ulcer. ED workup: WBC 11.1 with left shift no anemia Lactate 7.6-->3.3 VBG pH 7.46, anion gap 20 Sodium 128 potassium 3.8 chloride 89 carbon dioxide 19 BUN 22 creatinine 1.39 glucose 379 Troponin 0.153-->0.176-->0.161 cpk 406 ESR 20 previously 13, CRP 39.8 Images, CTH, CTA, CTCS, CXR non-diagnostic. Admitted to telemetry with sepsis and NSTEMI [facility] Medical History Right anterior knee pain Necrotic toes Diabetic toe ulcer Peripheral neuropathy (~1994) Fractures (~2004) Carpal tunnel syndrome (~1981) Plantar warts Rubella Mumps Measles Chicken pox Ruptured tympanic membrane (~1977) GERD (gastroesophageal reflux disease) (~1989) Peripheral vascular disease (~1999) Essential hypertension (09/22/16) Surgical History Status post aorto-coronary artery bypass graft Anesthesia Status post urinary system surgery (~1993) History of carpal tunnel repair (~1980) Family History Mother Heart disease Hypertension Stroke Diabetes mellitus Father No problems noted. Social History household members: spouse Smoking Status: Never smoker alcohol intake: current Meds Home Medications and Allergies Home Medications Medication Instructions Recorded Confirmed Type acetaminophen 325 mg tablet 1 dose PO PRN PRN pain 01/21/19 11/19/24 History (Tylenol) blood sugar diagnostic (OneTouch #100 ea 05/03/20 11/19/24 Rx Ultra Blue Test Strip) lancets 30 gauge (OneTouch Delica #100 ea 05/24/20 11/19/24 Rx Lancets) tamsulosin 0.4 mg capsule (Flomax) 0.4 mg PO DAILY 11/23/23 11/19/24 History dabigatran etexilate 150 mg 150 mg PO BID 05/16/24 11/19/24 History capsule (Pradaxa) empagliflozin 25 mg tablet 25 mg PO QAM 05/16/24 11/19/24 History (Jardiance) glipizide 5 mg tablet 5 mg PO BID 05/16/24 11/19/24 History losartan 25 mg tablet 25 mg PO BID 05/16/24 11/19/24 History metformin 1,000 mg tablet 1,000 mg PO BID 05/16/24 11/19/24 History metoprolol tartrate 25 mg tablet 25 mg PO DAILY 05/16/24 11/19/24 History omeprazole 20 mg capsule,delayed 20 mg PO BID 05/16/24 11/19/24 History release oxycodone 5 mg tablet 5 mg PO DAILY PRN Pain (Scale 05/16/24 11/19/24 History Score 1-3) clopidogrel 75 mg tablet 75 mg PO DAILY #30 tabs 05/17/24 11/19/24 Rx donepezil 5 mg tablet 5 mg PO DAILY 11/19/24 11/19/24 History rosuvastatin 40 mg tablet 40 mg PO DAILY 11/19/24 11/19/24 History Allergies Allergy/AdvReac Type Severity Reaction Status Date / Time levofloxacin [From Levaquin] AdvReac Severe Kidneys Verified 11/23/23 11:01 took a dive, afib, joint pain lisinopril [LISINOPRIL] AdvReac Unknown cough Verified 11/23/23 11:01 Review of Systems Review of Systems Narrative: General - generalized weakness, feels fatigued, possibly fever and chills Neuro - w/o headache, w/o tongue bites, w/o focal weakness CVS - w/o chest pain, w/o palpitations UG - w/o dysuria or voiding difficulties GI - w/o abdominal pain, resolved nausea RS - w/o cough Exam Vital Signs (past 8 hours): - 11/19/24 14:50 11/19/24 14:50 11/19/24 14:51 Temperature 99.7 F H Pulse Rate 82 79 86 Respiratory Rate 21 Blood Pressure 175/87 H Pulse Oximetry 94 95 94 Oxygen Delivery Method Room Air 11/19/24 14:51 11/19/24 15:00 11/19/24 15:25 Temperature Pulse Rate 81 85 Respiratory Rate 24 Blood Pressure 175/87 H Pulse Oximetry 97 96 Oxygen Delivery Method 11/19/24 15:25 11/19/24 15:30 11/19/24 15:49 Temperature Pulse Rate 81 82 Respiratory Rate 26 H 25 H Blood Pressure 214/98 H Pulse Oximetry 97 Oxygen Delivery Method 11/19/24 15:49 11/19/24 16:00 11/19/24 16:00 Temperature Pulse Rate 80 Respiratory Rate 22 Blood Pressure 236/100 H 231/105 H Pulse Oximetry 96 Oxygen Delivery Method 11/19/24 16:30 11/19/24 16:31 11/19/24 16:31 Temperature Pulse Rate 83 84 Respiratory Rate 23 24 Blood Pressure 230/104 H Pulse Oximetry 96 96 Oxygen Delivery Method 11/19/24 17:00 11/19/24 17:01 11/19/24 17:01 Temperature Pulse Rate 82 84 Respiratory Rate 27 H 31 H Blood Pressure 255/183 H Pulse Oximetry 96 96 Oxygen Delivery Method 11/19/24 17:05 11/19/24 17:06 11/19/24 17:06 Temperature Pulse Rate 80 81 Respiratory Rate 26 H Blood Pressure 196/93 H 196/93 H Pulse Oximetry 95 Oxygen Delivery Method 11/19/24 17:07 11/19/24 17:36 11/19/24 17:37 Temperature Pulse Rate 82 81 84 Respiratory Rate 23 21 Blood Pressure 196/93 H Pulse Oximetry 96 96 Oxygen Delivery Method 11/19/24 17:37 11/19/24 17:48 11/19/24 18:00 Temperature Pulse Rate 81 76 Respiratory Rate 26 H Blood Pressure 166/74 H 166/74 H Pulse Oximetry 95 Oxygen Delivery Method 11/19/24 18:01 11/19/24 18:01 11/19/24 18:30 Temperature Pulse Rate 82 79 Respiratory Rate 27 H 24 Blood Pressure 140/85 Pulse Oximetry 76 L 94 Oxygen Delivery Method 11/19/24 18:30 11/19/24 19:00 11/19/24 19:01 Temperature Pulse Rate 78 78 Respiratory Rate 24 24 Blood Pressure 199/95 H Pulse Oximetry 96 95 Oxygen Delivery Method Room Air 11/19/24 19:01 11/19/24 19:30 11/19/24 19:31 Temperature Pulse Rate 86 89 Respiratory Rate Blood Pressure 193/88 H Pulse Oximetry 95 93 Oxygen Delivery Method 11/19/24 19:31 11/19/24 19:34 11/19/24 19:34 Temperature Pulse Rate 87 Respiratory Rate Blood Pressure 253/119 H 174/81 H Pulse Oximetry 94 Oxygen Delivery Method Room Air 11/19/24 20:00 11/19/24 20:00 11/19/24 20:30 Temperature Pulse Rate 92 H 80 Respiratory Rate Blood Pressure 172/82 H Pulse Oximetry 96 93 Oxygen Delivery Method 11/19/24 20:30 11/19/24 20:33 11/19/24 20:33 Temperature Pulse Rate 76 Respiratory Rate Blood Pressure 192/131 H 175/89 H Pulse Oximetry 94 Oxygen Delivery Method Oxygen Delivery Method Room Air Narrative Exam Narrative: General - in no distress HEENT - atraumatic CVS - RRR, PPM, w/o JVD RS - w/o rales GI - w/o distension or palpatory tenderness Neuro - w/o focal weakness or acute numbness. Chronic diabetic neuropathy - feet Skin / Ext - Lt great toe - swollen, red, not tender, with chronic ulcer on plantar side, w/o secretions. small ulcer between 4th and 5th Lt toes, small Lt knee abrasion, Rt knee healing superficial laceration Objective ECG Impression: Paced rhythm 83 RBBB Old inferior WI QTc [address] scan - abdomen: Radiologist's impression: 1. No bowel obstruction or abnormal bowel wall thickening. Normal appendix. Moderate constipation. No free fluid or free air. No abscess collection. 2. No obstructing renal stones or hydronephrosis. Simple appearing bilateral renal cysts. Nonspecific mild bilateral perinephric fat stranding, low-grade pyelonephritis cannot be excluded. 3. Small left bladder wall diverticulum. No abnormal bladder wall thickening. 4. Nonspecific enlarged left inguinal lymph nodes as above and may be reactive in nature. 5. Tiny gallstones. No gallbladder wall thickening or pericholecystic fluid. Foot Left x-ray: Radiologist's impression: Soft tissue swelling surrounding distal aspect of great toe. No left foot fracture or dislocation. No radiographic evidence of osteomyelitis. CT scan - head: Radiologist's impression: 1. No acute intracranial pathology. 2. Age related volume loss and moderate white matter small vessel chronic ischemic changes. Cervical Spine x-ray: Radiologist's impression: 1. No acute cervical spine fracture or dislocation. 2. Multilevel spondylitic changes throughout cervical spine as above. Chest x-ray: Radiologist's impression: Surgical changes and devices: Median sternotomy wires and left chest wall lead less pacer are seen. Lungs and pleura: Lungs are clear. No pleural effusions or pneumothorax. Mediastinum: Mediastinal contours appear normal. Heart size is mildly enlarged. Bones and chest wall: No suspicious bony lesions. Overlying soft tissues appear unremarkable. Labs 11/20/24 04:50 11/19/24 14:53 Labs: Laboratory Results - last 24 hr 11/19/24 11/19/24 11/19/24 14:48 14:53 15:20 WBC 11.1 H RBC 5.76 Hgb 14.9 Hct 45.6 MCV 79.2 L MCH 25.8 L MCHC 32.6 RDW 19.1 H Plt Count 200 Neut % (Auto) 90.6 H Lymph % (Auto) 2.9 L Kleberg % (Auto) 6.4 Eos % (Auto) 0.0 L Baso % (Auto) 0.1 Neut # (Auto) 74156 H Lymph # (Auto) 300 L Kleberg # (Auto) 700 Eos # (Auto) 0 Baso # (Auto) 0 ESR 20 H PT 12.3 INR 1.1 APTT 45 H VBG pH 7.46 H VBG pCO2 29.7 L VBG pO2 31 L VBG HCO3 21 L VBG Total CO2 20 L VBG O2 Saturation 65 L VBG Base Excess -1.1 L FiO2 % 21.0 % Sodium 128 L Potassium 3.8 Chloride 89 L Carbon Dioxide 19 L BUN 22 H Creatinine 1.39 H Estimated GFR 53 L BUN/Creatinine Ratio 15.8 Glucose 379 H Lactate 7.6 H* Calcium 9.9 Total Bilirubin 1.4 H AST 62 H ALT 42 Alkaline Phosphatase 99 Ammonia Total Creatine Kinase Troponin I C-Reactive Protein 39.8 H Total Protein 8.2 Albumin 4.7 Globulin 3.5 Albumin/Globulin Ratio 1.3 Lipase 74 Procalcitonin 8.50 H Urine Color Yellow Urine Appearance Clear Urine pH 5.5 Ur Specific Collins 1.015 Urine Protein 3+ H Urine Glucose (UA) 3+ H Urine Ketones Trace H Urine Occult Blood 3+ H Urine Nitrate Negative Urine Bilirubin Negative Urine Urobilinogen 0.2 Ur Leukocyte Esterase Negative Urine RBC 1-5/hpf D Urine WBC 5-10/hpf H Ur Squamous Epith Cells 0-1 /hpf Urine Bacteria Occasional (0-1) Granular Casts 0-1/lpf Urine Mucus 1+ H Ur Culture Indicated? Specimen cultured Vol Urine Centrifuged 10ml (spun) Chlamy pneumoniae PCR Adenovirus (PCR) B. pertussis DNA (PCR) B.parapertussis DNA PCR Coronavirus OC43 (PCR) Coronavirus HKU1 (PCR) Coronavirus 229E (PCR) SARS-CoV-2 (PCR) Coronavirus NL63 (PCR) Human Metapneumovir PCR Influenza Type A (PCR) Influenza Type B (PCR) M. pneumoniae (PCR) Parainfluenza 1 (PCR) Parainfluenza 2 (PCR) Parainfluenza 3 (PCR) Parainfluenza 4 (PCR) RSV (PCR) Entero/Rhino (PCR) 11/19/24 11/19/24 11/19/24 15:22 16:10 16:58 WBC RBC Hgb Hct MCV MCH MCHC RDW Plt Count Neut % (Auto) Lymph % (Auto) Kleberg % (Auto) Eos % (Auto) Baso % (Auto) Neut # (Auto) Lymph # (Auto) Kleberg # (Auto) Eos # (Auto) Baso # (Auto) ESR PT INR APTT VBG pH VBG pCO2 VBG pO2 VBG HCO3 VBG Total CO2 VBG O2 Saturation VBG Base Excess FiO2 % Sodium Potassium Chloride Carbon Dioxide BUN Creatinine Estimated GFR BUN/Creatinine Ratio Glucose Lactate 3.3 H Calcium Total Bilirubin AST ALT Alkaline Phosphatase Ammonia < 9 L Total Creatine Kinase 406 H Troponin I 0.153 H* 0.176 H* C-Reactive Protein Total Protein Albumin Globulin Albumin/Globulin Ratio Lipase Procalcitonin Urine Color Urine Appearance Urine pH Ur Specific Collins Urine Protein Urine Glucose (UA) Urine Ketones Urine Occult Blood Urine Nitrate Urine Bilirubin Urine Urobilinogen Ur Leukocyte Esterase Urine RBC Urine WBC Ur Squamous Epith Cells Urine Bacteria Granular Casts Urine Mucus Ur Culture Indicated? Vol Urine Centrifuged Chlamy pneumoniae PCR Not detected Adenovirus (PCR) Not detected B. pertussis DNA (PCR) Not detected B.parapertussis DNA PCR Not detected Coronavirus OC43 (PCR) Not detected Coronavirus HKU1 (PCR) Not detected Coronavirus 229E (PCR) Not detected SARS-CoV-2 (PCR) Not detected Coronavirus NL63 (PCR) Not detected Human Metapneumovir PCR Not detected Influenza Type A (PCR) Not detected Influenza Type B (PCR) Not detected M. pneumoniae (PCR) Not detected Parainfluenza 1 (PCR) Not detected Parainfluenza 2 (PCR) Not detected Parainfluenza 3 (PCR) Not detected Parainfluenza 4 (PCR) Not detected RSV (PCR) Not detected Entero/Rhino (PCR) Not detected 11/19/24 19:04 WBC RBC Hgb Hct MCV MCH MCHC RDW Plt Count Neut % (Auto) Lymph % (Auto) Kleberg % (Auto) Eos % (Auto) Baso % (Auto) Neut # (Auto) Lymph # (Auto) Kleberg # (Auto) Eos # (Auto) Baso # (Auto) ESR PT INR APTT VBG pH VBG pCO2 VBG pO2 VBG HCO3 VBG Total CO2 VBG O2 Saturation VBG Base Excess FiO2 % Sodium Potassium Chloride Carbon Dioxide BUN Creatinine Estimated GFR BUN/Creatinine Ratio Glucose Lactate Calcium Total Bilirubin AST ALT Alkaline Phosphatase Ammonia Total Creatine Kinase Troponin I 0.161 H* C-Reactive Protein Total Protein Albumin Globulin Albumin/Globulin Ratio Lipase Procalcitonin Urine Color Urine Appearance Urine pH Ur Specific Collins Urine Protein Urine Glucose (UA) Urine Ketones Urine Occult Blood Urine Nitrate Urine Bilirubin Urine Urobilinogen Ur Leukocyte Esterase Urine RBC Urine WBC Ur Squamous Epith Cells Urine Bacteria Granular Casts Urine Mucus Ur Culture Indicated? Vol Urine Centrifuged Chlamy pneumoniae PCR Adenovirus (PCR) B. pertussis DNA (PCR) B.parapertussis DNA PCR Coronavirus OC43 (PCR) Coronavirus HKU1 (PCR) Coronavirus 229E (PCR) SARS-CoV-2 (PCR) Coronavirus NL63 (PCR) Human Metapneumovir PCR Influenza Type A (PCR) Influenza Type B (PCR) M. pneumoniae (PCR) Parainfluenza 1 (PCR) Parainfluenza 2 (PCR) Parainfluenza 3 (PCR) Parainfluenza 4 (PCR) RSV (PCR) Entero/Rhino (PCR) Assessment & Plan Assessment and plan (1) Sepsis: Qualifiers: Sepsis type: sepsis due to unspecified organism Acute renal failure type: unspecified Sepsis acute organ dysfunction status: with acute organ dysfunction Severe sepsis acute organ dysfunction type: acute renal failure Severe sepsis shock status: without septic shock Qualified Code(s): A41.9 - Sepsis, unspecified organism; R65.20 - Severe sepsis without septic shock; N17.9 - Acute kidney failure, unspecified Status: Acute (2) Acute non-ST elevation myocardial infarction (NSTEMI): Status: Acute (3) Syncope: Qualifiers: Syncope type: unspecified Qualified Code(s): R55 - Syncope and collapse Status: Acute (4) Type 2 diabetes mellitus: Qualifiers: Diabetes mellitus senior care insulin use: without senior care use Diabetes mellitus complication status: with kidney complications Diabetes mellitus complication detail: with microalbuminuria Qualified Code(s): E11.29 - Type 2 diabetes mellitus with other diabetic kidney complication; R80.9 - Proteinuria, unspecified Status: Chronic (5) Pacemaker: Status: Acute (6) Atrial fibrillation: Qualifiers: Atrial fibrillation type: paroxysmal Qualified Code(s): I48.0 - Paroxysmal atrial fibrillation Status: Acute (7) Essential hypertension: Status: Chronic (8) Peripheral vascular disease: Status: Chronic Assessment & Plan narrative: Sepsis - potential source is skin - empiric Zosyn - KASIA, mild - not hypotensive, lactate trending down - Hx of PAD, LDH elevated but w/o signs of ischemic colitis, stool guaiac pending - he had 4 L of NS in the ED Syncope - circumstances unknown - poor historian - doesn't remember a lot NSTEMI / CAD / Hx of CABG / PVD - w/o angina or obvious ischemic EKG changes - likely sepsis-related type 2, non-ischemic - echocardiogram pending - ASA, Plavix, statin, beta hannah PAF / SSS / PPM / HTN - Pradaxa, metoprolol - paced rhythm NIDDM - home glipizide and metformin on hold - Jardiance, CCD, SS Enlarged Prostate - Flomax GERD - PPI Cognitive deficits - on donepezil - memory loss noted on admission Patient consented to a real time, audio-video telemedicine visit with electronic stethoscope and RN assisting during the exam. Patient located at [place], [place]. Provider located in [place]. Time-Based Coding :: [TOTAL MINUTES] spent with patient and on the chart (including review of chart, obtaining history, exam, reviewing outside data, placing orders, documenting exam and treatment plan, and counseling patient) on [DATE].
[2024-11-19 21:12] LABS: Lactate Dehydrogenase 365 U/L (120-246)
[2024-11-19 21:21] LABS: Lactate (Lactic Acid) 1.9 mmol/L (0.7-2.1)
[2024-11-20 05:11] LABS: Add Manual Diff / Slide Review NO; Basophils Absolute Auto 0 /uL (0-100); Basophils Percent Auto 0.2 % (0-2); Eosinophils Absolute Auto 0 /uL (0-450); Hematocrit 39.6 % (41-53); Lymphocytes Absolute Auto 600 /uL (1100-4500); Lymphocytes Percent Auto 7.4 % (25-40); Mean Corpuscular HGB Conc 32.9 % (30-36); Mean Corpuscular Hemoglobin 25.9 PG (26-34); Mean Corpuscular Volume 78.7 fL (80-100); Monocytes Absolute Auto 600 /uL (0-900); Monocytes Percent Auto 7.4 % (3-14); Neutrophils Absolute Auto 6400 /uL (1500-7000); Platelet Count 154 X10^3/uL (150-400); Red Blood Cell Count 5.03 X10^6/uL (4.5-5.9); Red Cell Distribution Width 19.4 % (11.6-14.8); White Blood Cell Count 7.6 X10^3/uL (4.5-11.0)
[2024-11-20 05:29] LABS: BUN Creatinine Ratio 17.5 (6-22); Blood Urea Nitrogen 20 mg/dL (9-20); Calcium 8.7 mg/dL (8.4-10.2); Carbon Dioxide 22 mmol/L (22-32); Chloride 98 mmol/L (98-107); Estimated Glomerular Filt Rate > 60 mL/min (>60); Glucose 208 mg/dL (80-110); HEMOLYSIS < 15 (0-50); Potassium 3.4 mmol/L (3.4-5.1); Sodium 129 mmol/L (137-145)
[2024-11-20] MEDS: PIPERACILLIN/TAZO 4.5 GM in SODIUM CHLORIDE 0.9% 100 ML IV (06:34)
[2024-11-20 08:00] VITALS: BP 167/79; PULSE 71; RESP 16; TEMP 36.4; O2SAT 94
[2024-11-20] MEDS: INSULIN LISPRO 100 UNIT/ML 3ML VIAL SUBCUT ×4 (08:24→20:48)
[2024-11-20] MEDS: ATORVASTATIN 20 MG TABLET 80 MG PO (08:25)
[2024-11-20] MEDS: PANTOPRAZOLE DR 20 MG TABLET PO ×2 (08:25→20:48)
[2024-11-20] MEDS: CLOPIDOGREL 75 MG TABLET PO (08:26)
[2024-11-20] MEDS: DABIGATRAN 75 MG CAPSULE 150 MG PO ×2 (08:26→20:48)
[2024-11-20] MEDS: DONEPEZIL 5 MG TABLET PO (08:26)
[2024-11-20 08:27] VITALS: BP 167/69; PULSE 65
[2024-11-20] MEDS: METOPROLOL ER 25 MG TABLET PO (08:27)
[2024-11-20] MEDS: TAMSULOSIN 0.4 MG CAPSULE PO (08:27)
[2024-11-20] MEDS: SODIUM CHLORIDE 0.9% FLUSH 10 ML IV ×2 (08:27→20:49)
[2024-11-20] MEDS: POTASSIUM CHLORIDE 20 MEQ TAB 40 MEQ PO (08:30)
[2024-11-20] MEDS: ACETAMINOPHEN 325 MG TABLET 650 MG PO ×2 (08:34→22:17)
[2024-11-20 08:57] VITALS: PULSE 64
[2024-11-20 10:31] LABS: Creatine Kinase 332 U/L (55-170)
[2024-11-20 10:35] LABS: Lactate (Lactic Acid) 4.8 mmol/L (0.7-2.1)
[2024-11-20 10:43] LABS: Troponin I 0.107 ng/mL (0.01-0.034)
[2024-11-20 10:58] LABS: Alanine Aminotransferase 35 IU/L (<50); Albumin 3.1 g/dL (3.5-5.0); Albumin Globulin Ratio 1.2 (1.0-2.8); Alkaline Phosphatase 78 U/L (38-126); Aspartate Aminotransferase 56 IU/L (17-59); Bilirubin Total 0.9 mg/dL (0.2-1.3); Bilirubin Unconjugated 0.5 mg/dL (0.0-1.1); Globulin 2.5 g/dL (1.7-4.1); HEMOLYSIS < 15 (0-50); Total Protein 5.6 g/dL (6.3-8.2)
[2024-11-20] MEDS: LACTATED RINGERS 2,190 ML 730 ML IV (11:15)
[2024-11-20 11:53] LABS: Reflexed Lactate in 2 Hours Y
[2024-11-20] MEDS: VANCOMYCIN 2,000 MG/400 ML PIGGYBACK 200 MG IV (12:35)
[2024-11-20 13:07] LABS: Lactate 2HR (Lactic Acid Rflx) 3.8 mmol/L (0.7-2.1)
--- NOTE | 2024-11-20 13:45 | P.HP_ITS ---
History of Present Illness History of Present Illness Date Patient Seen: 11/20/24 Time Patient Seen: 13:46 Date of Onset of Symptoms: 11/19/24 Chief complaint: Fall, High Sugar, Altered Narrative: This is a 74-year-old gentleman with a history of diabetes who was found down in his home. He was found by a neighbor when his who is in [place] called the neighbor and asked to check on him. He notes that he had generalized weakness. He slept on the floor because he could not get up. He had a cell phone but he did not call 911 because he did not want the ambulance to come. He denied a history of fall. He had a history of a recent stroke and he does have some cognitive impairment. His and daughter live in [place] and he is there some of the time. He says he does not like [place]. He agrees that he is noncompliant with his diabetic diet. Has a history of a chronic left great toe ulcer. He says he has been treated for osteomyelitis 2 times in the past which was done predominantly in [place]. He notes his toe is doing a little better than it has in the past. He says that when he has had infections in the past he has had increased weakness. He specifically states he did not faint. [facility] Medical History Right anterior knee pain Necrotic toes Diabetic toe ulcer Peripheral neuropathy (~1994) Fractures (~2004) Carpal tunnel syndrome (~1981) Plantar warts Rubella Mumps Measles Chicken pox Ruptured tympanic membrane (~1977) GERD (gastroesophageal reflux disease) (~1989) Peripheral vascular disease (~1999) Essential hypertension (09/22/16) Surgical History Status post aorto-coronary artery bypass graft Anesthesia Status post urinary system surgery (~1993) History of carpal tunnel repair (~1980) Family History Mother Heart disease Hypertension Stroke Diabetes mellitus Father No problems noted. Social History household members: spouse Smoking Status: Never smoker alcohol intake: current Meds Home Medications and Allergies Home Medications Medication Instructions Recorded Confirmed Type acetaminophen 325 mg tablet 1 dose PO PRN PRN pain 01/21/19 11/19/24 History (Tylenol) blood sugar diagnostic (GisselleTouch #100 ea 05/03/20 11/19/24 Rx Ultra Blue Test Strip) lancets 30 gauge (Basimuch Delica #100 ea 05/24/20 11/19/24 Rx Lancets) tamsulosin 0.4 mg capsule (Flomax) 0.4 mg PO DAILY 11/23/23 11/19/24 History dabigatran etexilate 150 mg 150 mg PO BID 05/16/24 11/19/24 History capsule (Pradaxa) empagliflozin 25 mg tablet 25 mg PO QAM 05/16/24 11/19/24 History (Jardiance) glipizide 5 mg tablet 5 mg PO BID 05/16/24 11/19/24 History losartan 25 mg tablet 25 mg PO BID 05/16/24 11/19/24 History metformin 1,000 mg tablet 1,000 mg PO BID 05/16/24 11/19/24 History metoprolol tartrate 25 mg tablet 25 mg PO DAILY 05/16/24 11/19/24 History omeprazole 20 mg capsule,delayed 20 mg PO BID 05/16/24 11/19/24 History release oxycodone 5 mg tablet 5 mg PO DAILY PRN Pain (Scale 05/16/24 11/19/24 History Score 1-3) clopidogrel 75 mg tablet 75 mg PO DAILY #30 tabs 05/17/24 11/19/24 Rx donepezil 5 mg tablet 5 mg PO DAILY 11/19/24 11/19/24 History rosuvastatin 40 mg tablet 40 mg PO DAILY 11/19/24 11/19/24 History Allergies Allergy/AdvReac Type Severity Reaction Status Date / Time levofloxacin [From Levaquin] AdvReac Severe Kidneys Verified 11/23/23 11:01 took a dive, afib, joint pain lisinopril [LISINOPRIL] AdvReac Unknown cough Verified 11/23/23 11:01 Review of Systems Review of Systems Narrative: Denies recent fever or chills, does note some chronic left leg swelling which is not substantially increased, notes some pain in the leg but not severe pain in the toe. Denies a history of fainting denies a history of increased confusion or chest pain Exam Vital Signs (past 8 hours): - 11/20/24 08:00 11/20/24 08:27 11/20/24 08:57 Temperature 97.6 F Pulse Rate 71 65 64 Respiratory Rate 16 Blood Pressure 167/79 H 167/69 H Pulse Oximetry 94 Oxygen Flow Rate 0 Oxygen Delivery Method Room Air Oxygen Flow Rate 0 Narrative Exam Narrative: He is resting comfortably in bed eating HEENT is benign he is alert oriented conversational, lungs are clear cor regular rate and rhythm abdomen is obese benign examination of the left lower extremity he has a small nonhealing ulcer on the left great toe, is full range motion in the IP joint, there has no significant erythema, he does have moderate swelling of the left calf is tender to palpation along his left calf and there is erythema on the medial aspect inferior to the knee in the region of the medial gastrocs there is also some slight erythema and adenopathy on the medial aspect of his leg at the groin level, there is no palpable abscess, there is no crepitus with palpation Objective Labs 11/20/24 04:50 11/20/24 04:50 Labs: Laboratory Results - last 24 hr 11/19/24 11/19/24 11/19/24 14:48 14:53 15:20 WBC 11.1 H RBC 5.76 Hgb 14.9 Hct 45.6 MCV 79.2 L MCH 25.8 L MCHC 32.6 RDW 19.1 H Plt Count 200 Neut % (Auto) 90.6 H Lymph % (Auto) 2.9 L [place] % (Auto) 6.4 Eos % (Auto) 0.0 L Baso % (Auto) 0.1 Neut # (Auto) 87419 H Lymph # (Auto) 300 L [place] # (Auto) 700 Eos # (Auto) 0 Baso # (Auto) 0 ESR 20 H PT 12.3 INR 1.1 APTT 45 H VBG pH 7.46 H VBG pCO2 29.7 L VBG pO2 31 L VBG HCO3 21 L VBG Total CO2 20 L VBG O2 Saturation 65 L VBG Base Excess -1.1 L FiO2 % 21.0 % Sodium 128 L Potassium 3.8 Chloride 89 L Carbon Dioxide 19 L BUN 22 H Creatinine 1.39 H Estimated GFR 53 L BUN/Creatinine Ratio 15.8 Glucose 379 H Lactate 7.6 H* Calcium 9.9 Total Bilirubin 1.4 H Conjugated Bilirubin Unconjugated Bilirubin AST 62 H ALT 42 Alkaline Phosphatase 99 Ammonia Lactate Dehydrogenase Total Creatine Kinase Troponin I C-Reactive Protein 39.8 H Total Protein 8.2 Albumin 4.7 Globulin 3.5 Albumin/Globulin Ratio 1.3 Lipase 74 Procalcitonin 8.50 H Urine Color Yellow Urine Appearance Clear Urine pH 5.5 Ur Specific Steele 1.015 Urine Protein 3+ H Urine Glucose (UA) 3+ H Urine Ketones Trace H Urine Occult Blood 3+ H Urine Nitrate Negative Urine Bilirubin Negative Urine Urobilinogen 0.2 Ur Leukocyte Esterase Negative Urine RBC 1-5/hpf D Urine WBC 5-10/hpf H Ur Squamous Epith Cells 0-1 /hpf Urine Bacteria Occasional (0-1) Granular Casts 0-1/lpf Urine Mucus 1+ H Ur Culture Indicated? Specimen cultured Vol Urine Centrifuged 10ml (spun) Chlamy pneumoniae PCR Adenovirus (PCR) B. pertussis DNA (PCR) B.parapertussis DNA PCR Coronavirus OC43 (PCR) Coronavirus HKU1 (PCR) Coronavirus 229E (PCR) SARS-CoV-2 (PCR) Coronavirus NL63 (PCR) Human Metapneumovir PCR Influenza Type A (PCR) Influenza Type B (PCR) M. pneumoniae (PCR) Parainfluenza 1 (PCR) Parainfluenza 2 (PCR) Parainfluenza 3 (PCR) Parainfluenza 4 (PCR) RSV (PCR) Entero/Rhino (PCR) 11/19/24 11/19/24 11/19/24 15:22 16:10 16:58 WBC RBC Hgb Hct MCV MCH MCHC RDW Plt Count Neut % (Auto) Lymph % (Auto) [place] % (Auto) Eos % (Auto) Baso % (Auto) Neut # (Auto) Lymph # (Auto) [place] # (Auto) Eos # (Auto) Baso # (Auto) ESR PT INR APTT VBG pH VBG pCO2 VBG pO2 VBG HCO3 VBG Total CO2 VBG O2 Saturation VBG Base Excess FiO2 % Sodium Potassium Chloride Carbon Dioxide BUN Creatinine Estimated GFR BUN/Creatinine Ratio Glucose Lactate 3.3 H Calcium Total Bilirubin Conjugated Bilirubin Unconjugated Bilirubin AST ALT Alkaline Phosphatase Ammonia < 9 L Lactate Dehydrogenase Total Creatine Kinase 406 H Troponin I 0.153 H* 0.176 H* C-Reactive Protein Total Protein Albumin Globulin Albumin/Globulin Ratio Lipase Procalcitonin Urine Color Urine Appearance Urine pH Ur Specific Steele Urine Protein Urine Glucose (UA) Urine Ketones Urine Occult Blood Urine Nitrate Urine Bilirubin Urine Urobilinogen Ur Leukocyte Esterase Urine RBC Urine WBC Ur Squamous Epith Cells Urine Bacteria Granular Casts Urine Mucus Ur Culture Indicated? Vol Urine Centrifuged Chlamy pneumoniae PCR Not detected Adenovirus (PCR) Not detected B. pertussis DNA (PCR) Not detected B.parapertussis DNA PCR Not detected Coronavirus OC43 (PCR) Not detected Coronavirus HKU1 (PCR) Not detected Coronavirus 229E (PCR) Not detected SARS-CoV-2 (PCR) Not detected Coronavirus NL63 (PCR) Not detected Human Metapneumovir PCR Not detected Influenza Type A (PCR) Not detected Influenza Type B (PCR) Not detected M. pneumoniae (PCR) Not detected Parainfluenza 1 (PCR) Not detected Parainfluenza 2 (PCR) Not detected Parainfluenza 3 (PCR) Not detected Parainfluenza 4 (PCR) Not detected RSV (PCR) Not detected Entero/Rhino (PCR) Not detected 11/19/24 11/19/24 11/19/24 19:04 19:05 20:50 WBC RBC Hgb Hct MCV MCH MCHC RDW Plt Count Neut % (Auto) Lymph % (Auto) [place] % (Auto) Eos % (Auto) Baso % (Auto) Neut # (Auto) Lymph # (Auto) [place] # (Auto) Eos # (Auto) Baso # (Auto) ESR PT INR APTT VBG pH VBG pCO2 VBG pO2 VBG HCO3 VBG Total CO2 VBG O2 Saturation VBG Base Excess FiO2 % Sodium Potassium Chloride Carbon Dioxide BUN Creatinine Estimated GFR BUN/Creatinine Ratio Glucose Lactate 1.9 Calcium Total Bilirubin Conjugated Bilirubin Unconjugated Bilirubin AST ALT Alkaline Phosphatase Ammonia Lactate Dehydrogenase 365 H Total Creatine Kinase Troponin I 0.161 H* C-Reactive Protein Total Protein Albumin Globulin Albumin/Globulin Ratio Lipase Procalcitonin Urine Color Urine Appearance Urine pH Ur Specific Steele Urine Protein Urine Glucose (UA) Urine Ketones Urine Occult Blood Urine Nitrate Urine Bilirubin Urine Urobilinogen Ur Leukocyte Esterase Urine RBC Urine WBC Ur Squamous Epith Cells Urine Bacteria Granular Casts Urine Mucus Ur Culture Indicated? Vol Urine Centrifuged Chlamy pneumoniae PCR Adenovirus (PCR) B. pertussis DNA (PCR) B.parapertussis DNA PCR Coronavirus OC43 (PCR) Coronavirus HKU1 (PCR) Coronavirus 229E (PCR) SARS-CoV-2 (PCR) Coronavirus NL63 (PCR) Human Metapneumovir PCR Influenza Type A (PCR) Influenza Type B (PCR) M. pneumoniae (PCR) Parainfluenza 1 (PCR) Parainfluenza 2 (PCR) Parainfluenza 3 (PCR) Parainfluenza 4 (PCR) RSV (PCR) Entero/Rhino (PCR) 11/20/24 11/20/24 11/20/24 04:50 10:10 12:35 WBC 7.6 RBC 5.03 Hgb 13.0 L Hct 39.6 L MCV 78.7 L MCH 25.9 L MCHC 32.9 RDW 19.4 H Plt Count 154 Neut % (Auto) 85.0 H Lymph % (Auto) 7.4 L [place] % (Auto) 7.4 Eos % (Auto) 0.0 L Baso % (Auto) 0.2 Neut # (Auto) 6400 Lymph # (Auto) 600 L [place] # (Auto) 600 Eos # (Auto) 0 Baso # (Auto) 0 ESR PT INR APTT VBG pH VBG pCO2 VBG pO2 VBG HCO3 VBG Total CO2 VBG O2 Saturation VBG Base Excess FiO2 % Sodium 129 L Potassium 3.4 Chloride 98 Carbon Dioxide 22 BUN 20 Creatinine 1.14 Estimated GFR > 60 BUN/Creatinine Ratio 17.5 Glucose 208 H D Lactate 4.8 H* 3.8 H Calcium 8.7 Total Bilirubin 0.9 Conjugated Bilirubin 0.0 Unconjugated Bilirubin 0.5 AST 56 ALT 35 Alkaline Phosphatase 78 Ammonia Lactate Dehydrogenase Total Creatine Kinase 332 H Troponin I 0.107 H C-Reactive Protein Total Protein 5.6 L Albumin 3.1 L Globulin 2.5 Albumin/Globulin Ratio 1.2 Lipase Procalcitonin Urine Color Urine Appearance Urine pH Ur Specific Steele Urine Protein Urine Glucose (UA) Urine Ketones Urine Occult Blood Urine Nitrate Urine Bilirubin Urine Urobilinogen Ur Leukocyte Esterase Urine RBC Urine WBC Ur Squamous Epith Cells Urine Bacteria Granular Casts Urine Mucus Ur Culture Indicated? Vol Urine Centrifuged Chlamy pneumoniae PCR Adenovirus (PCR) B. pertussis DNA (PCR) B.parapertussis DNA PCR Coronavirus OC43 (PCR) Coronavirus HKU1 (PCR) Coronavirus 229E (PCR) SARS-CoV-2 (PCR) Coronavirus NL63 (PCR) Human Metapneumovir PCR Influenza Type A (PCR) Influenza Type B (PCR) M. pneumoniae (PCR) Parainfluenza 1 (PCR) Parainfluenza 2 (PCR) Parainfluenza 3 (PCR) Parainfluenza 4 (PCR) RSV (PCR) Entero/Rhino (PCR) x-ray from 11/19/2024 left foot soft tissue swelling around the left great toe, no obvious evidence of osteomyelitis, [id number] arthritic change in the foot, calcific densities noted in the dorsalis pedis and arterial system Assessment & Plan Assessment and plan (1) Sepsis: Qualifiers: Acute renal failure type: unspecified Sepsis acute organ dysfunction status: with acute organ dysfunction Sepsis type: sepsis due to unspecified organism Severe sepsis acute organ dysfunction type: acute renal failure S evere sepsis shock status: without septic shock Qualified Code(s): A41.9 - Sepsis, unspecified organism; R65.20 - Severe sepsis without septic shock; N17.9 - Acute kidney failure, unspecified Status: Acute (2) Obesity (BMI 30.0-34.9): Status: Acute (3) Type 2 diabetes mellitus: Qualifiers: Diabetes mellitus manager transfusion insulin use: without manager transfusion use Diabetes mellitus complication status: with kidney complications Diabetes mellitus complication detail: with microalbuminuria Qualified Code(s): E11.29 - Type 2 diabetes mellitus with other diabetic kidney complication; R80.9 - Proteinuria, unspecified Status: Chronic (4) Peripheral neuropathy: Status: Chronic (5) Cellulitis: Status: Acute (6) Diabetic foot ulcer associated with type 2 diabetes mellitus: Status: Acute Plan He has a mild diabetic foot ulcer on his left great toe. He also has cellulitis in the left leg. He is currently on Zosyn and vancomycin for antibiotics. I think that has an appropriate antibiotic choice. He came in with markedly elevated blood sugars in the 380s. He does have some swelling in the left leg. His calf is tender in the area of cellulitis but not posteriorly. If he has persistent tenderness might be reasonable to get an ultrasound to rule out a DVT. I do think he needs a course of antibiotics for cellulitis. He has a chronic left great toe diabetic foot ulcer. I think manager transfusion and be reasonable to have him follow up with the [facility]. I do not see any findings consistent with an abscess and I think it is unlikely that he will require any operative intervention. Think he likely will respond to IV antibiotics and conservative treatment with better blood sugar control. Time-Based Coding :: [TOTAL MINUTES] spent with patient and on the chart (including review of chart, obtaining history, exam, reviewing outside data, placing orders, documenting exam and treatment plan, and counseling patient) on [DATE].
[2024-11-20] MEDS: PIPERACILLIN/TAZO 3.375 GM in SODIUM CHLORIDE 0.9% 100 ML IV ×2 (14:12→22:14)
[2024-11-20] MEDS: LACTATED RINGERS 1,000 ML 125 ML IV ×2 (14:15→23:09)
[2024-11-20 16:00] VITALS: BP 168/81; PULSE 65; RESP 16; TEMP 36.6; O2SAT 99
[2024-11-20 20:25] VITALS: BP 149/66; PULSE 61; RESP 20; TEMP 36.1; O2SAT 98
[2024-11-21] VITALS (10 sets, daily range): BP systolic 156–185; BP diastolic 9–94; PULSE 57–68; RESP 14–20; TEMP 36.1–36.9; O2SAT 95–98
[2024-11-21 01:41] LABS: BUN Creatinine Ratio 18.5 (6-22); Blood Urea Nitrogen 20 mg/dL (9-20); Calcium 8.1 mg/dL (8.4-10.2); Carbon Dioxide 23 mmol/L (22-32); Chloride 99 mmol/L (98-107); Estimated Glomerular Filt Rate > 60 mL/min (>60); Glucose 193 mg/dL (80-110); HEMOLYSIS < 15 (0-50); Lactate (Lactic Acid) 1.4 mmol/L (0.7-2.1); Potassium 3.6 mmol/L (3.4-5.1); Sodium 128 mmol/L (137-145)
--- NOTE | 2024-11-21 02:14 | PC.NURSE ---
Notified attending on BP of 185/83. No PRN ordered for HTN. ordered to DC IVF, No other orders at this time
[2024-11-21] MEDS: PANTOPRAZOLE DR 20 MG TABLET PO ×2 (05:46→20:41)
[2024-11-21] MEDS: PIPERACILLIN/TAZO 3.375 GM in SODIUM CHLORIDE 0.9% 100 ML IV ×3 (05:46→21:08)
--- NOTE | 2024-11-21 06:30 | PC.NURSE ---
BP still elevated 183/94. Notified doctor and stated it is okay to administer the 0900 metoprolol early.
[2024-11-21] MEDS: METOPROLOL ER 25 MG TABLET PO (06:38)
--- NOTE | 2024-11-21 07:26 | PC.WOUNDPHOT ---
Late Entry Note: Photos by Riri FLORES 11/19/2024 at 2217
[2024-11-21] MEDS: DONEPEZIL 5 MG TABLET PO (09:21)
[2024-11-21] MEDS: TAMSULOSIN 0.4 MG CAPSULE PO (09:21)
[2024-11-21] MEDS: DABIGATRAN 75 MG CAPSULE 150 MG PO ×2 (09:21→20:42)
[2024-11-21] MEDS: ATORVASTATIN 20 MG TABLET 80 MG PO (09:21)
[2024-11-21] MEDS: CLOPIDOGREL 75 MG TABLET PO (09:21)
[2024-11-21] MEDS: SODIUM CHLORIDE 0.9% FLUSH 10 ML IV ×2 (09:22→20:43)
[2024-11-21] MEDS: INSULIN LISPRO 100 UNIT/ML 3ML VIAL SUBCUT ×4 (09:27→20:55)
[2024-11-21] MEDS: VANCOMYCIN 1,750 MG in SODIUM CHLORIDE 0.9% 500 ML 250 MG IV (12:19)
--- NOTE | 2024-11-21 12:36 | DI.US.S_ITS ---
PROCEDURE: US PERIPH VENOUS LOW EXTREM LT INDICATIONS: L leg edema, eval for DVT TECHNIQUE: Real-time imaging, as well as color and pulse Doppler interrogation, were performed of the lower extremity deep veins from the inguinal ligament to the popliteal fossa, with documentation of the visualized calf veins. COMPARISON: None. FINDINGS: The common femoral, femoral, popliteal, and the visualized calf veins are normally compressible, and free of intraluminal thrombus. Color and pulse Doppler demonstrate normal phasic intraluminal flow. There is normal augmentation response to distal compression maneuver. Ankle edema present. IMPRESSION: No findings of lower extremity deep venous thrombosis. Dictated by: Rafal Carrillo M.D. on 11/21/2024 at 14:19 Approved by: Rafal Carrillo M.D. on 11/21/2024 at 14:20
[2024-11-21] MEDS: LOSARTAN 25 MG TABLET PO ×2 (12:40→20:41)
--- NOTE | 2024-11-21 14:01 | PM.PN.1 ---
Subjective Subjective Interval history: Note: Coming onto service, no documentation yesterday from previous hospitalist on duty. 74 y/o with PMH of A-fib, SSS, PPM, PAD, CAD, DM, diabetic neuropathy, HTN, GERD, enlarged prostate, recent TIA for which he was observed at [facility], memory loss - likely mild dementia, who was found down. From the ED: is a physician currently in [place] called to check on him. He did not answer at which point she called a neighbor to check on him. Patient found supine on the bedroom floor no pedal urine confusion with hypotension and hyperglycemia. Patient reports that he threw up last night he is not sure how he ended up on the floor. He has no real pain. Stomach is soft he has good strength. On admission, his only complaint is generalized weakness. BP elevated. Multiple leg skin sores and Lt great toe diabetic ulcer. ED workup: WBC 11.1 with left shift no anemia Lactate 7.6-->3.3 VBG pH 7.46, anion gap 20 Sodium 128 potassium 3.8 chloride 89 carbon dioxide 19 BUN 22 creatinine 1.39 glucose 379 Troponin 0.153-->0.176-->0.161 cpk 406 ESR 20 previously 13, CRP 39.8 Images, CTH, CTA, CTCS, CXR non-diagnostic. Admitted to telemetry with sepsis and NSTEMI Today he was able to get to the bathroom which he states he could not do yesterday. Minimal pain on his foot but nursing staff reported some left foot pain with ambulation. He was seen by orthopedics and they had no recommendations for immediate surgical management. Exam Vital Signs (past 8 hours): - 11/21/24 09:26 11/21/24 12:40 11/21/24 12:43 Temperature 98.1 F 97.2 F L Pulse Rate 68 68 Respiratory Rate 16 15 Blood Pressure 174/77 H 162/79 H 162/9 H Pulse Oximetry 96 97 Oxygen Flow Rate 0 0 Oxygen Delivery Method Room Air Oxygen Flow Rate 0 Narrative Exam Narrative: Gen: NAD, sitting upright in hospital chair CV: RRR no m/r/g Pulm: CTA b/l Ext: L>R peripheral edema, mild erythema and tenderness, improved per patient. + anna sign. L foot plantar aspect hallux ulceration with erythema, induration, or warmth. Objective Labs 11/20/24 04:50 11/21/24 01:15 Labs: Laboratory Results - last 24 hr 11/21/24 01:15 Sodium 128 L Potassium 3.6 Chloride 99 Carbon Dioxide 23 BUN 20 Creatinine 1.08 Estimated GFR > 60 BUN/Creatinine Ratio 18.5 Glucose 193 H Lactate 1.4 Calcium 8.1 L [facility] Medical History Right anterior knee pain Necrotic toes Diabetic toe ulcer Peripheral neuropathy (~1994) Fractures (~2004) Carpal tunnel syndrome (~1981) Plantar warts Rubella Mumps Measles Chicken pox Ruptured tympanic membrane (~1977) GERD (gastroesophageal reflux disease) (~1989) Peripheral vascular disease (~1999) Essential hypertension (09/22/16) Surgical History Status post aorto-coronary artery bypass graft Anesthesia Status post urinary system surgery (~1993) History of carpal tunnel repair (~1980) Family History Mother Heart disease Hypertension Stroke Diabetes mellitus Father No problems noted. Social History household members: spouse Smoking Status: Never smoker alcohol intake: current Assessment & Plan Assessment & Plan narrative: 1) Sepsis sceondary to L leg cellulitis and possible infected diabetic L foot ulcer - SOFA score > 2 with KASIA, elevated bilirubin - continue zosyn - improvement in leg appearance and pain today - US venous negative for DVT on L leg - PT/OT. - seen by orthopedics, no indication for surgery for DM foot ulcer. (2) Myocardial injury, improved. Hx of CAD with prior CABG and PAD. - elevated troponin on presentation, likely due to sepsis as noted above. No chest pain, EKG is paced. - not treated with heparin on presentation - outpatient follow up with cardiology - continue plavix and Pradaxa (3) Syncope: - likely due to #1 above - PT / OT evaluations (4) Type 2 diabetes mellitus: - continue to adjust insulin as tolerated in the hospital - poorly controlled. (5) Pacemaker due to SSS, chronic (6) Atrial fibrillation, chronic - continue home metoprolol and pradaxa (7) Essential hypertension: (8) Peripheral vascular disease: 9 - KASIA, improved 10 chronic cognitive impairment, prior CVA Code: Full, surrogate is patient's spouse DVT: on pradaxa I have utilized all available immediate resources to obtain, update, or review the patient's current medications. Dispo: patient admitted under inpatient status. Unclear if will be able to discharge home or possible SNF, will have PT/OT evaluations. Likely discharge 1-2 more days. Additional history obtained via discussions with the previous hospitalist, bedside RN, and continuous pillowcase cutter today. These discussions contributed to the creation of the above assessment and plan. I have reviewed patient's presenting documentation, labs, and imaging personally. Time-Based Coding :: [TOTAL MINUTES] spent with patient and on the chart (including review of chart, obtaining history, exam, reviewing outside data, placing orders, documenting exam and treatment plan, and counseling patient) on [DATE].
--- NOTE | 2024-11-21 15:58 | CM.DANOTE ---
B DCP Assessment note pt is a 74yo M admitted with cellulites in leg. PCP Laura Arteaga [facility] and self pay FIRMWARE ENGINEER reviewed EMR Pt lives indep with spouse in [place]. 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 Per provider in am rounds, blood cultures pending but pt unlikely to need IV abx. Per RN, pt likely would benefit from HH wound care if qualifies vs OP wound care. Per provider PN, rec PT/OT evals. no evals in yet, will follow up tomorrow if needed. FIRMWARE ENGINEER unable to meet with pt today due to triaging needs. P: anticipate home with OP f/u for wound care/PCP. will follow closely for IV abx need/any additional DCP needs that arise. AVTAR Soria Discharge Planning/Care Management CM Discharge Assessment Start: 11/21/24 15:57 Freq: Status: Active Protocol: Document 11/21/24 15:57 SL (Rec: 11/21/24 15:58 SL Desktop) Discharge Planning Assessment Assigned Digital Sales Planner AVTAR Kaye DPOA/Assigned Designee Name fidelia, spouse Contact Information [phone] Advance Directives? No History Provided By Patient,Medical Record Prior Living Arrangements House Household Members spouse Type of transporation used prior to Drives own vehicle admit Independent with ADL's Yes Is patient alert and oriented? Yes Comment walking stick Patient/Family Preference OP PT Therapy Discharge Plan Home Transportation Arrangement Family Referrals Initiated None needed Review Status In Process Please Provide Date Initial DC 11/21/24 Assessment Was Performed Next Review Type Continued Stay Review
--- NOTE | 2024-11-21 16:07 | DI.ECHO.S_ITS ---
[facility]+ [facility] : : [address] : : [place] : : [id number] : : Phone: [phone] Echocardiogram Report + :Name: FRANCIS WASHBURN Study Date: 11/21/2024 Height: 69.5 in: :[facility] ReadingLocation: Weight: 210 lb : : Gender: Male BSA: 2.1 m2 : :: 1950 Age: 74 yrs BP: 162/90 mmHg: :Reason For Study: NSTEMI : :Ordering Physician: Blanca, : :Vance Jean Performed By: Joy Jang : :Referring: Vance Rios : + Interpretation Summary Patient did not want contrast. The left ventricle is normal in size. The ejection fraction is estimated to be 50-55%. Previous LVEF reported to be 60 to 65%. The right ventricle is mildly dilated. Visually RV function appears to be preserved. No significant valvular pathology seen. Doppler profile across pulmonary valve suggests pulmonary hypertension. Pulmonary artery pressures cannot be estimated because of the lack of a measurable TR jet velocity but the IVC suggests a CVP of around 15 mmHg. I do not see any obvious RV pacemaker lead. Procedure: A two-dimensional transthoracic echocardiogram with color flow and Doppler was performed. The study was done portably. The study quality was technically adequate. Comparison is made with the echocardiogram of 04/08/2020. The heart rate ranged between 59-74 bpm during the study. The patient had occasional PVCs during the exam. The patient was in atrial fibrillation with controlled ventricular rate during the exam. The patient had a bundle branch block rhythm during the exam. Left Ventricle: The left ventricle is normal in size. Left ventricular wall thickness is mildly increased. There is no thrombus. The ejection fraction is estimated to be 50-55%. There is basal inferior wall hypokinesis. There is a mild dyssynchronous contraction pattern, consistent with a conduction abnormality. Diastolic function could not be accurately assessed due to atrial fibrillation. Right Ventricle: The right ventricle is mildly dilated. I do not see any obvious RV pacemaker lead. Visually RV function appears to be preserved. Atria: The left atrial size is normal. There has been no significant change since the previous study. The right atrium is mildly dilated. There is no Doppler evidence for an interatrial shunt. Mitral Valve: There is mild mitral annular calcification. The mitral valve leaflets appear mildly thickened, but open well. The mitral valve leaflets are mildly calcified. The mitral valve chordae are thickened and/or calcified. There is trace mitral regurgitation. Aortic Valve: The aortic valve is trileaflet. The aortic valve is moderately calcified. There is no aortic valve stenosis. No aortic regurgitation is present. Tricuspid Valve: The tricuspid valve is not well visualized, but is grossly normal. Pulmonary artery pressures cannot be estimated because of the lack of a measurable TR jet velocity but the IVC suggests a CVP of around 15 mmHg. There is trace tricuspid regurgitation. Pulmonic Valve: The pulmonic valve is not well seen, but is grossly normal. There is trace pulmonic regurgitation. Doppler profile across pulmonary valve suggests pulmonary hypertension. Great Vessels: The aortic root is normal size. The ascending aorta is normal in size. The aortic arch is normal in size. The pulmonary artery is normal size. The IVC is dilated (diameter is greater than 2.1 cm) and it collapses less than 50% with a sniff. This suggests a high right atrial pressure of 15 mm Hg. Pericardium/ Pleura There is no pericardial effusion. There is no pleural effusion. MMode/2D Measurements & Calculations LVIDd: 4.8 cm LVOT diam: 2.0 cm LVIDs: 3.4 cm Ao root diam: 3.4 cm FS: 29.7 % asc Aorta Diam: 3.5 cm EPSS: 1.0 cm Ao Arch Diam (Prox Trans): 1.9 cm IVSd: 1.2 cm LVPWd: 1.4 cm LV avery. diameter/BSA (cm/m^2): 2.3 LV sys. diameter/BSA (cm/m^2): 1.6 LA A2 area: 20.5 cm2 RA long axis: 6.9 cm LA A4 area: 26.2 cm2 RA area: 24.9 cm2 LA length (vol): 7.0 cm RA vol: 76.7 ml LA vol: 65.2 ml RA : 36.1 ml/m2 LA vol index: 30.7 ml/m2 IVC diam: 2.5 cm TAPSE: 1.1 cm Doppler Measurements & Calculations Ao V2 max: 153.5 cm/sec LVOT Max Max: 95.6 cm/sec Ao V2 mean: 108.7 cm/sec LV V1 max P.7 mmHg Ao max P.4 mmHg LV V1 VTI: 17.4 cm Ao mean P.3 mmHg MARIELA(I,D): 1.7 cm2 Ao V2 VTI: 31.4 cm MARIELA(V,D): 1.9 cm2 sev ratio: 0.55 MARIELA indexed to BSA (cm^2/m^2): 0.78 PA V2 max: 83.6 cm/sec SV(LVOT): 52.4 ml PA V2 mean: 54.4 cm/sec PA mean P.4 mmHg PA pr(Accel): 39.6 mmHg Reading Physician:03:27 PM
[2024-11-21] MEDS: ACETAMINOPHEN 325 MG TABLET 650 MG PO (21:08)
[2024-11-22 03:00] VITALS: BP 165/78; PULSE 61; RESP 18; TEMP 36.3; O2SAT 98
[2024-11-22] MEDS: PANTOPRAZOLE DR 20 MG TABLET PO ×2 (05:30→20:59)
[2024-11-22] MEDS: PIPERACILLIN/TAZO 3.375 GM in SODIUM CHLORIDE 0.9% 100 ML IV (05:30)
[2024-11-22] MEDS: ACETAMINOPHEN 325 MG TABLET 650 MG PO ×2 (05:41→20:59)
[2024-11-22 05:47] LABS: Add Manual Diff / Slide Review NO; Basophils Absolute Auto 0 /uL (0-100); Basophils Percent Auto 0.4 % (0-2); Eosinophils Absolute Auto 200 /uL (0-450); Hematocrit 35.2 % (41-53); Hemoglobin 11.6 g/dL (13.5-17.5); Lymphocytes Absolute Auto 800 /uL (1100-4500); Lymphocytes Percent Auto 15.6 % (25-40); Mean Corpuscular Hemoglobin 25.8 PG (26-34); Mean Corpuscular Volume 78.1 fL (80-100); Monocytes Absolute Auto 400 /uL (0-900); Monocytes Percent Auto 8.2 % (3-14); Neutrophils Absolute Auto 3500 /uL (1500-7000); Neutrophils Percent Auto 71.8 % (50-75); Platelet Count 145 X10^3/uL (150-400); Red Blood Cell Count 4.51 X10^6/uL (4.5-5.9); Red Cell Distribution Width 18.4 % (11.6-14.8); White Blood Cell Count 4.8 X10^3/uL (4.5-11.0)
[2024-11-22 06:00] LABS: BUN Creatinine Ratio 15.2 (6-22); Blood Urea Nitrogen 14 mg/dL (9-20); Calcium 8.2 mg/dL (8.4-10.2); Carbon Dioxide 26 mmol/L (22-32); Chloride 97 mmol/L (98-107); Estimated Glomerular Filt Rate > 60 mL/min (>60); Glucose 183 mg/dL (80-110); HEMOLYSIS < 15 (0-50); Potassium 3.2 mmol/L (3.4-5.1); Sodium 128 mmol/L (137-145)
[2024-11-22 07:00] VITALS: BP 178/85; PULSE 68; RESP 14; TEMP 36.2; O2SAT 97
[2024-11-22] MEDS: DABIGATRAN 75 MG CAPSULE 150 MG PO ×2 (09:10→20:59)
[2024-11-22] MEDS: TAMSULOSIN 0.4 MG CAPSULE PO (09:10)
[2024-11-22] MEDS: ATORVASTATIN 20 MG TABLET 80 MG PO (09:11)
[2024-11-22] MEDS: LOSARTAN 25 MG TABLET PO ×2 (09:11→21:00)
[2024-11-22] MEDS: CLOPIDOGREL 75 MG TABLET PO (09:11)
[2024-11-22] MEDS: METOPROLOL ER 25 MG TABLET PO (09:11)
[2024-11-22] MEDS: SODIUM CHLORIDE 0.9% FLUSH 10 ML IV ×2 (09:12→21:01)
[2024-11-22] MEDS: DONEPEZIL 5 MG TABLET PO (09:12)
[2024-11-22] MEDS: POTASSIUM CHLORIDE 20 MEQ TAB 40 MEQ PO ×2 (09:13→14:49)
[2024-11-22] MEDS: INSULIN LISPRO 100 UNIT/ML 3ML VIAL SUBCUT ×4 (09:13→21:49)
[2024-11-22 11:00] VITALS: BP 160/78; PULSE 66; RESP 15; TEMP 36.1; O2SAT 96
[2024-11-22] MEDS: INSULIN GLARGINE 100 UNIT/ML 3ML PEN 10 UNIT SUBCUT (12:51)
[2024-11-22] MEDS: VANCOMYCIN 1,000 MG in SODIUM CHLORIDE 0.9% 250 ML 250 MG IV (13:03)
--- NOTE | 2024-11-22 14:41 | PT.IIE ---
Current Diagnoses Sepsis, unspecified organism (11/19/24) Type 2 diabetes mellitus with other diabetic kidney complication (11/19/24) Type 2 diabetes mellitus with foot ulcer (11/19/24) Obesity, unspecified (11/19/24) Polyneuropathy, unspecified (11/19/24) Essential (primary) hypertension (11/19/24) Non-ST elevation (NSTEMI) myocardial infarction (11/19/24) Paroxysmal atrial fibrillation (11/19/24) Peripheral vascular disease, unspecified (11/19/24) Cellulitis, unspecified (11/19/24) Non-pressure chronic ulcer of other part of unspecified foot with unspecified severity (11/19/24) Acute kidney failure, unspecified (11/19/24) Syncope and collapse (11/19/24) Severe sepsis without septic shock (11/19/24) Proteinuria, unspecified (11/19/24) Presence of cardiac pacemaker (11/19/24) Surgical History (Last Reviewed 11/20/24 @ 13:49 by Britany Calixto MD) Anesthesia History of carpal tunnel repair (~1980) Status post aorto-coronary artery bypass graft Status post urinary system surgery (~1993) Medical History (Last Reviewed 11/20/24 @ 13:49 by Britany Calixto MD) Carpal tunnel syndrome (~1981) Chicken pox Diabetic toe ulcer Essential hypertension (09/22/16) Fractures (~2004) GERD (gastroesophageal reflux disease) (~1989) Measles Mumps Necrotic toes Peripheral neuropathy (~1994) Peripheral vascular disease (~1999) Plantar warts Right anterior knee pain Rubella Ruptured tympanic membrane (~1977) Physical Therapy Inpatient Evaluation/Re-Eval M1 PT/OT-IP Prior Functional Status Start: 11/22/24 16:52 Freq: NEEDED Status: Active Protocol: Document 11/22/24 14:41 AB (Rec: 11/22/24 17:20 AB [id number]) Medical Review Prior Functional Status Medical History Reviewed Yes Communication able to make needs known; BARROW Mobility and Gait pt stated that he was modified independent with all mobilities and ambulation without AD bur furniture cruise indoors and occasionally uses his walking stick; uses his walking stick for outdoor mobility Activities of Daily Living and IADL's per OT note: Pt states able to care for himself and his dog prior. Social History Household Members spouse Living Arrangements House Number of Floors (Floors) 3 or More Floors Number of Stairs To Enter/Railing? One step to enter. 9 steps + 9 steps R rail ascending to 2nd level bedroom but can use an elevator to get to that floor Home Environment High Toilet,Walk in Shower, Built-In Shower Seat Home Equipment Front Wheel Walker,Four Wheel Walker,Straight Cane Additional Social History Comment pt's spouse stated that pt is in [place] and usually stays there for 6-7 months a year M2 PT-IP Current Condition Start: 11/22/24 16:52 Freq: NEEDED Status: Active Protocol: Document 11/22/24 14:41 AB (Rec: 11/22/24 17:20 AB [id number]) Physical Therapy Current Condition Current Condition Evaluation Date 11/22/24 Treatment Diagnosis sepsis; VT; difficulty in walking Onset Date 11/19/24 M3 PT-IP Subjective Start: 11/22/24 16:52 Freq: NEEDED Status: Active Protocol: Document 11/22/24 14:41 AB (Rec: 11/22/24 17:20 AB [id number]) Subjective Physical Therapy Visit Type Type Initial Evaluation Visit Start Time 14:41 Visit Stop Time 15:15 Number of NET WEB APPLICATION DEVELOPER Visits 0 Physical Therapy Visit Comments Patient Comments agreeable to do PT M4 PT-IP Mobility and Gait Start: 11/22/24 16:52 Freq: NEEDED Status: Active Protocol: Document 11/22/24 14:41 AB (Rec: 11/22/24 17:20 AB [id number]) PT-Bed Mobility Assessment Supine to Sit Supine to Sit Standby Assistance,Bedrails PT-Transfer Assessment Sit to and From Stand Sit to and from Stand Minimal Assistance,1 Person Assistance,Use of Upper Extremities Equipment Transfer Assistive Device Gait Belt,Front Wheeled Walker Orthotic/Prosthetic Devices or Brace: No Transfers Transfer Destination Chair Transfer Technique ambulated Transfer Ability Level of Assist Minimal Assistance,1 Person Assistance,Use of Upper Extremities Comments Mobility Comments pt in bed and agreeable to do PT. obtained PLOF and home set up. BP 164/78 . pt completed bed mobility supine to sit SBA with use of bed rail. pt able to sit on EOB SBA. completed sit to stand min A and cues and ambulated in room using FWW initially min A but midway CGA. pt agreed to stay up on the chair . positioned pt on the chair. informed pt regarding SNF rehab but pt refused. Left pt with OT. Gait Assessment Gait Gait Assistance Required: Contact Guard Assist,Minimum Assistance Distance (Feet) 50 Able to Maintain Weight Bearing Status Yes During Gait Assistive Devices Assistive Device Gait Belt,Front Wheeled Walker Orthotic/Prosthetic Devices or Brace: No Gait Deviations General Gait Pattern Decreased Stride Length, Decreased Feet Clearance,Step- to Gait Factors Limiting Gait Function Factors Limiting Gait Function Decreased Activity Tolerance, Decreased Strength,Difficulty Following Directions,Poor Balance,Poor Safety Awareness PT-Balance Assessment Sitting Balance and Reactions Static Sitting Balance Ability Good Dynamic Sitting Balance Ability Good Standing Balance and Reactions Static Standing Balance Ability Fair Dynamic Standing Balance Ability Fair Device Used FWW M5 PT-IP Objective Assessments Start: 11/22/24 16:52 Freq: NEEDED Status: Active Protocol: Document 11/22/24 14:41 AB (Rec: 11/22/24 17:20 [id number]) Orientation Orientation/Cognition Level of Alertness Alert Orientation Name,Place,Situation Language Function Ability Hard of Hearing Safety Awareness Decreased Safety Awareness Memory Description Short Term Impaired Gross Range of Motion Lower Extremity ROM Assessment Within Functional Limits Strength Lower Extremity Strength Assessment Bilaterally Impaired Comments Strength Comments RLE : 3+/5 LLE : 4-/5 Sensation Assessment Sensation Gross Sensation Right LE Impaired,Left LE Impaired Sensation Description Numbness Comments Sensation Comments B feet chronic numbness per pt . Muscle Tone Muscle Tone WNL Yes M6 PT-IP Treatment Start: 11/22/24 16:52 Freq: NEEDED Status: Active Protocol: Document 11/22/24 14:41 AB (Rec: 11/22/24 17:20 AB [id number]) Physical Therapy Treatment Education Education Provided Safety M7 PT-IP Assessment and Plan Start: 11/22/24 16:52 Freq: NEEDED Status: Active Protocol: Document 11/22/24 14:41 AB (Rec: 11/22/24 17:20 AB [id number]) PT Summary Assessment and Plan Potential Rehabilitation Potential Fair Status of Condition at Evaluation Evolving Summary Impairments Pain,ROM,Strength,Balance, Coordination,Sensation,Tone, Cognition,Bed Mobility, Transfers,Gait,Activity Tolerance Assessment Summary pt is a 74 y/o M who is admitted for sepsis, VT. pt requiring min A with transfers using FWW and CGA to min A with ambulation using FWW. pt presents with overall weakness and decrease activity tolerance. pt will benefit from SNF. pt refusing SNF at this time. If pt goes home, will need 24/7 assist and HHPT . will continue to assess. Goals Bed Mobility Goal Independent Transfer Goal Independent,Front Wheeled Walker Gait Goal Independent,Front Wheel Walker Gait Distance 150 Other Goals improve transfers and ambulation using walking stick /SPC ~ 150 ft mod I up/down 1 step using AD mod I Days to Meet Goals 10 Frequency of Treatment Frequency Of Treatment Once a Day Treatment Plan Physical Therapy Treatment Plan Bed Mobility Training,Transfer Training,Gait Training, Therapeutic Exercise,Balance Retraining,Discharge Planning, Hot or Cold Pack,Neuromuscular Re-ed,Coordination Retraining Precautions Other Precautions falls Recommendations To Nursing Amount of Assist Needed 1 Person Assist Discharge Recommendations PT Discharge Recommendations Home with 24/7 Assist Available,Home Health,SNF Rehab,Home vs SNF Transportation Needs at Discharge Private Vehicle,Wheelchair/ Cabulance - PT assist 1
[2024-11-22] MEDS: CEFEPIME 2 GM in SODIUM CHLORIDE 0.9% 100 ML IV (14:49)
[2024-11-22 15:00] VITALS: BP 178/80; PULSE 66; RESP 15; TEMP 36.2; O2SAT 97
[2024-11-22 15:15] LABS: Hemoglobin A1C% w Est Avg Glu 7.4 % (4.0-6.0)
--- NOTE | 2024-11-22 15:23 | OT.IP.EVAL ---
Current Diagnoses Sepsis, unspecified organism (11/19/24) Type 2 diabetes mellitus with other diabetic kidney complication (11/19/24) Type 2 diabetes mellitus with foot ulcer (11/19/24) Obesity, unspecified (11/19/24) Polyneuropathy, unspecified (11/19/24) Essential (primary) hypertension (11/19/24) Non-ST elevation (NSTEMI) myocardial infarction (11/19/24) Paroxysmal atrial fibrillation (11/19/24) Peripheral vascular disease, unspecified (11/19/24) Cellulitis, unspecified (11/19/24) Non-pressure chronic ulcer of other part of unspecified foot with unspecified severity (11/19/24) Acute kidney failure, unspecified (11/19/24) Syncope and collapse (11/19/24) Severe sepsis without septic shock (11/19/24) Proteinuria, unspecified (11/19/24) Presence of cardiac pacemaker (11/19/24) Past Medical History (Last Reviewed 11/20/24 @ 13:49 by Britany Calixto MD) Carpal tunnel syndrome (~1981) Chicken pox Diabetic toe ulcer Essential hypertension (09/22/16) Fractures (~2004) GERD (gastroesophageal reflux disease) (~1989) Measles Mumps Necrotic toes Peripheral neuropathy (~1994) Peripheral vascular disease (~1999) Plantar warts Right anterior knee pain Rubella Ruptured tympanic membrane (~1977) Surgical History (Last Reviewed 11/20/24 @ 13:49 by Britany Calixto MD) Anesthesia History of carpal tunnel repair (~1980) Status post aorto-coronary artery bypass graft Status post urinary system surgery (~1993) Occupational Therapy Inpatient Evaluation/Re-Eval M1 PT/OT-IP Prior Functional Status Start: 11/22/24 15:22 Freq: NEEDED Status: Active Protocol: Document 11/22/24 15:22 [facility] (Rec: 11/22/24 15:38 [facility] Desktop) Medical Review Prior Functional Status Communication I Mobility and Gait Pt states uses a walking stick or cane mostly outside. Use of objects to hang onto inside . Activities of Daily Living and IADL's Pt states able to care for himself and his dog prior. Prior Functional Level (Other details) Pt's and daughter are in [place]. Social History Household Members spouse Living Arrangements House Number of Floors (Floors) 3 or More Floors Number of Stairs To Enter/Railing? One step to enter. 9 steps and another 9 steps to get upstairs with right rail. Pt able to use his elevator if needed. Home Environment High Toilet,Walk in Shower Home Equipment Front Wheel Walker,Four Wheel Walker,Straight Cane Additional Social History Comment Pt is insistent on not going to skilled rehab and claims that has no one to assist him unless his calls his neighbors to help. M2 OT-IP Current Condition Start: 11/22/24 15:22 Freq: Status: Active Protocol: Document 11/22/24 15:22 [facility] (Rec: 11/22/24 15:38 [facility] Desktop) Occupational Therapy Current Condition Current Condition Evaluation Date 11/22/24 Treatment Diagnosis Sepsis, LLE cellulitis Diagnosis Onset Date 11/19/24 M3 OT- IP Subjective and Pain Start: 11/22/24 15:22 Freq: Status: Active Protocol: Document 11/22/24 15:22 [facility] (Rec: 11/22/24 15:38 [facility] Desktop) OT- Subjective Occupational Therapy Visit Type Type Initial Evaluation Visit Start Time 14:40 Visit Stop Time 15:23 Notes Requested to nursing aid that pt have a chair alarm on due to decreased safety awareness. Occupational Therapy Visit Comments Patient Comments Pt agreed to get up to walk in the room and agreed to do grooming and oral care needs. Patient/Caregiver Goals TO go home. OT Pain Assessment Pain When Pain Assessed At Rest Pain Present Pain Present Pain Reported Location Back Pain Behaviors Facial Grimacing M4 OT- IP ADL's Start: 11/22/24 15:22 Freq: Status: Active Protocol: Document 11/22/24 15:22 [facility] (Rec: 11/22/24 15:38 [facility] Desktop) OT [id number] Comments OT Self-Feeding Comments Not at meal time. OT ADL-Grooming General Evaluation Areas Needing Assistance Retrieving/Set-up of Grooming Items Comments OT Grooming Comments Able to do while seated. OT ADL-Oral Care General Eval Oral Care Ability Independent OT ADL-Dressing Comments OT Dressing Comments Not performed. OT ADL-Toileting Comments OT Toileting Comments Not having to go at this time. OT ADL-Bathing Comments OT Bathing Comments Pt will benefit from assist due to decreased balance and safety. M5 OT- IP IADL's Start: 11/22/24 15:22 Freq: Status: Active Protocol: Document 11/22/24 15:22 [facility] (Rec: 11/22/24 15:38 [facility] Desktop) OT-Instrumental Activities of Daily Living Home Safety Awareness Awareness of Need for Assistance at Home Decreased Awareness Medication Management Medication Management Comments Pt states sets up his medications on his own. Money Management Money Management Comments Pt states uses automatic payments. Meal Preparation Meal Preparation Comments At this time, best for pt to get assist. Toxicology Teacher Toxicology Teacher Comments Best for pt to have assist. Driving Driving Concerns Identified Regarding Safety M6 OT- IP Functional Cognition Start: 11/22/24 15:22 Freq: Status: Active Protocol: Document 11/22/24 15:22 [facility] (Rec: 11/22/24 15:38 [facility] Desktop) Cognitive Factors Limiting Selfcare Function Cognitive Ability Level of Alertness Alert Patient Orientation Name,Place,Situation Attention Span Ability Capable of Focused Attention, Capable of Sustained Attention Ability to Follow Commands Able to Follow One Step Commands Memory Description Short Term Impaired Cognitive Comments Cognitive Assessment Comments Pt admits that his memory is bad and however remembered not doing well on the cognitive assessment on 05/17/25. To reassess pt tomorrow for SLUMS and Hope Making Part B. Pt needing simple concrete cues to follow. OT- Vision and Hearing OT- Hearing Assessment OT- Hearing Assessment WFL OT- Vision Assessment Visual Acuity Glasses All The Time Visual Attentiveness WFL Occular Pursuits WFL Vision Assessment Comments Pt able to read the clock appropriately. M7 OT- IP Mobility and Balance Start: 11/22/24 15:22 Freq: Status: Active Protocol: Document 11/22/24 15:22 [facility] (Rec: 11/22/24 15:38 [facility] Desktop) OT- Bed Mobility Assessment Supine to Sit Supine to Sit Assist Standby Assistance,Bedrails OT-Transfer Assessment Sit to and From Stand Sit to and from Stand Minimal Assistance Transfers Transfer Ability Minimal Assistance Technique Transfer Destination Bed,Chair Transfer Technique Stand Step Pivot Devices Transfer Assistive Devices Gait Belt,Front Wheeled Walker Comments Mobility Comments BP supine 139/49, sitting 163/ 94, and after after transfer 179/80. OT- Balance Assessment Sitting Balance and Reactions Static Sitting Balance Ability Good Dynamic Sitting Balance Ability Good Standing Balance and Reactions Static Standing Balance Ability Fair Dynamic Standing Balance Ability Fair M8 OT- IP Objective Assessments Start: 11/22/24 15:22 Freq: Status: Active Protocol: Document 11/22/24 15:22 [facility] (Rec: 11/22/24 15:38 [facility] Desktop) OT Gross Range of Motion Upper Extremity Range of Motion Assessment Within Functional Limits OT Strength Upper Extremity Strength Assessment Within Functional Limits Comments Strength Comments RUE 4/5, LUE 4+/5 to 4/5 M9 OT- IP Assessment and Plan Start: 11/22/24 15:22 Freq: Status: Active Protocol: Document 11/22/24 15:22 [facility] (Rec: 11/22/24 15:38 [facility] Desktop) OT Summary Assessment and Plan Potential Rehabilitation Potential Good Analytic Complexity at Evaluation Moderate Summary OT Impairments Pain,Strength,Balance, Functional Cognition, Functional Mobility,Grooming, Dressing,Toileting,Bathing, Toilet Transfers,Shower Transfers,Activity Tolerance Progress Towards Goals Slow Progress due to Medical Issues,Slow Progress due to Activity Tolerance,Slow Progress due to Cognition Assessment Summary Pt MOD complexity and main barriers are pain, decreased safety awareness and balance. Pt now needing YODIT for mobility needs and use of FWW. Pt will benefit from skilled rehab otherwise home with 24/7 assist and home health, as pt is insistent on going home. TO assess pt for SLUMS and Hope Making Part B tomorrow. Goals Self-Feeding Goal Independent Grooming Goal Independent Dressing Goal Independent Toileting Goal Independent Bathing Goal Independent Toilet Transfer Goal Independent Shower Transfer Goal Independent Days to Meet Goals 10 Frequency of Treatment Other frequency 5x/week Treatment Plan OT Treatment Plan ADL Training,Functional Cognition Training,Functional Mobility,Patient/Family Education,Discharge Planning Discharge Recommendations OT Discharge Recommendations SNF Rehab Other Discharge Recommendations Pending if able to have 24/7 available assist at home- home with home health. Transportation Needs at Discharge Private Vehicle,Stretcher/ Ambulance
--- NOTE | 2024-11-22 15:41 | P.PN_ITS ---
Subjective Subjective Interval history: Note: Coming onto service, no documentation yesterday from previous hospitalist on duty. 74 y/o with PMH of A-fib, SSS, PPM, PAD, CAD, DM, diabetic neuropathy, HTN, GERD, enlarged prostate, recent TIA for which he was observed at [facility], memory loss - likely mild dementia, who was found down. From the ED: is a physician currently in [place] called to check on him. He did not answer at which point she called a neighbor to check on him. Patient found supine on the bedroom floor no pedal urine confusion with hypotension and hyperglycemia. Patient reports that he threw up last night he is not sure how he ended up on the floor. He has no real pain. Stomach is soft he has good strength. On admission, his only complaint is generalized weakness. BP elevated. Multiple leg skin sores and Lt great toe diabetic ulcer. ED workup: WBC 11.1 with left shift no anemia Lactate 7.6-->3.3 VBG pH 7.46, anion gap 20 Sodium 128 potassium 3.8 chloride 89 carbon dioxide 19 BUN 22 creatinine 1.39 glucose 379 Troponin 0.153-->0.176-->0.161 cpk 406 ESR 20 previously 13, CRP 39.8 Images, CTH, CTA, CTCS, CXR non-diagnostic. Admitted to telemetry with sepsis and NSTEMI Today he was able to get to the bathroom but remains very weak compared to baseline. Reports foot pain with ambulation still. Minimal change in the appearance of his leg but generally feels less full and less painful. PT seen today, recommended SNF. Exam Vital Signs (past 8 hours): - 11/22/24 07:50 11/22/24 11:00 Temperature 97.0 F L Pulse Rate 66 Respiratory Rate 15 Blood Pressure 160/78 H Pulse Oximetry 96 Oxygen Delivery Method Room Air Oxygen Flow Rate 0 Fraction of Inspired Oxygen 28 SaO2/FiO2 Ratio 342 Oxygen Delivery Method Room Air Oxygen Flow Rate 0 Narrative Exam Narrative: Gen: NAD, sitting upright in hospital chair CV: RRR no m/r/g Pulm: CTA b/l Ext: L>R peripheral edema, mild erythema and tenderness, unchanged to yesterday. foot plantar aspect hallux ulceration with erythema, induration, or warmth. Objective Labs 11/22/24 05:30 11/22/24 05:30 Labs: Laboratory Results - last 24 hr 11/22/24 05:30 WBC 4.8 RBC 4.51 Hgb 11.6 L Hct 35.2 L MCV 78.1 L MCH 25.8 L MCHC 33.0 RDW 18.4 H Plt Count 145 L Neut % (Auto) 71.8 Lymph % (Auto) 15.6 L Kimball % (Auto) 8.2 Eos % (Auto) 4.0 Baso % (Auto) 0.4 Neut # (Auto) 3500 Lymph # (Auto) 800 L Kimball # (Auto) 400 Eos # (Auto) 200 Baso # (Auto) 0 Sodium 128 L Potassium 3.2 L Chloride 97 L Carbon Dioxide 26 BUN 14 Creatinine 0.92 Estimated GFR > 60 BUN/Creatinine Ratio 15.2 Glucose 183 H Hemoglobin A1c 7.4 H Calcium 8.2 L PFSH Medical History Right anterior knee pain Necrotic toes Diabetic toe ulcer Peripheral neuropathy (~1994) Fractures (~2004) Carpal tunnel syndrome (~1981) Plantar warts Rubella Mumps Measles Chicken pox Ruptured tympanic membrane (~1977) GERD (gastroesophageal reflux disease) (~1989) Peripheral vascular disease (~1999) Essential hypertension (09/22/16) Surgical History Status post aorto-coronary artery bypass graft Anesthesia Status post urinary system surgery (~1993) History of carpal tunnel repair (~1980) Family History Mother Heart disease Hypertension Stroke Diabetes mellitus Father No problems noted. Social History household members: spouse Smoking Status: Never smoker alcohol intake: current Assessment & Plan Assessment & Plan narrative: 1) Sepsis sceondary to L leg cellulitis and possible infected diabetic L foot ulcer - SOFA score > 2 with KASIA, elevated bilirubin - was on zosyn and vancomycin, urine culture also with morganella but only 30- 40K CFU unclear if represents actual infection. Discussed with pharmacy today, will change to cefepime and vancomycin. - improvement in leg appearance and pain today - US venous negative for DVT on L leg - PT/OT recommended SNF today. - seen by orthopedics, no indication for surgery for DM foot ulcer. (2) Myocardial injury, improved. Hx of CAD with prior CABG and PAD. - elevated troponin on presentation, likely due to sepsis as noted above. No chest pain, EKG is paced. - not treated with heparin on presentation - outpatient follow up with cardiology - continue plavix and Pradaxa (3) Syncope: - likely due to #1 above - PT / OT evaluations (4) Type 2 diabetes mellitus: - continue to adjust insulin as tolerated in the hospital - poorly controlled. (5) Pacemaker due to SSS, chronic (6) Atrial fibrillation, chronic - continue home metoprolol and pradaxa (7) Essential hypertension: (8) Peripheral vascular disease: 9 - KASIA, improved, POA 10 chronic cognitive impairment, prior CVA Code: Full, surrogate is patient's spouse DVT: on pradaxa I have utilized all available immediate resources to obtain, update, or review the patient's current medications. Dispo: patient admitted under inpatient status. Unclear if will be able to discharge home or possible SNF. PT recommending SNF at this time. Will see after another 1-2 days of antibiotic therapy how he is progressing. Additional history obtained via discussions with the bedside RN, and patient case coordinator today. These discussions contributed to the creation of the above assessment and plan. I have reviewed patient's presenting documentation, labs, and imaging personally. Time-Based Coding :: [TOTAL MINUTES] spent with patient and on the chart (including review of chart, obtaining history, exam, reviewing outside data, placing orders, documenting exam and treatment plan, and counseling patient) on [DATE].
--- NOTE | 2024-11-22 16:10 | CM.DPNOTE ---
DCP note [employer] VISITING TE[employer]ER reviewed EMR per OT eval, rec SNF vs 24 assistance at home and HH. will complete SLUMS tomorrow. PT eval pending. per provider, PT updated him rec SNF. per provider, pt likely to decline SNF. another 1-2 of IV abx and then switch to PO. hopeful pt will be mobilizing better after another day of IV abx. [facility] [employer] VISITING TE[employer]ER unable to meet with pt today due to triaging needs. Will f/u about SNF vs assistance at home (when is family returning from vacation?) and HH. will follow closely for DCP coordination. f/u about wound care need. Mikki Martinez, [employer] VISITING TEACHER
[2024-11-22 20:00] VITALS: BP 172/87; PULSE 64; RESP 18; TEMP 35.9; O2SAT 99
[2024-11-22 21:00] VITALS: BP 172/87; PULSE 64
[2024-11-23] VITALS (9 sets, daily range): BP systolic 169–209; BP diastolic 70–97; PULSE 60–71; RESP 14–20; TEMP 36.1–36.3; O2SAT 95–99
[2024-11-23] MEDS: VANCOMYCIN 1,000 MG in SODIUM CHLORIDE 0.9% 250 ML 250 MG IV ×2 (00:25→12:54)
[2024-11-23] MEDS: SODIUM CHLORIDE 0.9% FLUSH 10 ML IV ×3 (00:43→20:46)
[2024-11-23] MEDS: SODIUM CHLORIDE 0.9% 250 ML 21 ML IV ×2 (00:44→20:45)
[2024-11-23] MEDS: ACETAMINOPHEN 325 MG TABLET 650 MG PO ×2 (01:57→20:44)
[2024-11-23] MEDS: CEFEPIME 2 GM in SODIUM CHLORIDE 0.9% 100 ML IV ×2 (01:57→12:56)
[2024-11-23] MEDS: OXYCODONE IR 5 MG TABLET PO (03:09)
[2024-11-23] MEDS: hydrALAZINE 25 MG TABLET PO (06:18)
[2024-11-23] MEDS: PANTOPRAZOLE DR 20 MG TABLET PO ×2 (06:19→20:44)
[2024-11-23 06:38] LABS: Add Manual Diff / Slide Review NO; Basophils Absolute Auto 0 /uL (0-100); Basophils Percent Auto 0.6 % (0-2); Eosinophils Absolute Auto 200 /uL (0-450); Eosinophils Percent Auto 4.8 % (2-4); Hematocrit 36.8 % (41-53); Hemoglobin 12.1 g/dL (13.5-17.5); Lymphocytes Absolute Auto 900 /uL (1100-4500); Lymphocytes Percent Auto 17.4 % (25-40); Mean Corpuscular HGB Conc 32.8 % (30-36); Mean Corpuscular Hemoglobin 25.8 PG (26-34); Mean Corpuscular Volume 78.6 fL (80-100); Monocytes Absolute Auto 500 /uL (0-900); Neutrophils Absolute Auto 3400 /uL (1500-7000); Neutrophils Percent Auto 68.2 % (50-75); Platelet Count 166 X10^3/uL (150-400); Red Blood Cell Count 4.67 X10^6/uL (4.5-5.9); Red Cell Distribution Width 18.6 % (11.6-14.8); White Blood Cell Count 5.1 X10^3/uL (4.5-11.0)
[2024-11-23 06:47] LABS: BUN Creatinine Ratio 19.6 (6-22); Blood Urea Nitrogen 18 mg/dL (9-20); Calcium 8.3 mg/dL (8.4-10.2); Carbon Dioxide 27 mmol/L (22-32); Chloride 98 mmol/L (98-107); Estimated Glomerular Filt Rate > 60 mL/min (>60); Glucose 200 mg/dL (80-110); HEMOLYSIS < 15 (0-50); Potassium 3.6 mmol/L (3.4-5.1); Sodium 129 mmol/L (137-145)
--- NOTE | 2024-11-23 07:57 | PM.PN.1 ---
Subjective Subjective Interval history: Summary: 74 y/o with PMH of A-fib, SSS, PPM, PAD, CAD, DM, diabetic neuropathy, HTN, GERD, enlarged prostate, recent TIA for which he was observed at [place], memory loss - likely mild dementia, who was found down. From the ED: is a physician currently in [place] called to check on him. He did not answer at which point she called a neighbor to check on him. Patient found supine on the bedroom floor no pedal urine confusion with hypotension and hyperglycemia. Patient reports that he threw up last night he is not sure how he ended up on the floor. He has no real pain. Stomach is soft he has good strength. On admission, his only complaint is generalized weakness. BP elevated. Multiple leg skin sores and Lt great toe diabetic ulcer. ED workup: WBC 11.1 with left shift no anemia Lactate 7.6-->3.3 VBG pH 7.46, anion gap 20 Sodium 128 potassium 3.8 chloride 89 carbon dioxide 19 BUN 22 creatinine 1.39 glucose 379 Troponin 0.153-->0.176-->0.161 cpk 406 ESR 20 previously 13, CRP 39.8 Images, CTH, CTA, CTCS, CXR non-diagnostic. Admitted to telemetry with sepsis and NSTEMI S: Leg is still swollen, somewhat tender, and red. He was a small ulcer over the great toe. He was still quite weak but improving. Exam Vital Signs (past 8 hours): - 11/23/24 00:00 11/23/24 00:00 11/23/24 06:18 Temperature 97.3 F L Pulse Rate 61 71 Respiratory Rate 18 Blood Pressure 190/97 H 209/90 H 186/88 H Pulse Oximetry 97 Oxygen Flow Rate 0 11/23/24 06:24 11/23/24 06:59 Temperature 97.1 F L Pulse Rate 71 64 Respiratory Rate 20 Blood Pressure 186/88 H 169/74 H Pulse Oximetry 95 Oxygen Flow Rate Fraction of Inspired Oxygen 28 SaO2/FiO2 Ratio 342 Oxygen Delivery Method Room Air Oxygen Flow Rate 0 Narrative Exam Narrative: NAD, alert and oriented. Fluent speech. Lungs are clear, normal rate and effort. Heart is regular, no murmur gallop or rub. Abdomen is soft, non distended. Extremities: Left leg is swollen to the knee and somewhat warm. Right leg is unremarkable. This is a very small ulceration over the bottom of the great toe on the left. Objective Labs 11/23/24 05:40 11/23/24 05:40 Labs: Laboratory Results - last 24 hr 11/22/24 11/23/24 05:30 05:40 WBC 5.1 RBC 4.67 Hgb 12.1 L Hct 36.8 L MCV 78.6 L MCH 25.8 L MCHC 32.8 RDW 18.6 H Plt Count 166 Neut % (Auto) 68.2 Lymph % (Auto) 17.4 L Carroll % (Auto) 9.0 Eos % (Auto) 4.8 H Baso % (Auto) 0.6 Neut # (Auto) 3400 Lymph # (Auto) 900 L Carroll # (Auto) 500 Eos # (Auto) 200 Baso # (Auto) 0 Sodium 129 L Potassium 3.6 Chloride 98 Carbon Dioxide 27 BUN 18 Creatinine 0.92 Estimated GFR > 60 BUN/Creatinine Ratio 19.6 Glucose 200 H Hemoglobin A1c 7.4 H Calcium 8.3 L PFSH Medical History Right anterior knee pain Necrotic toes Diabetic toe ulcer Peripheral neuropathy (~1994) Fractures (~2004) Carpal tunnel syndrome (~1981) Plantar warts Rubella Mumps Measles Chicken pox Ruptured tympanic membrane (~1977) GERD (gastroesophageal reflux disease) (~1989) Peripheral vascular disease (~1999) Essential hypertension (09/22/16) Surgical History Status post aorto-coronary artery bypass graft Anesthesia Status post urinary system surgery (~1993) History of carpal tunnel repair (~1980) Family History Mother Heart disease Hypertension Stroke Diabetes mellitus Father No problems noted. Social History household members: spouse Smoking Status: Never smoker alcohol intake: current Assessment & Plan Assessment & Plan narrative: 1) Sepsis sceondary to L leg cellulitis and possible infected diabetic L foot ulcer - SOFA score > 2 with KASIA, elevated bilirubin - was on zosyn and vancomycin, urine culture also with morganella but only 30-40K CFU unclear if represents actual infection. Discussed with pharmacy today, will change to cefepime and vancomycin. - improvement in leg appearance and pain today - US venous negative for DVT on L leg - PT/OT recommended SNF today. - seen by orthopedics, no indication for surgery for DM foot ulcer. (2) Myocardial injury, improved. Hx of CAD with prior CABG and PAD. - elevated troponin on presentation, likely due to sepsis as noted above. No chest pain, EKG is paced. - not treated with heparin on presentation - outpatient follow up with cardiology - continue plavix and Pradaxa (3) Syncope: - likely due to #1 above - PT / OT evaluations (4) Type 2 diabetes mellitus: - continue to adjust insulin as tolerated in the hospital - poorly controlled. (5) Pacemaker due to SSS, chronic (6) Atrial fibrillation, chronic - continue home metoprolol and pradaxa (7) Essential hypertension: (8) Peripheral vascular disease: 9 - KASIA, improved, POA 10 chronic cognitive impairment, prior CVA PLAN: Continue IV antibiotics for another midnight for leg cellulitis. Monitor renal function and encourage oral intake. Continue physical therapy. Code: Full, surrogate is patient's spouse DVT: on pradaxa Time-Based Coding :: [TOTAL MINUTES] spent with patient and on the chart (including review of chart, obtaining history, exam, reviewing outside data, placing orders, documenting exam and treatment plan, and counseling patient) on [DATE].
[2024-11-23] MEDS: DONEPEZIL 5 MG TABLET PO (08:52)
[2024-11-23] MEDS: DABIGATRAN 75 MG CAPSULE 150 MG PO ×2 (08:52→20:41)
[2024-11-23] MEDS: METOPROLOL ER 25 MG TABLET 50 MG PO ×3 (08:52→20:42)
[2024-11-23] MEDS: ATORVASTATIN 20 MG TABLET 80 MG PO (08:52)
[2024-11-23] MEDS: CLOPIDOGREL 75 MG TABLET PO (08:52)
[2024-11-23] MEDS: TAMSULOSIN 0.4 MG CAPSULE PO (08:52)
[2024-11-23] MEDS: LOSARTAN 25 MG TABLET 50 MG PO ×2 (08:53→20:41)
[2024-11-23] MEDS: INSULIN LISPRO 100 UNIT/ML 3ML VIAL SUBCUT ×6 (08:55→20:41)
[2024-11-23] MEDS: INSULIN GLARGINE 100 UNIT/ML 3ML PEN 10 UNIT SUBCUT (08:56)
--- NOTE | 2024-11-23 10:53 | OT.IP.TRT ---
Current Diagnoses Sepsis, unspecified organism (11/19/24) Type 2 diabetes mellitus with other diabetic kidney complication (11/19/24) Type 2 diabetes mellitus with foot ulcer (11/19/24) Obesity, unspecified (11/19/24) Polyneuropathy, unspecified (11/19/24) Essential (primary) hypertension (11/19/24) Non-ST elevation (NSTEMI) myocardial infarction (11/19/24) Paroxysmal atrial fibrillation (11/19/24) Peripheral vascular disease, unspecified (11/19/24) Cellulitis, unspecified (11/19/24) Non-pressure chronic ulcer of other part of unspecified foot with unspecified severity (11/19/24) Acute kidney failure, unspecified (11/19/24) Syncope and collapse (11/19/24) Severe sepsis without septic shock (11/19/24) Proteinuria, unspecified (11/19/24) Presence of cardiac pacemaker (11/19/24) Occupational Therapy Treatment Note M2 OT-IP Current Condition Start: 11/22/24 15:22 Freq: Status: Active Protocol: Document 11/22/24 15:22 [facility] (Rec: 11/22/24 15:38 [facility] Desktop) Occupational Therapy Current Condition Current Condition Evaluation Date 11/22/24 Treatment Diagnosis Sepsis, LLE cellulitis Diagnosis Onset Date 11/19/24 M3 OT- IP Subjective and Pain Start: 11/22/24 15:22 Freq: Status: Active Protocol: Document 11/23/24 11:01 [facility] (Rec: 11/23/24 11:18 [facility] Desktop) OT- Subjective Occupational Therapy Visit Type Type Treatment Note Visit Start Time 10:25 Visit Stop Time 10:53 Occupational Therapy Visit Comments Patient Comments Pt agreed to do cognitive assessments. Patient/Caregiver Goals TO go home. OT Pain Assessment Pain When Pain Assessed At Rest Pain Present Pain Present Denied Pain M4 OT- IP ADL's Start: 11/22/24 15:22 Freq: Status: Active Protocol: Document 11/23/24 11:01 [facility] (Rec: 11/23/24 11:18 [facility] Desktop) OT [id number] General Evaluation Self-Feeding Ability Independent OT ADL-Grooming Comments OT Grooming Comments Not performed. OT ADL-Oral Care Comments Oral Care Comments Not performed. OT ADL-Dressing Comments OT Dressing Comments Not performed. OT ADL-Toileting Comments OT Toileting Comments Pt has been using the urinal on his own. OT ADL-Bathing Comments OT Bathing Comments Per nursing aid able to shower seated on his own yesterday after set-up while seated. M5 OT- IP IADL's Start: 11/22/24 15:22 Freq: Status: Active Protocol: Document 11/22/24 15:22 [facility] (Rec: 11/22/24 15:38 [facility] Desktop) OT-Instrumental Activities of Daily Living Home Safety Awareness Awareness of Need for Assistance at Home Decreased Awareness Medication Management Medication Management Comments Pt states sets up his medications on his own. Money Management Money Management Comments Pt states uses automatic payments. Meal Preparation Meal Preparation Comments At this time, best for pt to get assist. Hydrologic Engineer Hydrologic Engineer Comments Best for pt to have assist. Driving Driving Concerns Identified Regarding Safety M6 OT- IP Functional Cognition Start: 11/22/24 15:22 Freq: Status: Active Protocol: Document 11/23/24 11:01 [facility] (Rec: 11/23/24 11:18 [facility] Desktop) Cognitive Factors Limiting Selfcare Function Cognitive Ability Level of Alertness Alert Patient Orientation Name,Age,Birthday,Month,Date, Year,Day of Week,Place, Situation Attention Span Ability Capable of Focused Attention, Capable of Sustained Attention Ability to Follow Commands Able to Follow Multi-Step Commands Memory Description Short Term Impaired Cognitive Tests SLUMS Pt scored 27/30 which implies normal for cognition. Pt able to recall 7 animals in one minute and able to recall 4/5 objects after tie passed. Cognitive Comments Cognitive Assessment Comments Pt thinking much better than last time he performed cognitive assessment for SLUMS , today score implies normal. However pt scored 223 seconds on [place] Making Part B which still implies severe impairments for mental flexibility, executive functioning, task switching, and visual attention. Per data from [employer], a score of greater than 180 seconds, person more likely to get into a car accident. Pt states can call for groceries or call his neighbors if needed. Pt is a bit insistent on his needs and will probably do as he pleases. M7 OT- IP Mobility and Balance Start: 11/22/24 15:22 Freq: Status: Active Protocol: Document 11/23/24 11:01 [facility] (Rec: 11/23/24 11:18 [facility] Desktop) OT-Transfer Assessment Sit to and From Stand Sit to and from Stand Standby Assistance Transfers Transfer Ability Standby Assistance,Contact Guard Assistance Technique Transfer Destination Bed Transfer Technique Stand Step Pivot Devices Transfer Assistive Devices Gait Belt,Front Wheeled Walker Comments Mobility Comments Pt able to get out of bed with bed rail and SBA. SBA to stand and able to walk with the FWW in the room and then had a loss of balance and needing CGA to correct his balance. Pt states has items closer in his home to be able to hold onto. OT- Balance Assessment Sitting Balance and Reactions Static Sitting Balance Ability Good Dynamic Sitting Balance Ability Good Standing Balance and Reactions Static Standing Balance Ability Good Dynamic Standing Balance Ability Fair M8 OT- IP Objective Assessments Start: 11/22/24 15:22 Freq: Status: Active Protocol: Document 11/22/24 15:22 [facility] (Rec: 11/22/24 15:38 [facility] Desktop) OT Gross Range of Motion Upper Extremity Range of Motion Assessment Within Functional Limits OT Strength Upper Extremity Strength Assessment Within Functional Limits Comments Strength Comments RUE 4/5, LUE 4+/5 to 4/5 M9 OT- IP Assessment and Plan Start: 11/22/24 15:22 Freq: Status: Active Protocol: Document 11/23/24 11:01 [facility] (Rec: 11/23/24 11:18 [facility] Desktop) OT Summary Assessment and Plan Potential Rehabilitation Potential Good Analytic Complexity at Evaluation Moderate Summary OT Impairments Pain,Strength,Balance, Functional Cognition, Functional Mobility,Grooming, Dressing,Toileting,Bathing, Toilet Transfers,Shower Transfers,Activity Tolerance Progress Towards Goals Progressing Toward Goals,Slow Progress due to Medical Issues Assessment Summary Pt scored 27/30 on SLUMS today which implies normal for cognition, however scored 223 on [place] Making Part B which implies severe deficits for visual attention , speed of processing, task switching, executive functioning, and mental flexibility. Suggested pt not drive at this time. Pt would benefit from short skilled stay versus home with assist and home health- pt lives alone. Pt insistent on going home. Goals Dressing Goal Independent Toilet Transfer Goal Independent Shower Transfer Goal Independent Days to Meet Goals 7 Frequency of Treatment Other frequency 5x/week Treatment Plan OT Treatment Plan ADL Training,Functional Mobility,Patient/Family Education,Discharge Planning Discharge Recommendations OT Discharge Recommendations Home with Assistance,Home Health,SNF Rehab,Home vs SNF Transportation Needs at Discharge Private Vehicle
--- NOTE | 2024-11-23 12:05 | PT.IPTN ---
Current Diagnoses Sepsis, unspecified organism (11/19/24) Type 2 diabetes mellitus with other diabetic kidney complication (11/19/24) Type 2 diabetes mellitus with foot ulcer (11/19/24) Obesity, unspecified (11/19/24) Polyneuropathy, unspecified (11/19/24) Essential (primary) hypertension (11/19/24) Non-ST elevation (NSTEMI) myocardial infarction (11/19/24) Paroxysmal atrial fibrillation (11/19/24) Peripheral vascular disease, unspecified (11/19/24) Cellulitis, unspecified (11/19/24) Non-pressure chronic ulcer of other part of unspecified foot with unspecified severity (11/19/24) Acute kidney failure, unspecified (11/19/24) Syncope and collapse (11/19/24) Severe sepsis without septic shock (11/19/24) Proteinuria, unspecified (11/19/24) Presence of cardiac pacemaker (11/19/24) Physical Therapy Treatment Note M2 PT-IP Current Condition Start: 11/22/24 16:52 Freq: NEEDED Status: Active Protocol: Document 11/22/24 14:41 AB (Rec: 11/22/24 17:20 AB [id number]) Physical Therapy Current Condition Current Condition Evaluation Date 11/22/24 Treatment Diagnosis sepsis; CT; difficulty in walking Onset Date 11/19/24 M3 PT-IP Subjective Start: 11/22/24 16:52 Freq: NEEDED Status: Active Protocol: Document 11/23/24 12:05 AB (Rec: 11/23/24 13:38 AB [id number]) Subjective Physical Therapy Visit Type Type Treatment Note Visit Start Time 12:05 Visit Stop Time 12:30 Number of BURR BENCH OPERATOR Visits 0 Physical Therapy Visit Comments Patient Comments agreeable to do PT M4 PT-IP Mobility and Gait Start: 11/22/24 16:52 Freq: NEEDED Status: Active Protocol: Document 11/23/24 12:05 AB (Rec: 11/23/24 13:38 AB [id number]) PT-Bed Mobility Assessment Supine to Sit Supine to Sit Standby Assistance PT-Transfer Assessment Sit to and From Stand Sit to and from Stand Standby Assistance,1 Person Assistance,Use of Upper Extremities Equipment Transfer Assistive Device Gait Belt,Front Wheeled Walker Orthotic/Prosthetic Devices or Brace: No Transfers Transfer Destination Chair Transfer Technique ambulated Transfer Ability Level of Assist Standby Assistance Comments Mobility Comments pt in bed and agreeable to do PT. stated that he feels better today and want to be able to use the toilet by himself. completed supine to sit SBA. sit to stand SBA and ambulated in room using fWW ~ 75 ft SBA. pt requested to use the toilet and ambulated to the toilet using fWW SBA. able to maintain standing SBA using grab bar/FWW for support SBA while using the toilet. pt ambulated towards the sink SBA using FWW. pt ambulated to the chair. positioned pt on the chair and set up for lunch. call light and table placed within reach. pt wanting to use the toilet independently. informed pt to still call for assistance when needed. NAC informed. Gait Assessment Gait Gait Assistance Required: Standby Assistance Distance (Feet) 75 Able to Maintain Weight Bearing Status Yes During Gait Assistive Devices Assistive Device Gait Belt,Front Wheeled Walker Orthotic/Prosthetic Devices or Brace: No Gait Deviations General Gait Pattern Decreased Stride Length, Decreased Feet Clearance,Step- to Gait Factors Limiting Gait Function Factors Limiting Gait Function Decreased Activity Tolerance, Decreased Sensation,Decreased Strength,Limited Range of Motion,Poor Balance,Poor Safety Awareness M5 PT-IP Objective Assessments Start: 11/22/24 16:52 Freq: NEEDED Status: Active Protocol: Document 11/22/24 14:41 AB (Rec: 11/22/24 17:20 AB [id number]) Orientation Orientation/Cognition Level of Alertness Alert Orientation Name,Place,Situation Language Function Ability Hard of Hearing Safety Awareness Decreased Safety Awareness Memory Description Short Term Impaired Gross Range of Motion Lower Extremity ROM Assessment Within Functional Limits Strength Lower Extremity Strength Assessment Bilaterally Impaired Comments Strength Comments RLE : 3+/5 LLE : 4-/5 Sensation Assessment Sensation Gross Sensation Right LE Impaired,Left LE Impaired Sensation Description Numbness Comments Sensation Comments B feet chronic numbness per pt . Muscle Tone Muscle Tone WNL Yes M6 PT-IP Treatment Start: 11/22/24 16:52 Freq: NEEDED Status: Active Protocol: Document 11/23/24 12:05 AB (Rec: 11/23/24 13:38 AB [id number]) Physical Therapy Treatment Education Education Provided Safety M7 PT-IP Assessment and Plan Start: 11/22/24 16:52 Freq: NEEDED Status: Active Protocol: Document 11/23/24 12:05 AB (Rec: 11/23/24 13:38 AB [id number]) PT Summary Assessment and Plan Potential Rehabilitation Potential Good Summary Impairments Pain,ROM,Strength,Balance, Coordination,Sensation,Tone, Cognition,Bed Mobility, Transfers,Gait,Activity Tolerance Progress Towards Goals Progressing Toward Goals Assessment Summary pt is progressing with mobility and able to ambulate using FWW SBA. Recommending continued use of FWW at this time and pt agreed. pt may go home with assist when medically stable and will need HHPT. Goals Bed Mobility Goal Independent Transfer Goal Independent,Front Wheeled Walker Gait Goal Independent,Front Wheel Walker Gait Distance 150 Other Goals improve transfers and ambulation using walking stick /SPC ~ 150 ft mod I up/down 1 step using AD mod I Days to Meet Goals 10 Frequency of Treatment Frequency Of Treatment Once a Day Treatment Plan Physical Therapy Treatment Plan Bed Mobility Training,Transfer Training,Gait Training, Therapeutic Exercise,Balance Retraining,Discharge Planning, Hot or Cold Pack,Neuromuscular Re-ed,Coordination Retraining Precautions Other Precautions falls Recommendations To Nursing Amount of Assist Needed 1 Person Assist Discharge Recommendations PT Discharge Recommendations Home with Assistance,Home Health Transportation Needs at Discharge Private Vehicle - PT assist 1
[2024-11-23 12:16] LABS: Vancomycin Trough 10.5 ug/mL (10-20)
--- NOTE | 2024-11-23 12:56 | CM.DPNOTE ---
Addendum entered by AVTAR Melgoza 11/24/24 13:38: ADD 11/24/24: Updated [facility] at [place] with anticipated discharge over the next 24 hrs w/HH if patient agrees. Original Note: DCP Cont Reviewed chart. Patient discussed in multidisciplinary rounds. According to therapies, patient is improving functionally however does have some cognitive deficits, in part related to hx of TIA/CVA. Patient has been resistant to both SNF and HH. Dr Junior anticipates CATRACHO of 11/24. CM team following clinical course closely; discharge home 11/24 w/ HH RN (wound care) and HH PT is likely, if patient is agreeable. Transport unknown at this time. JEFF
--- NOTE | 2024-11-23 19:35 | PC.NURSE ---
New IV place in Left FA, pt tolerated well. IV in L AC removed, arm appears erythemic, pt reports it's sore.
[2024-11-23] MEDS: VANCOMYCIN 1,250 MG/250 ML PIGGYBACK 200 MG IV (20:46)
[2024-11-24] VITALS (13 sets, daily range): BP systolic 150–200; BP diastolic 62–97; PULSE 60–70; RESP 14–19; TEMP 35.6–36.1; O2SAT 96–97
--- NOTE | 2024-11-24 00:49 | PC.NURSE ---
Patient is alert and oriented although can be forgetful. Breath sounds CTA with RA sat of 99%. HRR. BP initially elevated at 184/71 and received his scheduled Losartan and Metoprolol with last BP being 150/62. HRR. Denied nausea. BT present and reports he had a BM yesterday. Is voiding using the urinal at bedside and denied any dysuria, frequency or urgency. Gait not assessed at time of assessment as not out of bed but was reported by previous RN that he gets up with walker and SBA. Is able to turn himself in bed. Has abrasions on left UE and bilateral LE. Skin ulcer noted on posterior left great toe. Cellulitis to left LE continues to be reddened and warm to touch with 1+ edema present. Bruising noted to right UE. IV site in left antecubital noted to be reddened at time of shift report so was restarted by SANDRA Cardenas but when Vancomycin infusion started he complained of pain at site of new IV so she inserted an US guided IV in left medial forearm with no further complaint. Was medicated with tylenol for 5/10 back pain with good relief. Has bilateral foot neuropathy which is chronic and unchanged. Fall risk score is high and bed alarm is activated.
[2024-11-24] MEDS: CEFEPIME 2 GM in SODIUM CHLORIDE 0.9% 100 ML IV ×2 (02:07→12:27)
[2024-11-24] MEDS: SODIUM CHLORIDE 0.9% FLUSH 10 ML IV ×3 (02:08→21:57)
[2024-11-24 05:09] LABS: Add Manual Diff / Slide Review NO; Basophils Absolute Auto 0 /uL (0-100); Basophils Percent Auto 0.4 % (0-2); Eosinophils Absolute Auto 400 /uL (0-450); Eosinophils Percent Auto 6.2 % (2-4); Hematocrit 36.8 % (41-53); Hemoglobin 12.1 g/dL (13.5-17.5); Lymphocytes Absolute Auto 1000 /uL (1100-4500); Lymphocytes Percent Auto 17.3 % (25-40); Mean Corpuscular HGB Conc 32.8 % (30-36); Mean Corpuscular Hemoglobin 25.7 PG (26-34); Mean Corpuscular Volume 78.2 fL (80-100); Monocytes Absolute Auto 500 /uL (0-900); Neutrophils Absolute Auto 4000 /uL (1500-7000); Neutrophils Percent Auto 68.1 % (50-75); Platelet Count 191 X10^3/uL (150-400); Red Cell Distribution Width 18.8 % (11.6-14.8); White Blood Cell Count 5.9 X10^3/uL (4.5-11.0)
[2024-11-24 05:12] LABS: BUN Creatinine Ratio 19.6 (6-22); Blood Urea Nitrogen 20 mg/dL (9-20); Calcium 8.5 mg/dL (8.4-10.2); Carbon Dioxide 26 mmol/L (22-32); Chloride 99 mmol/L (98-107); Estimated Glomerular Filt Rate > 60 mL/min (>60); Glucose 148 mg/dL (80-110); HEMOLYSIS < 15 (0-50); Potassium 3.7 mmol/L (3.4-5.1); Sodium 130 mmol/L (137-145)
[2024-11-24] MEDS: PANTOPRAZOLE DR 20 MG TABLET PO ×2 (06:31→21:59)
[2024-11-24] MEDS: DONEPEZIL 5 MG TABLET PO (08:34)
[2024-11-24] MEDS: DABIGATRAN 75 MG CAPSULE 150 MG PO ×2 (08:34→21:56)
[2024-11-24] MEDS: LOSARTAN 25 MG TABLET 50 MG PO ×2 (08:35→21:56)
[2024-11-24] MEDS: TAMSULOSIN 0.4 MG CAPSULE PO (08:37)
[2024-11-24] MEDS: METOPROLOL ER 25 MG TABLET 50 MG PO ×2 (08:37→21:56)
[2024-11-24] MEDS: CLOPIDOGREL 75 MG TABLET PO (08:37)
[2024-11-24] MEDS: ATORVASTATIN 20 MG TABLET 80 MG PO (08:37)
[2024-11-24] MEDS: INSULIN GLARGINE 100 UNIT/ML 3ML PEN 12 UNIT SUBCUT (08:43)
[2024-11-24] MEDS: INSULIN LISPRO 100 UNIT/ML 3ML VIAL SUBCUT ×7 (08:44→21:58)
[2024-11-24] MEDS: VANCOMYCIN 1,250 MG/250 ML PIGGYBACK 200 MG IV ×2 (08:50→21:55)
--- NOTE | 2024-11-24 09:38 | PC.NURSE ---
Addendum entered by Ester Glasgow R.N. 11/24/24 13:19: 1230 aware patient SBP 160s-170s, post BP morning meds and added hydralazine order. MD to increase hydralazine. No new orders at this time. Original Note: 0930 MD made aware that patient BP previously elevated 200/97. Patient with no complaints. BP medication previously administered. RN to recheck BP. MD to adjust BP medications.
[2024-11-24] MEDS: ACETAMINOPHEN 325 MG TABLET 650 MG PO ×2 (10:57→16:50)
[2024-11-24] MEDS: hydrALAZINE 25 MG TABLET PO ×2 (10:57→17:20)
--- NOTE | 2024-11-24 11:02 | DIET.CONS ---
Dietary Consultation Note Admission Date: 11/19/2024 19:34 Assessment: 74 y M admitted after being found down. Dietitian screened for LOS. Met with pt at bedside. Reports taking home medications but not taking BG. Does not like to prick fingers. Would like CGM, but has found that it is around 80 dollars for one dexcom sensor for him. Pt is not on insulin at home and reports not having low blood sugars. Is interested in information on over the counter CGM options, i.e stelo. Attempted to discuss nutrition for diabetes management, pt stated he does not wish to talk about nutrition. Denied wanting handout on it as well. Ht: 177.8 cm Wt: 94 kg BMI: 31.1 UBW: 95.708 kg on 11/23/23 Last BM: 11/21/24 (11/21/24 11:58) MNA: 13 Jatinder Score: 20 Diet: 11/20/24 Breakfast Carbohydrate Consistent Diet Diet Modifications: Carbohydrate level: Medium (3 CHO) Bedtime snack: Yes Reflex DM orders: No Nutrition Percent Meal Consumed 100% 11/24/24 09:41 Percent Meal Consumed 100% 11/23/24 19:22 Percent Meal Consumed 100% 11/23/24 18:00 Percent Meal Consumed 50% 11/22/24 18:00 Labs: RBC 4.70 X10^6/uL (4.5-5.9) 11/24/24 04:30 Hgb 12.1 g/dL (13.5-17.5) L 11/24/24 04:30 Hct 36.8 % (41-53) L 11/24/24 04:30 Creatinine 1.02 mg/dL (0.66-1.25) 11/24/24 04:30 Hemoglobin A1c 7.4 % (4.0-6.0) H 11/22/24 05:30 Lactate 1.4 mmol/L (0.7-2.1) 11/21/24 01:15 Nutrition Diagnosis: Altered nutrition related lab values (A1c%) r/t endocrine dysfunction aeb A1c 7.4% on 11/22/24 Interventions: -Provided information on CGM options per pt interest EER: 45-60 g carbs at meals, 15-30 g carbs at snacks Monitoring/Evaluations: BG, f/u PRN Electronically Signed by: Ashleigh Matt 11/24/24 11:02 Clinical Dietitian [address] [address]
--- NOTE | 2024-11-24 13:34 | P.PN_ITS ---
Subjective Subjective Interval history: Summary: 74 y/o with PMH of A-fib, SSS, PPM, PAD, CAD, DM, diabetic neuropathy, HTN, GERD, enlarged prostate, recent TIA for which he was observed at [facility], memory loss - likely mild dementia, who was found down. From the ED: is a physician currently in [place] called to check on him. He did not answer at which point she called a neighbor to check on him. Patient found supine on the bedroom floor no pedal urine confusion with hypotension and hyperglycemia. Patient reports that he threw up last night he is not sure how he ended up on the floor. He has no real pain. Stomach is soft he has good strength. On admission, his only complaint is generalized weakness. BP elevated. Multiple leg skin sores and Lt great toe diabetic ulcer. ED workup: WBC 11.1 with left shift no anemia Lactate 7.6-->3.3 VBG pH 7.46, anion gap 20 Sodium 128 potassium 3.8 chloride 89 carbon dioxide 19 BUN 22 creatinine 1.39 glucose 379 Troponin 0.153-->0.176-->0.161 cpk 406 ESR 20 previously 13, CRP 39.8 Images, CTH, CTA, CTCS, CXR non-diagnostic. Admitted to telemetry with sepsis and NSTEMI S: He feels more fatigued today. His left leg is still swollen, but less red. It is still painful. His blood pressure has been very poorly controlled today, he was in his usual medications. He states that is usually 120/70 at home. It is unclear if this is related to his pain or situational. Exam Vital Signs (past 8 hours): - 11/24/24 07:00 11/24/24 08:00 11/24/24 08:35 Temperature 96.9 F L Pulse Rate 66 64 Respiratory Rate 16 Blood Pressure 200/97 H Pulse Oximetry 97 Oxygen Delivery Method Room Air Oxygen Flow Rate 0 11/24/24 08:37 11/24/24 10:50 11/24/24 10:57 Temperature Pulse Rate 64 62 62 Respiratory Rate Blood Pressure 200/97 H 169/80 H 171/71 H Pulse Oximetry Oxygen Delivery Method Oxygen Flow Rate 11/24/24 12:00 Temperature Pulse Rate 60 Respiratory Rate 14 Blood Pressure 170/78 H Pulse Oximetry 96 Oxygen Delivery Method Oxygen Flow Rate 0 Fraction of Inspired Oxygen 28 SaO2/FiO2 Ratio 342 Oxygen Delivery Method Room Air Oxygen Flow Rate 0 Narrative Exam Narrative: NAD, alert and oriented. Fluent speech. Lungs are clear, normal rate and effort. Heart is regular, no murmur gallop or rub. Abdomen is soft, non distended. Extremities: Left leg is swollen, and warm, but not red. The ulceration in the great toe is stable. Objective Imaging Multiple studies:: Radiologist's impression: Echo: Interpretation Summary Patient did not want contrast. The left ventricle is normal in size. The ejection fraction is estimated to be 50-55%. Previous LVEF reported to be 60 to 65%. The right ventricle is mildly dilated. Visually RV function appears to be preserved. No significant valvular pathology seen. Doppler profile across pulmonary valve suggests pulmonary hypertension. Pulmonary artery pressures cannot be estimated because of the lack of a measurable TR jet velocity but the IVC suggests a CVP of around 15 mmHg. I do not see any obvious RV pacemaker lead. Vascular ultrasound: No findings of lower extremity deep venous thrombosis. Abdomen and pelvis CT: 1. No bowel obstruction or abnormal bowel wall thickening. Normal appendix. Moderate constipation. No free fluid or free air. No abscess collection. 2. No obstructing renal stones or hydronephrosis. Simple appearing bilateral renal cysts. Nonspecific mild bilateral perinephric fat stranding, low-grade pyelonephritis cannot be excluded. 3. Small left bladder wall diverticulum. No abnormal bladder wall thickening. 4. Nonspecific enlarged left inguinal lymph nodes as above and may be reactive in nature. 5. Tiny gallstones. No gallbladder wall thickening or pericholecystic fluid. Foot x-ray: Soft tissue swelling surrounding distal aspect of great toe. No left foot fracture or dislocation. No radiographic evidence of osteomyelitis. Labs 11/24/24 04:30 11/24/24 04:30 Labs: Laboratory Results - last 24 hr 11/23/24 11/24/24 15:43 04:30 WBC 5.9 RBC 4.70 Hgb 12.1 L Hct 36.8 L MCV 78.2 L MCH 25.7 L MCHC 32.8 RDW 18.8 H Plt Count 191 Neut % (Auto) 68.1 Lymph % (Auto) 17.3 L [place] % (Auto) 8.0 Eos % (Auto) 6.2 H Baso % (Auto) 0.4 Neut # (Auto) 4000 Lymph # (Auto) 1000 L [place] # (Auto) 500 Eos # (Auto) 400 Baso # (Auto) 0 Sodium 130 L Potassium 3.7 Chloride 99 Carbon Dioxide 26 BUN 20 Creatinine 1.02 Estimated GFR > 60 BUN/Creatinine Ratio 19.6 Glucose 148 H Calcium 8.5 Vancomycin Peak 17.0 L PFSH Medical History Right anterior knee pain Necrotic toes Diabetic toe ulcer Peripheral neuropathy (~1994) Fractures (~2004) Carpal tunnel syndrome (~1981) Plantar warts Rubella Mumps Measles Chicken pox Ruptured tympanic membrane (~1977) GERD (gastroesophageal reflux disease) (~1989) Peripheral vascular disease (~1999) Essential hypertension (09/22/16) Surgical History Status post aorto-coronary artery bypass graft Anesthesia Status post urinary system surgery (~1993) History of carpal tunnel repair (~1980) Family History Mother Heart disease Hypertension Stroke Diabetes mellitus Father No problems noted. Social History household members: spouse Smoking Status: Never smoker alcohol intake: current Assessment & Plan Assessment & Plan narrative: 1) Sepsis sceondary to L leg cellulitis and possible infected diabetic Left foot ulcer, present on admission and improving. - SOFA score > 2 with KASIA, elevated bilirubin - was on zosyn and vancomycin, urine culture also with morganella but only 30- 40K CFU unclear if represents actual infection. Discussed with pharmacy today, will change to cefepime and vancomycin. - US venous negative for DVT on L leg - seen by orthopedics, no indication for surgery for DM foot ulce in their opinion. (2) Demand ischemia (CAD with prior CABG and PAD), present on admission and improved. - elevated troponin on presentation, likely due to sepsis as noted above. No chest pain, EKG is paced. - not treated with heparin on presentation - outpatient follow up with cardiology - continue plavix and Pradaxa (3) Syncope, present on admission and resolved. - likely due to #1 above - PT / OT evaluations (4) Type 2 diabetes mellitus, chronic and stable. - continue to adjust insulin as tolerated in the hospital - poorly controlled. (5) Pacemaker due to SSS, chronic and stable. (6) Atrial fibrillation, chronic and stable. - continue home metoprolol and pradaxa (7) Essential hypertension, chronic and stable. (8) Peripheral vascular disease, chronic and stable. (9) KASIA, present on admission and improved. (10) Chronic cognitive impairment, prior CVA. Present on admission and stable. PLAN: -continue antibiotics for another night, pending improvement in pain, swelling, and general fatigue. -continue leg elevation. -hydralazine was added 25q8 for blood pressure control. Metoprolol was increased from 25-50 b.i.d. yesterday. We will increase this again tomorrow if hydralazine is not improving his pressure. CATRACHO: 11/25-. Time-Based Coding :: [TOTAL MINUTES] spent with patient and on the chart (including review of chart, obtaining history, exam, reviewing outside data, placing orders, documenting exam and treatment plan, and counseling patient) on [DATE].
--- NOTE | 2024-11-24 13:45 | OT.IP.TRT ---
Current Diagnoses Sepsis, unspecified organism (11/19/24) Type 2 diabetes mellitus with other diabetic kidney complication (11/19/24) Type 2 diabetes mellitus with foot ulcer (11/19/24) Obesity, unspecified (11/19/24) Polyneuropathy, unspecified (11/19/24) Essential (primary) hypertension (11/19/24) Non-ST elevation (NSTEMI) myocardial infarction (11/19/24) Paroxysmal atrial fibrillation (11/19/24) Peripheral vascular disease, unspecified (11/19/24) Cellulitis, unspecified (11/19/24) Non-pressure chronic ulcer of other part of unspecified foot with unspecified severity (11/19/24) Acute kidney failure, unspecified (11/19/24) Syncope and collapse (11/19/24) Severe sepsis without septic shock (11/19/24) Proteinuria, unspecified (11/19/24) Presence of cardiac pacemaker (11/19/24) Occupational Therapy Treatment Note M2 OT-IP Current Condition Start: 11/22/24 15:22 Freq: Status: Active Protocol: Document 11/22/24 15:22 [facility] (Rec: 11/22/24 15:38 [facility] Desktop) Occupational Therapy Current Condition Current Condition Evaluation Date 11/22/24 Treatment Diagnosis Sepsis, LLE cellulitis Diagnosis Onset Date 11/19/24 M3 OT- IP Subjective and Pain Start: 11/22/24 15:22 Freq: Status: Active Protocol: Document 11/24/24 14:03 [facility] (Rec: 11/24/24 14:38 [facility] Desktop) OT- Subjective Occupational Therapy Visit Type Type Treatment Note Visit Start Time 12:50 Visit Stop Time 13:45 Occupational Therapy Visit Comments Patient Comments Pt agreed to try to get up to the sink for oral care needs. Patient/Caregiver Goals TO go home. OT Pain Assessment Pain When Pain Assessed At Rest Pain Present Pain Present Pain Reported Location Right Ribs Intensity 8 Scale Used Numeric (0 - 10) M4 OT- IP ADL's Start: 11/22/24 15:22 Freq: Status: Active Protocol: Document 11/23/24 11:01 [facility] (Rec: 11/23/24 11:18 [facility] Desktop) OT HBR-Gjad-Kwvymnn General Evaluation Self-Feeding Ability Independent OT ADL-Grooming Comments OT Grooming Comments Not performed. OT ADL-Oral Care Comments Oral Care Comments Not performed. OT ADL-Dressing Comments OT Dressing Comments Not performed. OT ADL-Toileting Comments OT Toileting Comments Pt has been using the urinal on his own. OT ADL-Bathing Comments OT Bathing Comments Per nursing aid able to shower seated on his own yesterday after set-up while seated. M5 OT- IP IADL's Start: 11/22/24 15:22 Freq: Status: Active Protocol: Document 11/22/24 15:22 [facility] (Rec: 11/22/24 15:38 [facility] Desktop) OT-Instrumental Activities of Daily Living Home Safety Awareness Awareness of Need for Assistance at Home Decreased Awareness Medication Management Medication Management Comments Pt states sets up his medications on his own. Money Management Money Management Comments Pt states uses automatic payments. Meal Preparation Meal Preparation Comments At this time, best for pt to get assist. Organization Development Consultant Organization Development Consultant Comments Best for pt to have assist. Driving Driving Concerns Identified Regarding Safety M6 OT- IP Functional Cognition Start: 11/22/24 15:22 Freq: Status: Active Protocol: Document 11/24/24 14:03 [facility] (Rec: 11/24/24 14:38 [facility] Desktop) Cognitive Factors Limiting Selfcare Function Cognitive Ability Level of Alertness Alert Ability to Follow Commands Able to Follow One Step Commands Memory Description Short Term Impaired Cognitive Comments Cognitive Assessment Comments Pt having more difficulty to initiate movements and process . Pt states just not feeling well today. CAlled pt's back and she is well aware that pt is not safe but that he is insistent of his needs. Pt's agreed that pt should not be driving and brought up the subject that pt has a gun but she does not feel that he is suicidal, but maybe a bit depressed. Suggested that they have a family intervention and also talk to his PCP to best determine what is best for the pt. Pt's wanting him to come to [place] to live, but he is wanting to stay in [place]. M7 OT- IP Mobility and Balance Start: 11/22/24 15:22 Freq: Status: Active Protocol: Document 11/24/24 14:03 [facility] (Rec: 11/24/24 14:38 [facility] Desktop) OT- Bed Mobility Assessment Supine to Sit Supine to Sit Assist Contact Guard Assistance, Bedrails OT-Transfer Assessment Sit to and From Stand Sit to and from Stand Minimal Assistance Comments Mobility Comments Pt's BP supine 150/64, sitting 153/65, and standing 172/61. Pt not feeling well and wanting to get back to bed. Pt needing more assist today. Notified nursing aid that pt will be needing more assist. OT- Balance Assessment Sitting Balance and Reactions Static Sitting Balance Ability Good Dynamic Sitting Balance Ability Good Standing Balance and Reactions Static Standing Balance Ability Fair M8 OT- IP Objective Assessments Start: 11/22/24 15:22 Freq: Status: Active Protocol: Document 11/22/24 15:22 [facility] (Rec: 11/22/24 15:38 [facility] Desktop) OT Gross Range of Motion Upper Extremity Range of Motion Assessment Within Functional Limits OT Strength Upper Extremity Strength Assessment Within Functional Limits Comments Strength Comments RUE 4/5, LUE 4+/5 to 4/5 M9 OT- IP Assessment and Plan Start: 11/22/24 15:22 Freq: Status: Active Protocol: Document 11/24/24 14:03 [facility] (Rec: 11/24/24 14:38 [facility] Desktop) OT Summary Assessment and Plan Potential Rehabilitation Potential Good Analytic Complexity at Evaluation Moderate Summary OT Impairments Pain,Strength,Balance, Functional Cognition, Functional Mobility,Grooming, Dressing,Toileting,Bathing, Toilet Transfers,Shower Transfers,Activity Tolerance Progress Towards Goals Slow Progress due to Medical Issues,Slow Progress due to Activity Tolerance Assessment Summary Pt is more pain today and needing more assist to stand. Pt complaining of right rib pain. Pt at this time would best benefit from 24/7 available assist at home versus skilled rehab. Goals Dressing Goal Independent Toilet Transfer Goal Independent Shower Transfer Goal Independent Days to Meet Goals 10 Frequency of Treatment Other frequency 5x/week Treatment Plan OT Treatment Plan ADL Training,Functional Mobility,Patient/Family Education,Discharge Planning Discharge Recommendations OT Discharge Recommendations Home with Assistance,Home Health,SNF Rehab,Home vs SNF Transportation Needs at Discharge Private Vehicle
--- NOTE | 2024-11-24 13:52 | PT-IP ANOTE ---
Pt refused PT today, stating he does not have the energy to participate.
[2024-11-24] MEDS: OXYCODONE IR 5 MG TABLET PO (18:19)
[2024-11-25] MEDS: CEFEPIME 2 GM in SODIUM CHLORIDE 0.9% 100 ML IV (01:07)
[2024-11-25] MEDS: OXYCODONE IR 5 MG TABLET PO (01:38)
[2024-11-25 04:00] VITALS: BP 140/76; PULSE 88; RESP 19; TEMP 36.6; O2SAT 96
[2024-11-25] MEDS: PANTOPRAZOLE DR 20 MG TABLET PO (06:40)
[2024-11-25 08:00] VITALS: BP 189/80; PULSE 60; RESP 18
[2024-11-25] MEDS: INSULIN LISPRO 100 UNIT/ML 3ML VIAL SUBCUT ×2 (08:34)
[2024-11-25 08:35] VITALS: BP 189/80; PULSE 60
[2024-11-25] MEDS: hydrALAZINE 25 MG TABLET PO (08:35)
[2024-11-25] MEDS: TAMSULOSIN 0.4 MG CAPSULE PO (08:35)
[2024-11-25] MEDS: CLOPIDOGREL 75 MG TABLET PO (08:35)
[2024-11-25] MEDS: DONEPEZIL 5 MG TABLET PO (08:35)
[2024-11-25] MEDS: INSULIN GLARGINE 100 UNIT/ML 3ML PEN 12 UNIT SUBCUT (08:35)
[2024-11-25] MEDS: LOSARTAN 25 MG TABLET 50 MG PO (08:35)
[2024-11-25 08:36] VITALS: BP 189/60; PULSE 60
[2024-11-25] MEDS: ATORVASTATIN 20 MG TABLET 80 MG PO (08:36)
[2024-11-25] MEDS: SODIUM CHLORIDE 0.9% FLUSH 10 ML IV (08:36)
[2024-11-25] MEDS: METOPROLOL ER 25 MG TABLET 50 MG PO (08:36)
[2024-11-25] MEDS: DABIGATRAN 75 MG CAPSULE 150 MG PO (08:36)
[2024-11-25] MEDS: VANCOMYCIN TROUGH 1 REQUEST MISC (08:36)
[2024-11-25] MEDS: ACETAMINOPHEN 325 MG TABLET 650 MG PO (09:06)
--- NOTE | 2024-11-25 09:14 | OT.IPNOTE ---
Pt not wanting to shower if OT is present. Nursing aid agreed to check on pt is still wanting to shower later. Pt has discharge orders today.
--- NOTE | 2024-11-25 11:01 | PC.NURSE ---
Day shift: Pt A&Ox4 but forgetful. States he does not use insulin or oral diabetes medications at home. Pt reports, I want to go home but I don't trust this doctor [Dr. Escobar]. Pt provided contact to discharge planning/social work. Pt declining to discuss this concern with the team, reports I just want to go. Pt offered shower with assist, pt declined with this RN and OT. Education provided to pt on discharge plan and home medications. Pt reports he does not use his prescribed medications at home but then stated he did. Education provided to pt on stroke s/s, follow up, wound care referral, wound care, and new medications. Pt declined to sign discharge signature from discharge packet. Pt educated on purpose of this item in discharge but pt continued to decline. IV's discontinued. Pt assisted in dressing. Pt wheeled to taxi by PCT at approximately 1055.
--- NOTE | 2024-11-25 12:44 | PM.DS.IH.1 ---
History of Present Illness History of Present Illness Date Patient Seen: 11/25/24 Time Patient Seen: 08:00 Chief complaint: Fall, High Sugar, Altered Narrative: 74 y/o with PMH of A-fib, SSS, PPM, PAD, CAD, DM, diabetic neuropathy, HTN, GERD, enlarged prostate, recent TIA for which he was observed at [facility], memory loss - likely mild dementia, who was found down. From the ED: is a physician currently in [place] called to check on him. He did not answer at which point she called a neighbor to check on him. Patient found supine on the bedroom floor no pedal urine confusion with hypotension and hyperglycemia. Patient reports that he threw up last night he is not sure how he ended up on the floor. He has no real pain. Stomach is soft he has good strength. On admission, his only complaint is generalized weakness. BP elevated. Multiple leg skin sores and Lt great toe diabetic ulcer. ED workup: WBC 11.1 with left shift no anemia Lactate 7.6-->3.3 VBG pH 7.46, anion gap 20 Sodium 128 potassium 3.8 chloride 89 carbon dioxide 19 BUN 22 creatinine 1.39 glucose 379 Troponin 0.153-->0.176-->0.161 cpk 406 ESR 20 previously 13, CRP 39.8 Images, CTH, CTA, CTCS, CXR non-diagnostic. Admitted to telemetry with sepsis and NSTEMI Discharge Providers Provider Date of admission: 11/19/24 19:34 Discharge Date: 11/25/24 Primary care physician: Laura Renee MD Consults: 11/22/24 10:29 Consult to Occupational Therapy Evaluate & Treat Comment: Physician Instructions: Evaluate and treat Consult to Physical Therapy Evaluate & Treat Comment: Physician Instructions: Evaluate and Treat Discharge provider: Humble Escobar MD Summary Hospital Course Discharge Diagnosis: 1. Sepsis secondary to left leg cellulitis and possible infected diabetic left foot ulcer. 2. Demand ischemia (CAD with prior CABG and PAD). 3. Syncope due to 1 and 2, resolved. 4. KASIA due to 1, resolved. 5. Type 2 diabetes mellitus. 6. Pacemaker due to SSS. 7. Atrial fibrillation, chronic. 8. Essential hypertension. 9. Peripheral vascular disease. Hospital Course: The patient was admitted and treated with broad-spectrum IV antibiotics with Zosyn and vancomycin, changed to cefepime and vancomycin as urine also cultured Morganella 30-40 K CFU, appropriately treated on antibiotics, and uncertain if representing actual infection. He had a sofa score greater than 2 with acute kidney injury and elevated bilirubin consistent with sepsis. Ultrasound was negative for DVT of the left leg. He was seen by Orthopedics with no indication for surgery for diabetic foot ulcer recommended. Troponin was mildly elevated on presentation felt to be due to demand ischemia due to underlying sepsis. The patient remained asymptomatic without chest pain, with outpatient follow up with Cardiology on medication management advised. He was able to get up and walk with physical therapy without lightheadedness or further will syncopal episodes. His other medical issues remained stable during hospitalization. He was interested in discharge home. He was adamant that he would not go to a nursing facility and also that he would not accept home health into his residence. His wishes were respected and the patient discharged home with close outpatient follow-up recommended. Team rounds were conducted with case management, social insurance specialist, Physical therapy and Occupational therapy. Status at Discharge Cognitive/behavioral status at discharge: oriented Functional status at discharge: uses cane/walker Overall status at discharge: patient is progressing back to baseline Time Spent with Patient Time spent: Greater than 30 minutes Exam Vital Signs (past 8 hours): - 11/25/24 08:00 11/25/24 08:35 11/25/24 08:35 Pulse Rate 60 60 60 Respiratory Rate 18 Blood Pressure 189/80 H 189/80 H 189/80 H 11/25/24 08:36 Pulse Rate 60 Respiratory Rate Blood Pressure 189/60 H Fraction of Inspired Oxygen 28 SaO2/FiO2 Ratio 342 Oxygen Delivery Method Room Air Oxygen Flow Rate 0 Narrative Exam Narrative: NAD, alert and oriented. Fluent speech. Lungs are clear, normal rate and effort. Heart is regular, no murmur gallop or rub. Abdomen is soft, non distended. Extremities: Left leg is nontender without erythema, with only mild residual swelling; left great toe with nontender 1cm medial toe tip ulceration, no erythema or discharge, sensation intact to light touch, 2-3 second capillary refill. Objective Imaging Multiple studies:: Radiologist's impression: Echo: Interpretation Summary Patient did not want contrast. The left ventricle is normal in size. The ejection fraction is estimated to be 50-55%. Previous LVEF reported to be 60 to 65%. The right ventricle is mildly dilated. Visually RV function appears to be preserved. No significant valvular pathology seen. Doppler profile across pulmonary valve suggests pulmonary hypertension. Pulmonary artery pressures cannot be estimated because of the lack of a measurable TR jet velocity but the IVC suggests a CVP of around 15 mmHg. I do not see any obvious RV pacemaker lead. Vascular ultrasound: No findings of lower extremity deep venous thrombosis. Abdomen and pelvis CT: 1. No bowel obstruction or abnormal bowel wall thickening. Normal appendix. Moderate constipation. No free fluid or free air. No abscess collection. 2. No obstructing renal stones or hydronephrosis. Simple appearing bilateral renal cysts. Nonspecific mild bilateral perinephric fat stranding, low-grade pyelonephritis cannot be excluded. 3. Small left bladder wall diverticulum. No abnormal bladder wall thickening. 4. Nonspecific enlarged left inguinal lymph nodes as above and may be reactive in nature. 5. Tiny gallstones. No gallbladder wall thickening or pericholecystic fluid. Foot x-ray: Soft tissue swelling surrounding distal aspect of great toe. No left foot fracture or dislocation. No radiographic evidence of osteomyelitis. Labs 11/24/24 04:30 11/24/24 04:30 Labs: Laboratory Results - last 24 hr 11/25/24 08:27 Vancomycin Trough 18.0 PFSH Medical History Carpal tunnel syndrome (~1981) Chicken pox Diabetic toe ulcer Essential hypertension (09/22/16) Fractures (~2004) GERD (gastroesophageal reflux disease) (~1989) Measles Mumps Necrotic toes Peripheral neuropathy (~1994) Peripheral vascular disease (~1999) Plantar warts Right anterior knee pain Rubella Ruptured tympanic membrane (~1977) Surgical History Anesthesia History of carpal tunnel repair (~1980) Status post aorto-coronary artery bypass graft Status post urinary system surgery (~1993) Family History Mother Heart disease Hypertension Stroke Diabetes mellitus Father No problems noted. Social History household members: spouse Smoking Status: Never smoker alcohol intake: current Discharge Plan Discharge Plan Patient Disposition: Home Health Service Provider Discharge Comment: Followup with Dr. Laura Renee 1 week; outpatient wound care referral Discharge orders & Medications Prescriptions: New metoprolol succinate 25 mg Tablet Extended Release 24 Hr 50 mg PO BID Qty: 60 0RF cefdinir 300 mg capsule 300 mg PO BID Qty: 14 0RF Continued tamsulosin [Flomax] 0.4 mg capsule 0.4 mg PO DAILY (DME) OneTouch Ultra Blue Test Strip Strip See Rx Instructions .ROUTE .MEDSUPPLY Qty: 100 2RF Rx Instructions: Use to check blood sugars twice daily (DME) lancets [OneTouch Delica Lancets] 30 gauge misc See Rx Instructions .ROUTE .MEDSUPPLY Qty: 100 2RF Rx Instructions: Use to check blood sugars twice daily acetaminophen [Tylenol] 325 mg Tablet 1 dose PO PRN PRN (Reason: pain) metformin 1,000 mg tablet 1,000 mg PO BID losartan 25 mg tablet 25 mg PO BID omeprazole 20 mg capsule,delayed release(DR/EC) 20 mg PO BID glipizide 5 mg tablet 5 mg PO BID oxycodone 5 mg tablet 5 mg PO DAILY PRN (Reason: Pain (Scale Score 1-3)) Rx Instructions: for back pain dabigatran etexilate [Pradaxa] 150 mg capsule 150 mg PO BID Jardiance 25 mg tablet 25 mg PO QAM Rx Instructions: thursday clopidogrel 75 mg Tablet 75 mg PO DAILY Qty: 30 2RF donepezil 5 mg tablet 5 mg PO DAILY rosuvastatin 40 mg tablet 40 mg PO DAILY Discontinued metoprolol tartrate 25 mg tablet 25 mg PO DAILY Follow up/Referrals: Laura Renee MD [Primary Care Provider] - Visit Report/Discharge Packet Stand Alone Forms: Patient Portal/API, Stroke Signs & Symptoms Discharge Data Primary Care Provider: Laura Renee Quality MIPS - Admit I confirm the patient?s Advance Care Plan is present, Code status is documented, Surrogate decision maker is in patient?s record [If Yes, STOP here]: Yes MIPS - Meds 'Current medications' to include all prescriptions, ehrd-[id number] products, herbals, cannabis/cannabidiol products, and vitamin/mineral/dietary (nutritional) supplements. I have utilized all available resources to obtain, update, or review the patient?s current medications. [If Yes, STOP here]: Yes MIPS - DC The patient has a history of heart transplant or Left Ventricular Assist Device (LVAD). If yes, STOP here.: No The patient has current or prior documentation of left ventricular ejection fraction (LVEF) less than or equal to 40%, or moderate or severely depressed left ventricular systolic function.: No A. The patient was prescribed or already taking an Angiotensin-Converting Enzyme (RAVI) Inhibitor, or Angiotensin Receptor Latasha (ARB).: Yes B. The patient was prescribed or already taking a beta-latasha. [If Yes to Both A & B, STOP here]: Yes Patient not prescribed/taking RAVI or ARB, no reason given.: No Patient not prescribed/taking beta-latasha, no reason given.: No PROFEE Charge Codes Discharge inpatient/observation: [id number]
--- NOTE | 2024-11-25 14:18 | CM.DPNOTE ---
DC Note According to Dr Escobar, patient medically ready for discharge and agreeable to plan. Met w.patient this morning to review DCP. Patient is emotionally labile, admits that since his stroke this stuff (referring likely to reasoning, problem solving, dialing on phone) is difficult. Discussed recommendation for short SNF stay and patient remains adamantly against this option. Discussed services, patient also refuses. Asked if spouse Fidelia was aware patient had been discharged and patient states why would that matter?. Discussed transportation options and patient reports he has no wallet and no friends or family that can give him a ride. 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 Patient became increasingly agitated with staff and demanded to go home. [facility] was arranged for pickers material handlers within minutes. [employer] was used $15 for [employer] to get patient home. Voucher completed, signed and left for dept manager therapy. Placed call to spouse Fidelia P [phone], updated that patient was on his way home. Fidelia reports difficulty in getting patient to agree to services. Emailed Fidelia an electronic copy of the [facility] senior resources booklet to [email or web address]. Plan: Discharge home via [employer] taxi, hospital voucher. Updated PCP's office. JEFF
== END 2024-11-25 10:55 | disposition home or self-care (01) | DRG 872 ==
LOC: ED 18:06 → AC 19:45
PROVIDERS: Internal Medicine; Admitting Provider Internal Medicine; Emergency Provider Emergency Medicine; PCP Internal Medicine; Referring Provider Emergency Medicine; Visit Provider Internal Medicine
DX: A41.9 Sepsis, unspecified organism (principal); N17.9 Acute kidney failure, unspecified; I24.89 Other forms of acute ischemic heart disease; L03.116 Cellulitis of left lower limb; I48.20 Chronic atrial fibrillation, unspecified; R65.20 Severe sepsis without septic shock; I10 Essential (primary) hypertension; I73.9 Peripheral vascular disease, unspecified; R55 Syncope and collapse; I25.10 Atherosclerotic heart disease of native coronary artery without angina pectoris; I49.5 Sick sinus syndrome; N40.0 Benign prostatic hyperplasia without lower urinary tract symptoms; K21.9 Gastro-esophageal reflux disease without esophagitis; E11.621 Type 2 diabetes mellitus with foot ulcer; L97.529 Non-pressure chronic ulcer of other part of left foot with unspecified severity; E11.29 Type 2 diabetes mellitus with other diabetic kidney complication; R80.9 Proteinuria, unspecified; E11.42 Type 2 diabetes mellitus with diabetic polyneuropathy; F03.A0 Unspecified dementia, mild, without behavioral disturbance, psychotic disturbance, mood disturbance, and anxiety; E11.65 Type 2 diabetes mellitus with hyperglycemia; I69.319 Unspecified symptoms and signs involving cognitive functions following cerebral infarction; Z95.0 Presence of cardiac pacemaker; Z91.199 Patient's noncompliance with other medical treatment and regimen due to unspecified reason; Z95.1 Presence of aortocoronary bypass graft; Z79.84 Long term (current) use of oral hypoglycemic drugs; Z79.01 Long term (current) use of anticoagulants
CPT/HCPCS: 36415; 70450; 71045; 72125; 73630; 74177; 80048; 80053; 80076; 80202; 81001; 81003; 82140; 82550; 82805; 82962; 83036; 83605; 83615; 83690; 84145; 84484; 85025; 85610; 85651; 85730; 86140; 87040; 87077; 87086; 87186; 87633; 93005; 93010; 93306; 93971; 96361; 96365; 97116; 97129; 97162; 97166; 97530; 99284; 99285; J0692; J1815; J2543; Q9967

== ENCOUNTER 2024-12-02 08:50 | Emergency (ER) | payer OTHER, SELFPAY ==
[2024-12-02 08:50] VITALS: BMI 31.1
[2024-12-02 09:01] VITALS: BP 186/92; PULSE 62; RESP 13; TEMP 36.6; O2SAT 98; BMI 31.9
--- NOTE | 2024-12-02 09:28 | ED.GENADULT ---
HPI - General Adult General Chief complaint: Hypertension Stated complaint: Elevated BP Time Seen by Provider: 12/02/24 09:19 Source: patient Mode of arrival: Ambulatory History of Present Illness HPI narrative: Patient here for questions regarding blood pressure medication he had while he was admitted here for leg infection. He was discharge on his losartan and metoprolol which were both increased in dosing twice a day. However while he was here he states he had blood pressure that was better managed on a 3rd medication. He denies denies any chest pain shortness of breath headache numbness tingling or weakness. Blood pressure noted. He went to walk-in clinic prior to arrival here and they directed him here. There was not a blood pressure medication added to his discharge from the hospital. His knee wound is healing very well. He was discharged on 1 week of cefdinir. I will extended for 2 more days for assurance of healing. Related Data Home Medications Medication Instructions Recorded Confirmed acetaminophen 325 mg tablet 1 dose PO PRN PRN pain 01/21/19 11/19/24 (Tylenol) tamsulosin 0.4 mg capsule (Flomax) 0.4 mg PO DAILY 11/23/23 11/19/24 dabigatran etexilate 150 mg 150 mg PO BID 05/16/24 11/19/24 capsule (Pradaxa) empagliflozin 25 mg tablet 25 mg PO QAM 05/16/24 11/19/24 (Jardiance) glipizide 5 mg tablet 5 mg PO BID 05/16/24 11/19/24 losartan 25 mg tablet 25 mg PO BID 05/16/24 11/19/24 metformin 1,000 mg tablet 1,000 mg PO BID 05/16/24 11/19/24 omeprazole 20 mg capsule,delayed 20 mg PO BID 05/16/24 11/19/24 release oxycodone 5 mg tablet 5 mg PO DAILY PRN Pain (Scale 05/16/24 11/19/24 Score 1-3) donepezil 5 mg tablet 5 mg PO DAILY 11/19/24 11/19/24 rosuvastatin 40 mg tablet 40 mg PO DAILY 11/19/24 11/19/24 pantoprazole 20 mg tablet,delayed 20 mg PO DAILY 12/02/24 12/02/24 release Previous Rx's Medication Instructions Recorded blood sugar diagnostic ([facility] [employer] #100 ea 05/03/20 Ultra Blue Test Strip) lancets 30 gauge ([employer] Delica #100 ea 05/24/20 Lancets) clopidogrel 75 mg tablet 75 mg PO DAILY #30 tabs 05/17/24 cefdinir 300 mg capsule 300 mg PO BID #14 caps 11/25/24 metoprolol succinate 25 mg 50 mg (2 x 25 mg) PO BID #60 tabs 11/25/24 tablet,extended release 24 hr cefdinir 300 mg capsule 300 mg PO BID #4 caps 12/02/24 hydralazine 25 mg tablet 25 mg PO TID #21 tabs 12/02/24 Allergies Allergy/AdvReac Type Severity Reaction Status Date / Time levofloxacin [From Levaquin] AdvReac Severe Kidneys Verified 12/02/24 09:09 took a dive, afib, joint pain lisinopril [LISINOPRIL] AdvReac Unknown cough Verified 12/02/24 09:09 Review of Systems Review of Systems Narrative: GENERAL: Negative chills, fatigue, malaise, fever, sweats. HEENT: Negative sinus pain, ear pain, sore throat RESPIRATORY: Negative dyspnea, cough CARDIOVASCULAR: Negative chest pain, palpitations GASTROINTESTINAL: Negative vomiting, nausea, abdominal pain : Negative dysuria, frequency, hematuria MUSCULOSKELETAL: Negative muscle or bony pain SKIN: Negative rash, skin lesions NEUROLOGIC: Negative weakness, numbness ROS Unobtainable: All systems reviewed & are unremarkable except as noted in HPI and below Patient History Medical History Carpal tunnel syndrome (~1981) Chicken pox Diabetic toe ulcer Essential hypertension (09/22/16) Fractures (~2004) GERD (gastroesophageal reflux disease) (~1989) Measles Mumps Necrotic toes Peripheral neuropathy (~1994) Peripheral vascular disease (~1999) Plantar warts Right anterior knee pain Rubella Ruptured tympanic membrane (~1977) Surgical History Anesthesia History of carpal tunnel repair (~1980) Status post aorto-coronary artery bypass graft Status post urinary system surgery (~1993) Family History Mother Heart disease Hypertension Stroke Diabetes mellitus Father No problems noted. Social History household members: spouse Smoking Status: Unknown if ever smoked alcohol intake: current Smoking Status: Unknown if ever smoked alcohol intake frequency: holidays/special occasions only Exam Narrative Exam Narrative: GENERAL: in no distress, not toxic not dyspneic HEAD: Normocephalic. EYES: Pupils equal round ENT: Mucous membranes moist. NECK: Trachea midline. CARDIOVASCULAR: Regular rate and rhythm RESPIRATORY: Clear to auscultation. Breath sounds equal bilaterally. No wheezes, rales, or rhonchi. GASTROINTESTINAL: Abdomen soft, non-tender EXTREMITIES: No gross deformities. Examination of the left knee clean dry intact overlying scab nontender no oozing no redness. Nontender left knee. BACK: No flank tenderness. NEURO: AOx4. Clear speech SKIN: Warm and dry PSYCH: Not anxious, is cooperative Initial Vital Signs Initial Vital Signs: Vital Signs Temperature 97.9 F 12/02/24 09:01 Pulse Rate 62 12/02/24 09:01 Respiratory Rate 13 12/02/24 09:01 Blood Pressure 186/92 H 12/02/24 09:01 Pulse Oximetry 98 12/02/24 09:01 Oxygen Delivery Method Room Air 12/02/24 09:01 Course Vital Signs Vital signs: Vital Signs - 8 hr 12/02/24 09:01 12/02/24 09:42 Temperature 97.9 F Pulse Rate 62 Respiratory Rate 13 Blood Pressure 186/92 H 196/90 H Pulse Oximetry 98 Oxygen Delivery Method Room Air Medical Decision Making [facility] Narrative Medical decision making narrative: Patient here for questions regarding blood pressure medication he had while he was admitted here for leg infection. He was discharge on his losartan and metoprolol which were both increased in dosing twice a day. However while he was here he states he had blood pressure that was better managed on a 3rd medication. He denies denies any chest pain shortness of breath headache numbness tingling or weakness. Blood pressure noted. He went to walk-in clinic prior to arrival here and they directed him here. There was not a blood pressure medication added to his discharge from the hospital. His knee wound is healing very well. He was discharged on 1 week of cefdinir. I will extended for 2 more days for assurance of healing. After history and exam, no blood work EKG or imaging indicated this time. Patient just here for medication inquiry. MDM Medical records reviewed: Discharge summary progress note during course of stay middle of this month. Differential considered: Includes but not limited to hypertension Consultations: 9:[address] Junior, hospitalist, he took care patient will here. He recommends placing patient hydralazine 25 mg Q 8 hours. Re-evaluations: 9:40 a.m.. Reviewed patient medication adjustment and recommendations by hospitalist. He agrees. Discussion: Appropriate for discharge home exam is reassuring. No blood work or EKG or imaging indicated this time. Patient here for medication and coronary, review of patient's blood pressure today. It is similar to his course of stay during hospitalization middle of this month. This is not new. Patient is asymptomatic. Diagnosis: Hypertension/medication refill Discharge Plan Departure Patient Disposition: Home Clinical Impression: Essential hypertension, Encounter for medication refill Instructions: DI for High Blood Pressure Activity Restrictions/Additional Instructions: Hospitalist was contacted today regarding the medication you were given while here, his hydralazine. 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 Short extension of your cefdinir has been provided for you as well. Return if worse if any questions. Please see your family doctor next week to re-evaluate for your blood pressure. Prescriptions: New cefdinir 300 mg capsule 300 mg PO BID Qty: 4 0RF hydralazine 25 mg tablet 25 mg PO TID Qty: 21 0RF No Action pantoprazole 20 mg tablet,delayed release (DR/EC) 20 mg PO DAILY tamsulosin [Flomax] 0.4 mg capsule 0.4 mg PO DAILY (DME) OneTouch Ultra Blue Test Strip Strip See Rx Instructions .ROUTE .MEDSUPPLY Qty: 100 2RF Rx Instructions: Use to check blood sugars twice daily (DME) lancets [OneTouch Delica Lancets] 30 gauge misc See Rx Instructions .ROUTE .MEDSUPPLY Qty: 100 2RF Rx Instructions: Use to check blood sugars twice daily acetaminophen [Tylenol] 325 mg Tablet 1 dose PO PRN PRN (Reason: pain) metformin 1,000 mg tablet 1,000 mg PO BID losartan 25 mg tablet 25 mg PO BID omeprazole 20 mg capsule,delayed release(DR/EC) 20 mg PO BID glipizide 5 mg tablet 5 mg PO BID oxycodone 5 mg tablet 5 mg PO DAILY PRN (Reason: Pain (Scale Score 1-3)) Rx Instructions: for back pain dabigatran etexilate [Pradaxa] 150 mg capsule 150 mg PO BID Jardiance 25 mg tablet 25 mg PO QAM Rx Instructions: thursday clopidogrel 75 mg Tablet 75 mg PO DAILY Qty: 30 2RF donepezil 5 mg tablet 5 mg PO DAILY rosuvastatin 40 mg tablet 40 mg PO DAILY metoprolol succinate 25 mg Tablet Extended Release 24 Hr 50 mg PO BID Qty: 60 0RF cefdinir 300 mg capsule 300 mg PO BID Qty: 14 0RF Referrals: Laura Renee MD [Primary Care Provider] - Stand Alone Forms: Patient Portal/API/Survey
[2024-12-02 09:42] VITALS: BP 196/90
== END 2024-12-02 09:42 | disposition home or self-care (01) ==
PROVIDERS: Emergency Provider Emergency Medicine; PCP Internal Medicine
DX: I10 Essential (primary) hypertension (principal); Z76.0 Encounter for issue of repeat prescription
CPT/HCPCS: 99281

== ENCOUNTER → 2025-05-22 08:01 | Outpatient (CLI) | payer OTHER, SELFPAY | PROVIDERS: PCP Internal Medicine; Visit Provider Nurse Practitioner Family | DX: R30.0 Dysuria (principal) | CPT/HCPCS: 87086 ==